=== PATIENT | female | born 1955 | race Caucasian/White ===

== ENCOUNTER 2022-12-05 12:52 | Outpatient (CLI) | payer MEDICARE | END 2022-12-05 12:53 | disposition critical access hospital (66) | LOC: EMS 12:52 | DX: R53.81 Other malaise (principal); R63.8 Other symptoms and signs concerning food and fluid intake; R11.0 Nausea; R68.83 Chills (without fever); R53.1 Weakness | CPT/HCPCS: A0425; A0427 ==

== ENCOUNTER 2022-12-05 13:14 | Emergency (ER) | payer MEDICARE ==
[2022-12-05] MEDS ORDERED: SODIUM CHLORIDE 0.9% 1,000 ML IV STA (13:29)
--- NOTE | 2022-12-05 13:32 | ED Physician Documentation ---
History of Present Illness - Stated complaint Stated Complaint: FLU LIKE SYMP - Additonal information Additional information: History provided by patient. Dg historian. 67-year-old female who has a history of coronary artery disease as well as type 1 diabetes presents to the emergency department for evaluation of 3 days flulike symptoms. She states she has had persistent diaphoresis, body shakes and chills though no recorded fevers. She has had no nausea or vomiting. Denies chest pain or shortness of air. No diarrhea. She states that she feels very poor. She incidentally reports asymptomatic COVID-19 infection 3 weeks ago. She is vaccinated for COVID 19. I am typically she was on an insulin pump for her diabetes receiving a basal rate of Humalog 26 units daily. However about 4 weeks ago because she ran out of supplies for the pump and could not get refills with her pcp, she had to transition to twice daily Lantus 15 units. On presentation the patient is alert to though appears as though she does not feel well. At baseline she has a an intention tremor of both her upper extremities. 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 No: Well developed/nourished - Cardiac Cardiac: Regular Rate, Radial strong equal, Pedal strong equal, Cap refill < 2 sec. No: Murmur Present - Respiratory Respiratory: Clear to ausultation mello. No: Distress, Labored - Abdomen Abdomen: Normal Bowel sounds. No: Tender to palpation - Extremities Extremities: Normal - Neuro Neuro: Alert and Oriented X 3, CNII-XII intact, Other (tremor BUE) - GCS Eye Opening: Spontaneous Motor: Obeys Commands Verbal: Oriented Total: 15 Results - Vitals Vitals: Vital Signs - 24 hr 12/05/22 12/05/22 13:20 13:37 Temperature 36.8 C Heart Rate 109 H 106 H Respiratory 20 14 Rate Blood Pressure 155/117 H 151/107 H O2 Saturation 100 100 Oxygen O2 Source Room air - Labs Labs: Laboratory Tests 12/05/22 12/05/22 12/05/22 13:27 13:37 13:37 WBC 7.1 RBC 5.26 Hgb 15.7 Hct 47.8 H MCV 90.9 MCH 29.8 MCHC 32.8 RDW 12.5 Plt Count 321 MPV 11.3 H Neut # (Auto) 4.5 Lymph # (Auto) 2.0 Casey # (Auto) 0.5 Eos # (Auto) 0.1 Baso # (Auto) 0.1 Absolute Nucleated RBC 0.00 Nucleated RBC % 0.0 VBG pH VBG pCO2 VBG pO2 VBG HCO3 VBG Total CO2 VBG O2 Saturation VBG Base Excess Sodium 139 Potassium 3.3 L Chloride 98 L Carbon Dioxide 23 Anion Gap 18.0 H BUN 13 Creatinine 1.3 H Estimated GFR (MDRD) 41 L Glucose 119 H Calcium 9.8 Total Bilirubin 1.1 H AST 28 ALT 24 Alkaline Phosphatase 89 Total Protein 8.0 Albumin 4.2 Globulin 3.8 Albumin/Globulin Ratio 1.1 Lipase 24 Urine Color Urine Clarity Urine pH Ur Specific [place] Urine Protein Urine Glucose (UA) Urine Ketones Urine Occult Blood Urine Nitrite Urine Bilirubin Urine Urobilinogen Ur Leukocyte Esterase Urine RBC Urine WBC Ur Squamous Epith Cells Urine Bacteria Ur Microscopic Review Urine Culture Comments Nasal Adenovirus (PCR) NOT DETECTED Nasal B. parapertussis DNA (PCR) NOT DETECTED Nasal Coronavir 229E PCR NOT DETECTED Nasal Coronavir HKU1 PCR NOT DETECTED Nasal Coronavir NL63 PCR NOT DETECTED Nasal Coronavir OC43 PCR NOT DETECTED Nasal Enterovir/Rhinovir PCR NOT DETECTED Nasal Influenza B PCR NOT DETECTED Nasal Influenza A PCR NOT DETECTED Nasal Parainfluen 1 PCR NOT DETECTED Nasal Parainfluen 2 PCR NOT DETECTED Nasal Parainfluen 3 PCR NOT DETECTED Nasal Parainfluen 4 PCR NOT DETECTED Nasal RSV (PCR) NOT DETECTED Nasal B.pertussis DNA PCR NOT DETECTED Nasal C.pneumoniae (PCR) NOT DETECTED Sarbjit Human Metapneumo PCR NOT DETECTED Nasal M.pneumoniae (PCR) NOT DETECTED Nasal SARS-CoV-2 (PCR) NOT DETECTED Serum Ketones SMALL H 12/05/22 12/05/22 13:37 14:09 WBC RBC Hgb Hct MCV MCH MCHC RDW Plt Count MPV Neut # (Auto) Lymph # (Auto) Casey # (Auto) Eos # (Auto) Baso # (Auto) Absolute Nucleated RBC Nucleated RBC % VBG pH 7.458 H VBG pCO2 40.9 L VBG pO2 < 19.0 L VBG HCO3 28.3 H VBG Total CO2 29.6 H VBG O2 Saturation 36.3 L VBG Base Excess 4.1 H Sodium Potassium Chloride Carbon Dioxide Anion Gap BUN Creatinine Estimated GFR (MDRD) Glucose Calcium Total Bilirubin AST ALT Alkaline Phosphatase Total Protein Albumin Globulin Albumin/Globulin Ratio Lipase Urine Color DARK YELLOW Urine Clarity SL. CLOUDY Urine pH 6.0 Ur Specific [place] >=1.030 H Urine Protein 30 H Urine Glucose (UA) NEGATIVE Urine Ketones 15 H Urine Occult Blood TRACE-INTA Urine Nitrite NEGATIVE Urine Bilirubin NEGATIVE Urine Urobilinogen 0.2 (NORMAL) Ur Leukocyte Esterase MODERATE H Urine RBC 6-10 H Urine WBC >25 H Ur Squamous Epith Cells MANY Squamous H Urine Bacteria Moderate H Ur Microscopic Review INDICATED Urine Culture Comments NOT INDICATED Nasal Adenovirus (PCR) Nasal B. parapertussis DNA (PCR) Nasal Coronavir 229E PCR Nasal Coronavir HKU1 PCR Nasal Coronavir NL63 PCR Nasal Coronavir OC43 PCR Nasal Enterovir/Rhinovir PCR Nasal Influenza B PCR Nasal Influenza A PCR Nasal Parainfluen 1 PCR Nasal Parainfluen 2 PCR Nasal Parainfluen 3 PCR Nasal Parainfluen 4 PCR Nasal RSV (PCR) Nasal B.pertussis DNA PCR Nasal C.pneumoniae (PCR) Sarbjit Human Metapneumo PCR Nasal M.pneumoniae (PCR) Nasal SARS-CoV-2 (PCR) Serum Ketones - Rads (name of study) cxr Radiology: Final report received (No acute cardiopulmonary process) PD Medical Decision Making - ED course Complexity details: reviewed results, re-evaluated patient, considered differential, d/w patient ED course: 67-year-old female presents to the emergency department for evaluation of flulike symptoms. Symptoms began 3 days ago. She has not had fevers but at home she is having rigors, chills and sweats. No measured fever at home or here. She denies chest pain or shortness of air. She is denying any abdominal pain nausea or vomiting. She just feels generally" unwell". Here in the emergency department she is alert though appears as though she does not feel good. Her cardiopulmonary auscultation was unremarkable. I elicited no abdominal tenderness. As she does have a history of diabetes I did obtain a CBC, electrolytes as well as ketones. Small amount of ketones in the blood but no acidosis. Her VBG was normal. She has no leukocytosis on CBC. Her electrolytes show a blood glucose of 119. Her potassium is mildly low. I suspect this is due to decreased p.o. intake. She did have a mildly elevated anion gap of 18, but normal Co2. her cr was 1.3. She was given a liter of IV fluids here in the emergency department. Her urinalysis is contaminated and she has no urinary symptoms. Here in the emergency department we did obtain a respiratory PCR panel that was also negative. Blood cultures x2 are pending. Here in the emergency department as she has had no hypotension. She does have mild tachycardia with a resting heart rate in the high 90s and low 100s. She appears well perfused however. At this time the cause of her flulike symptoms is not clear though I do suspect a viral illness despite the lack of findings on the PCR exam. Patient was administered a liter of IV fluid on presentation and she is reporting feeling better. At this time she will be discharged home. We discussed the usual emergent return precautions for uncontrolled abdominal pain, nausea, vomiting or failure of symptoms to resolve. Departure - Departure Disposition: 01 Home, Self Care Clinical Impression: Flu-like symptoms, History of type 1 diabetes mellitus, Hypokalemia Condition: Stable Record reviewed to determine appropriate education?: Yes Comments: Laverne fernandez came to the emergency department today because for the last few days she has been having generalized body aches, rigors and chills at home. You reported that you had COVID about 3 weeks ago. Here in the emergency department we did do a viral respiratory panel that was negative for all the viruses including influenza and COVID. Your chest x-ray was normal for age and did not show findings of pneumonia. Your urinalysis was contaminated and not consistent with infection. In addition to this you have had no urinary symptoms. We did obtain a CBC in the emergency department. You do not have any worrisome anemia or an elevated white blood cell count. Your electrolytes showed a blood glucose of 119. Your potassium was a little bit low but this is most likely due to decreased oral intake over the last few days. You are not in DKA. At this time the cause of your symptoms is not clear though I still suspect it is a virus. I would like you to stay well-hydrated at home by drinking lots of fluid or taking Pedialyte or juices. It is important you continue to check your blood sugars. If they are higher than 450 please return immediately to the ER. If you find that your symptoms are worsening over the next few days, you have uncontrolled vomiting, develop any belly pain, chest pain or shortness of air you should return immediately to the ER for a second evaluation
[2022-12-05 13:45] LABS: BASOPHILS # (AUTO) 0.1 10^3/uL (0.0-0.1); BASOPHILS % (AUTO) 0.8 %; EOSINOPHILS # (AUTO) 0.1 10^3/uL (0.0-0.7); EOSINOPHILS % (AUTO) 0.8 %; HCT - HEMATOCRIT 47.8 % (37.0-47.0); HGB - HEMOGLOBIN 15.7 g/dL (12.0-16.0); LYMPHOCYTES % (AUTO) 27.7 %; MEAN CORPUSCULAR HEMOGLOBIN 29.8 pg (27.0-31.0); MEAN CORPUSCULAR HGB CONC 32.8 g/dL (32.0-36.0); MEAN CORPUSCULAR VOLUME 90.9 fL (81.0-99.0); MEAN PLATELET VOLUME 11.3 fL (7.9-10.8); MONOCYTES # (AUTO) 0.5 10^3/uL (0.0-1.0); MONOCYTES % (AUTO) 6.5 %; NEUTROPHILS # (AUTO) 4.5 10^3/uL (1.5-6.6); NEUTROPHILS % (AUTO) 63.8 %; PLT - PLATELET COUNT 321 10^3/uL (130-450); RED BLOOD COUNT 5.26 10^6/uL (4.20-5.40); RED CELL DISTRIBUTION WIDTH 12.5 % (12.0-15.0); WHITE BLOOD COUNT 7.1 x10^3/uL (4.8-10.8)
[2022-12-05] MEDS ORDERED: ONDANSETRON 4 MG/2 ML VIAL IVP STA (13:45)
[2022-12-05 13:52] LABS: KETONES, SERUM (ACETEST) SMALL (NEGATIVE)
[2022-12-05 14:01] LABS: ALBUMIN 4.2 g/dL (3.2-5.5); ALBUMIN/GLOBULIN RATIO 1.1 (1.0-2.2); ALKALINE PHOSPHATASE 89 IU/L (42-121); ALT ALANINE AMINOTRANSFERASE 24 IU/L (10-60); AST ASPARTATE AMINOTRANSFERASE 28 IU/L (10-42); BILIRUBIN,TOTAL 1.1 mg/dL (0.2-1.0); BUN - BLOOD UREA NITROGEN 13 mg/dL (6-20); CALCIUM 9.8 mg/dL (8.5-10.3); CARBON DIOXIDE - CO2 23 mmol/L (21-32); CHLORIDE 98 mmol/L (101-111); CREATININE 1.3 mg/dL (0.4-1.0); GFR - MDRD 41 (>89); GLUCOSE 119 mg/dL (70-100); LIPASE 24 U/L (22-51); POTASSIUM 3.3 mmol/L (3.5-5.0); SODIUM 139 mmol/L (135-145)
[2022-12-05 14:06] LABS: VBG PCO2 40.9 mmHg (41-51); VBG PH 7.458 (7.31-7.41)
[2022-12-05 14:07] LABS: VBG BASE EXCESS 4.1 mmol/L (-2 - +2); VBG HCO3 28.3 mmol/L (23-28); VBG OXYGEN SATURATION 36.3 % (60-80); VBG PO2 < 19.0 mmHg (25-47); VBG TOTAL CO2 29.6 mmol/L (24-29)
[2022-12-05] MEDS ORDERED: KETOROLAC 30 MG/ML VIAL IVP STA (14:08)
[2022-12-05 14:22] LABS: GLUCOSE, URINE (UA) NEGATIVE (NEGATIVE); KETONES,URINE (UA) 15 mg/dL (NEGATIVE); LEUKOCYTE ESTERASE, URINE MODERATE (NEGATIVE); NITRITE,URINE NEGATIVE (NEGATIVE); OCCULT BLOOD,URINE TRACE-INTA (NEGATIVE); PROTEIN,URINE 30 mg/dL (NEGATIVE); UROBILINOGEN,URINE 0.2 (NORMAL) E.U./dL (NORMAL)
[2022-12-05 14:24] LABS: CLARITY,URINE SL. CLOUDY (CLEAR)
[2022-12-05 14:26] LABS: BILIRUBIN,URINE NEGATIVE (NEGATIVE); ICTOTEST,URINE NEGATIVE
[2022-12-05 14:35] LABS: BACTERIA,URINE Moderate /HPF (None Seen); SQUAMOUS EPITHELIAL CELL,UR MANY Squamous (<= Few); WBC,URINE >25 /HPF (0-5)
[2022-12-05 14:37] LABS: B. PARAPERTUSSIS- RESP PCR PAN NOT DETECTED; B. PERTUSSIS- RESP PCR PANEL NOT DETECTED; C. PNEUMONIAE- RESP PCR PANEL NOT DETECTED; CORONAVIRUS 229E-RESP PCR NOT DETECTED; CORONAVIRUS HKU1-RESP PCR NOT DETECTED; CORONAVIRUS NL63-RESP PCR NOT DETECTED; CORONAVIRUS OC43-RESP PCR NOT DETECTED; HUMAN METAPNEUMOVIRUS NOT DETECTED; INFLUENZA A- RESP PCR PANEL NOT DETECTED; INFLUENZA B - RESP PCR PANEL NOT DETECTED; M. PNEUMONIAE- RESP PCR PANEL NOT DETECTED; PARAINFLUENZA VIRUS 1 NOT DETECTED; PARAINFLUENZA VIRUS 2 NOT DETECTED; PARAINFLUENZA VIRUS 3 NOT DETECTED; PARAINFLUENZA VIRUS 4 NOT DETECTED; RHINOVIRUS/ENTEROVIRUS NOT DETECTED; RSV- RESP PCR PANEL NOT DETECTED; SARS-CoV-2 -RESP PCR PANEL NOT DETECTED
--- NOTE | 2022-12-05 15:02 | XRAY Report ---
PROCEDURE: Chest 1 View X-Ray INDICATIONS: chest pain TECHNIQUE: One view of the chest was acquired. COMPARISON: None. FINDINGS: Surgical changes and devices: None. Lungs and pleura: No pleural effusions or pneumothorax. Lungs are clear. Mediastinum: Mediastinal contours appear normal. Heart size is normal. Bones and chest wall: No suspicious bony lesions. Overlying soft tissues appear unremarkable. IMPRESSION: No acute cardiopulmonary process demonstrated radiographically. Reviewed by: Chad Tatum MD on 12/05/2022 3:01 PM [facility] Approved by: Chad Tatum MD on 12/05/2022 3:01 PM [facility] Station ID: [id number]
[2022-12-05 15:51] VITALS: BP 161/92
== END 2022-12-05 16:08 | disposition home or self-care (01) ==
LOC: EDUNIT# → ED 13:14
DX: E10.9 Type 1 diabetes mellitus without complications (principal); Z79.4 Long term (current) use of insulin; E87.6 Hypokalemia
CPT/HCPCS: 36415; 80053; 81001; 81003; 82009; 82803; 83690; 85025; 87040; 87086; 87633; 96360; 99284

== ENCOUNTER 2022-12-10 09:54 | Outpatient (CLI) | payer MEDICARE ==
[2022-12-10 12:21] LABS: BASOPHILS % (AUTO) 0.6 %; EOSINOPHILS # (AUTO) 0.1 10^3/uL (0.0-0.7); EOSINOPHILS % (AUTO) 1.4 %; HCT - HEMATOCRIT 47.3 % (37.0-47.0); HGB - HEMOGLOBIN 15.5 g/dL (12.0-16.0); LYMPHOCYTES # (AUTO) 1.7 10^3/uL (1.5-3.5); LYMPHOCYTES % (AUTO) 24.1 %; MEAN CORPUSCULAR HEMOGLOBIN 29.9 pg (27.0-31.0); MEAN CORPUSCULAR HGB CONC 32.8 g/dL (32.0-36.0); MEAN CORPUSCULAR VOLUME 91.3 fL (81.0-99.0); MEAN PLATELET VOLUME 11.7 fL (7.9-10.8); MONOCYTES # (AUTO) 0.4 10^3/uL (0.0-1.0); MONOCYTES % (AUTO) 5.8 %; NEUTROPHILS # (AUTO) 4.8 10^3/uL (1.5-6.6); NEUTROPHILS % (AUTO) 67.8 %; PLT - PLATELET COUNT 344 10^3/uL (130-450); RED BLOOD COUNT 5.18 10^6/uL (4.20-5.40); RED CELL DISTRIBUTION WIDTH 12.8 % (12.0-15.0); WHITE BLOOD COUNT 7.1 x10^3/uL (4.8-10.8)
[2022-12-10 12:50] LABS: GLUCOSE, URINE (UA) NEGATIVE (NEGATIVE); KETONES,URINE (UA) TRACE mg/dL (NEGATIVE); LEUKOCYTE ESTERASE, URINE SMALL (NEGATIVE); NITRITE,URINE NEGATIVE (NEGATIVE); OCCULT BLOOD,URINE NEGATIVE (NEGATIVE); PH,URINE 5.5 PH (5.0-7.5); PROTEIN,URINE 30 mg/dL (NEGATIVE); UROBILINOGEN,URINE 0.2 (NORMAL) E.U./dL (NORMAL)
[2022-12-10 12:58] LABS: CLARITY,URINE CLEAR (CLEAR)
[2022-12-10 13:02] LABS: BACTERIA,URINE Few /HPF (None Seen); BILIRUBIN,URINE NEGATIVE (NEGATIVE); ICTOTEST,URINE NEGATIVE; RBC,URINE 0-5 /HPF (0-5); SQUAMOUS EPITHELIAL CELL,UR FEW Squamous (<= Few)
[2022-12-10 13:03] LABS: CRYSTALS,URINE 0-2 Calcium Oxalate /LPF
[2022-12-10 13:24] LABS: THYROID STIMULATING HORMONE 1.35 uIU/mL (0.34-5.60)
[2022-12-10 13:26] LABS: FREE T4 (FREE THYROXINE) 0.76 ng/dL (0.58-1.64)
[2022-12-10 13:54] LABS: ALBUMIN 4.1 g/dL (3.2-5.5); ALKALINE PHOSPHATASE 94 IU/L (42-121); ALT ALANINE AMINOTRANSFERASE 17 IU/L (10-60); AST ASPARTATE AMINOTRANSFERASE 24 IU/L (10-42); BILIRUBIN,TOTAL 0.6 mg/dL (0.2-1.0); BUN - BLOOD UREA NITROGEN 17 mg/dL (6-20); CALCIUM 9.7 mg/dL (8.5-10.3); CARBON DIOXIDE - CO2 30 mmol/L (21-32); CHLORIDE 102 mmol/L (101-111); CREATININE 1.3 mg/dL (0.4-1.0); GFR - MDRD 41 (>89); GLUCOSE 75 mg/dL (70-100); POTASSIUM 3.6 mmol/L (3.5-5.0); SODIUM 140 mmol/L (135-145); TOTAL PROTEIN 8.2 g/dL (6.7-8.2)
[2022-12-10 14:11] LABS: CRP - C-REACTIVE PROTEIN < 1.0 mg/dL (0-1.0)
[2022-12-12 02:07] LABS: HIV SCREEN 4TH GENERATION Non Reactive (Non Reactive)
== END 2022-12-10 09:55 | disposition home or self-care (01) ==
LOC: LAB.N 09:54
PROVIDERS: ATTEND Physician Assistant
DX: R61 Generalized hyperhidrosis (principal)
CPT/HCPCS: 36415; 80053; 81001; 84439; 84443; 85025; 85651; 86140; 87086; G0475; 87389

== ENCOUNTER 2023-01-18 09:52 | Outpatient (CLI) | payer MEDICARE ==
[2023-01-18] MEDS ORDERED: iohexoL-300 100 ML VIAL ONE (09:58)
[2023-01-18] MEDS ORDERED: DIATR MEGLU/DIATRIZOATE SODIUM 120 ML BOTTLE ONE (09:58)
[2023-01-18 10:15] LABS: CREATININE 1.4 mg/dL (0.4-1.0)
[2023-01-18] MEDS ORDERED: iohexoL-300 100 ML VIAL IVP ONE (11:15)
[2023-01-18] MEDS ORDERED: DIATRIZOATE MEGLU/DIATRIZO SOD 30 ML BOTTLE PO ONE (11:15)
--- NOTE | 2023-01-18 11:28 | CT Report ---
PROCEDURE: CHEST W INDICATIONS: HYPERHIDROSIS, UNINTENTIONAL WEIGHT LOSS CONTRAST:100ml omni 300 TECHNIQUE: After the administration of intravenous contrast, 1 mm axial images were acquired from the pulmonary apices through the posterior costophrenic angles. Axial 5 mm soft tissue kernel reconstructions were performed as well as 8 mm axial MIP and coronal and sagittal 5 mm reformations. For radiation dose reduction, the following was used: automated exposure control, adjustment of mA and/or kV according to patient size. COMPARISON: None FINDINGS: Image quality: Excellent. Lungs and pleura: 4 mm nodule within the lingula (3/155). Mediastinum: Heart size is normal. No pericardial effusions. No mediastinal adenopathy by size criter ia. No large vessel abnormality. Marked coronary artery calcification for age. Chest wall and lower neck: No thyroid nodule which requires sonographic follow up. No axillary or sup raclavicular adenopathy by size. Bones: No aggressive osseous abnormality. Upper Abdomen: Please see dedicated CT abdomen and pelvis. IMPRESSION: A 4 mm solid nodule within the lingula. Consider 12 month follow-up if this patient is at high risk f or developing lung cancer, per Fleischner Society guidelines.5 Reviewed by: rKaig Hernandez on 01/18/2023 11:27 AM PDT Approved by: Kraig Hernandez on 01/18/2023 11:27 AM PDT Station ID: [id number]
--- NOTE | 2023-01-18 11:58 | CT Report ---
PROCEDURE: ABDOMEN/PELVIS W INDICATIONS: HYPERHIDROSIS, UNINTENTIONAL WEIGHT LOSS CONTRAST: : 100ml omni 300 TECHNIQUE: After the administration of oral and intravenous contrast, 5 mm thick sections acquired from the diap hragms to the symphysis. 5 mm thick coronal and sagittal reformats were acquired. For radiation dos e reduction, the following was used: automated exposure control, adjustment of mA and/or kV accordin g to patient size. COMPARISON: None FINDINGS: Lung bases and heart: Please see dedicated chest CT for further discussion.. Liver: Unremarkable. Gallbladder and biliary tree: Unremarkable. Bile ducts measure within normal limits. Spleen: Unremarkable. Pancreas: Unremarkable. Adrenals: No nodules. Kidneys: Unremarkable. Bowel and peritoneum: There is significant distention of the stomach and proximal duodenum. There is a transition point in the third segment of the duodenum. Lymph nodes: No central or retroperitoneal adenopathy. Vessels: Narrowing of the aortomesenteric distance and borderline decreased aortomesenteric angle. PELVIS Reproductive organs: Unremarkable. Bladder and ureters: Unremarkable. Lymph nodes: No pelvic adenopathy. Bones: No aggressive osseous abnormality. 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 There is narrowing of the aortomesenteric distance a nd angle. Findings could explain the patient's nausea and weight loss. Reviewed by: Kraig Hernandez on 01/18/2023 11:56 AM PDT Approved by: Kraig Hernandez on 01/18/2023 11:56 AM PDT Station ID: [id number]
== END 2023-01-18 09:53 | disposition home or self-care (01) ==
LOC: LAB 09:52
PROVIDERS: ATTEND Physician Assistant
DX: R61 Generalized hyperhidrosis (principal); R63.4 Abnormal weight loss; R91.1 Solitary pulmonary nodule; K31.89 Other diseases of stomach and duodenum; R93.5 Abnormal findings on diagnostic imaging of other abdominal regions, including retroperitoneum
CPT/HCPCS: 36415; 71260; 74177; 82565; Q9963; Q9967

== ENCOUNTER 2023-01-29 18:16 | Emergency (ER) | payer MEDICARE ==
[2023-01-29 18:58] LABS: BASOPHILS # (AUTO) 0.1 10^3/uL (0.0-0.1); BASOPHILS % (AUTO) 0.8 %; EOSINOPHILS # (AUTO) 0.1 10^3/uL (0.0-0.7); EOSINOPHILS % (AUTO) 1.1 %; HCT - HEMATOCRIT 49.1 % (37.0-47.0); HGB - HEMOGLOBIN 16.2 g/dL (12.0-16.0); LYMPHOCYTES # (AUTO) 2.6 10^3/uL (1.5-3.5); LYMPHOCYTES % (AUTO) 36.5 %; MEAN CORPUSCULAR HEMOGLOBIN 30.4 pg (27.0-31.0); MEAN CORPUSCULAR VOLUME 92.1 fL (81.0-99.0); MEAN PLATELET VOLUME 11.2 fL (7.9-10.8); MONOCYTES # (AUTO) 0.4 10^3/uL (0.0-1.0); MONOCYTES % (AUTO) 5.8 %; NEUTROPHILS % (AUTO) 55.7 %; PLT - PLATELET COUNT 326 10^3/uL (130-450); RED BLOOD COUNT 5.33 10^6/uL (4.20-5.40); RED CELL DISTRIBUTION WIDTH 13.2 % (12.0-15.0); WHITE BLOOD COUNT 7.2 x10^3/uL (4.8-10.8)
[2023-01-29 19:12] LABS: ALBUMIN 4.3 g/dL (3.2-5.5); ALBUMIN/GLOBULIN RATIO 1.2 (1.0-2.2); BILIRUBIN,TOTAL 0.7 mg/dL (0.2-1.0); CALCIUM 9.7 mg/dL (8.5-10.3); CREATININE 1.4 mg/dL (0.4-1.0); POTASSIUM 4.3 mmol/L (3.5-5.0); TOTAL PROTEIN 7.9 g/dL (6.7-8.2)
[2023-01-29 21:14] LABS: BILIRUBIN,URINE NEGATIVE (NEGATIVE); GLUCOSE, URINE (UA) NEGATIVE (NEGATIVE); KETONES,URINE (UA) TRACE mg/dL (NEGATIVE); LEUKOCYTE ESTERASE, URINE SMALL (NEGATIVE); NITRITE,URINE NEGATIVE (NEGATIVE); OCCULT BLOOD,URINE NEGATIVE (NEGATIVE); PH,URINE 5.5 PH (5.0-7.5); PROTEIN,URINE NEGATIVE (NEGATIVE); UROBILINOGEN,URINE 0.2 (NORMAL) E.U./dL (NORMAL)
[2023-01-29 21:16] LABS: CLARITY,URINE CLEAR (CLEAR)
[2023-01-29] MEDS ORDERED: SODIUM CHLORIDE 0.9% 1,000 ML IV STA ×2 (21:23→23:16)
[2023-01-29 21:24] LABS: BACTERIA,URINE Few /HPF (None Seen); RBC,URINE 0-5 /HPF (0-5); SQUAMOUS EPITHELIAL CELL,UR FEW Squamous (<= Few); WBC CLUMPS,URINE PRESENT
[2023-01-29 21:25] LABS: CASTS, URINE 3-5 Hyaline Casts /LPF
[2023-01-29] MEDS ORDERED: cefTRIAXone 1 GM VIAL IVP STA (21:25)
--- OUTSIDE RECORDS SUMMARY | 2023-01-29 21:32 | EXTERNAL MEDICAL SUMMARY RPT | Continuity of Care Document ---
:1955 Author Organization [facility] Address [address] [place] [address] Phone Care Team Providers Name Role Phone Unavailable Unavailable Unavailable Rich Olsen Unavailable Unavailable Allergies and Intolerances date description facility type (no date) codeine [facility] (unknown) (no date) hydrocodone [facility] (unknown) (no date) meperidine [facility] (unknown) (no date) morphine [facility] (unknown) Encounters No information. Functional Status No information. Immunizations No information. Medications No information. Problems date description facility 2022-11-23 00:00 Change in vision [facility] 2022-11-23 00:00 Syncope [facility] 2022-11-23 00:00 COVID-19 virus infection [facility] Procedures date description facility 2022-11-23 00:00 Computed tomography of head or brain wi [facility] contrast 2022-11-23 00:00 X-ray of chest, single view [facility] 2022-11-23 00:00 Computed tomography angiography of head and [facility] neck vessels with contrast Results/Labs test date author facility value unit interpret ation Result panel 1 (unknown) (no date[facility]) Result panel 2 (unknown) (no date) (unknown[facility] Result panel 3 (unknown) (no date) (unknown[facility]) Result panel 4 (unknown) (no date) (unknown[facility]) Result panel 5 (unknown) (no date) (unknown[facility]) Result panel 6 (unknown) (no date) (unknown[facility]) Result panel 7 (unknown) (no date) (unknown[facility]) Result panel 8 (unknown) (no date) (unknown[facility]) Result panel 9 (unknown) (no date) (unknown[facility]) Result panel 10 (unknown) (no date) (unknown[facility]) Result panel 11 (unknown) (no date) (unknown[facility]) Result panel 12 (unknown) (no date) (unknown[facility]) Result panel 13 (unknown) (no date) (unknown[facility]) Result panel 14 (unknown) (no date) (unknown[facility]) Result panel 15 (unknown) (no date) (unknown[facility]) Result panel 16 (unknown) (no date) (unknown[facility]) Result panel 17 (unknown) (no date) (unknown[facility]) Result panel 18 (unknown) (no date) (unknown[facility]) Result panel 19 (unknown) (no date) (unknown[facility]) Result panel 20 (unknown) (no date) (unknown[facility]) Result panel 21 (unknown) (no date) (unknown[facility]) Result panel 22 (unknown) (no date) (unknown[facility]) Result panel 23 (unknown) (no date) (unknown[facility]) Result panel 24 (unknown) (no date) (unknown[facility]) Result panel 25 (unknown) (no date) (unknown[facility]) Result panel 26 (unknown) (no date) (unknown[facility]) Result panel 27 (unknown) (no date) (unknown[facility]) Result panel 28 (unknown) (no date) (unknown[facility]) Result panel 29 (unknown) (no date) (unknown[facility]) Result panel 30 (unknown) (no date) (unknown[facility]) Result panel 31 (unknown) (no date) (unknown[facility]) Result panel 32 (unknown) (no date) (unknown[facility]) Result panel 33 (unknown) (no date) (unknown[facility]) Result panel 34 (unknown) (no date) (unknown[facility]) Result panel 35 (unknown) (no date) (unknown[facility]) Result panel 36 (unknown) (no date) (unknown[facility]) Result panel 37 (unknown) (no date) (unknown[facility]) Result panel 38 (unknown) (no date) (unknown[facility]) Result panel 39 (unknown) (no date) (unknown[facility]) Result panel 40 (unknown) (no date) (unknown[facility]) Result panel 41 (unknown) (no date) (unknown[facility]) Result panel 42 (unknown) (no date) (unknown[facility]) Result panel 43 (unknown) (no date) (unknown[facility]) Result panel 44 (unknown) (no date) (unknown[facility]) Result panel 45 (unknown) (no date) (unknown[facility]) Result panel 46 (unknown) (no date) (unknown[facility]) Result panel 47 (unknown) (no date) (unknown[facility]) Result panel 48 (unknown) (no date) (unknown[facility]) Result panel 49 (unknown) (no date) (unknown[facility]) Result panel 50 (unknown) (no date) (unknown[facility]) Result panel 51 (unknown) (no date) (unknown[facility]) Result panel 52 (unknown) (no date) (unknown[facility]) Result panel 53 (unknown) (no date) (unknown[facility]) Result panel 54 (unknown) (no date) (unknown[facility]) Result panel 55 (unknown) (no date) (unknown[facility]) Result panel 56 (unknown) (no date) (unknown[facility]) Result panel 57 (unknown) (no date) (unknown[facility]) Result panel 58 (unknown) (no date) (unknown[facility]) Result panel 59 (unknown) (no date) (unknown[facility]) Result panel 60 (unknown) (no date) (unknown[facility]) Result panel 61 (unknown) (no date) (unknown[facility]) Result panel 62 (unknown) (no date) (unknown[facility]) Result panel 63 (unknown) (no date) (unknown[facility]) Result panel 64 (unknown) (no date) (unknown[facility]) Result panel 65 (unknown) (no date) (unknown[facility]) Result panel 66 (unknown) (no date) (unknown[facility]) Result panel 67 (unknown) (no date) (unknown[facility]) Result panel 68 (unknown) (no date) (unknown[facility]) Result panel 69 (unknown) (no date) (unknown[facility]) Result panel 70 (unknown) (no date) (unknown[facility]) Result panel 71 (unknown) (no date) (unknown[facility]) Result panel 72 (unknown) (no date) (unknown[facility]) Result panel 73 (unknown) (no date) (unknown[facility]) Result panel 74 (unknown) (no date) (unknown[facility]) Result panel 75 (unknown) (no date) (unknown[facility]) Result panel 76 (unknown) (no date) (unknown[facility]) Result panel 77 (unknown) (no date) (unknown[facility]) Result panel 78 (unknown) (no date) (unknown[facility]) Result panel 79 (unknown) (no date) (unknown[facility]) Result panel 80 (unknown) (no date) (unknown[facility]) Result panel 81 (unknown) (no date) (unknown[facility]) Result panel 82 (unknown) (no date) (unknown[facility]) Result panel 83 (unknown) (no date) (unknown[facility]) Result panel 84 (unknown) (no date) (unknown[facility]) Result panel 85 (unknown) (no date) (unknown[facility]) Result panel 86 (unknown) (no date) (unknown[facility]) Result panel 87 (unknown) (no date) (unknown[facility]) Result panel 88 (unknown) (no date) (unknown[facility]) Result panel 89 (unknown) (no date) (unknown[facility]) Result panel 90 (unknown) (no date) (unknown[facility]) Result panel 91 (unknown) (no date) (unknown[facility]) Result panel 92 (unknown) (no date) (unknown[facility]) Result panel 93 (unknown) (no date) (unknown[facility]) Result panel 94 (unknown) (no date) (unknown[facility]) Result panel 95 (unknown) (no date) (unknown[facility]) Result panel 96 (unknown) (no date) (unknown[facility]) Result panel 97 (unknown) (no date) (unknown[facility]) Result panel 98 (unknown) (no date) (unknown[facility]) Result panel 99 (unknown) (no date) (unknown[facility]) Result panel 100 (unknown) (no date) (unknown[facility]) Result panel 101 (unknown) (no date) (unknown[facility]) Result panel 102 (unknown) (no date) (unknown[facility]) Result panel 103 (unknown) (no date) (unknown[facility]) Result panel 104 (unknown) (no date) (unknown[facility]) Result panel 105 (unknown) (no date) (unknown[facility]) Result panel 106 (unknown) (no date) (unknown[facility]) Result panel 107 (unknown) (no date) (unknown[facility]) Result panel 108 (unknown) (no date) (unknown[facility]) Result panel 109 (unknown) (no date) (unknown[facility]) Result panel 110 (unknown) (no date) (unknown[facility]) Result panel 111 (unknown) (no date) (unknown[facility]) Result panel 112 (unknown) (no date) (unknown[facility]) Result panel 113 (unknown) (no date) (unknown[facility]) Result panel 114 (unknown) (no date) (unknown[facility]) Result panel 115 (unknown) (no date) (unknown[facility]) Result panel 116 (unknown) (no date) (unknown[facility]) Result panel 117 (unknown) (no date) (unknown[facility]) Result panel 118 (unknown) (no date) (unknown[facility]) Result panel 119 (unknown) (no date) (unknown[facility]) Result panel 120 (unknown) (no date) (unknown[facility]) Result panel 121 (unknown) (no date) (unknown[facility]) Result panel 122 (unknown) (no date) (unknown[facility]) Result panel 123 (unknown) (no date) (unknown[facility]) Result panel 124 (unknown) (no date) (unknown[facility]) Result panel 125 (unknown) (no date) (unknown[facility]) Result panel 126 (unknown) (no date) (unknown[facility]) Result panel 127 (unknown) (no date) (unknown[facility]) Result panel 128 (unknown) (no date) (unknown[facility]) Result panel 129 (unknown) (no date) (unknown[facility]) Result panel 130 (unknown) (no date) (unknown[facility]) Result panel 131 (unknown) (no date) (unknown[facility]) Result panel 132 (unknown) (no date) (unknown[facility]) Result panel 133 (unknown) (no date) (unknown[facility]) Result panel 134 (unknown) (no date) (unknown[facility]) Result panel 135 (unknown) (no date) (unknown[facility]) Result panel 136 (unknown) (no date) (unknown[facility]) Result panel 137 (unknown) (no date) (unknown[facility]) Result panel 138 (unknown) (no date) (unknown[facility]) Result panel 139 (unknown) (no date) (unknown[facility]) Result panel 140 (unknown) (no date) (unknown[facility]) Result panel 141 (unknown) (no (unknown) (unknown) (no value) (units (unk nown) date) unknown) (unknown) (no (unknown) (unknown) 11/23/22 (units (unkno wn) date) unknown) (unknown) (no (unknown) (unknown) [address] [place] [address] (units (unknown) date) unknown) (unknown) (no (unknown) (unknown) [id number] (units (unkno wn) date) unknown) (unknown) (no (unknown) (unknown) Accession Number: (units (unknown) date) [id number] unknown) (unknown) (no (unknown) (unknown) Age/Sex: 67 / F (units (unknown) date) Date of Service: unknown) (unknown) (no (unknown) (unknown) CEFER[facility] [place]fan (units ( unknown) date) [id number] unknown) (unknown) (no (unknown) (unknown) Approved by: Stefanie (units (unknown) date) Joann Bullard on unknown) 11/23/2022 at 11:58 (unknown) (no (unknown) (unknown) Bones and chest (units (unknown) date) wall: No unknown) suspicious bony lesions. Overlying soft tissues (unknown) (no (unknown) (unknown) COMPARISON: (units (un known) date) [facility], unknown) CR, XR CHEST 1V, 07/27/2022, 12:32. (unknown) (no (unknown) (unknown) : 1955 (units (unknown) date) Acct:[id number] unknown) (unknown) (no (unknown) (unknown) Dictated by: Stefanie (units (unknown) date) Joann Bullard on unknown) 11/23/2022 at 11:58 (unknown) (no (unknown) (unknown) FINDINGS: (units (unkn own) date) unknown) (unknown) (no (unknown) (unknown) IMPRESSION: No (units (unknown) date) acute unknown) cardiopulmonary findings. (unknown) (no (unknown) (unknown) INDICATIONS: (units (u nknown) date) chest pain unknown) (unknown) (no (unknown) (unknown) [facility] (units (unknown) date) unknown) (unknown) (no (unknown) (unknown) Loc: ED (units (unkno wn) date) unknown) (unknown) (no (unknown) (unknown) Lungs and pleura: (units (unknown) date) Lungs are clear. unknown) No pleural effusions or pneumothorax. (unknown) (no (unknown) (unknown) Mediastinum: (units (u nknown) date) Mediastinal unknown) contours appear normal. Heart size is normal. (unknown) (no (unknown) (unknown) Ordering (units (unkno wn) date) Provider: unknown) Mank,Risa C D.O. (unknown) (no (unknown) (unknown) PROCEDURE: XR (units ( unknown) date) CHEST 1V unknown) (unknown) (no (unknown) (unknown) Patient: (units (unkno wn) date) Laverne Mendoza MR#: unknown) [id number] (unknown) (no (unknown) (unknown) Procedure: XR (units ( unknown) date) chest 1V unknown) (unknown) (no (unknown) (unknown) Signed (units (unkno wn) date) unknown) (unknown) (no (unknown) (unknown) Surgical changes (units (unknown) date) and devices: None. unknown) (unknown) (no (unknown) (unknown) TECHNIQUE: One (units (unknown) date) view of the chest unknown) was acquired. (unknown) (no (unknown) (unknown) XRay Report (units (un known) date) unknown) (unknown) (no (unknown) (unknown) appear (units (unkno wn) date) unknown) (unknown) (no (unknown) (unknown) unremarkable. (units ( unknown) date) unknown) Result panel 142 (unknown) (no (unknown) (unknown) (no value) (units (unk nown) date) unknown) (unknown) (no (unknown) (unknown) 11/23/22 (units (unkno wn) date) unknown) (unknown) (no (unknown) (unknown) [address] [place] [address] (units (unknown) date) unknown) (unknown) (no (unknown) (unknown) [id number] (units (unkno wn) date) unknown) (unknown) (no (unknown) (unknown) Accession Number: (units (unknown) date) [id number] unknown) (unknown) (no (unknown) (unknown) Accession Number: (units (unknown) date) [id number] unknown) (unknown) (no (unknown) (unknown) Age/Sex: 67 / F (units (unknown) date) Date of Service: unknown) (unknown) (no (unknown) (unknown) [place], [place] (units ( unknown) date) [id number] unknown) (unknown) (no (unknown) (unknown) Anterior (units (unkno wn) date) circulation: unknown) Intracranial internal carotid arteries are normal in (unknown) (no (unknown) (unknown) Any quantitative (units (unknown) date) measurements of unknown) stenosis were performed using NASCET criteria. (unknown) (no (unknown) (unknown) Approved by: (units (u nknown) date) Chad Tatum M.D. unknown) on 11/23/2022 at 12:34 (unknown) (no (unknown) (unknown) Approved by: (units (u nknown) date) Chad Tatum M.D. unknown) on 11/23/2022 at 12:39 (unknown) (no (unknown) (unknown) BRAIN: (units (unkno wn) date) unknown) (unknown) (no (unknown) (unknown) Bones: No (units (unkn own) date) suspicious bony unknown) lesions. Visualized cervical spine appears normally (unknown) (no (unknown) (unknown) Both carotid (units (u nknown) date) bifurcations are unknown) widely patent with only minimal atherosclerotic (unknown) (no (unknown) (unknown) Brain: No (units (unkn own) date) intracranial unknown) bleeds or masses. There is mild cerebral volume loss (unknown) (no (unknown) (unknown) Brain: No midline (units (unknown) date) shift. No unknown) intracranial bleeds or masses. Valles-white matter (unknown) (no (unknown) (unknown) COMPARISON: (units (un known) date) [facility], unknown) CT, CT HEAD/BRAIN WO CON, 07/27/2022, 12:56. (unknown) (no (unknown) (unknown) COMPARISON: None. (units (unknown) date) unknown) (unknown) (no (unknown) (unknown) CSF spaces: Basal (units (unknown) date) cisterns are unknown) patent. No extra-axial fluid collections. The (unknown) (no (unknown) (unknown) CSF spaces: (units (un known) date) Ventricles are unknown) normal in size and shape. Basal cisterns are (unknown) (no (unknown) (unknown) CT Scan Report (units (unknown) date) unknown) (unknown) (no (unknown) (unknown) Carotid system: (units (unknown) date) The aortic arch unknown) and bilateral common carotid arteries are (unknown) (no (unknown) (unknown) : 1955 (units (unknown) date) Acct:[id number] unknown) (unknown) (no (unknown) (unknown) Dictated by: (units (u nknown) date) Chad Tatum M.D. unknown) on 11/23/2022 at 12:34 (unknown) (no (unknown) (unknown) Dictated by: (units (u nknown) date) Chad Tatum M.D. unknown) on 11/23/2022 at 12:35 (unknown) (no (unknown) (unknown) FINDINGS: (units (unkn own) date) unknown) (unknown) (no (unknown) (unknown) HEAD CT (units (unkno wn) date) ANGIOGRAPHY: unknown) (unknown) (no (unknown) (unknown) IMPRESSION: No (units (unknown) date) acute intracranial unknown) finding. (unknown) (no (unknown) (unknown) IMPRESSION: No (units (unknown) date) hemodynamically unknown) significant stenosis or occlusion of the major (unknown) (no (unknown) (unknown) INDICATIONS: (units (u nknown) date) syncope, vision unknown) loss. (unknown) (no (unknown) (unknown) INDICATIONS: (units (u nknown) date) vision loss eye, unknown) intermittent syncope (unknown) (no (unknown) (unknown) Image quality: (units (unknown) date) Excellent. unknown) (unknown) (no (unknown) (unknown) [facility] (units (unknown) date) unknown) (unknown) (no (unknown) (unknown) Loc: ED (units (unkno wn) date) unknown) (unknown) (no (unknown) (unknown) NECK CT (units (unkno wn) date) ANGIOGRAPHY: unknown) (unknown) (no (unknown) (unknown) Noncontrast 4.5 (units (unknown) date) mm thick angled unknown) axial sections acquired from the foramen magnum (unknown) (no (unknown) (unknown) Orbits appear (units ( unknown) date) normal. unknown) (unknown) (no (unknown) (unknown) Ordering (units (unkno wn) date) Provider: unknown) Risa Aquino D.O. (unknown) (no (unknown) (unknown) PROCEDURE: CT (units ( unknown) date) ANGIO HEAD AND unknown) NECK (unknown) (no (unknown) (unknown) PROCEDURE: CT (units ( unknown) date) HEAD/BRAIN WO CON unknown) (unknown) (no (unknown) (unknown) Patient: (units (unkno wn) date) Laverne Mendoza MR#: unknown) [id number] (unknown) (no (unknown) (unknown) Posterior (units (unkn own) date) circulation: The unknown) origins of the vertebral arteries both appear (unknown) (no (unknown) (unknown) Posterior (units (unkn own) date) circulation: unknown) Visualized portions of the vertebral arteries (unknown) (no (unknown) (unknown) Pre-contrast 4.5 (units (unknown) date) mm thick sections unknown) acquired from the foramen magnum to the (unknown) (no (unknown) (unknown) Procedure: CT (units ( unknown) date) angio head and unknown) neck (unknown) (no (unknown) (unknown) Procedure: CT (units ( unknown) date) head/brain wo con unknown) (unknown) (no (unknown) (unknown) Signed (units (unkno wn) date) unknown) (unknown) (no (unknown) (unknown) Sinuses: Mild (units ( unknown) date) diffuse paranasal unknown) sinus mucosal thickening. (unknown) (no (unknown) (unknown) Sinuses: (units (unkno wn) date) Visualized sinuses unknown) and mastoids are clear. (unknown) (no (unknown) (unknown) Skull and face: (units (unknown) date) Calvarium and unknown) facial bones appear intact, without suspicious (unknown) (no (unknown) (unknown) Skull and face: (units (unknown) date) Calvarium and unknown) visualized facial bones appear intact, without (unknown) (no (unknown) (unknown) Soft tissues: (units ( unknown) date) Visualized neck unknown) soft tissues demonstrate no suspicious (unknown) (no (unknown) (unknown) TECHNIQUE: (units (unk nown) date) unknown) (unknown) (no (unknown) (unknown) The flow within (units (unknown) date) the middle unknown) cerebral arteries is normal and symmetric. The (unknown) (no (unknown) (unknown) The more superior (units (unknown) date) extracranial unknown) portions of both vertebral arteries also (unknown) (no (unknown) (unknown) abnormalities. (units (unknown) date) unknown) (unknown) (no (unknown) (unknown) aligned. (units (unkno wn) date) unknown) (unknown) (no (unknown) (unknown) and neck (units (unkno wn) date) separately. For unknown) radiation dose reduction, the following was used: (unknown) (no (unknown) (unknown) and/or volume (units ( unknown) date) rendering unknown) reformats were acquired of the central intracranial (unknown) (no (unknown) (unknown) anterior (units (unkno wn) date) unknown) (unknown) (no (unknown) (unknown) appears intact. (units (unknown) date) unknown) (unknown) (no (unknown) (unknown) arch through the (units (unknown) date) [place]. unknown) Post-contrast 4.5 mm thick sections then (unknown) (no (unknown) (unknown) arteries and (units (u nknown) date) unknown) (unknown) (no (unknown) (unknown) artery. (units (unkno wn) date) unknown) (unknown) (no (unknown) (unknown) automated (units (unkn own) date) unknown) (unknown) (no (unknown) (unknown) calcifications (units (unknown) date) unknown) (unknown) (no (unknown) (unknown) caliber, and join (units (unknown) date) to form a normal unknown) appearing basilar artery. Flow within the (unknown) (no (unknown) (unknown) carotid artery (units (unknown) date) atherosclerosis. unknown) (unknown) (no (unknown) (unknown) carotid termini (units (unknown) date) are widely patent. unknown) (unknown) (no (unknown) (unknown) cerebral arteries (units (unknown) date) is normal and unknown) symmetric. No aneurysms are seen. (unknown) (no (unknown) (unknown) communicating (units ( unknown) date) artery is seen. No unknown) aneurysms are seen. Atherosclerotic (unknown) (no (unknown) (unknown) deep white matter (units (unknown) date) chronic small unknown) vessel ischemic changes. There is intracranial (unknown) (no (unknown) (unknown) demonstrate (units (un known) date) normal unknown) (unknown) (no (unknown) (unknown) demonstrate (units (un known) date) unknown) (unknown) (no (unknown) (unknown) exposure control, (units (unknown) date) adjustment of mA unknown) and/or kV according to patient size. (unknown) (no (unknown) (unknown) extra-axial fluid (units (unknown) date) collections. unknown) (unknown) (no (unknown) (unknown) flow. The flow (units (unknown) date) within the paired unknown) anterior cerebral arteries is normal and (unknown) (no (unknown) (unknown) following (units (unkn own) date) unknown) (unknown) (no (unknown) (unknown) for age, (units (unkno wn) date) unknown) (unknown) (no (unknown) (unknown) from the foramen (units (unknown) date) magnum to the unknown) vertex. 3-dimensional (unknown) (no (unknown) (unknown) interface (units (unkn own) date) unknown) (unknown) (no (unknown) (unknown) internal (units (unkno wn) date) unknown) (unknown) (no (unknown) (unknown) intracranial or (units (unknown) date) cervical arterial unknown) vasculature. Bilateral of the [place] neck (unknown) (no (unknown) (unknown) lesions. (units (unkno wn) date) unknown) (unknown) (no (unknown) (unknown) maximum-intensity (units (unknown) date) -projection (MIP) unknown) (unknown) (no (unknown) (unknown) normal courses (units (unknown) date) and calibers. They unknown) join to form a normal appearing basilar (unknown) (no (unknown) (unknown) noted at the (units (u nknown) date) carotid siphons. unknown) (unknown) (no (unknown) (unknown) patent. No (units (unk nown) date) unknown) (unknown) (no (unknown) (unknown) patient (units (unkno wn) date) unknown) (unknown) (no (unknown) (unknown) periventricular (units (unknown) date) and unknown) (unknown) (no (unknown) (unknown) plaque (units (unkno wn) date) unknown) (unknown) (no (unknown) (unknown) posterior (units (unkn own) date) unknown) (unknown) (no (unknown) (unknown) present. (units (unkno wn) date) Extracranial unknown) internal carotid arteries appear widely patent. (unknown) (no (unknown) (unknown) re-acquired (units (un known) date) unknown) (unknown) (no (unknown) (unknown) size and (units (unkno wn) date) unknown) (unknown) (no (unknown) (unknown) size. (units (unkno wn) date) unknown) (unknown) (no (unknown) (unknown) suspicious (units (unk nown) date) unknown) (unknown) (no (unknown) (unknown) symmetric. (units (unk nown) date) unknown) (unknown) (no (unknown) (unknown) the (units (unkno wn) date) administration of unknown) intravenous contrast, 1 mm thick sections acquired from (unknown) (no (unknown) (unknown) the aortic (units (unk nown) date) unknown) (unknown) (no (unknown) (unknown) to the (units (unkno wn) date) unknown) (unknown) (no (unknown) (unknown) vasculature (units (un known) date) unknown) (unknown) (no (unknown) (unknown) ventricles are (units (unknown) date) symmetric in size unknown) and shape. (unknown) (no (unknown) (unknown) vertex, with (units (u nknown) date) coronal and unknown) sagittal reformats. For radiation dose reduction, the (unknown) (no (unknown) (unknown) vertex. After (units ( unknown) date) unknown) (unknown) (no (unknown) (unknown) was used: (units (unkn own) date) automated exposure unknown) control, adjustment of mA and/or kV according to (unknown) (no (unknown) (unknown) widely patent. (units (unknown) date) unknown) (unknown) (no (unknown) (unknown) with resultant (units (unknown) date) ventricular and unknown) sulcal prominence. There are moderate Result panel 143 (unknown) (no date) (unknown) (unknown) 0.8 % (unkn own) (unknown) (no date) (unknown) (unknown) 100 /ul (unkn own) (unknown) (no date) (unknown) (unknown) 13.1 % (unkn own) (unknown) (no date) (unknown) (unknown) 15.0 g/dl (unkn own) (unknown) (no date) (unknown) (unknown) 1500 /ul (unkn own) (unknown) (no date) (unknown) (unknown) 20.9 % (unkn own) (unknown) (no date) (unknown) (unknown) 200 /ul (unkn own) (unknown) (no date) (unknown) (unknown) 3.4 % (unkn own) (unknown) (no date) (unknown) (unknown) 30.6 pg (unkn own) (unknown) (no date) (unknown) (unknown) 317 x10 3/ul (unkn own) (unknown) (no date) (unknown) (unknown) 33.8 % (unkn own) (unknown) (no date) (unknown) (unknown) 4.90 x10 6/ul (unkn own) (unknown) (no date) (unknown) (unknown) 44.4 % (unkn own) (unknown) (no date) (unknown) (unknown) 500 /ul (unkn own) (unknown) (no date) (unknown) (unknown) 5000 /ul (unkn own) (unknown) (no date) (unknown) (unknown) 6.4 % (unkn own) (unknown) (no date) (unknown) (unknown) 68.5 % (unkn own) (unknown) (no date) (unknown) (unknown) 7.3 x10 3/ul (unkn own) (unknown) (no date) (unknown) (unknown) 90.6 fl (unkn own) Result panel 144 (unknown) (no date) (unknown) (unknown) 0.5 mg/dl (unkn own) (unknown) (no date) (unknown) (unknown) 1.1 (units (unkn own) unknown) (unknown) (no date) (unknown) (unknown) 1.27 mg/dl (unkn own) (unknown) (no date) (unknown) (unknown) 101 u/l (unkn own) (unknown) (no date) (unknown) (unknown) 110 mg/dl (unkn own) (unknown) (no date) (unknown) (unknown) 110 mg/dl (unkn own) (unknown) (no date) (unknown) (unknown) 12 mg/dl (unkn own) (unknown) (no date) (unknown) (unknown) 140 mmol/l (unkn own) (unknown) (no date) (unknown) (unknown) 2.0 mg/dl (unkn own) (unknown) (no date) (unknown) (unknown) 22 u/l (unkn own) (unknown) (no date) (unknown) (unknown) 28 iu/l (unkn own) (unknown) (no date) (unknown) (unknown) 3.8 mmol/l (unkn own) (unknown) (no date) (unknown) (unknown) 3.9 g/dl (unkn own) (unknown) (no date) (unknown) (unknown) 31 mmol/l (unkn own) (unknown) (no date) (unknown) (unknown) 4.1 g/dl (unkn own) (unknown) (no date) (unknown) (unknown) 44 iu/l (unkn own) (unknown) (no date) (unknown) (unknown) 47 ml/min (unkn own) (unknown) (no date) (unknown) (unknown) 47 ml/min (unkn own) (unknown) (no date) (unknown) (unknown) 8.0 g/dl (unkn own) (unknown) (no date) (unknown) (unknown) 8.8 mg/dl (unkn own) (unknown) (no date) (unknown) (unknown) 81 u/l (unkn own) (unknown) (no date) (unknown) (unknown) 9.4 (units (unkn own) unknown) (unknown) (no date) (unknown) (unknown) 99 mmol/l (unkn own) (unknown) (no date) (unknown) (unknown) Test not % (unkn own) performed (unknown) (no date) (unknown) (unknown) Test not % (unkn own) performed (unknown) (no date) (unknown) (unknown) Test not ng/ml (unkn own) performed (unknown) (no date) (unknown) (unknown) Test not ng/ml (unkn own) performed Result panel 145 (unknown) (no date) (unknown) (unknown) 1.0 (units unknown) (unknown) (unknown) (no date) (unknown) (unknown) 12.0 seconds (unkn own) (unknown) (no date) (unknown) (unknown) 31 seconds (unkn own) (unknown) (no date) (unknown) (unknown) 31 seconds (unkn own) Result panel 146 (unknown) (no date) (unknown) (unknown) < 0.012 ng/ml (unkn own) (unknown) (no date) (unknown) (unknown) < 0.012 ng/ml (unkn own) (unknown) (no date) (unknown) (unknown) 0.5 mg/dl (unkn own) (unknown) (no date) (unknown) (unknown) 1.1 (units (unkn own) unknown) (unknown) (no date) (unknown) (unknown) 1.27 mg/dl (unkn own) (unknown) (no date) (unknown) (unknown) 101 u/l (unkn own) (unknown) (no date) (unknown) (unknown) 110 mg/dl (unkn own) (unknown) (no date) (unknown) (unknown) 110 mg/dl (unkn own) (unknown) (no date) (unknown) (unknown) 12 mg/dl (unkn own) (unknown) (no date) (unknown) (unknown) 140 mmol/l (unkn own) (unknown) (no date) (unknown) (unknown) 2.0 mg/dl (unkn own) (unknown) (no date) (unknown) (unknown) 22 u/l (unkn own) (unknown) (no date) (unknown) (unknown) 28 iu/l (unkn own) (unknown) (no date) (unknown) (unknown) 3.8 mmol/l (unkn own) (unknown) (no date) (unknown) (unknown) 3.9 g/dl (unkn own) (unknown) (no date) (unknown) (unknown) 31 mmol/l (unkn own) (unknown) (no date) (unknown) (unknown) 4.1 g/dl (unkn own) (unknown) (no date) (unknown) (unknown) 44 iu/l (unkn own) (unknown) (no date) (unknown) (unknown) 47 ml/min (unkn own) (unknown) (no date) (unknown) (unknown) 47 ml/min (unkn own) (unknown) (no date) (unknown) (unknown) 8.0 g/dl (unkn own) (unknown) (no date) (unknown) (unknown) 8.8 mg/dl (unkn own) (unknown) (no date) (unknown) (unknown) 81 u/l (unkn own) (unknown) (no date) (unknown) (unknown) 9.4 (units (unkn own) unknown) (unknown) (no date) (unknown) (unknown) 99 mmol/l (unkn own) (unknown) (no date) (unknown) (unknown) Test not % (unkn own) performed (unknown) (no date) (unknown) (unknown) Test not % (unkn own) performed (unknown) (no date) (unknown) (unknown) Test not ng/ml (unkn own) performed (unknown) (no date) (unknown) (unknown) Test not ng/ml (unkn own) performed Result panel 147 (unknown) (no (unknown) (unknown) (no value) (units (unk nown) date) unknown) (unknown) (no (unknown) (unknown) #30 caps (units (unkno wn) date) unknown) (unknown) (no (unknown) (unknown) #30 tabs (units (unkno wn) date) unknown) (unknown) (no (unknown) (unknown) (More??) (units (unkno wn) date) unknown) (unknown) (no (unknown) (unknown) 11/23/22 11/23/22 (units (unknown) date) 11/23/22 unknown) Range/Units (unknown) (no (unknown) (unknown) 11/23/22 11:23 (units (unknown) date) unknown) (unknown) (no (unknown) (unknown) 11/23/22 11:24 (units (unknown) date) unknown) (unknown) (no (unknown) (unknown) 11/23/22 11:27 (units (unknown) date) unknown) (unknown) (no (unknown) (unknown) 11/23/22 11:31 (units (unknown) date) unknown) (unknown) (no (unknown) (unknown) 11/23/22 (units (unkno wn) date) unknown) (unknown) (no (unknown) (unknown) 12/11/20 (units (unkno wn) date) unknown) (unknown) (no (unknown) (unknown) 03/04/21 (units (unkno wn) date) unknown) (unknown) (no (unknown) (unknown) 03/06/20 (units (unkno wn) date) unknown) (unknown) (no (unknown) (unknown) 05/26/20 (units (unkno wn) date) unknown) (unknown) (no (unknown) (unknown) 07/27/22 (units (unkno wn) date) unknown) (unknown) (no (unknown) (unknown) 10 mg PO DAILY (units (unknown) date) unknown) (unknown) (no (unknown) (unknown) 07/28/22 (units (unkno wn) date) unknown) (unknown) (no (unknown) (unknown) 07/30/22 (units (unkno wn) date) unknown) (unknown) (no (unknown) (unknown) 100 mg PO DAILY (units (unknown) date) unknown) (unknown) (no (unknown) (unknown) 11:23 11:23 11:23 (units (unknown) date) unknown) (unknown) (no (unknown) (unknown) 11:25 (units (unkno wn) date) unknown) (unknown) (no (unknown) (unknown) 10/02/21 (units (unkno wn) date) unknown) (unknown) (no (unknown) (unknown) [address] [place] [address] (units (unknown) date) unknown) (unknown) (no (unknown) (unknown) 150 mg PO DAILY (units (unknown) date) unknown) (unknown) (no (unknown) (unknown) 17 g PO DAILY PRN (units (unknown) date) (Reason: unknown) constipation) Qty: 14 0RF (unknown) (no (unknown) (unknown) 20 mg PO DAILY (units (unknown) date) unknown) (unknown) (no (unknown) (unknown) 237 (units (unkno wn) date) unknown) (unknown) (no (unknown) (unknown) 55 unit SUBCUT (units (unknown) date) DAILY MDD 55 PRN unknown) (Reason: Hyperglycemia) (unknown) (no (unknown) (unknown) 60 mg PO DAILY (units (unknown) date) unknown) (unknown) (no (unknown) (unknown) 600 mg PO DAILY (units (unknown) date) unknown) (unknown) (no (unknown) (unknown) 75 mg PO DAILY (units (unknown) date) unknown) (unknown) (no (unknown) (unknown) 8.6 mg PO DAILY (units (unknown) date) PRN (Reason: unknown) constipation) Qty: 30 0RF (unknown) (no (unknown) (unknown) 975 mg PO Q8H PRN (units (unknown) date) (Reason: Pain, unknown) Mild (1-3)) Qty: 30 0RF (unknown) (no (unknown) (unknown) ? (units (unkno wn) date) unknown) (unknown) (no (unknown) (unknown) ? (units (unkno wn) date) unknown) (unknown) (no (unknown) (unknown) ALT 28 (<35) IU/L (units (unknown) date) unknown) (unknown) (no (unknown) (unknown) APTT 31 (26-36) (units (unknown) date) SECONDS unknown) (unknown) (no (unknown) (unknown) AST 44 H (14-36) (units (unknown) date) IU/L unknown) (unknown) (no (unknown) (unknown) Abdomen/Pelvis CT (units (unknown) date) (Signed) unknown) (unknown) (no (unknown) (unknown) Accession Number: (units (unknown) date) [id number] ?? unknown) (unknown) (no (unknown) (unknown) Acct:[id number] (units (unknown) date) unknown) (unknown) (no (unknown) (unknown) Age/Sex: 67 / F (units (unknown) date) unknown) (unknown) (no (unknown) (unknown) Albumin 4.1 (units (un known) date) (3.5-5.0) g/dL unknown) (unknown) (no (unknown) (unknown) Albumin/Globulin (units (unknown) date) Ratio 1.1 unknown) (1.0-2.8) (unknown) (no (unknown) (unknown) Alkaline (units (unkno wn) date) Phosphatase 101 unknown) (38-126) U/L (unknown) (no (unknown) (unknown) Allergies (units (unkn own) date) unknown) (unknown) (no (unknown) (unknown) Allergy/Adv: (units (u nknown) date) hydrocodone, unknown) morphine, codeine, meperidine, [oxycodone] (unknown) (no (unknown) (unknown) Allergy/AdvReac (units (unknown) date) Type Severity unknown) Reaction Status Date / Time (unknown) (no (unknown) (unknown) [place], [place] (units ( unknown) date) [address] unknown) (unknown) (no (unknown) (unknown) Ankle X-Ray (units (un known) date) (Signed) unknown) (unknown) (no (unknown) (unknown) Approved by: Stefanie (units (unknown) date) Joann Bullard on unknown) 11/23/2022 at 11:58 (unknown) (no (unknown) (unknown) Attestation: I (units (unknown) date) personally unknown) reviewed and interpreted this ECG as follows: (unknown) (no (unknown) (unknown) BUN 12 (7-17) (units ( unknown) date) mg/dL unknown) (unknown) (no (unknown) (unknown) BUN/Creatinine (units (unknown) date) Ratio 9.4 (6-22) unknown) (unknown) (no (unknown) (unknown) Baso # (Auto) 100 (units (unknown) date) (0-100) /uL unknown) (unknown) (no (unknown) (unknown) Baso % (Auto) 0.8 (units (unknown) date) (0-2) % unknown) (unknown) (no (unknown) (unknown) Blood Pressure (units (unknown) date) 148/68 H 11/23/22 unknown) 11:25 (unknown) (no (unknown) (unknown) Blood Pressure (units (unknown) date) 148/68 H unknown) (unknown) (no (unknown) (unknown) Bones and chest (units (unknown) date) wall:? No unknown) suspicious bony lesions.? Overlying soft tissues (unknown) (no (unknown) (unknown) Cora Rogers, (units (unknown) date) PA-C [Primary Care unknown) Provider] (unknown) (no (unknown) (unknown) CK-MB (CK-2) Rel (units (unknown) date) Index TNP unknown) (unknown) (no (unknown) (unknown) CK-MB (CK-2) TNP (units (unknown) date) unknown) (unknown) (no (unknown) (unknown) COMPARISON:? (units (u nknown) date) [facility], unknown) CR, XR CHEST 1V, 07/27/2022, 12:32. (unknown) (no (unknown) (unknown) COVID19 -Nasal (units (unknown) date) RAPID/Pre-Proc unknown) Stat (unknown) (no (unknown) (unknown) CT angio head and (units (unknown) date) neck Stat unknown) (unknown) (no (unknown) (unknown) CT head/brain wo (units (unknown) date) con Stat unknown) (unknown) (no (unknown) (unknown) Calcium 8.8 (units (un known) date) (8.4-10.2) mg/dL unknown) (unknown) (no (unknown) (unknown) Carbon Dioxide 31 (units (unknown) date) (22-32) mmol/L unknown) (unknown) (no (unknown) (unknown) Carotid Doppler (units (unknown) date) Study (Signed) unknown) (unknown) (no (unknown) (unknown) Cervical Spine CT (units (unknown) date) (Signed) unknown) (unknown) (no (unknown) (unknown) Chest X-Ray (units (un known) date) (Signed) unknown) (unknown) (no (unknown) (unknown) Chest x-ray: (units (u nknown) date) unknown) (unknown) (no (unknown) (unknown) Chief Complaint: (units (unknown) date) Syncope unknown) (unknown) (no (unknown) (unknown) Chloride 99 (units (un known) date) (98-107) mmol/L unknown) (unknown) (no (unknown) (unknown) Close (units (unkno wn) date) unknown) (unknown) (no (unknown) (unknown) Complete Blood (units (unknown) date) Count AUTO DIFF unknown) Stat (unknown) (no (unknown) (unknown) Comprehensive (units ( unknown) date) Metabolic Panel unknown) Stat (unknown) (no (unknown) (unknown) Coronary artery (units (unknown) date) disease unknown) (unknown) (no (unknown) (unknown) Course (units (unkno wn) date) unknown) (unknown) (no (unknown) (unknown) Creatinine 1.27 H (units (unknown) date) (0.52-1.04) mg/dL unknown) (unknown) (no (unknown) (unknown) : 1955 (units (unknown) date) Acct:[id number] unknown) (unknown) (no (unknown) (unknown) : 1955 (units (unknown) date) unknown) (unknown) (no (unknown) (unknown) Date of Service: (units (unknown) date) 11/23/22 unknown) (unknown) (no (unknown) (unknown) Departure (units (unkn own) date) unknown) (unknown) (no (unknown) (unknown) Dictated by: Stefanie (units (unknown) date) Joann Bullard on unknown) 11/23/2022 at 11:58 ? ? (unknown) (no (unknown) (unknown) Discharge Plan (units (unknown) date) unknown) (unknown) (no (unknown) (unknown) ECG Data (units (unkno wn) date) unknown) (unknown) (no (unknown) (unknown) ED Orders (units (unkn own) date) unknown) (unknown) (no (unknown) (unknown) EKG-12 Lead Stat (units (unknown) date) unknown) (unknown) (no (unknown) (unknown) ER Physician: (units ( unknown) date) Risa Aquino D.O. unknown) (unknown) (no (unknown) (unknown) Emergency Report (units (unknown) date) unknown) (unknown) (no (unknown) (unknown) Eos # (Auto) 200 (units (unknown) date) (0-450) /uL unknown) (unknown) (no (unknown) (unknown) Eos % (Auto) 3.4 (units (unknown) date) (2-4) % unknown) (unknown) (no (unknown) (unknown) Estimated GFR 47 (units (unknown) date) L (>60) mL/min unknown) (unknown) (no (unknown) (unknown) Exam (units (unkno wn) date) unknown) (unknown) (no (unknown) (unknown) FINDINGS:? (units (unk nown) date) unknown) (unknown) (no (unknown) (unknown) General (units (unkno wn) date) unknown) (unknown) (no (unknown) (unknown) Globulin 3.9 (units (u nknown) date) (1.7-4.1) g/dL unknown) (unknown) (no (unknown) (unknown) Glucose 110 (units (un known) date) (80-110) mg/dL unknown) (unknown) (no (unknown) (unknown) HPI - Syncope (units ( unknown) date) unknown) (unknown) (no (unknown) (unknown) Hand X-Ray (units (unk nown) date) (Signed) unknown) (unknown) (no (unknown) (unknown) Hct 44.4 (36-46) (units (unknown) date) % unknown) (unknown) (no (unknown) (unknown) Head CT (Signed) (units (unknown) date) unknown) (unknown) (no (unknown) (unknown) Head CT (units (unkno wn) date) unknown) (unknown) (no (unknown) (unknown) Head/Neck CTA (units ( unknown) date) unknown) (unknown) (no (unknown) (unknown) Hgb 15.0 (units (unkno wn) date) (12.0-16.0) g/dL unknown) (unknown) (no (unknown) (unknown) Home Medications (units (unknown) date) unknown) (unknown) (no (unknown) (unknown) IMPRESSION:? No (units (unknown) date) acute unknown) cardiopulmonary findings. (unknown) (no (unknown) (unknown) INDICATIONS:? (units ( unknown) date) chest pain unknown) (unknown) (no (unknown) (unknown) INJECT UP TO 55 (units (unknown) date) UNITS PER DAY VIA unknown) INSULIN PUMP (unknown) (no (unknown) (unknown) INR 1.0 (0.9-1.3) (units (unknown) date) unknown) (unknown) (no (unknown) (unknown) Imaging Data (units (u nknown) date) unknown) (unknown) (no (unknown) (unknown) Initial Vital (units ( unknown) date) Signs unknown) (unknown) (no (unknown) (unknown) Initial Vital (units ( unknown) date) Signs: unknown) (unknown) (no (unknown) (unknown) Interpretation: (units (unknown) date) unknown) (unknown) (no (unknown) (unknown) [facility] (units (unknown) date) [address] unknown) [place] [address] (unknown) (no (unknown) (unknown) [facility] (units (unknown) date) unknown) (unknown) (no (unknown) (unknown) Omari Mason (units ( unknown) date) unknown) (unknown) (no (unknown) (unknown) AleahStefanie (units (un known) date) unknown) (unknown) (no (unknown) (unknown) Lab Data (units (unkno wn) date) unknown) (unknown) (no (unknown) (unknown) Lab Results (units (un known) date) unknown) (unknown) (no (unknown) (unknown) Label Comments: (units (unknown) date) unknown) (unknown) (no (unknown) (unknown) Labs: (units (unkno wn) date) unknown) (unknown) (no (unknown) (unknown) Launch?Image (units (u nknown) date) unknown) (unknown) (no (unknown) (unknown) Limitations: no (units (unknown) date) limitations unknown) (unknown) (no (unknown) (unknown) Lipase 22 L (units (un known) date) (23-300) U/L unknown) (unknown) (no (unknown) (unknown) Lipase Stat (units (un known) date) unknown) (unknown) (no (unknown) (unknown) Loc: ED (units (unkno wn) date) unknown) (unknown) (no (unknown) (unknown) Lungs and (units (unkn own) date) pleura:? Lungs are unknown) clear.? No pleural effusions or pneumothorax.? (unknown) (no (unknown) (unknown) Lymph # (Auto) (units (unknown) date) 1500 ([id number]) unknown) /uL (unknown) (no (unknown) (unknown) Lymph % (Auto) (units (unknown) date) 20.9 L (25-40) % unknown) (unknown) (no (unknown) (unknown) MCH 30.6 (26-34) (units (unknown) date) PG unknown) (unknown) (no (unknown) (unknown) MCHC 33.8 (30-36) (units (unknown) date) % unknown) (unknown) (no (unknown) (unknown) MCV 90.6 (80-100) (units (unknown) date) fL unknown) (unknown) (no (unknown) (unknown) MDM - Syncope (units ( unknown) date) unknown) (unknown) (no (unknown) (unknown) MR#: [id number] (units (unknown) date) unknown) (unknown) (no (unknown) (unknown) Magnesium 2.0 (units ( unknown) date) (1.6-2.3) mg/dL unknown) (unknown) (no (unknown) (unknown) Magnesium Stat (units (unknown) date) unknown) (unknown) (no (unknown) (unknown) [employer] [place] (units (unknown) date) unknown) (unknown) (no (unknown) (unknown) Mammogram (units (unkn own) date) Screening (Signed) unknown) (unknown) (no (unknown) (unknown) Mediastinum:? (units ( unknown) date) Mediastinal unknown) contours appear normal.? Heart size is normal.? (unknown) (no (unknown) (unknown) Medical History (units (unknown) date) (Reviewed 11/23/22 unknown) @ 12:18 by Risa Aquino DO) (unknown) (no (unknown) (unknown) Medication (units (unk nown) date) Instructions unknown) Recorded Confirmed (unknown) (no (unknown) (unknown) Medication (units (unk nown) date) Instructions unknown) Recorded (unknown) (no (unknown) (unknown) Mode of arrival: (units (unknown) date) Family Vehicle unknown) (unknown) (no (unknown) (unknown) [place] # (Auto) 500 (units (unknown) date) (0-900) /uL unknown) (unknown) (no (unknown) (unknown) [place] % (Auto) 6.4 (units (unknown) date) (3-14) % unknown) (unknown) (no (unknown) (unknown) Neut # (Auto) (units ( unknown) date) 5000 ([id number]) unknown) /uL (unknown) (no (unknown) (unknown) Neut % (Auto) (units ( unknown) date) 68.5 (50-75) % unknown) (unknown) (no (unknown) (unknown) [place] (units ( unknown) date) unknown) (unknown) (no (unknown) (unknown) No Action (units (unkn own) date) unknown) (unknown) (no (unknown) (unknown) No significant (units (unknown) date) medical problems unknown) (unknown) (no (unknown) (unknown) Ordered: (units (unkno wn) date) unknown) (unknown) (no (unknown) (unknown) Ordering (units (unkno wn) date) Provider: unknown) Risa Aquino D.O. (unknown) (no (unknown) (unknown) Orders (units (unkno wn) date) unknown) (unknown) (no (unknown) (unknown) Oxygen Delivery (units (unknown) date) Method 11/23/22 unknown) 11:25 (unknown) (no (unknown) (unknown) Oxygen Delivery (units (unknown) date) Method Room Air unknown) (unknown) (no (unknown) (unknown) PROCEDURE:? XR (units (unknown) date) CHEST 1V unknown) (unknown) (no (unknown) (unknown) PT 12.0 (units (unkno wn) date) (10.1-12.7) unknown) SECONDS (unknown) (no (unknown) (unknown) Partial (units (unkno wn) date) Thromboplastin unknown) Time Stat (unknown) (no (unknown) (unknown) Patient History (units (unknown) date) unknown) (unknown) (no (unknown) (unknown) Patient has prior (units (unknown) date) from 07/27/2022 it unknown) appears similar. (unknown) (no (unknown) (unknown) Patient: (units (unkno wn) date) Laverne Mendoza MR#: unknown) [id number] (unknown) (no (unknown) (unknown) Patient: (units (unkno wn) date) Laverne Mendoza unknown) (unknown) (no (unknown) (unknown) Plt Count 317 (units ( unknown) date) (150-400) X103/uL unknown) (unknown) (no (unknown) (unknown) Potassium 3.8 (units ( unknown) date) (3.4-5.1) mmol/L unknown) (unknown) (no (unknown) (unknown) Prescriptions: (units (unknown) date) unknown) (unknown) (no (unknown) (unknown) Previous Rx's (units ( unknown) date) unknown) (unknown) (no (unknown) (unknown) Prior ECG (units (unkn own) date) tracings: unknown) available for review (unknown) (no (unknown) (unknown) Procedure: XR (units ( unknown) date) chest 1V unknown) (unknown) (no (unknown) (unknown) Prothrombin Time (units (unknown) date) INR Stat unknown) (unknown) (no (unknown) (unknown) Pulse Oximetry 99 (units (unknown) date) 11/23/22 11:25 unknown) (unknown) (no (unknown) (unknown) Pulse Oximetry 99 (units (unknown) date) unknown) (unknown) (no (unknown) (unknown) Pulse Rate 71 (units ( unknown) date) 11/23/22 11:25 unknown) (unknown) (no (unknown) (unknown) Pulse Rate 71 (units ( unknown) date) unknown) (unknown) (no (unknown) (unknown) RBC 4.90 (units (unkno wn) date) (4.0-5.2) X106/uL unknown) (unknown) (no (unknown) (unknown) RDW 13.1 (units (unkno wn) date) (11.6-14.8) % unknown) (unknown) (no (unknown) (unknown) ROS Unobtainable: (units (unknown) date) All systems unknown) reviewed + are unremarkable except as noted in HPI (unknown) (no (unknown) (unknown) Radiologist's (units ( unknown) date) Impression: unknown) (unknown) (no (unknown) (unknown) Referrals: (units (unk nown) date) unknown) (unknown) (no (unknown) (unknown) Related Data (units (u nknown) date) unknown) (unknown) (no (unknown) (unknown) Respiratory Rate (units (unknown) date) 19 11/23/22 11:25 unknown) (unknown) (no (unknown) (unknown) Respiratory Rate (units (unknown) date) 19 unknown) (unknown) (no (unknown) (unknown) Review of Systems (units (unknown) date) unknown) (unknown) (no (unknown) (unknown) Laverne Mendoza??67?? (units (unknown) date) F??1955 unknown) (unknown) (no (unknown) (unknown) Ribs X-Ray (units (unk nown) date) (Signed) unknown) (unknown) (no (unknown) (unknown) Chad Tatum (units (u nknown) date) unknown) (unknown) (no (unknown) (unknown) Signed By: (units (unk nown) date) unknown) (unknown) (no (unknown) (unknown) Signed (units (unkno wn) date) unknown) (unknown) (no (unknown) (unknown) Sinus rhythm rate (units (unknown) date) of 60 6p are 142 unknown) QRS is 70 QTC [address]. No acute ST changes (unknown) (no (unknown) (unknown) Smoking Status: (units (unknown) date) Never smoker unknown) (unknown) (no (unknown) (unknown) Social History (units (unknown) date) (Reviewed 11/23/22 unknown) @ 12:18 by Risa Aquino DO) (unknown) (no (unknown) (unknown) Sodium 140 (units (unk nown) date) (137-145) mmol/L unknown) (unknown) (no (unknown) (unknown) Source: patient (units (unknown) date) unknown) (unknown) (no (unknown) (unknown) Stated Complaint: (units (unknown) date) Sent by DR giron unknown) passing out losing vision T-5 (unknown) (no (unknown) (unknown) Substance Use (units ( unknown) date) Type: does not use unknown) (unknown) (no (unknown) (unknown) Surgical changes (units (unknown) date) and devices:? unknown) None.? (unknown) (no (unknown) (unknown) TECHNIQUE:? One (units (unknown) date) view of the chest unknown) was acquired.? (unknown) (no (unknown) (unknown) Telemetry Strips (units (unknown) date) unknown) (unknown) (no (unknown) (unknown) Temperature 97.2 (units (unknown) date) F L 11/23/22 11:25 unknown) (unknown) (no (unknown) (unknown) Temperature 97.2 (units (unknown) date) F L unknown) (unknown) (no (unknown) (unknown) Time Seen by (units (u nknown) date) Provider: 11/23/22 unknown) 11:27 (unknown) (no (unknown) (unknown) Total Bilirubin (units (unknown) date) 0.5 (0.2-1.3) unknown) mg/dL (unknown) (no (unknown) (unknown) Total Creatine (units (unknown) date) Kinase 81 (30-135) unknown) U/L (unknown) (no (unknown) (unknown) Total Protein 8.0 (units (unknown) date) (6.3-8.2) g/dL unknown) (unknown) (no (unknown) (unknown) Troponin + CK (units ( unknown) date) Cardiac Panel Stat unknown) (unknown) (no (unknown) (unknown) Troponin I < (units (u nknown) date) 0.012 (0.01-0.034) unknown) ng/mL (unknown) (no (unknown) (unknown) Type 1 diabetes (units (unknown) date) unknown) (unknown) (no (unknown) (unknown) U-100 Insulin) (units (unknown) date) unknown) (unknown) (no (unknown) (unknown) Vascular (units (unkno wn) date) Ultrasound unknown) (Signed) (unknown) (no (unknown) (unknown) Vital Signs - 8 (units (unknown) date) hr unknown) (unknown) (no (unknown) (unknown) Vital Signs (units (un known) date) unknown) (unknown) (no (unknown) (unknown) Vital signs: (units (u nknown) date) unknown) (unknown) (no (unknown) (unknown) WBC 7.3 (units (unkno wn) date) (4.5-11.0) X103/uL unknown) (unknown) (no (unknown) (unknown) CurtisMarty downey (units (u nknown) date) unknown) (unknown) (no (unknown) (unknown) XR chest 1V Stat (units (unknown) date) unknown) (unknown) (no (unknown) (unknown) XRay Report (units (un known) date) unknown) (unknown) (no (unknown) (unknown) [place]rish [place]ños (units (unkno wn) date) unknown) (unknown) (no (unknown) (unknown) [Embedded Image (units (unknown) date) Not Available] unknown) (unknown) (no (unknown) (unknown) acetaminophen 325 (units (unknown) date) mg Tablet unknown) (unknown) (no (unknown) (unknown) acetaminophen 325 (units (unknown) date) mg tablet 975 mg unknown) PO Q8H PRN Pain, Mild (1-3) 07/31/22 (unknown) (no (unknown) (unknown) alcohol intake (units (unknown) date) frequency: unknown) holidays/special occasions only (unknown) (no (unknown) (unknown) alcohol intake: (units (unknown) date) current unknown) (unknown) (no (unknown) (unknown) and below (units (unkn own) date) unknown) (unknown) (no (unknown) (unknown) appear (units (unkno wn) date) unknown) (unknown) (no (unknown) (unknown) appreciated. (units (u nknown) date) unknown) (unknown) (no (unknown) (unknown) bupropion HCl 150 (units (unknown) date) mg tablet unknown) sustained-release 12 hr (unknown) (no (unknown) (unknown) bupropion HCl 150 (units (unknown) date) mg tablet,12 hr unknown) 150 mg PO DAILY 07/27/22 07/27/22 (unknown) (no (unknown) (unknown) clopidogrel 75 mg (units (unknown) date) tablet 75 mg PO unknown) DAILY 07/27/22 07/27/22 (unknown) (no (unknown) (unknown) clopidogrel 75 mg (units (unknown) date) tablet unknown) (unknown) (no (unknown) (unknown) codeine AdvReac (units (unknown) date) Verified 07/28/22 unknown) 08:51 (unknown) (no (unknown) (unknown) details: (units (unknown) date) 7 years ago unknown) yesterday (unknown) (no (unknown) (unknown) duloxetine 60 mg (units (unknown) date) capsule,delayed 60 unknown) mg PO DAILY 07/27/22 07/27/22 (unknown) (no (unknown) (unknown) duloxetine 60 mg (units (unknown) date) capsule,delayed unknown) release(DR/EC) (unknown) (no (unknown) (unknown) gabapentin 600 mg (units (unknown) date) tablet 600 mg PO unknown) DAILY 07/27/22 07/27/22 (unknown) (no (unknown) (unknown) gabapentin 600 mg (units (unknown) date) tablet unknown) (unknown) (no (unknown) (unknown) household (units (unkn own) date) members: family unknown) and children (unknown) (no (unknown) (unknown) hydrocodone (units (un known) date) Allergy unknown) Intermediate Verified 07/30/22 12:12 (unknown) (no (unknown) (unknown) insulin lispro (units (unknown) date) 100 unit/mL 55 unknown) unit SUBCUT DAILY PRN 07/27/22 07/27/22 (unknown) (no (unknown) (unknown) insulin lispro (units (unknown) date) [Humalog U-100 unknown) Insulin] 100 unit/mL solution (unknown) (no (unknown) (unknown) lisinopril 10 mg (units (unknown) date) tablet 10 mg PO unknown) DAILY 07/27/22 07/27/22 (unknown) (no (unknown) (unknown) lisinopril 10 mg (units (unknown) date) tablet unknown) (unknown) (no (unknown) (unknown) lives (units (unkno wn) date) independently: No unknown) (Lives with her daughter) (unknown) (no (unknown) (unknown) marital status: (units (unknown) date) unknown) (unknown) (no (unknown) (unknown) meperidine [From (units (unknown) date) Demerol] AdvReac unknown) Verified 07/28/22 08:51 (unknown) (no (unknown) (unknown) metoprolol (units (unk nown) date) succinate 100 mg unknown) 100 mg PO DAILY 07/27/22 07/27/22 (unknown) (no (unknown) (unknown) metoprolol (units (unk nown) date) succinate 100 mg unknown) tablet extended release 24 hr (unknown) (no (unknown) (unknown) morphine AdvReac (units (unknown) date) Mild Hallucinati unknown) Verified 07/27/22 18:54 (unknown) (no (unknown) (unknown) ng (units (unkno wn) date) unknown) (unknown) (no (unknown) (unknown) oral powder (units (un known) date) packet (Miralax) unknown) ea (unknown) (no (unknown) (unknown) oxycodone Allergy (units (unknown) date) Intermediate unknown) Uncoded 07/30/22 12:12 (unknown) (no (unknown) (unknown) polyethylene (units (u nknown) date) glycol 3350 17 unknown) gram 17 g PO DAILY PRN constipation #14 07/31/22 (unknown) (no (unknown) (unknown) polyethylene (units (u nknown) date) glycol 3350 unknown) [Miralax] 17 gram powder in packet (unknown) (no (unknown) (unknown) release (units (unkno wn) date) unknown) (unknown) (no (unknown) (unknown) rosuvastatin 20 (units (unknown) date) mg tablet 20 mg PO unknown) DAILY 07/27/22 07/27/22 (unknown) (no (unknown) (unknown) rosuvastatin 20 (units (unknown) date) mg tablet unknown) (unknown) (no (unknown) (unknown) senna 8.6 mg (units (u nknown) date) capsule unknown) (unknown) (no (unknown) (unknown) sennosides 8.6 mg (units (unknown) date) capsule (senna) unknown) 8.6 mg PO DAILY PRN constipation 07/31/22 (unknown) (no (unknown) (unknown) subcutaneous (units (u nknown) date) solution (Humalog unknown) Hyperglycemia (unknown) (no (unknown) (unknown) sustained-release (units (unknown) date) unknown) (unknown) (no (unknown) (unknown) tablet,extended (units (unknown) date) release 24 hr unknown) (unknown) (no (unknown) (unknown) unremarkable.? (units (unknown) date) unknown) Result panel 148 (unknown) (no (unknown) (unknown) (no value) (units (unk nown) date) unknown) (unknown) (no (unknown) (unknown) #30 caps (units (unkno wn) date) unknown) (unknown) (no (unknown) (unknown) #30 tabs (units (unkno wn) date) unknown) (unknown) (no (unknown) (unknown) (More??) (units (unkno wn) date) unknown) (unknown) (no (unknown) (unknown) 11/23/22 11/23/22 (units (unknown) date) 11/23/22 unknown) Range/Units (unknown) (no (unknown) (unknown) 11/23/22 11:23 (units (unknown) date) unknown) (unknown) (no (unknown) (unknown) 11/23/22 11:24 (units (unknown) date) unknown) (unknown) (no (unknown) (unknown) 11/23/22 11:27 (units (unknown) date) unknown) (unknown) (no (unknown) (unknown) 11/23/22 11:31 (units (unknown) date) unknown) (unknown) (no (unknown) (unknown) 11/23/22 (units (unkno wn) date) unknown) (unknown) (no (unknown) (unknown) 12/11/20 (units (unkno wn) date) unknown) (unknown) (no (unknown) (unknown) 03/04/21 (units (unkno wn) date) unknown) (unknown) (no (unknown) (unknown) 03/06/20 (units (unkno wn) date) unknown) (unknown) (no (unknown) (unknown) 05/26/20 (units (unkno wn) date) unknown) (unknown) (no (unknown) (unknown) 07/27/22 (units (unkno wn) date) unknown) (unknown) (no (unknown) (unknown) 10 mg PO DAILY (units (unknown) date) unknown) (unknown) (no (unknown) (unknown) 07/28/22 (units (unkno wn) date) unknown) (unknown) (no (unknown) (unknown) 07/30/22 (units (unkno wn) date) unknown) (unknown) (no (unknown) (unknown) 100 mg PO DAILY (units (unknown) date) unknown) (unknown) (no (unknown) (unknown) 11:23 11:23 11:23 (units (unknown) date) unknown) (unknown) (no (unknown) (unknown) 11:25 (units (unkno wn) date) unknown) (unknown) (no (unknown) (unknown) 10/02/21 (units (unkno wn) date) unknown) (unknown) (no (unknown) (unknown) [address] [place] [address] (units (unknown) date) unknown) (unknown) (no (unknown) (unknown) 150 mg PO DAILY (units (unknown) date) unknown) (unknown) (no (unknown) (unknown) 17 g PO DAILY PRN (units (unknown) date) (Reason: unknown) constipation) Qty: 14 0RF (unknown) (no (unknown) (unknown) 20 mg PO DAILY (units (unknown) date) unknown) (unknown) (no (unknown) (unknown) 237 (units (unkno wn) date) unknown) (unknown) (no (unknown) (unknown) 55 unit SUBCUT (units (unknown) date) DAILY MDD 55 PRN unknown) (Reason: Hyperglycemia) (unknown) (no (unknown) (unknown) 60 mg PO DAILY (units (unknown) date) unknown) (unknown) (no (unknown) (unknown) 600 mg PO DAILY (units (unknown) date) unknown) (unknown) (no (unknown) (unknown) 75 mg PO DAILY (units (unknown) date) unknown) (unknown) (no (unknown) (unknown) 8.6 mg PO DAILY (units (unknown) date) PRN (Reason: unknown) constipation) Qty: 30 0RF (unknown) (no (unknown) (unknown) 975 mg PO Q8H PRN (units (unknown) date) (Reason: Pain, unknown) Mild (1-3)) Qty: 30 0RF (unknown) (no (unknown) (unknown) ? (units (unkno wn) date) unknown) (unknown) (no (unknown) (unknown) ? (units (unkno wn) date) unknown) (unknown) (no (unknown) (unknown) ALT 28 (<35) IU/L (units (unknown) date) unknown) (unknown) (no (unknown) (unknown) APTT 31 (26-36) (units (unknown) date) SECONDS unknown) (unknown) (no (unknown) (unknown) AST 44 H (14-36) (units (unknown) date) IU/L unknown) (unknown) (no (unknown) (unknown) Abdomen/Pelvis CT (units (unknown) date) (Signed) unknown) (unknown) (no (unknown) (unknown) Accession Number: (units (unknown) date) [id number] ?? unknown) (unknown) (no (unknown) (unknown) Acct:[id number] (units (unknown) date) unknown) (unknown) (no (unknown) (unknown) Age/Sex: 67 / F (units (unknown) date) unknown) (unknown) (no (unknown) (unknown) Albumin 4.1 (units (un known) date) (3.5-5.0) g/dL unknown) (unknown) (no (unknown) (unknown) Albumin/Globulin (units (unknown) date) Ratio 1.1 unknown) (1.0-2.8) (unknown) (no (unknown) (unknown) Alkaline (units (unkno wn) date) Phosphatase 101 unknown) (38-126) U/L (unknown) (no (unknown) (unknown) Allergies (units (unkn own) date) unknown) (unknown) (no (unknown) (unknown) Allergy/Adv: (units (u nknown) date) hydrocodone, unknown) morphine, codeine, meperidine, [oxycodone] (unknown) (no (unknown) (unknown) Allergy/AdvReac (units (unknown) date) Type Severity unknown) Reaction Status Date / Time (unknown) (no (unknown) (unknown) [place], [place] (units ( unknown) date) [id number] unknown) (unknown) (no (unknown) (unknown) Ankle X-Ray (units (un known) date) (Signed) unknown) (unknown) (no (unknown) (unknown) Approved by: Stefanie (units (unknown) date) Joann Bullard on unknown) 11/23/2022 at 11:58 (unknown) (no (unknown) (unknown) Attestation: I (units (unknown) date) personally unknown) reviewed and interpreted this ECG as follows: (unknown) (no (unknown) (unknown) BUN 12 (7-17) (units ( unknown) date) mg/dL unknown) (unknown) (no (unknown) (unknown) BUN/Creatinine (units (unknown) date) Ratio 9.4 (6-22) unknown) (unknown) (no (unknown) (unknown) Baso # (Auto) 100 (units (unknown) date) (0-100) /uL unknown) (unknown) (no (unknown) (unknown) Baso % (Auto) 0.8 (units (unknown) date) (0-2) % unknown) (unknown) (no (unknown) (unknown) Blood Pressure (units (unknown) date) 148/68 H 11/23/22 unknown) 11:25 (unknown) (no (unknown) (unknown) Blood Pressure (units (unknown) date) 148/68 H unknown) (unknown) (no (unknown) (unknown) Bones and chest (units (unknown) date) wall:? No unknown) suspicious bony lesions.? Overlying soft tissues (unknown) (no (unknown) (unknown) Cora Rogers, (units (unknown) date) PA-C [Primary Care unknown) Provider] (unknown) (no (unknown) (unknown) CK-MB (CK-2) Rel (units (unknown) date) Index TNP unknown) (unknown) (no (unknown) (unknown) CK-MB (CK-2) TNP (units (unknown) date) unknown) (unknown) (no (unknown) (unknown) COMPARISON:? (units (u nknown) date) [facility], unknown) CR, XR CHEST 1V, 07/27/2022, 12:32. (unknown) (no (unknown) (unknown) COVID19 -Nasal (units (unknown) date) RAPID/Pre-Proc unknown) Stat (unknown) (no (unknown) (unknown) CT angio head and (units (unknown) date) neck Stat unknown) (unknown) (no (unknown) (unknown) CT head/brain wo (units (unknown) date) con Stat unknown) (unknown) (no (unknown) (unknown) Calcium 8.8 (units (un known) date) (8.4-10.2) mg/dL unknown) (unknown) (no (unknown) (unknown) Carbon Dioxide 31 (units (unknown) date) (22-32) mmol/L unknown) (unknown) (no (unknown) (unknown) Carotid Doppler (units (unknown) date) Study (Signed) unknown) (unknown) (no (unknown) (unknown) Cervical Spine CT (units (unknown) date) (Signed) unknown) (unknown) (no (unknown) (unknown) Chest X-Ray (units (un known) date) (Signed) unknown) (unknown) (no (unknown) (unknown) Chest x-ray: (units (u nknown) date) unknown) (unknown) (no (unknown) (unknown) Chief Complaint: (units (unknown) date) Syncope unknown) (unknown) (no (unknown) (unknown) Chloride 99 (units (un known) date) (98-107) mmol/L unknown) (unknown) (no (unknown) (unknown) Close (units (unkno wn) date) unknown) (unknown) (no (unknown) (unknown) Complete Blood (units (unknown) date) Count AUTO DIFF unknown) Stat (unknown) (no (unknown) (unknown) Comprehensive (units ( unknown) date) Metabolic Panel unknown) Stat (unknown) (no (unknown) (unknown) Coronary artery (units (unknown) date) disease unknown) (unknown) (no (unknown) (unknown) Course (units (unkno wn) date) unknown) (unknown) (no (unknown) (unknown) Creatinine 1.27 H (units (unknown) date) (0.52-1.04) mg/dL unknown) (unknown) (no (unknown) (unknown) : 1955 (units (unknown) date) Acct:[id number] unknown) (unknown) (no (unknown) (unknown) : 1955 (units (unknown) date) unknown) (unknown) (no (unknown) (unknown) Date of Service: (units (unknown) date) 11/23/22 unknown) (unknown) (no (unknown) (unknown) Departure (units (unkn own) date) unknown) (unknown) (no (unknown) (unknown) Dictated by: Stefanie (units (unknown) date) Joann Bullard on unknown) 11/23/2022 at 11:58 ? ? (unknown) (no (unknown) (unknown) Discharge Plan (units (unknown) date) unknown) (unknown) (no (unknown) (unknown) ECG Data (units (unkno wn) date) unknown) (unknown) (no (unknown) (unknown) ED Orders (units (unkn own) date) unknown) (unknown) (no (unknown) (unknown) EKG-12 Lead Stat (units (unknown) date) unknown) (unknown) (no (unknown) (unknown) ER Physician: (units ( unknown) date) Risa Aquino D.O. unknown) (unknown) (no (unknown) (unknown) Emergency Report (units (unknown) date) unknown) (unknown) (no (unknown) (unknown) Eos # (Auto) 200 (units (unknown) date) (0-450) /uL unknown) (unknown) (no (unknown) (unknown) Eos % (Auto) 3.4 (units (unknown) date) (2-4) % unknown) (unknown) (no (unknown) (unknown) Estimated GFR 47 (units (unknown) date) L (>60) mL/min unknown) (unknown) (no (unknown) (unknown) Exam (units (unkno wn) date) unknown) (unknown) (no (unknown) (unknown) FINDINGS:? (units (unk nown) date) unknown) (unknown) (no (unknown) (unknown) General (units (unkno wn) date) unknown) (unknown) (no (unknown) (unknown) Globulin 3.9 (units (u nknown) date) (1.7-4.1) g/dL unknown) (unknown) (no (unknown) (unknown) Glucose 110 (units (un known) date) (80-110) mg/dL unknown) (unknown) (no (unknown) (unknown) HPI - Syncope (units ( unknown) date) unknown) (unknown) (no (unknown) (unknown) Hand X-Ray (units (unk nown) date) (Signed) unknown) (unknown) (no (unknown) (unknown) Hct 44.4 (36-46) (units (unknown) date) % unknown) (unknown) (no (unknown) (unknown) Head CT (Signed) (units (unknown) date) unknown) (unknown) (no (unknown) (unknown) Head CT (units (unkno wn) date) unknown) (unknown) (no (unknown) (unknown) Head/Neck CTA (units ( unknown) date) unknown) (unknown) (no (unknown) (unknown) Hgb 15.0 (units (unkno wn) date) (12.0-16.0) g/dL unknown) (unknown) (no (unknown) (unknown) Home Medications (units (unknown) date) unknown) (unknown) (no (unknown) (unknown) IMPRESSION:? No (units (unknown) date) acute unknown) cardiopulmonary findings. (unknown) (no (unknown) (unknown) INDICATIONS:? (units ( unknown) date) chest pain unknown) (unknown) (no (unknown) (unknown) INJECT UP TO 55 (units (unknown) date) UNITS PER DAY VIA unknown) INSULIN PUMP (unknown) (no (unknown) (unknown) INR 1.0 (0.9-1.3) (units (unknown) date) unknown) (unknown) (no (unknown) (unknown) Imaging Data (units (u nknown) date) unknown) (unknown) (no (unknown) (unknown) Initial Vital (units ( unknown) date) Signs unknown) (unknown) (no (unknown) (unknown) Initial Vital (units ( unknown) date) Signs: unknown) (unknown) (no (unknown) (unknown) Interpretation: (units (unknown) date) unknown) (unknown) (no (unknown) (unknown) [facility] (units (unknown) date) [address] unknown) [place] [address] (unknown) (no (unknown) (unknown) [facility] (units (unknown) date) unknown) (unknown) (no (unknown) (unknown) Omari Mason (units ( unknown) date) unknown) (unknown) (no (unknown) (unknown) Stefanie Bullard (units (un known) date) unknown) (unknown) (no (unknown) (unknown) Lab Data (units (unkno wn) date) unknown) (unknown) (no (unknown) (unknown) Lab Results (units (un known) date) unknown) (unknown) (no (unknown) (unknown) Label Comments: (units (unknown) date) unknown) (unknown) (no (unknown) (unknown) Labs: (units (unkno wn) date) unknown) (unknown) (no (unknown) (unknown) Launch?Image (units (u nknown) date) unknown) (unknown) (no (unknown) (unknown) Limitations: no (units (unknown) date) limitations unknown) (unknown) (no (unknown) (unknown) Lipase 22 L (units (un known) date) (23-300) U/L unknown) (unknown) (no (unknown) (unknown) Lipase Stat (units (un known) date) unknown) (unknown) (no (unknown) (unknown) Loc: ED (units (unkno wn) date) unknown) (unknown) (no (unknown) (unknown) Lungs and (units (unkn own) date) pleura:? Lungs are unknown) clear.? No pleural effusions or pneumothorax.? (unknown) (no (unknown) (unknown) Lymph # (Auto) (units (unknown) date) 1500 (6452-9992) unknown) /uL (unknown) (no (unknown) (unknown) Lymph % (Auto) (units (unknown) date) 20.9 L (25-40) % unknown) (unknown) (no (unknown) (unknown) MCH 30.6 (26-34) (units (unknown) date) PG unknown) (unknown) (no (unknown) (unknown) MCHC 33.8 (30-36) (units (unknown) date) % unknown) (unknown) (no (unknown) (unknown) MCV 90.6 (80-100) (units (unknown) date) fL unknown) (unknown) (no (unknown) (unknown) MDM - Syncope (units ( unknown) date) unknown) (unknown) (no (unknown) (unknown) MR#: [id number] (units (unknown) date) unknown) (unknown) (no (unknown) (unknown) Magnesium 2.0 (units ( unknown) date) (1.6-2.3) mg/dL unknown) (unknown) (no (unknown) (unknown) Magnesium Stat (units (unknown) date) unknown) (unknown) (no (unknown) (unknown) [place] (units (unknown) date) unknown) (unknown) (no (unknown) (unknown) Mammogram (units (unkn own) date) Screening (Signed) unknown) (unknown) (no (unknown) (unknown) Mediastinum:? (units ( unknown) date) Mediastinal unknown) contours appear normal.? Heart size is normal.? (unknown) (no (unknown) (unknown) Medical History (units (unknown) date) (Reviewed 11/23/22 unknown) @ 12:18 by Risa Aquino DO) (unknown) (no (unknown) (unknown) Medication (units (unk nown) date) Instructions unknown) Recorded Confirmed (unknown) (no (unknown) (unknown) Medication (units (unk nown) date) Instructions unknown) Recorded (unknown) (no (unknown) (unknown) Mode of arrival: (units (unknown) date) Family Vehicle unknown) (unknown) (no (unknown) (unknown) [place] # (Auto) 500 (units (unknown) date) (0-900) /uL unknown) (unknown) (no (unknown) (unknown) [place] % (Auto) 6.4 (units (unknown) date) (3-14) % unknown) (unknown) (no (unknown) (unknown) Neut # (Auto) (units ( unknown) date) 5000 (1752-5614) unknown) /uL (unknown) (no (unknown) (unknown) Neut % (Auto) (units ( unknown) date) 68.5 (50-75) % unknown) (unknown) (no (unknown) (unknown) [place] (units ( unknown) date) unknown) (unknown) (no (unknown) (unknown) No Action (units (unkn own) date) unknown) (unknown) (no (unknown) (unknown) No significant (units (unknown) date) medical problems unknown) (unknown) (no (unknown) (unknown) Ordered: (units (unkno wn) date) unknown) (unknown) (no (unknown) (unknown) Ordering (units (unkno wn) date) Provider: unknown) Risa Aquino D.O. (unknown) (no (unknown) (unknown) Orders (units (unkno wn) date) unknown) (unknown) (no (unknown) (unknown) Oxygen Delivery (units (unknown) date) Method 11/23/22 unknown) 11:25 (unknown) (no (unknown) (unknown) Oxygen Delivery (units (unknown) date) Method Room Air unknown) (unknown) (no (unknown) (unknown) PROCEDURE:? XR (units (unknown) date) CHEST 1V unknown) (unknown) (no (unknown) (unknown) PT 12.0 (units (unkno wn) date) (10.1-12.7) unknown) SECONDS (unknown) (no (unknown) (unknown) Partial (units (unkno wn) date) Thromboplastin unknown) Time Stat (unknown) (no (unknown) (unknown) Patient History (units (unknown) date) unknown) (unknown) (no (unknown) (unknown) Patient has prior (units (unknown) date) from 07/27/2022 it unknown) appears similar. (unknown) (no (unknown) (unknown) Patient: (units (unkno wn) date) Laverne Mendoza MR#: unknown) [id number] (unknown) (no (unknown) (unknown) Patient: (units (unkno wn) date) Laverne Mendoza unknown) (unknown) (no (unknown) (unknown) Plt Count 317 (units ( unknown) date) (150-400) X103/uL unknown) (unknown) (no (unknown) (unknown) Potassium 3.8 (units ( unknown) date) (3.4-5.1) mmol/L unknown) (unknown) (no (unknown) (unknown) Prescriptions: (units (unknown) date) unknown) (unknown) (no (unknown) (unknown) Previous Rx's (units ( unknown) date) unknown) (unknown) (no (unknown) (unknown) Prior ECG (units (unkn own) date) tracings: unknown) available for review (unknown) (no (unknown) (unknown) Procedure: XR (units ( unknown) date) chest 1V unknown) (unknown) (no (unknown) (unknown) Prothrombin Time (units (unknown) date) INR Stat unknown) (unknown) (no (unknown) (unknown) Pulse Oximetry 99 (units (unknown) date) 11/23/22 11:25 unknown) (unknown) (no (unknown) (unknown) Pulse Oximetry 99 (units (unknown) date) unknown) (unknown) (no (unknown) (unknown) Pulse Rate 71 (units ( unknown) date) 11/23/22 11:25 unknown) (unknown) (no (unknown) (unknown) Pulse Rate 71 (units ( unknown) date) unknown) (unknown) (no (unknown) (unknown) RBC 4.90 (units (unkno wn) date) (4.0-5.2) X106/uL unknown) (unknown) (no (unknown) (unknown) RDW 13.1 (units (unkno wn) date) (11.6-14.8) % unknown) (unknown) (no (unknown) (unknown) ROS Unobtainable: (units (unknown) date) All systems unknown) reviewed + are unremarkable except as noted in HPI (unknown) (no (unknown) (unknown) Radiologist's (units ( unknown) date) Impression: unknown) (unknown) (no (unknown) (unknown) Referrals: (units (unk nown) date) unknown) (unknown) (no (unknown) (unknown) Related Data (units (u nknown) date) unknown) (unknown) (no (unknown) (unknown) Respiratory Rate (units (unknown) date) 19 11/23/22 11:25 unknown) (unknown) (no (unknown) (unknown) Respiratory Rate (units (unknown) date) 19 unknown) (unknown) (no (unknown) (unknown) Review of Systems (units (unknown) date) unknown) (unknown) (no (unknown) (unknown) Laverne Mendoza??67?? (units (unknown) date) F??1955 unknown) (unknown) (no (unknown) (unknown) Ribs X-Ray (units (unk nown) date) (Signed) unknown) (unknown) (no (unknown) (unknown) Chad Tatum (units (u nknown) date) unknown) (unknown) (no (unknown) (unknown) Signed By: (units (unk nown) date) unknown) (unknown) (no (unknown) (unknown) Signed (units (unkno wn) date) unknown) (unknown) (no (unknown) (unknown) Sinus rhythm rate (units (unknown) date) of 60 6p are 142 unknown) QRS is 70 QTC [address]. No acute ST changes (unknown) (no (unknown) (unknown) Smoking Status: (units (unknown) date) Never smoker unknown) (unknown) (no (unknown) (unknown) Social History (units (unknown) date) (Reviewed 11/23/22 unknown) @ 12:18 by Risa Aquino DO) (unknown) (no (unknown) (unknown) Sodium 140 (units (unk nown) date) (137-145) mmol/L unknown) (unknown) (no (unknown) (unknown) Source: patient (units (unknown) date) unknown) (unknown) (no (unknown) (unknown) Stated Complaint: (units (unknown) date) Sent by DR giron unknown) passing out losing vision T-5 (unknown) (no (unknown) (unknown) Substance Use (units ( unknown) date) Type: does not use unknown) (unknown) (no (unknown) (unknown) Surgical changes (units (unknown) date) and devices:? unknown) None.? (unknown) (no (unknown) (unknown) TECHNIQUE:? One (units (unknown) date) view of the chest unknown) was acquired.? (unknown) (no (unknown) (unknown) Telemetry Strips (units (unknown) date) unknown) (unknown) (no (unknown) (unknown) Temperature 97.2 (units (unknown) date) F L 11/23/22 11:25 unknown) (unknown) (no (unknown) (unknown) Temperature 97.2 (units (unknown) date) F L unknown) (unknown) (no (unknown) (unknown) Time Seen by (units (u nknown) date) Provider: 11/23/22 unknown) 11:27 (unknown) (no (unknown) (unknown) Total Bilirubin (units (unknown) date) 0.5 (0.2-1.3) unknown) mg/dL (unknown) (no (unknown) (unknown) Total Creatine (units (unknown) date) Kinase 81 (30-135) unknown) U/L (unknown) (no (unknown) (unknown) Total Protein 8.0 (units (unknown) date) (6.3-8.2) g/dL unknown) (unknown) (no (unknown) (unknown) Troponin + CK (units ( unknown) date) Cardiac Panel Stat unknown) (unknown) (no (unknown) (unknown) Troponin I < (units (u nknown) date) 0.012 (0.01-0.034) unknown) ng/mL (unknown) (no (unknown) (unknown) Type 1 diabetes (units (unknown) date) unknown) (unknown) (no (unknown) (unknown) U-100 Insulin) (units (unknown) date) unknown) (unknown) (no (unknown) (unknown) Vascular (units (unkno wn) date) Ultrasound unknown) (Signed) (unknown) (no (unknown) (unknown) Vital Signs - 8 (units (unknown) date) hr unknown) (unknown) (no (unknown) (unknown) Vital Signs (units (un known) date) unknown) (unknown) (no (unknown) (unknown) Vital signs: (units (u nknown) date) unknown) (unknown) (no (unknown) (unknown) WBC 7.3 (units (unkno wn) date) (4.5-11.0) X103/uL unknown) (unknown) (no (unknown) (unknown) Curtis,Marty (units (u nknown) date) unknown) (unknown) (no (unknown) (unknown) XR chest 1V Stat (units (unknown) date) unknown) (unknown) (no (unknown) (unknown) XRay Report (units (un known) date) unknown) (unknown) (no (unknown) (unknown) [place] (units (unkno wn) date) unknown) (unknown) (no (unknown) (unknown) [Embedded Image (units (unknown) date) Not Available] unknown) (unknown) (no (unknown) (unknown) acetaminophen 325 (units (unknown) date) mg Tablet unknown) (unknown) (no (unknown) (unknown) acetaminophen 325 (units (unknown) date) mg tablet 975 mg unknown) PO Q8H PRN Pain, Mild (1-3) 07/31/22 (unknown) (no (unknown) (unknown) alcohol intake (units (unknown) date) frequency: unknown) holidays/special occasions only (unknown) (no (unknown) (unknown) alcohol intake: (units (unknown) date) current unknown) (unknown) (no (unknown) (unknown) and below (units (unkn own) date) unknown) (unknown) (no (unknown) (unknown) appear (units (unkno wn) date) unknown) (unknown) (no (unknown) (unknown) appreciated. (units (u nknown) date) unknown) (unknown) (no (unknown) (unknown) bupropion HCl 150 (units (unknown) date) mg tablet unknown) sustained-release 12 hr (unknown) (no (unknown) (unknown) bupropion HCl 150 (units (unknown) date) mg tablet,12 hr unknown) 150 mg PO DAILY 07/27/22 07/27/22 (unknown) (no (unknown) (unknown) clopidogrel 75 mg (units (unknown) date) tablet 75 mg PO unknown) DAILY 07/27/22 07/27/22 (unknown) (no (unknown) (unknown) clopidogrel 75 mg (units (unknown) date) tablet unknown) (unknown) (no (unknown) (unknown) codeine AdvReac (units (unknown) date) Verified 07/28/22 unknown) 08:51 (unknown) (no (unknown) (unknown) details: (units (unknown) date) 7 years ago unknown) yesterday (unknown) (no (unknown) (unknown) duloxetine 60 mg (units (unknown) date) capsule,delayed 60 unknown) mg PO DAILY 07/27/22 07/27/22 (unknown) (no (unknown) (unknown) duloxetine 60 mg (units (unknown) date) capsule,delayed unknown) release(DR/EC) (unknown) (no (unknown) (unknown) gabapentin 600 mg (units (unknown) date) tablet 600 mg PO unknown) DAILY 07/27/22 07/27/22 (unknown) (no (unknown) (unknown) gabapentin 600 mg (units (unknown) date) tablet unknown) (unknown) (no (unknown) (unknown) household (units (unkn own) date) members: family unknown) and children (unknown) (no (unknown) (unknown) hydrocodone (units (un known) date) Allergy unknown) Intermediate Verified 07/30/22 12:12 (unknown) (no (unknown) (unknown) insulin lispro (units (unknown) date) 100 unit/mL 55 unknown) unit SUBCUT DAILY PRN 07/27/22 07/27/22 (unknown) (no (unknown) (unknown) insulin lispro (units (unknown) date) [Humalog U-100 unknown) Insulin] 100 unit/mL solution (unknown) (no (unknown) (unknown) lisinopril 10 mg (units (unknown) date) tablet 10 mg PO unknown) DAILY 07/27/22 07/27/22 (unknown) (no (unknown) (unknown) lisinopril 10 mg (units (unknown) date) tablet unknown) (unknown) (no (unknown) (unknown) lives (units (unkno wn) date) independently: No unknown) (Lives with her daughter) (unknown) (no (unknown) (unknown) marital status: (units (unknown) date) unknown) (unknown) (no (unknown) (unknown) meperidine [From (units (unknown) date) Demerol] AdvReac unknown) Verified 07/28/22 08:51 (unknown) (no (unknown) (unknown) metoprolol (units (unk nown) date) succinate 100 mg unknown) 100 mg PO DAILY 07/27/22 07/27/22 (unknown) (no (unknown) (unknown) metoprolol (units (unk nown) date) succinate 100 mg unknown) tablet extended release 24 hr (unknown) (no (unknown) (unknown) morphine AdvReac (units (unknown) date) Mild Hallucinati unknown) Verified 07/27/22 18:54 (unknown) (no (unknown) (unknown) ng (units (unkno wn) date) unknown) (unknown) (no (unknown) (unknown) oral powder (units (un known) date) packet (Miralax) unknown) ea (unknown) (no (unknown) (unknown) oxycodone Allergy (units (unknown) date) Intermediate unknown) Uncoded 07/30/22 12:12 (unknown) (no (unknown) (unknown) polyethylene (units (u nknown) date) glycol 3350 17 unknown) gram 17 g PO DAILY PRN constipation #14 07/31/22 (unknown) (no (unknown) (unknown) polyethylene (units (u nknown) date) glycol 3350 unknown) [Miralax] 17 gram powder in packet (unknown) (no (unknown) (unknown) release (units (unkno wn) date) unknown) (unknown) (no (unknown) (unknown) rosuvastatin 20 (units (unknown) date) mg tablet 20 mg PO unknown) DAILY 07/27/22 07/27/22 (unknown) (no (unknown) (unknown) rosuvastatin 20 (units (unknown) date) mg tablet unknown) (unknown) (no (unknown) (unknown) senna 8.6 mg (units (u nknown) date) capsule unknown) (unknown) (no (unknown) (unknown) sennosides 8.6 mg (units (unknown) date) capsule (senna) unknown) 8.6 mg PO DAILY PRN constipation 07/31/22 (unknown) (no (unknown) (unknown) subcutaneous (units (u nknown) date) solution (Humalog unknown) Hyperglycemia (unknown) (no (unknown) (unknown) sustained-release (units (unknown) date) unknown) (unknown) (no (unknown) (unknown) tablet,extended (units (unknown) date) release 24 hr unknown) (unknown) (no (unknown) (unknown) unremarkable.? (units (unknown) date) unknown) Result panel 149 (unknown) (no (unknown) (unknown) (no value) (units (unk nown) date) unknown) (unknown) (no (unknown) (unknown) #30 caps (units (unkno wn) date) unknown) (unknown) (no (unknown) (unknown) #30 tabs (units (unkno wn) date) unknown) (unknown) (no (unknown) (unknown) (More??) (units (unkno wn) date) unknown) (unknown) (no (unknown) (unknown) 11/23/22 11/23/22 (units (unknown) date) 11/23/22 unknown) Range/Units (unknown) (no (unknown) (unknown) 11/23/22 11:23 (units (unknown) date) unknown) (unknown) (no (unknown) (unknown) 11/23/22 11:24 (units (unknown) date) unknown) (unknown) (no (unknown) (unknown) 11/23/22 11:27 (units (unknown) date) unknown) (unknown) (no (unknown) (unknown) 11/23/22 11:31 (units (unknown) date) unknown) (unknown) (no (unknown) (unknown) 11/23/22 12:33 (units (unknown) date) unknown) (unknown) (no (unknown) (unknown) 11/23/22 13:30 (units (unknown) date) unknown) (unknown) (no (unknown) (unknown) 11/23/22 (units (unkno wn) date) unknown) (unknown) (no (unknown) (unknown) 12/11/20 (units (unkno wn) date) unknown) (unknown) (no (unknown) (unknown) 03/04/21 (units (unkno wn) date) unknown) (unknown) (no (unknown) (unknown) 03/06/20 (units (unkno wn) date) unknown) (unknown) (no (unknown) (unknown) 05/26/20 (units (unkno wn) date) unknown) (unknown) (no (unknown) (unknown) 07/27/22 (units (unkno wn) date) unknown) (unknown) (no (unknown) (unknown) 10 mg PO DAILY (units (unknown) date) unknown) (unknown) (no (unknown) (unknown) 07/28/22 (units (unkno wn) date) unknown) (unknown) (no (unknown) (unknown) 07/30/22 (units (unkno wn) date) unknown) (unknown) (no (unknown) (unknown) 100 mg PO DAILY (units (unknown) date) unknown) (unknown) (no (unknown) (unknown) 11:23 11:23 11:23 (units (unknown) date) unknown) (unknown) (no (unknown) (unknown) 11:25 (units (unkno wn) date) unknown) (unknown) (no (unknown) (unknown) 10/02/21 (units (unkno wn) date) unknown) (unknown) (no (unknown) (unknown) [address] [place] [address] (units (unknown) date) unknown) (unknown) (no (unknown) (unknown) 150 mg PO DAILY (units (unknown) date) unknown) (unknown) (no (unknown) (unknown) 17 g PO DAILY PRN (units (unknown) date) (Reason: unknown) constipation) Qty: 14 0RF (unknown) (no (unknown) (unknown) 20 mg PO DAILY (units (unknown) date) unknown) (unknown) (no (unknown) (unknown) 237 (units (unkno wn) date) unknown) (unknown) (no (unknown) (unknown) 55 unit SUBCUT (units (unknown) date) DAILY MDD 55 PRN unknown) (Reason: Hyperglycemia) (unknown) (no (unknown) (unknown) 60 mg PO DAILY (units (unknown) date) unknown) (unknown) (no (unknown) (unknown) 600 mg PO DAILY (units (unknown) date) unknown) (unknown) (no (unknown) (unknown) 75 mg PO DAILY (units (unknown) date) unknown) (unknown) (no (unknown) (unknown) 8.6 mg PO DAILY (units (unknown) date) PRN (Reason: unknown) constipation) Qty: 30 0RF (unknown) (no (unknown) (unknown) 975 mg PO Q8H PRN (units (unknown) date) (Reason: Pain, unknown) Mild (1-3)) Qty: 30 0RF (unknown) (no (unknown) (unknown) ? (units (unkno wn) date) unknown) (unknown) (no (unknown) (unknown) ? (units (unkno wn) date) unknown) (unknown) (no (unknown) (unknown) ALT 28 (<35) IU/L (units (unknown) date) unknown) (unknown) (no (unknown) (unknown) APTT 31 (26-36) (units (unknown) date) SECONDS unknown) (unknown) (no (unknown) (unknown) AST 44 H (14-36) (units (unknown) date) IU/L unknown) (unknown) (no (unknown) (unknown) Abdomen/Pelvis CT (units (unknown) date) (Signed) unknown) (unknown) (no (unknown) (unknown) Accession Number: (units (unknown) date) [id number] ?? unknown) (unknown) (no (unknown) (unknown) Acct:[id number] (units (unknown) date) unknown) (unknown) (no (unknown) (unknown) Age/Sex: 67 / F (units (unknown) date) unknown) (unknown) (no (unknown) (unknown) Albumin 4.1 (units (un known) date) (3.5-5.0) g/dL unknown) (unknown) (no (unknown) (unknown) Albumin/Globulin (units (unknown) date) Ratio 1.1 unknown) (1.0-2.8) (unknown) (no (unknown) (unknown) Alkaline (units (unkno wn) date) Phosphatase 101 unknown) (38-126) U/L (unknown) (no (unknown) (unknown) Allergies (units (unkn own) date) unknown) (unknown) (no (unknown) (unknown) Allergy/Adv: (units (u nknown) date) hydrocodone, unknown) morphine, codeine, meperidine, [oxycodone] (unknown) (no (unknown) (unknown) Allergy/AdvReac (units (unknown) date) Type Severity unknown) Reaction Status Date / Time (unknown) (no (unknown) (unknown) [place], [place] (units ( unknown) date) [id number] unknown) (unknown) (no (unknown) (unknown) Ankle X-Ray (units (un known) date) (Signed) unknown) (unknown) (no (unknown) (unknown) Approved by: Stefanie (units (unknown) date) Joann Bullard on unknown) 11/23/2022 at 11:58 (unknown) (no (unknown) (unknown) Attestation: I (units (unknown) date) personally unknown) reviewed and interpreted this ECG as follows: (unknown) (no (unknown) (unknown) BNP [NT-proBNP (units (unknown) date) (BNP-Adult 18+)] unknown) Stat (unknown) (no (unknown) (unknown) BUN 12 (7-17) (units ( unknown) date) mg/dL unknown) (unknown) (no (unknown) (unknown) BUN/Creatinine (units (unknown) date) Ratio 9.4 (6-22) unknown) (unknown) (no (unknown) (unknown) Baso # (Auto) 100 (units (unknown) date) (0-100) /uL unknown) (unknown) (no (unknown) (unknown) Baso % (Auto) 0.8 (units (unknown) date) (0-2) % unknown) (unknown) (no (unknown) (unknown) Blood Pressure (units (unknown) date) 148/68 H 11/23/22 unknown) 11:25 (unknown) (no (unknown) (unknown) Blood Pressure (units (unknown) date) 148/68 H unknown) (unknown) (no (unknown) (unknown) Bones and chest (units (unknown) date) wall:? No unknown) suspicious bony lesions.? Overlying soft tissues (unknown) (no (unknown) (unknown) Cora Rogers, (units (unknown) date) PA-C [Primary Care unknown) Provider] (unknown) (no (unknown) (unknown) CK-MB (CK-2) Rel (units (unknown) date) Index TNP unknown) (unknown) (no (unknown) (unknown) CK-MB (CK-2) TNP (units (unknown) date) unknown) (unknown) (no (unknown) (unknown) COMPARISON:? (units (u nknown) date) [facility], unknown) CR, XR CHEST 1V, 07/27/2022, 12:32. (unknown) (no (unknown) (unknown) COVID19 -Nasal (units (unknown) date) RAPID/Pre-Proc unknown) Stat (unknown) (no (unknown) (unknown) CT angio head and (units (unknown) date) neck Stat unknown) (unknown) (no (unknown) (unknown) CT head/brain wo (units (unknown) date) con Stat unknown) (unknown) (no (unknown) (unknown) Calcium 8.8 (units (un known) date) (8.4-10.2) mg/dL unknown) (unknown) (no (unknown) (unknown) Carbon Dioxide 31 (units (unknown) date) (22-32) mmol/L unknown) (unknown) (no (unknown) (unknown) Carotid Doppler (units (unknown) date) Study (Signed) unknown) (unknown) (no (unknown) (unknown) Cervical Spine CT (units (unknown) date) (Signed) unknown) (unknown) (no (unknown) (unknown) Chest X-Ray (units (un known) date) (Signed) unknown) (unknown) (no (unknown) (unknown) Chest x-ray: (units (u nknown) date) unknown) (unknown) (no (unknown) (unknown) Chief Complaint: (units (unknown) date) Syncope unknown) (unknown) (no (unknown) (unknown) Chloride 99 (units (un known) date) (98-107) mmol/L unknown) (unknown) (no (unknown) (unknown) Close (units (unkno wn) date) unknown) (unknown) (no (unknown) (unknown) Complete Blood (units (unknown) date) Count AUTO DIFF unknown) Stat (unknown) (no (unknown) (unknown) Comprehensive (units ( unknown) date) Metabolic Panel unknown) Stat (unknown) (no (unknown) (unknown) Coronary artery (units (unknown) date) disease unknown) (unknown) (no (unknown) (unknown) Course (units (unkno wn) date) unknown) (unknown) (no (unknown) (unknown) Creatinine 1.27 H (units (unknown) date) (0.52-1.04) mg/dL unknown) (unknown) (no (unknown) (unknown) : 1955 (units (unknown) date) Acct:[id number] unknown) (unknown) (no (unknown) (unknown) : 1955 (units (unknown) date) unknown) (unknown) (no (unknown) (unknown) Date of Service: (units (unknown) date) 11/23/22 unknown) (unknown) (no (unknown) (unknown) Departure (units (unkn own) date) unknown) (unknown) (no (unknown) (unknown) Dictated by: Stefanie (units (unknown) date) Joann Bullard on unknown) 11/23/2022 at 11:58 ? ? (unknown) (no (unknown) (unknown) Discharge Plan (units (unknown) date) unknown) (unknown) (no (unknown) (unknown) ECG Data (units (unkno wn) date) unknown) (unknown) (no (unknown) (unknown) ED Orders (units (unkn own) date) unknown) (unknown) (no (unknown) (unknown) EKG-12 Lead Stat (units (unknown) date) unknown) (unknown) (no (unknown) (unknown) ER Physician: (units ( unknown) date) Risa Aquino D.O. unknown) (unknown) (no (unknown) (unknown) Emergency Report (units (unknown) date) unknown) (unknown) (no (unknown) (unknown) Eos # (Auto) 200 (units (unknown) date) (0-450) /uL unknown) (unknown) (no (unknown) (unknown) Eos % (Auto) 3.4 (units (unknown) date) (2-4) % unknown) (unknown) (no (unknown) (unknown) Estimated GFR 47 (units (unknown) date) L (>60) mL/min unknown) (unknown) (no (unknown) (unknown) Exam (units (unkno wn) date) unknown) (unknown) (no (unknown) (unknown) FINDINGS:? (units (unk nown) date) unknown) (unknown) (no (unknown) (unknown) General (units (unkno wn) date) unknown) (unknown) (no (unknown) (unknown) Globulin 3.9 (units (u nknown) date) (1.7-4.1) g/dL unknown) (unknown) (no (unknown) (unknown) Glucose 110 (units (un known) date) (80-110) mg/dL unknown) (unknown) (no (unknown) (unknown) HPI - Syncope (units ( unknown) date) unknown) (unknown) (no (unknown) (unknown) Hand X-Ray (units (unk nown) date) (Signed) unknown) (unknown) (no (unknown) (unknown) Hct 44.4 (36-46) (units (unknown) date) % unknown) (unknown) (no (unknown) (unknown) Head CT (Signed) (units (unknown) date) unknown) (unknown) (no (unknown) (unknown) Head CT (units (unkno wn) date) unknown) (unknown) (no (unknown) (unknown) Head/Neck CTA (units ( unknown) date) unknown) (unknown) (no (unknown) (unknown) Hgb 15.0 (units (unkno wn) date) (12.0-16.0) g/dL unknown) (unknown) (no (unknown) (unknown) Home Medications (units (unknown) date) unknown) (unknown) (no (unknown) (unknown) IMPRESSION:? No (units (unknown) date) acute unknown) cardiopulmonary findings. (unknown) (no (unknown) (unknown) INDICATIONS:? (units ( unknown) date) chest pain unknown) (unknown) (no (unknown) (unknown) INJECT UP TO 55 (units (unknown) date) UNITS PER DAY VIA unknown) INSULIN PUMP (unknown) (no (unknown) (unknown) INR 1.0 (0.9-1.3) (units (unknown) date) unknown) (unknown) (no (unknown) (unknown) Imaging Data (units (u nknown) date) unknown) (unknown) (no (unknown) (unknown) Initial Vital (units ( unknown) date) Signs unknown) (unknown) (no (unknown) (unknown) Initial Vital (units ( unknown) date) Signs: unknown) (unknown) (no (unknown) (unknown) Interpretation: (units (unknown) date) unknown) (unknown) (no (unknown) (unknown) [facility] (units (unknown) date) [address] unknown) [place] [address] (unknown) (no (unknown) (unknown) [facility] (units (unknown) date) unknown) (unknown) (no (unknown) (unknown) Omari Mason (units ( unknown) date) unknown) (unknown) (no (unknown) (unknown) Stefanie Bullard (units (un known) date) unknown) (unknown) (no (unknown) (unknown) Lab Data (units (unkno wn) date) unknown) (unknown) (no (unknown) (unknown) Lab Results (units (un known) date) unknown) (unknown) (no (unknown) (unknown) Label Comments: (units (unknown) date) unknown) (unknown) (no (unknown) (unknown) Labs: (units (unkno wn) date) unknown) (unknown) (no (unknown) (unknown) Launch?Image (units (u nknown) date) unknown) (unknown) (no (unknown) (unknown) Limitations: no (units (unknown) date) limitations unknown) (unknown) (no (unknown) (unknown) Lipase 22 L (units (un known) date) (23-300) U/L unknown) (unknown) (no (unknown) (unknown) Lipase Stat (units (un known) date) unknown) (unknown) (no (unknown) (unknown) Loc: ED (units (unkno wn) date) unknown) (unknown) (no (unknown) (unknown) Lungs and (units (unkn own) date) pleura:? Lungs are unknown) clear.? No pleural effusions or pneumothorax.? (unknown) (no (unknown) (unknown) Lymph # (Auto) (units (unknown) date) 1500 (0260-9236) unknown) /uL (unknown) (no (unknown) (unknown) Lymph % (Auto) (units (unknown) date) 20.9 L (25-40) % unknown) (unknown) (no (unknown) (unknown) MCH 30.6 (26-34) (units (unknown) date) PG unknown) (unknown) (no (unknown) (unknown) MCHC 33.8 (30-36) (units (unknown) date) % unknown) (unknown) (no (unknown) (unknown) MCV 90.6 (80-100) (units (unknown) date) fL unknown) (unknown) (no (unknown) (unknown) MDM - Syncope (units ( unknown) date) unknown) (unknown) (no (unknown) (unknown) MR#: [id number] (units (unknown) date) unknown) (unknown) (no (unknown) (unknown) Magnesium 2.0 (units ( unknown) date) (1.6-2.3) mg/dL unknown) (unknown) (no (unknown) (unknown) Magnesium Stat (units (unknown) date) unknown) (unknown) (no (unknown) (unknown) [place] (units (unknown) date) unknown) (unknown) (no (unknown) (unknown) Mammogram (units (unkn own) date) Screening (Signed) unknown) (unknown) (no (unknown) (unknown) Mediastinum:? (units ( unknown) date) Mediastinal unknown) contours appear normal.? Heart size is normal.? (unknown) (no (unknown) (unknown) Medical History (units (unknown) date) (Reviewed 11/23/22 unknown) @ 12:18 by Risa Aquino DO) (unknown) (no (unknown) (unknown) Medication (units (unk nown) date) Instructions unknown) Recorded Confirmed (unknown) (no (unknown) (unknown) Medication (units (unk nown) date) Instructions unknown) Recorded (unknown) (no (unknown) (unknown) Mode of arrival: (units (unknown) date) Family Vehicle unknown) (unknown) (no (unknown) (unknown) [place] # (Auto) 500 (units (unknown) date) (0-900) /uL unknown) (unknown) (no (unknown) (unknown) [place] % (Auto) 6.4 (units (unknown) date) (3-14) % unknown) (unknown) (no (unknown) (unknown) Neut # (Auto) (units ( unknown) date) 5000 (5742-3030) unknown) /uL (unknown) (no (unknown) (unknown) Neut % (Auto) (units ( unknown) date) 68.5 (50-75) % unknown) (unknown) (no (unknown) (unknown) [place] (units ( unknown) date) unknown) (unknown) (no (unknown) (unknown) No Action (units (unkn own) date) unknown) (unknown) (no (unknown) (unknown) No significant (units (unknown) date) medical problems unknown) (unknown) (no (unknown) (unknown) Ordered: (units (unkno wn) date) unknown) (unknown) (no (unknown) (unknown) Ordering (units (unkno wn) date) Provider: unknown) Risa Aquino D.O. (unknown) (no (unknown) (unknown) Orders (units (unkno wn) date) unknown) (unknown) (no (unknown) (unknown) Oxygen Delivery (units (unknown) date) Method 11/23/22 unknown) 11:25 (unknown) (no (unknown) (unknown) Oxygen Delivery (units (unknown) date) Method Room Air unknown) (unknown) (no (unknown) (unknown) PROCEDURE:? XR (units (unknown) date) CHEST 1V unknown) (unknown) (no (unknown) (unknown) PT 12.0 (units (unkno wn) date) (10.1-12.7) unknown) SECONDS (unknown) (no (unknown) (unknown) Partial (units (unkno wn) date) Thromboplastin unknown) Time Stat (unknown) (no (unknown) (unknown) Patient History (units (unknown) date) unknown) (unknown) (no (unknown) (unknown) Patient has prior (units (unknown) date) from 07/27/2022 it unknown) appears similar. (unknown) (no (unknown) (unknown) Patient: (units (unkno wn) date) Laverne Mendoza MR#: unknown) [id number] (unknown) (no (unknown) (unknown) Patient: (units (unkno wn) date) Laverne Mendoza unknown) (unknown) (no (unknown) (unknown) Plt Count 317 (units ( unknown) date) (150-400) X103/uL unknown) (unknown) (no (unknown) (unknown) Potassium 3.8 (units ( unknown) date) (3.4-5.1) mmol/L unknown) (unknown) (no (unknown) (unknown) Prescriptions: (units (unknown) date) unknown) (unknown) (no (unknown) (unknown) Previous Rx's (units ( unknown) date) unknown) (unknown) (no (unknown) (unknown) Prior ECG (units (unkn own) date) tracings: unknown) available for review (unknown) (no (unknown) (unknown) Procedure: XR (units ( unknown) date) chest 1V unknown) (unknown) (no (unknown) (unknown) Prothrombin Time (units (unknown) date) INR Stat unknown) (unknown) (no (unknown) (unknown) Pulse Oximetry 99 (units (unknown) date) 11/23/22 11:25 unknown) (unknown) (no (unknown) (unknown) Pulse Oximetry 99 (units (unknown) date) unknown) (unknown) (no (unknown) (unknown) Pulse Rate 71 (units ( unknown) date) 11/23/22 11:25 unknown) (unknown) (no (unknown) (unknown) Pulse Rate 71 (units ( unknown) date) unknown) (unknown) (no (unknown) (unknown) RBC 4.90 (units (unkno wn) date) (4.0-5.2) X106/uL unknown) (unknown) (no (unknown) (unknown) RDW 13.1 (units (unkno wn) date) (11.6-14.8) % unknown) (unknown) (no (unknown) (unknown) ROS Unobtainable: (units (unknown) date) All systems unknown) reviewed + are unremarkable except as noted in HPI (unknown) (no (unknown) (unknown) Radiologist's (units ( unknown) date) Impression: unknown) (unknown) (no (unknown) (unknown) Referrals: (units (unk nown) date) unknown) (unknown) (no (unknown) (unknown) Related Data (units (u nknown) date) unknown) (unknown) (no (unknown) (unknown) Respiratory Rate (units (unknown) date) 19 11/23/22 11:25 unknown) (unknown) (no (unknown) (unknown) Respiratory Rate (units (unknown) date) 19 unknown) (unknown) (no (unknown) (unknown) Review of Systems (units (unknown) date) unknown) (unknown) (no (unknown) (unknown) Reji,Laverne??67?? (units (unknown) date) F??1955 unknown) (unknown) (no (unknown) (unknown) Ribs X-Ray (units (unk nown) date) (Signed) unknown) (unknown) (no (unknown) (unknown) Chad Tatum (units (u nknown) date) unknown) (unknown) (no (unknown) (unknown) Signed By: (units (unk nown) date) unknown) (unknown) (no (unknown) (unknown) Signed (units (unkno wn) date) unknown) (unknown) (no (unknown) (unknown) Sinus rhythm rate (units (unknown) date) of 60 6p are 142 unknown) QRS is 70 QTC [address]. No acute ST changes (unknown) (no (unknown) (unknown) Smoking Status: (units (unknown) date) Never smoker unknown) (unknown) (no (unknown) (unknown) Social History (units (unknown) date) (Reviewed 11/23/22 unknown) @ 12:18 by Risa Aquino DO) (unknown) (no (unknown) (unknown) Sodium 140 (units (unk nown) date) (137-145) mmol/L unknown) (unknown) (no (unknown) (unknown) Source: patient (units (unknown) date) unknown) (unknown) (no (unknown) (unknown) Stated Complaint: (units (unknown) date) Sent by DR giron unknown) passing out losing vision T-5 (unknown) (no (unknown) (unknown) Substance Use (units ( unknown) date) Type: does not use unknown) (unknown) (no (unknown) (unknown) Surgical changes (units (unknown) date) and devices:? unknown) None.? (unknown) (no (unknown) (unknown) TECHNIQUE:? One (units (unknown) date) view of the chest unknown) was acquired.? (unknown) (no (unknown) (unknown) Telemetry Strips (units (unknown) date) unknown) (unknown) (no (unknown) (unknown) Temperature 97.2 (units (unknown) date) F L 11/23/22 11:25 unknown) (unknown) (no (unknown) (unknown) Temperature 97.2 (units (unknown) date) F L unknown) (unknown) (no (unknown) (unknown) Time Seen by (units (u nknown) date) Provider: 11/23/22 unknown) 11:27 (unknown) (no (unknown) (unknown) Total Bilirubin (units (unknown) date) 0.5 (0.2-1.3) unknown) mg/dL (unknown) (no (unknown) (unknown) Total Creatine (units (unknown) date) Kinase 81 (30-135) unknown) U/L (unknown) (no (unknown) (unknown) Total Protein 8.0 (units (unknown) date) (6.3-8.2) g/dL unknown) (unknown) (no (unknown) (unknown) Trop I [Troponin (units (unknown) date) I] Stat unknown) (unknown) (no (unknown) (unknown) Troponin + CK (units ( unknown) date) Cardiac Panel Stat unknown) (unknown) (no (unknown) (unknown) Troponin I < (units (u nknown) date) 0.012 (0.01-0.034) unknown) ng/mL (unknown) (no (unknown) (unknown) Type 1 diabetes (units (unknown) date) unknown) (unknown) (no (unknown) (unknown) U-100 Insulin) (units (unknown) date) unknown) (unknown) (no (unknown) (unknown) Vascular (units (unkno wn) date) Ultrasound unknown) (Signed) (unknown) (no (unknown) (unknown) Vital Signs - 8 (units (unknown) date) hr unknown) (unknown) (no (unknown) (unknown) Vital Signs (units (un known) date) unknown) (unknown) (no (unknown) (unknown) Vital signs: (units (u nknown) date) unknown) (unknown) (no (unknown) (unknown) WBC 7.3 (units (unkno wn) date) (4.5-11.0) X103/uL unknown) (unknown) (no (unknown) (unknown) Curtis,Marty (units (u nknown) date) unknown) (unknown) (no (unknown) (unknown) XR chest 1V Stat (units (unknown) date) unknown) (unknown) (no (unknown) (unknown) XRay Report (units (un known) date) unknown) (unknown) (no (unknown) (unknown) [place] (units (unkno wn) date) unknown) (unknown) (no (unknown) (unknown) [Embedded Image (units (unknown) date) Not Available] unknown) (unknown) (no (unknown) (unknown) acetaminophen 325 (units (unknown) date) mg Tablet unknown) (unknown) (no (unknown) (unknown) acetaminophen 325 (units (unknown) date) mg tablet 975 mg unknown) PO Q8H PRN Pain, Mild (1-3) 07/31/22 (unknown) (no (unknown) (unknown) alcohol intake (units (unknown) date) frequency: unknown) holidays/special occasions only (unknown) (no (unknown) (unknown) alcohol intake: (units (unknown) date) current unknown) (unknown) (no (unknown) (unknown) and below (units (unkn own) date) unknown) (unknown) (no (unknown) (unknown) appear (units (unkno wn) date) unknown) (unknown) (no (unknown) (unknown) appreciated. (units (u nknown) date) unknown) (unknown) (no (unknown) (unknown) bupropion HCl 150 (units (unknown) date) mg tablet unknown) sustained-release 12 hr (unknown) (no (unknown) (unknown) bupropion HCl 150 (units (unknown) date) mg tablet,12 hr unknown) 150 mg PO DAILY 07/27/22 07/27/22 (unknown) (no (unknown) (unknown) clopidogrel 75 mg (units (unknown) date) tablet 75 mg PO unknown) DAILY 07/27/22 07/27/22 (unknown) (no (unknown) (unknown) clopidogrel 75 mg (units (unknown) date) tablet unknown) (unknown) (no (unknown) (unknown) codeine AdvReac (units (unknown) date) Verified 07/28/22 unknown) 08:51 (unknown) (no (unknown) (unknown) details: (units (unknown) date) 7 years ago unknown) yesterday (unknown) (no (unknown) (unknown) duloxetine 60 mg (units (unknown) date) capsule,delayed 60 unknown) mg PO DAILY 07/27/22 07/27/22 (unknown) (no (unknown) (unknown) duloxetine 60 mg (units (unknown) date) capsule,delayed unknown) release(DR/EC) (unknown) (no (unknown) (unknown) gabapentin 600 mg (units (unknown) date) tablet 600 mg PO unknown) DAILY 07/27/22 07/27/22 (unknown) (no (unknown) (unknown) gabapentin 600 mg (units (unknown) date) tablet unknown) (unknown) (no (unknown) (unknown) household (units (unkn own) date) members: family unknown) and children (unknown) (no (unknown) (unknown) hydrocodone (units (un known) date) Allergy unknown) Intermediate Verified 07/30/22 12:12 (unknown) (no (unknown) (unknown) insulin lispro (units (unknown) date) 100 unit/mL 55 unknown) unit SUBCUT DAILY PRN 07/27/22 07/27/22 (unknown) (no (unknown) (unknown) insulin lispro (units (unknown) date) [Humalog U-100 unknown) Insulin] 100 unit/mL solution (unknown) (no (unknown) (unknown) lisinopril 10 mg (units (unknown) date) tablet 10 mg PO unknown) DAILY 07/27/22 07/27/22 (unknown) (no (unknown) (unknown) lisinopril 10 mg (units (unknown) date) tablet unknown) (unknown) (no (unknown) (unknown) lives (units (unkno wn) date) independently: No unknown) (Lives with her daughter) (unknown) (no (unknown) (unknown) marital status: (units (unknown) date) unknown) (unknown) (no (unknown) (unknown) meperidine [From (units (unknown) date) Demerol] AdvReac unknown) Verified 07/28/22 08:51 (unknown) (no (unknown) (unknown) metoprolol (units (unk nown) date) succinate 100 mg unknown) 100 mg PO DAILY 07/27/22 07/27/22 (unknown) (no (unknown) (unknown) metoprolol (units (unk nown) date) succinate 100 mg unknown) tablet extended release 24 hr (unknown) (no (unknown) (unknown) morphine AdvReac (units (unknown) date) Mild Hallucinati unknown) Verified 07/27/22 18:54 (unknown) (no (unknown) (unknown) ng (units (unkno wn) date) unknown) (unknown) (no (unknown) (unknown) oral powder (units (un known) date) packet (Miralax) unknown) ea (unknown) (no (unknown) (unknown) oxycodone Allergy (units (unknown) date) Intermediate unknown) Uncoded 07/30/22 12:12 (unknown) (no (unknown) (unknown) polyethylene (units (u nknown) date) glycol 3350 17 unknown) gram 17 g PO DAILY PRN constipation #14 07/31/22 (unknown) (no (unknown) (unknown) polyethylene (units (u nknown) date) glycol 3350 unknown) [Miralax] 17 gram powder in packet (unknown) (no (unknown) (unknown) release (units (unkno wn) date) unknown) (unknown) (no (unknown) (unknown) rosuvastatin 20 (units (unknown) date) mg tablet 20 mg PO unknown) DAILY 07/27/22 07/27/22 (unknown) (no (unknown) (unknown) rosuvastatin 20 (units (unknown) date) mg tablet unknown) (unknown) (no (unknown) (unknown) senna 8.6 mg (units (u nknown) date) capsule unknown) (unknown) (no (unknown) (unknown) sennosides 8.6 mg (units (unknown) date) capsule (senna) unknown) 8.6 mg PO DAILY PRN constipation 07/31/22 (unknown) (no (unknown) (unknown) subcutaneous (units (u nknown) date) solution (Humalog unknown) Hyperglycemia (unknown) (no (unknown) (unknown) sustained-release (units (unknown) date) unknown) (unknown) (no (unknown) (unknown) tablet,extended (units (unknown) date) release 24 hr unknown) (unknown) (no (unknown) (unknown) unremarkable.? (units (unknown) date) unknown) Result panel 150 (unknown) (no date) (unknown) (unknown) 104 pg/ml (unkn own) (unknown) (no date) (unknown) (unknown) 104 pg/ml (unkn own) Result panel 151 (unknown) (no (unknown) (unknown) (no value) (units (unk nown) date) unknown) (unknown) (no (unknown) (unknown) #30 caps (units (unkno wn) date) unknown) (unknown) (no (unknown) (unknown) #30 tabs (units (unkno wn) date) unknown) (unknown) (no (unknown) (unknown) (More??) (units (unkno wn) date) unknown) (unknown) (no (unknown) (unknown) 11/23/22 11/23/22 (units (unknown) date) 11/23/22 Range/Units unknown) (unknown) (no (unknown) (unknown) 11/23/22 11:23 (units (unknown) date) unknown) (unknown) (no (unknown) (unknown) 11/23/22 11:24 (units (unknown) date) unknown) (unknown) (no (unknown) (unknown) 11/23/22 11:27 (units (unknown) date) unknown) (unknown) (no (unknown) (unknown) 11/23/22 11:31 (units (unknown) date) unknown) (unknown) (no (unknown) (unknown) 11/23/22 13:28 (units (unknown) date) unknown) (unknown) (no (unknown) (unknown) 11/23/22 (units (unkno wn) date) Range/Units unknown) (unknown) (no (unknown) (unknown) 11/23/22 (units (unkno wn) date) unknown) (unknown) (no (unknown) (unknown) 12/11/20 (units (unkno wn) date) unknown) (unknown) (no (unknown) (unknown) 03/04/21 (units (unkno wn) date) unknown) (unknown) (no (unknown) (unknown) 03/06/20 (units (unkno wn) date) unknown) (unknown) (no (unknown) (unknown) 05/26/20 (units (unkno wn) date) unknown) (unknown) (no (unknown) (unknown) 07/27/22 (units (unkno wn) date) unknown) (unknown) (no (unknown) (unknown) 10 mg PO DAILY (units (unknown) date) unknown) (unknown) (no (unknown) (unknown) 07/28/22 (units (unkno wn) date) unknown) (unknown) (no (unknown) (unknown) 07/30/22 (units (unkno wn) date) unknown) (unknown) (no (unknown) (unknown) 100 mg PO DAILY (units (unknown) date) unknown) (unknown) (no (unknown) (unknown) 11:23 11:23 11:23 (units (unknown) date) unknown) (unknown) (no (unknown) (unknown) 11:23 (units (unkno wn) date) unknown) (unknown) (no (unknown) (unknown) 11:25 (units (unkno wn) date) unknown) (unknown) (no (unknown) (unknown) 10/02/21 (units (unkno wn) date) unknown) (unknown) (no (unknown) (unknown) [address] [place] (units (unknown) date) unknown) (unknown) (no (unknown) (unknown) 150 mg PO DAILY (units (unknown) date) unknown) (unknown) (no (unknown) (unknown) 17 g PO DAILY PRN (units (unknown) date) (Reason: unknown) constipation) Qty: 14 0RF (unknown) (no (unknown) (unknown) 20 mg PO DAILY (units (unknown) date) unknown) (unknown) (no (unknown) (unknown) 237 (units (unkno wn) date) unknown) (unknown) (no (unknown) (unknown) or (units (unknown) date) 2021. She states she unknown) has not had any other incontinence issues (unknown) (no (unknown) (unknown) 55 unit SUBCUT (units (unknown) date) DAILY MDD 55 PRN unknown) (Reason: Hyperglycemia) (unknown) (no (unknown) (unknown) 60 mg PO DAILY (units (unknown) date) unknown) (unknown) (no (unknown) (unknown) 600 mg PO DAILY (units (unknown) date) unknown) (unknown) (no (unknown) (unknown) 75 mg PO DAILY (units (unknown) date) unknown) (unknown) (no (unknown) (unknown) 8.6 mg PO DAILY PRN (unit s (unknown) date) (Reason: unknown) constipation) Qty: 30 0RF (unknown) (no (unknown) (unknown) 975 mg PO Q8H PRN (units (unknown) date) (Reason: Pain, Mild unknown) (1-3)) Qty: 30 0RF (unknown) (no (unknown) (unknown) ? (units (unkno wn) date) unknown) (unknown) (no (unknown) (unknown) ? (units (unkno wn) date) unknown) (unknown) (no (unknown) (unknown) ?Both carotid (units ( unknown) date) bifurcations are unknown) widely patent with only minimal atherosclerotic (unknown) (no (unknown) (unknown) ABD:bowel sounds (units (unknown) date) normal, soft, unknown) non-tender, no guarding, rebound, rigidity, no (unknown) (no (unknown) (unknown) ALT (<35) IU/L (units (unknown) date) unknown) (unknown) (no (unknown) (unknown) ALT 28 (<35) IU/L (units (unknown) date) unknown) (unknown) (no (unknown) (unknown) APTT (26-36) (units (u nknown) date) SECONDS unknown) (unknown) (no (unknown) (unknown) APTT 31 (26-36) (units (unknown) date) SECONDS unknown) (unknown) (no (unknown) (unknown) AST (14-36) IU/L (units (unknown) date) unknown) (unknown) (no (unknown) (unknown) AST 44 H (14-36) (units (unknown) date) IU/L unknown) (unknown) (no (unknown) (unknown) Abdomen/Pelvis CT (units (unknown) date) (Signed) unknown) (unknown) (no (unknown) (unknown) Accession Number: (units (unknown) date) [id number] ?? unknown) (unknown) (no (unknown) (unknown) Accession Number: (units (unknown) date) [id number] ?? unknown) (unknown) (no (unknown) (unknown) Accession Number: (units (unknown) date) [id number] ?? unknown) (unknown) (no (unknown) (unknown) Acct:[id number] (units (unknown) date) unknown) (unknown) (no (unknown) (unknown) Age/Sex: 67 / F (units (unknown) date) unknown) (unknown) (no (unknown) (unknown) Albumin (3.5-5.0) (units (unknown) date) g/dL unknown) (unknown) (no (unknown) (unknown) Albumin 4.1 (units (un known) date) (3.5-5.0) g/dL unknown) (unknown) (no (unknown) (unknown) Albumin/Globulin (units (unknown) date) Ratio (1.0-2.8) unknown) (unknown) (no (unknown) (unknown) Albumin/Globulin (units (unknown) date) Ratio 1.1 (1.0-2.8) unknown) (unknown) (no (unknown) (unknown) Alkaline (units (unkno wn) date) Phosphatase (38-126) unknown) U/L (unknown) (no (unknown) (unknown) Alkaline (units (unkno wn) date) Phosphatase 101 unknown) (38-126) U/L (unknown) (no (unknown) (unknown) Allergies (units (unkn own) date) unknown) (unknown) (no (unknown) (unknown) Allergy/Adv: (units (u nknown) date) hydrocodone, unknown) morphine, codeine, meperidine, [oxycodone] (unknown) (no (unknown) (unknown) Allergy/AdvReac (units (unknown) date) Type Severity unknown) Reaction Status Date / Time (unknown) (no (unknown) (unknown) [place], [place] [address] (unit s (unknown) date) unknown) (unknown) (no (unknown) (unknown) Ankle X-Ray (units (un known) date) (Signed) unknown) (unknown) (no (unknown) (unknown) Anterior (units (unkno wn) date) circulation:? unknown) Intracranial internal carotid arteries are normal in size (unknown) (no (unknown) (unknown) Any quantitative (units (unknown) date) measurements of unknown) stenosis were performed using NASCET criteria.? (unknown) (no (unknown) (unknown) Approved by: Chad (units (unknown) date) Joann Tatum on unknown) 11/23/2022 at 12:34?? (unknown) (no (unknown) (unknown) Approved by: Chad (units (unknown) date) Joann Tatum on unknown) 11/23/2022 at 12:39?? (unknown) (no (unknown) (unknown) Approved by: Stefanie (units (unknown) date) Joann Bullard on unknown) 11/23/2022 at 11:58 (unknown) (no (unknown) (unknown) Ask month/age: (units (unknown) date) Answers both unknown) questions correctly. (unknown) (no (unknown) (unknown) Attestation: I (units (unknown) date) personally reviewed unknown) and interpreted this ECG as follows: (unknown) (no (unknown) (unknown) BNP [NT-proBNP (units (unknown) date) (BNP-Adult 18+)] unknown) Stat (unknown) (no (unknown) (unknown) BRAIN:? (units (unkno wn) date) unknown) (unknown) (no (unknown) (unknown) BUN (7-17) mg/dL (units (unknown) date) unknown) (unknown) (no (unknown) (unknown) BUN 12 (7-17) mg/dL (unit s (unknown) date) unknown) (unknown) (no (unknown) (unknown) BUN/Creatinine (units (unknown) date) Ratio (6-22) unknown) (unknown) (no (unknown) (unknown) BUN/Creatinine (units (unknown) date) Ratio 9.4 (6-22) unknown) (unknown) (no (unknown) (unknown) Baso # (Auto) (units ( unknown) date) (0-100) /uL unknown) (unknown) (no (unknown) (unknown) Baso # (Auto) 100 (units (unknown) date) (0-100) /uL unknown) (unknown) (no (unknown) (unknown) Baso % (Auto) (0-2) (unit s (unknown) date) % unknown) (unknown) (no (unknown) (unknown) Baso % (Auto) 0.8 (units (unknown) date) (0-2) % unknown) (unknown) (no (unknown) (unknown) Best gaze (units (unkn own) date) horizontal: Normal unknown) (unknown) (no (unknown) (unknown) Best language: No (units (unknown) date) aphasia, normal unknown) (unknown) (no (unknown) (unknown) Blood Pressure (units (unknown) date) 148/68 H 11/23/22 unknown) 11:25 (unknown) (no (unknown) (unknown) Blood Pressure (units (unknown) date) 148/68 H unknown) (unknown) (no (unknown) (unknown) Bones and chest (units (unknown) date) wall:? No suspicious unknown) bony lesions.? Overlying soft tissues (unknown) (no (unknown) (unknown) Bones:? No (units (unk nown) date) suspicious bony unknown) lesions.? Visualized cervical spine appears normally (unknown) (no (unknown) (unknown) Brain:? No (units (unk nown) date) intracranial bleeds unknown) or masses.? There is mild cerebral volume loss (unknown) (no (unknown) (unknown) Brain:? No midline (units (unknown) date) shift.? No unknown) intracranial bleeds or masses.? Valles-white matter (unknown) (no (unknown) (unknown) Cora Rogers, (units (unknown) date) PA-C [Primary Care unknown) Provider] (unknown) (no (unknown) (unknown) CK-MB (CK-2) Rel (units (unknown) date) Index TNP unknown) (unknown) (no (unknown) (unknown) CK-MB (CK-2) Rel (units (unknown) date) Index unknown) (unknown) (no (unknown) (unknown) CK-MB (CK-2) TNP (units (unknown) date) unknown) (unknown) (no (unknown) (unknown) CK-MB (CK-2) (units (u nknown) date) unknown) (unknown) (no (unknown) (unknown) [facility], CR, XR unknown) CHEST 1V, 07/27/2022, 12:32. (unknown) (no (unknown) (unknown) [facility]:? [facility], CT, CT unknown) HEAD/BRAIN WO CON, 07/27/2022, 12:56. (unknown) (no (unknown) (unknown) COMPARISON:? None. (units (unknown) date) unknown) (unknown) (no (unknown) (unknown) COVID19 -Nasal (units (unknown) date) RAPID/Pre-Proc Stat unknown) (unknown) (no (unknown) (unknown) CSF spaces:? Basal (units (unknown) date) cisterns are unknown) patent.? No extra-axial fluid collections.? The (unknown) (no (unknown) (unknown) CSF spaces:? (units (u nknown) date) Ventricles are unknown) normal in size and shape.? Basal cisterns are (unknown) (no (unknown) (unknown) CT Scan Report (units (unknown) date) unknown) (unknown) (no (unknown) (unknown) CT angio head and (units (unknown) date) neck Stat unknown) (unknown) (no (unknown) (unknown) CT head/brain wo (units (unknown) date) con Stat unknown) (unknown) (no (unknown) (unknown) CT scan - head: (units (unknown) date) unknown) (unknown) (no (unknown) (unknown) CTA - brain/neck: (units (unknown) date) unknown) (unknown) (no (unknown) (unknown) Calcium (8.4-10.2) (units (unknown) date) mg/dL unknown) (unknown) (no (unknown) (unknown) Calcium 8.8 (units (un known) date) (8.4-10.2) mg/dL unknown) (unknown) (no (unknown) (unknown) Carbon Dioxide (units (unknown) date) (22-32) mmol/L unknown) (unknown) (no (unknown) (unknown) Carbon Dioxide 31 (units (unknown) date) (22-32) mmol/L unknown) (unknown) (no (unknown) (unknown) Carotid Doppler (units (unknown) date) Study (Signed) unknown) (unknown) (no (unknown) (unknown) Carotid system:? (units (unknown) date) The aortic arch and unknown) bilateral common carotid arteries are (unknown) (no (unknown) (unknown) Cervical Spine CT (units (unknown) date) (Signed) unknown) (unknown) (no (unknown) (unknown) Chest X-Ray (units (un known) date) (Signed) unknown) (unknown) (no (unknown) (unknown) Chest x-ray: (units (u nknown) date) unknown) (unknown) (no (unknown) (unknown) Chief Complaint: (units (unknown) date) Syncope unknown) (unknown) (no (unknown) (unknown) Chloride (98-107) (units (unknown) date) mmol/L unknown) (unknown) (no (unknown) (unknown) Chloride 99 (units (un known) date) (98-107) mmol/L unknown) (unknown) (no (unknown) (unknown) Clinical (units (unkno wn) date) Impression: unknown) (unknown) (no (unknown) (unknown) Close (units (unkno wn) date) unknown) (unknown) (no (unknown) (unknown) Complete Blood (units (unknown) date) Count AUTO DIFF Stat unknown) (unknown) (no (unknown) (unknown) Comprehensive (units ( unknown) date) Metabolic Panel Stat unknown) (unknown) (no (unknown) (unknown) Coronary artery (units (unknown) date) disease unknown) (unknown) (no (unknown) (unknown) Course (units (unkno wn) date) unknown) (unknown) (no (unknown) (unknown) Creatinine (units (unk nown) date) (0.52-1.04) mg/dL unknown) (unknown) (no (unknown) (unknown) Creatinine 1.27 H (units (unknown) date) (0.52-1.04) mg/dL unknown) (unknown) (no (unknown) (unknown) : 1955 (units (unknown) date) Acct:[id number] unknown) (unknown) (no (unknown) (unknown) : 1955 (units (unknown) date) unknown) (unknown) (no (unknown) (unknown) Date of Service: (units (unknown) date) 11/23/22 unknown) (unknown) (no (unknown) (unknown) Departure (units (unkn own) date) unknown) (unknown) (no (unknown) (unknown) Dictated by: Chad (units (unknown) date) Joann Tatum on unknown) 11/23/2022 at 12:34 ? ? (unknown) (no (unknown) (unknown) Dictated by: Chad (units (unknown) date) Joann Tatum on unknown) 11/23/2022 at 12:35 ? ? (unknown) (no (unknown) (unknown) Dictated by: Stefanie (units (unknown) date) Joann Bullard on unknown) 11/23/2022 at 11:58 ? ? (unknown) (no (unknown) (unknown) Discharge Plan (units (unknown) date) unknown) (unknown) (no (unknown) (unknown) Discussed with (units (unknown) date) patient would like unknown) to keep for stroke workup and syncope. (unknown) (no (unknown) (unknown) Dysarthria: Normal (units (unknown) date) unknown) (unknown) (no (unknown) (unknown) ECG Data (units (unkno wn) date) unknown) (unknown) (no (unknown) (unknown) ED Orders (units (unkn own) date) unknown) (unknown) (no (unknown) (unknown) EKG 2. (units (unkno wn) date) unknown) (unknown) (no (unknown) (unknown) EKG-12 Lead Stat (units (unknown) date) unknown) (unknown) (no (unknown) (unknown) ER Physician: (units ( unknown) date) Risa Aquino D.O. unknown) (unknown) (no (unknown) (unknown) Emergency Report (units (unknown) date) unknown) (unknown) (no (unknown) (unknown) Eos # (Auto) (units (u nknown) date) (0-450) /uL unknown) (unknown) (no (unknown) (unknown) Eos # (Auto) 200 (units (unknown) date) (0-450) /uL unknown) (unknown) (no (unknown) (unknown) Eos % (Auto) (2-4) (units (unknown) date) % unknown) (unknown) (no (unknown) (unknown) Eos % (Auto) 3.4 (units (unknown) date) (2-4) % unknown) (unknown) (no (unknown) (unknown) Estimated GFR (>60) (unit s (unknown) date) mL/min unknown) (unknown) (no (unknown) (unknown) Estimated GFR 47 L (units (unknown) date) (>60) mL/min unknown) (unknown) (no (unknown) (unknown) Exam Narrative: (units (unknown) date) unknown) (unknown) (no (unknown) (unknown) Exam (units (unkno wn) date) unknown) (unknown) (no (unknown) (unknown) Extinction or (units ( unknown) date) inattention: No unknown) abnormality (unknown) (no (unknown) (unknown) FINDINGS:? (units (unk nown) date) unknown) (unknown) (no (unknown) (unknown) Facial palsy: (units ( unknown) date) Normal symetrical unknown) movement (unknown) (no (unknown) (unknown) GEN: well (units (unkn own) date) nourished, well unknown) appearing female, alert and oriented x 3, patient (unknown) (no (unknown) (unknown) :No CVA (units (unkn own) date) tenderness unknown) (unknown) (no (unknown) (unknown) General (units (unkno wn) date) unknown) (unknown) (no (unknown) (unknown) Globulin (1.7-4.1) (units (unknown) date) g/dL unknown) (unknown) (no (unknown) (unknown) Globulin 3.9 (units (u nknown) date) (1.7-4.1) g/dL unknown) (unknown) (no (unknown) (unknown) Glucose (80-110) (units (unknown) date) mg/dL unknown) (unknown) (no (unknown) (unknown) Glucose 110 (units (un known) date) (80-110) mg/dL unknown) (unknown) (no (unknown) (unknown) HEAD CT (units (unkno wn) date) ANGIOGRAPHY:? unknown) (unknown) (no (unknown) (unknown) HEART: Regular rate (unit s (unknown) date) and rhythm without unknown) murmur, clicks, rubs. No carotid bruits, (unknown) (no (unknown) (unknown) HEENT: Atraumatic, (units (unknown) date) pupils are equal unknown) round reactive to light, extraocular (unknown) (no (unknown) (unknown) HPI - Syncope (units ( unknown) date) unknown) (unknown) (no (unknown) (unknown) HPI narrative: (units (unknown) date) unknown) (unknown) (no (unknown) (unknown) Hand X-Ray (Signed) (unit s (unknown) date) unknown) (unknown) (no (unknown) (unknown) Hct (36-46) % (units ( unknown) date) unknown) (unknown) (no (unknown) (unknown) Hct 44.4 (36-46) % (units (unknown) date) unknown) (unknown) (no (unknown) (unknown) Head CT (Signed) (units (unknown) date) unknown) (unknown) (no (unknown) (unknown) Head CT (units (unkno wn) date) unknown) (unknown) (no (unknown) (unknown) Head/Neck CTA (units ( unknown) date) (Signed) unknown) (unknown) (no (unknown) (unknown) Head/Neck CTA (units ( unknown) date) unknown) (unknown) (no (unknown) (unknown) Hgb (12.0-16.0) (units (unknown) date) g/dL unknown) (unknown) (no (unknown) (unknown) Hgb 15.0 (units (unkno wn) date) (12.0-16.0) g/dL unknown) (unknown) (no (unknown) (unknown) History of Present (units (unknown) date) Illness unknown) (unknown) (no (unknown) (unknown) Home Medications (units (unknown) date) unknown) (unknown) (no (unknown) (unknown) IMPRESSION:? No (units (unknown) date) acute unknown) cardiopulmonary findings. (unknown) (no (unknown) (unknown) IMPRESSION:? No (units (unknown) date) acute intracranial unknown) finding. (unknown) (no (unknown) (unknown) IMPRESSION:? No (units (unknown) date) hemodynamically unknown) significant stenosis or occlusion of the major (unknown) (no (unknown) (unknown) INDICATIONS:? chest (unit s (unknown) date) pain unknown) (unknown) (no (unknown) (unknown) INDICATIONS:? (units ( unknown) date) syncope, vision unknown) loss. (unknown) (no (unknown) (unknown) INDICATIONS:? (units ( unknown) date) vision loss eye, unknown) intermittent syncope (unknown) (no (unknown) (unknown) INJECT UP TO 55 (units (unknown) date) UNITS PER DAY VIA unknown) INSULIN PUMP (unknown) (no (unknown) (unknown) INR (0.9-1.3) (units ( unknown) date) unknown) (unknown) (no (unknown) (unknown) INR 1.0 (0.9-1.3) (units (unknown) date) unknown) (unknown) (no (unknown) (unknown) Image quality:? (units (unknown) date) Excellent.? unknown) (unknown) (no (unknown) (unknown) Imaging Data (units (u nknown) date) unknown) (unknown) (no (unknown) (unknown) Initial Vital Signs (unit s (unknown) date) unknown) (unknown) (no (unknown) (unknown) Initial Vital (units ( unknown) date) Signs: unknown) (unknown) (no (unknown) (unknown) Interpretation: (units (unknown) date) unknown) (unknown) (no (unknown) (unknown) [facility] (units (unknown) date) [address] [place] [address] unknown) [place] [address] (unknown) (no (unknown) (unknown) [facility] (units (unknown) date) unknown) (unknown) (no (unknown) (unknown) Omari Mason (units ( unknown) date) unknown) (unknown) (no (unknown) (unknown) Stefanie Bullard (units (un known) date) unknown) (unknown) (no (unknown) (unknown) LUNGS:Lungs clear (units (unknown) date) to auscultation, no unknown) wheezes, rales, crackles, chest moves (unknown) (no (unknown) (unknown) Lab Data (units (unkno wn) date) unknown) (unknown) (no (unknown) (unknown) Lab Results (units (un known) date) unknown) (unknown) (no (unknown) (unknown) Label Comments: (units (unknown) date) unknown) (unknown) (no (unknown) (unknown) Labs: (units (unkno wn) date) unknown) (unknown) (no (unknown) (unknown) Launch?Image (units (u nknown) date) unknown) (unknown) (no (unknown) (unknown) Left arm drift: No (units (unknown) date) drift for full 10 unknown) sec (unknown) (no (unknown) (unknown) Left leg drift: No (units (unknown) date) drift for full 5 sec unknown) (unknown) (no (unknown) (unknown) Level of (units (unkno wn) date) Conciousness: Alert, unknown) keenly responsive (unknown) (no (unknown) (unknown) Limb ataxia: Absent (unit s (unknown) date) unknown) (unknown) (no (unknown) (unknown) Limitations: no (units (unknown) date) limitations unknown) (unknown) (no (unknown) (unknown) Lipase (23-300) U/L (unit s (unknown) date) unknown) (unknown) (no (unknown) (unknown) Lipase 22 L (units (un known) date) (23-300) U/L unknown) (unknown) (no (unknown) (unknown) Lipase Stat (units (un known) date) unknown) (unknown) (no (unknown) (unknown) Loc: ED (units (unkno wn) date) unknown) (unknown) (no (unknown) (unknown) Lungs and pleura:? (units (unknown) date) Lungs are clear.? No unknown) pleural effusions or pneumothorax.? (unknown) (no (unknown) (unknown) Lymph # (Auto) (units (unknown) date) (7614-7035) /uL unknown) (unknown) (no (unknown) (unknown) Lymph # (Auto) 1500 (unit s (unknown) date) (2568-9459) /uL unknown) (unknown) (no (unknown) (unknown) Lymph % (Auto) (units (unknown) date) (25-40) % unknown) (unknown) (no (unknown) (unknown) Lymph % (Auto) 20.9 (unit s (unknown) date) L (25-40) % unknown) (unknown) (no (unknown) (unknown) MCH (26-34) PG (units (unknown) date) unknown) (unknown) (no (unknown) (unknown) MCH 30.6 (26-34) PG (unit s (unknown) date) unknown) (unknown) (no (unknown) (unknown) MCHC (30-36) % (units (unknown) date) unknown) (unknown) (no (unknown) (unknown) MCHC 33.8 (30-36) % (unit s (unknown) date) unknown) (unknown) (no (unknown) (unknown) MCV (80-100) fL (units (unknown) date) unknown) (unknown) (no (unknown) (unknown) MCV 90.6 (80-100) (units (unknown) date) fL unknown) (unknown) (no (unknown) (unknown) MDM - Syncope (units ( unknown) date) unknown) (unknown) (no (unknown) (unknown) MDM Narrative (units ( unknown) date) unknown) (unknown) (no (unknown) (unknown) MR#: [id number] (units (unknown) date) unknown) (unknown) (no (unknown) (unknown) MSCL: Non-tender, (units (unknown) date) no muscle atrophy, unknown) muscles strength 5/5 upper and lower (unknown) (no (unknown) (unknown) Magnesium (1.6-2.3) (unit s (unknown) date) mg/dL unknown) (unknown) (no (unknown) (unknown) Magnesium 2.0 (units ( unknown) date) (1.6-2.3) mg/dL unknown) (unknown) (no (unknown) (unknown) Magnesium Stat (units (unknown) date) unknown) (unknown) (no (unknown) (unknown) [place] (units (unknown) date) unknown) (unknown) (no (unknown) (unknown) Mammogram Screening (unit s (unknown) date) (Signed) unknown) (unknown) (no (unknown) (unknown) Mediastinum:? (units ( unknown) date) Mediastinal contours unknown) appear normal.? Heart size is normal.? (unknown) (no (unknown) (unknown) Medical History (units (unknown) date) (Reviewed 11/23/22 @ unknown) 13:52 by Risa Aquino DO) (unknown) (no (unknown) (unknown) Medical decision (units (unknown) date) making narrative: unknown) (unknown) (no (unknown) (unknown) Medication (units (unk nown) date) Instructions unknown) Recorded Confirmed (unknown) (no (unknown) (unknown) Medication (units (unk nown) date) Instructions unknown) Recorded (unknown) (no (unknown) (unknown) Mode of arrival: (units (unknown) date) Family Vehicle unknown) (unknown) (no (unknown) (unknown) [place] # (Auto) (units ( unknown) date) (0-900) /uL unknown) (unknown) (no (unknown) (unknown) [place] # (Auto) 500 (units (unknown) date) (0-900) /uL unknown) (unknown) (no (unknown) (unknown) [place] % (Auto) (units ( unknown) date) (3-14) % unknown) (unknown) (no (unknown) (unknown) [place] % (Auto) 6.4 (units (unknown) date) (3-14) % unknown) (unknown) (no (unknown) (unknown) NECK CT (units (unkno wn) date) ANGIOGRAPHY:? unknown) (unknown) (no (unknown) (unknown) NEURO:CN 2-12 (units ( unknown) date) intact, sensation unknown) normal, finger nose finger test normal, heel (unknown) (no (unknown) (unknown) NIH Stroke Scale (units (unknown) date) unknown) (unknown) (no (unknown) (unknown) NT-Pro-B Natriuret (units (unknown) date) Pep (<125) pg/mL unknown) (unknown) (no (unknown) (unknown) NT-Pro-B Natriuret (units (unknown) date) Pep 104 (<125) pg/mL unknown) (unknown) (no (unknown) (unknown) Narrative (units (unkn own) date) unknown) (unknown) (no (unknown) (unknown) Neut # (Auto) (units ( unknown) date) (0034-3071) /uL unknown) (unknown) (no (unknown) (unknown) Neut # (Auto) 5000 (units (unknown) date) (3991-5043) /uL unknown) (unknown) (no (unknown) (unknown) Neut % (Auto) (units ( unknown) date) (50-75) % unknown) (unknown) (no (unknown) (unknown) Neut % (Auto) 68.5 (units (unknown) date) (50-75) % unknown) (unknown) (no (unknown) (unknown) [place] (units ( unknown) date) unknown) (unknown) (no (unknown) (unknown) No Action (units (unkn own) date) unknown) (unknown) (no (unknown) (unknown) No significant (units (unknown) date) medical problems unknown) (unknown) (no (unknown) (unknown) Noncontrast 4.5 mm (units (unknown) date) thick angled axial unknown) sections acquired from the foramen magnum (unknown) (no (unknown) (unknown) Open/close eyes, (units (unknown) date) close hand: Performs unknown) both tasks correctly (unknown) (no (unknown) (unknown) Orbits appear (units ( unknown) date) normal.? unknown) (unknown) (no (unknown) (unknown) Ordered: (units (unkno wn) date) unknown) (unknown) (no (unknown) (unknown) Ordering Provider: (units (unknown) date) Risa Aquino D.O. unknown) (unknown) (no (unknown) (unknown) Orders (units (unkno wn) date) unknown) (unknown) (no (unknown) (unknown) Orthostatics were (units (unknown) date) obtained unknown) (unknown) (no (unknown) (unknown) Oxygen Delivery (units (unknown) date) Method 11/23/22 unknown) 11:25 (unknown) (no (unknown) (unknown) Oxygen Delivery (units (unknown) date) Method Room Air unknown) (unknown) (no (unknown) (unknown) PROCEDURE:? CT (units (unknown) date) ANGIO HEAD AND NECK unknown) (unknown) (no (unknown) (unknown) PROCEDURE:? CT (units (unknown) date) HEAD/BRAIN WO CON unknown) (unknown) (no (unknown) (unknown) PROCEDURE:? XR (units (unknown) date) CHEST 1V unknown) (unknown) (no (unknown) (unknown) PT (10.1-12.7) (units (unknown) date) SECONDS unknown) (unknown) (no (unknown) (unknown) PT 12.0 (10.1-12.7) (unit s (unknown) date) SECONDS unknown) (unknown) (no (unknown) (unknown) Partial (units (unkno wn) date) Thromboplastin Time unknown) Stat (unknown) (no (unknown) (unknown) Patient History (units (unknown) date) unknown) (unknown) (no (unknown) (unknown) Patient has prior (units (unknown) date) from 07/27/2022 it unknown) appears similar. (unknown) (no (unknown) (unknown) Patient has repeat (units (unknown) date) troponin and EKG unknown) (unknown) (no (unknown) (unknown) Patient: (units (unkno wn) date) Laverne Mendoza MR#: unknown) [id number] (unknown) (no (unknown) (unknown) Patient: (units (unkno wn) date) Laverne Mendoza unknown) (unknown) (no (unknown) (unknown) Plt Count (150-400) (unit s (unknown) date) X103/uL unknown) (unknown) (no (unknown) (unknown) Plt Count 317 (units ( unknown) date) (150-400) X103/uL unknown) (unknown) (no (unknown) (unknown) Posterior (units (unkno wn) date) circulation:? The unknown) origins of the vertebral arteries both appear widely (unknown) (no (unknown) (unknown) Posterior (units (unkn own) date) circulation:? unknown) Visualized portions of the vertebral arteries (unknown) (no (unknown) (unknown) Potassium (3.4-5.1) (unit s (unknown) date) mmol/L unknown) (unknown) (no (unknown) (unknown) Potassium 3.8 (units ( unknown) date) (3.4-5.1) mmol/L unknown) (unknown) (no (unknown) (unknown) Pre-contrast 4.5 mm (unit s (unknown) date) thick sections unknown) acquired from the foramen magnum to the (unknown) (no (unknown) (unknown) Prescriptions: (units (unknown) date) unknown) (unknown) (no (unknown) (unknown) Previous Rx's (units ( unknown) date) unknown) (unknown) (no (unknown) (unknown) Prior ECG tracings: (unit s (unknown) date) available for review unknown) (unknown) (no (unknown) (unknown) Procedure: CT angio (unit s (unknown) date) head and neck unknown) (unknown) (no (unknown) (unknown) Procedure: CT (units ( unknown) date) head/brain wo con unknown) (unknown) (no (unknown) (unknown) Procedure: XR chest (unit s (unknown) date) 1V unknown) (unknown) (no (unknown) (unknown) Prothrombin Time (units (unknown) date) INR Stat unknown) (unknown) (no (unknown) (unknown) Pulse Oximetry 99 (units (unknown) date) 11/23/22 11:25 unknown) (unknown) (no (unknown) (unknown) Pulse Oximetry 99 (units (unknown) date) unknown) (unknown) (no (unknown) (unknown) Pulse Rate 71 (units ( unknown) date) 11/23/22 11:25 unknown) (unknown) (no (unknown) (unknown) Pulse Rate 71 (units ( unknown) date) unknown) (unknown) (no (unknown) (unknown) RBC (4.0-5.2) (units ( unknown) date) X106/uL unknown) (unknown) (no (unknown) (unknown) RBC 4.90 (4.0-5.2) (units (unknown) date) X106/uL unknown) (unknown) (no (unknown) (unknown) RDW (11.6-14.8) % (units (unknown) date) unknown) (unknown) (no (unknown) (unknown) RDW 13.1 (units (unkno wn) date) (11.6-14.8) % unknown) (unknown) (no (unknown) (unknown) ROS Unobtainable: (units (unknown) date) All systems reviewed unknown) + are unremarkable except as noted in HPI (unknown) (no (unknown) (unknown) Radiologist's (units ( unknown) date) Impression: unknown) (unknown) (no (unknown) (unknown) Referrals: (units (unk nown) date) unknown) (unknown) (no (unknown) (unknown) Related Data (units (u nknown) date) unknown) (unknown) (no (unknown) (unknown) Respiratory Rate 19 (unit s (unknown) date) 11/23/22 11:25 unknown) (unknown) (no (unknown) (unknown) Respiratory Rate 19 (unit s (unknown) date) unknown) (unknown) (no (unknown) (unknown) Review of Systems (units (unknown) date) unknown) (unknown) (no (unknown) (unknown) Laverne Mendoza??67??F? (unit s (unknown) date) ?1955 unknown) (unknown) (no (unknown) (unknown) Ribs X-Ray (Signed) (unit s (unknown) date) unknown) (unknown) (no (unknown) (unknown) Right arm drift: No (unit s (unknown) date) drift for full 10 unknown) sec (unknown) (no (unknown) (unknown) Right leg drift: No (unit s (unknown) date) drift for full 5 sec unknown) (unknown) (no (unknown) (unknown) Chad Tatum (units (u nknown) date) unknown) (unknown) (no (unknown) (unknown) Scores (units (unkno wn) date) unknown) (unknown) (no (unknown) (unknown) Sensory on (units (unk nown) date) face/arms/legs: unknown) Normal, no sensory loss (unknown) (no (unknown) (unknown) She does have some (units (unknown) date) occasional neck pain unknown) on the left states her both her arms (unknown) (no (unknown) (unknown) Signed By: (units (unk nown) date) unknown) (unknown) (no (unknown) (unknown) Signed (units (unkno wn) date) unknown) (unknown) (no (unknown) (unknown) Sinus rhythm rate (units (unknown) date) of 66 RI 142 QRS is unknown) [address]TC [address] No acute ST changes (unknown) (no (unknown) (unknown) Sinuses:? Mild (units (unknown) date) diffuse paranasal unknown) sinus mucosal thickening. (unknown) (no (unknown) (unknown) Sinuses:? (units (unkn own) date) Visualized sinuses unknown) and mastoids are clear.? (unknown) (no (unknown) (unknown) Skull and face:? (units (unknown) date) Calvarium and facial unknown) bones appear intact, without suspicious (unknown) (no (unknown) (unknown) Skull and face:? (units (unknown) date) Calvarium and unknown) visualized facial bones appear intact, without (unknown) (no (unknown) (unknown) Smoking Status: (units (unknown) date) Never smoker unknown) (unknown) (no (unknown) (unknown) Social History (units (unknown) date) (Reviewed 11/23/22 @ unknown) 13:52 by Risa Aquino DO) (unknown) (no (unknown) (unknown) Sodium (137-145) (units (unknown) date) mmol/L unknown) (unknown) (no (unknown) (unknown) Sodium 140 (units (unk nown) date) (137-145) mmol/L unknown) (unknown) (no (unknown) (unknown) Soft tissues:? (units (unknown) date) Visualized neck soft unknown) tissues demonstrate no suspicious (unknown) (no (unknown) (unknown) Source: patient (units (unknown) date) unknown) (unknown) (no (unknown) (unknown) Stated Complaint: (units (unknown) date) Sent by DR giron unknown) passing out losing vision T-5 (unknown) (no (unknown) (unknown) Substance Use Type: (unit s (unknown) date) does not use unknown) (unknown) (no (unknown) (unknown) Surgical changes (units (unknown) date) and devices:? None.? unknown) (unknown) (no (unknown) (unknown) Syncope, Changes in (unit s (unknown) date) vision unknown) (unknown) (no (unknown) (unknown) TECHNIQUE:? One (units (unknown) date) view of the chest unknown) was acquired.? (unknown) (no (unknown) (unknown) TECHNIQUE:? (units (un known) date) unknown) (unknown) (no (unknown) (unknown) Telemetry Strips (units (unknown) date) unknown) (unknown) (no (unknown) (unknown) Temperature 97.2 F (units (unknown) date) L 11/23/22 11:25 unknown) (unknown) (no (unknown) (unknown) Temperature 97.2 F (units (unknown) date) L unknown) (unknown) (no (unknown) (unknown) The flow within the (unit s (unknown) date) middle cerebral unknown) arteries is normal and symmetric.? The (unknown) (no (unknown) (unknown) The more superior (units (unknown) date) extracranial unknown) portions of both vertebral arteries also (unknown) (no (unknown) (unknown) This is a (units (unkn own) date) 67-year-old female unknown) who has sounds like recurrent syncopal episodes (unknown) (no (unknown) (unknown) This is a (units (unkno wn) date) 67-year-old with unknown) complaint of intermittent episodes of syncope as well (unknown) (no (unknown) (unknown) Time Seen by (units (u nknown) date) Provider: 11/23/22 unknown) 11:27 (unknown) (no (unknown) (unknown) Total Bilirubin (units (unknown) date) (0.2-1.3) mg/dL unknown) (unknown) (no (unknown) (unknown) Total Bilirubin 0.5 (unit s (unknown) date) (0.2-1.3) mg/dL unknown) (unknown) (no (unknown) (unknown) Total Creatine (units (unknown) date) Kinase (30-135) U/L unknown) (unknown) (no (unknown) (unknown) Total Creatine (units (unknown) date) Kinase 81 (30-135) unknown) U/L (unknown) (no (unknown) (unknown) Total NIH Stroke (units (unknown) date) scale score: 0 unknown) (unknown) (no (unknown) (unknown) Total Protein (units ( unknown) date) (6.3-8.2) g/dL unknown) (unknown) (no (unknown) (unknown) Total Protein 8.0 (units (unknown) date) (6.3-8.2) g/dL unknown) (unknown) (no (unknown) (unknown) Trop I [Troponin I] (unit s (unknown) date) Stat unknown) (unknown) (no (unknown) (unknown) Troponin + CK (units ( unknown) date) Cardiac Panel Stat unknown) (unknown) (no (unknown) (unknown) Troponin I < 0.012 (units (unknown) date) (0.01-0.034) ng/mL unknown) (unknown) (no (unknown) (unknown) Troponin I (units (unk nown) date) (0.01-0.034) ng/mL unknown) (unknown) (no (unknown) (unknown) Type 1 diabetes (units (unknown) date) unknown) (unknown) (no (unknown) (unknown) U-100 Insulin) (units (unknown) date) unknown) (unknown) (no (unknown) (unknown) Vascular Ultrasound (unit s (unknown) date) (Signed) unknown) (unknown) (no (unknown) (unknown) Visual worthy: No (units (unknown) date) visual loss unknown) (unknown) (no (unknown) (unknown) Vital Signs - 8 hr (units (unknown) date) unknown) (unknown) (no (unknown) (unknown) Vital Signs (units (un known) date) unknown) (unknown) (no (unknown) (unknown) Vital signs: (units (u nknown) date) unknown) (unknown) (no (unknown) (unknown) WBC (4.5-11.0) (units (unknown) date) X103/uL unknown) (unknown) (no (unknown) (unknown) WBC 7.3 (4.5-11.0) (units (unknown) date) X103/uL unknown) (unknown) (no (unknown) (unknown) Curtis,Marty (units (u nknown) date) unknown) (unknown) (no (unknown) (unknown) XR chest 1V Stat (units (unknown) date) unknown) (unknown) (no (unknown) (unknown) XRay Report (units (un known) date) unknown) (unknown) (no (unknown) (unknown) [place] (units (unkno wn) date) unknown) (unknown) (no (unknown) (unknown) [Embedded Image Not (unit s (unknown) date) Available] unknown) (unknown) (no (unknown) (unknown) a few minutes and (units (unknown) date) will get better. It unknown) is not clearly associated with her loss (unknown) (no (unknown) (unknown) abnormalities.? (units (unknown) date) unknown) (unknown) (no (unknown) (unknown) acetaminophen 325 (units (unknown) date) mg Tablet unknown) (unknown) (no (unknown) (unknown) acetaminophen 325 (units (unknown) date) mg tablet 975 mg PO unknown) Q8H PRN Pain, Mild (1-3) 07/31/22 (unknown) (no (unknown) (unknown) acquired (units (unkno wn) date) unknown) (unknown) (no (unknown) (unknown) alcohol intake (units (unknown) date) frequency: unknown) holidays/special occasions only (unknown) (no (unknown) (unknown) alcohol intake: (units (unknown) date) current unknown) (unknown) (no (unknown) (unknown) aligned.? 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 For unknown) radiation dose reduction, the following was used:? (unknown) (no (unknown) (unknown) and (units (unkno wn) date) unknown) (unknown) (no (unknown) (unknown) and/or volume (units ( unknown) date) rendering reformats unknown) were acquired of the central intracranial (unknown) (no (unknown) (unknown) ankle. No tobacco, (units (unknown) date) no alcohol, no unknown) illicit. Her primary is in [place]. (unknown) (no (unknown) (unknown) anterior (units (unkno wn) date) unknown) (unknown) (no (unknown) (unknown) appear (units (unkno wn) date) unknown) (unknown) (no (unknown) (unknown) appears intact.? (units (unknown) date) unknown) (unknown) (no (unknown) (unknown) appears to be in (units (unknown) date) mild distress. unknown) (unknown) (no (unknown) (unknown) appreciated. (units (u nknown) date) unknown) (unknown) (no (unknown) (unknown) arch through the (units (unknown) date) [place].? unknown) Post-contrast 4.5 mm thick sections then re (unknown) (no (unknown) (unknown) arteries and (units (u nknown) date) unknown) (unknown) (no (unknown) (unknown) artery.? (units (unkno wn) date) unknown) (unknown) (no (unknown) (unknown) as vision change. (units (unknown) date) Patient states unknown) typically episodes will happen she will wake (unknown) (no (unknown) (unknown) as well head CT and (unit s (unknown) date) CT angio were unknown) negative, CBC is negative, coags are negative (unknown) (no (unknown) (unknown) automated (units (unkn own) date) unknown) (unknown) (no (unknown) (unknown) bupropion HCl 150 (units (unknown) date) mg tablet unknown) sustained-release 12 hr (unknown) (no (unknown) (unknown) bupropion HCl 150 (units (unknown) date) mg tablet,12 hr 150 unknown) mg PO DAILY 07/27/22 07/27/22 (unknown) (no (unknown) (unknown) but she states in (units (unknown) date) the right she will unknown) note that everything started goes black for (unknown) (no (unknown) (unknown) calcifications (units (unknown) date) unknown) (unknown) (no (unknown) (unknown) caliber, and join (units (unknown) date) to form a normal unknown) appearing basilar artery.? Flow within the (unknown) (no (unknown) (unknown) carotid artery (units (unknown) date) atherosclerosis.? unknown) (unknown) (no (unknown) (unknown) carotid termini are (unit s (unknown) date) widely patent. unknown) (unknown) (no (unknown) (unknown) cerebral arteries (units (unknown) date) is normal and unknown) symmetric.? No aneurysms are seen.? (unknown) (no (unknown) (unknown) clopidogrel 75 mg (units (unknown) date) tablet 75 mg PO unknown) DAILY 07/27/22 07/27/22 (unknown) (no (unknown) (unknown) clopidogrel 75 mg (units (unknown) date) tablet unknown) (unknown) (no (unknown) (unknown) codeine AdvReac (units (unknown) date) Verified 07/28/22 unknown) 08:51 (unknown) (no (unknown) (unknown) communicating (units ( unknown) date) artery is seen.? No unknown) aneurysms are seen.? Atherosclerotic (unknown) (no (unknown) (unknown) conjunctival (units (u nknown) date) pallor. Throat is unknown) clear without any exudates, erythema, tonsillar (unknown) (no (unknown) (unknown) deep white matter (units (unknown) date) chronic small vessel unknown) ischemic changes.? There is intracranial (unknown) (no (unknown) (unknown) demonstrate normal (units (unknown) date) unknown) (unknown) (no (unknown) (unknown) demonstrate (units (un known) date) unknown) (unknown) (no (unknown) (unknown) details: (units (unknown) date) 7 years ago unknown) yesterday (unknown) (no (unknown) (unknown) duloxetine 60 mg (units (unknown) date) capsule,delayed 60 unknown) mg PO DAILY 07/27/22 07/27/22 (unknown) (no (unknown) (unknown) duloxetine 60 mg (units (unknown) date) capsule,delayed unknown) release(DR/EC) (unknown) (no (unknown) (unknown) enlargement or (units (unknown) date) uvular deviation, unknown) mild facial droop on the right (unknown) (no (unknown) (unknown) exposure control, (units (unknown) date) adjustment of mA unknown) and/or kV according to patient size.? (unknown) (no (unknown) (unknown) extra-axial fluid (units (unknown) date) collections.? unknown) (unknown) (no (unknown) (unknown) extremities, full (units (unknown) date) range of motion, unknown) normal gait (unknown) (no (unknown) (unknown) feels sort of hard (units (unknown) date) to lift. She states unknown) that has been going on for 2 or 3 (unknown) (no (unknown) (unknown) flow.? The flow (units (unknown) date) within the paired unknown) anterior cerebral arteries is normal and (unknown) (no (unknown) (unknown) following (units (unkn own) date) unknown) (unknown) (no (unknown) (unknown) for age, (units (unkno wn) date) unknown) (unknown) (no (unknown) (unknown) from the foramen (units (unknown) date) magnum to the unknown) vertex.? 3-dimensional (unknown) (no (unknown) (unknown) gabapentin 600 mg (units (unknown) date) tablet 600 mg PO unknown) DAILY 07/27/22 07/27/22 (unknown) (no (unknown) (unknown) gabapentin 600 mg (units (unknown) date) tablet unknown) (unknown) (no (unknown) (unknown) get up and wakes up (unit s (unknown) date) on the floor. She unknown) states it has been happening with (unknown) (no (unknown) (unknown) happened a few (units (unknown) date) times during the unknown) daytime but is more consistent at night. She is (unknown) (no (unknown) (unknown) household members: (units (unknown) date) family and children unknown) (unknown) (no (unknown) (unknown) hydrocodone Allergy (unit s (unknown) date) Intermediate unknown) Verified 07/30/22 12:12 (unknown) (no (unknown) (unknown) increasing (units (unk nown) date) frequency in his unknown) happen 10 times in the last week. She states it is (unknown) (no (unknown) (unknown) insulin lispro 100 (units (unknown) date) unit/mL 55 unit unknown) SUBCUT DAILY PRN 07/27/22 07/27/22 (unknown) (no (unknown) (unknown) insulin lispro (units (unknown) date) [Humalog U-100 unknown) Insulin] 100 unit/mL solution (unknown) (no (unknown) (unknown) interface (units (unkn own) date) unknown) (unknown) (no (unknown) (unknown) internal (units (unkno wn) date) unknown) (unknown) (no (unknown) (unknown) intracranial or (units (unknown) date) cervical arterial unknown) vasculature.? Bilateral of the [place] neck (unknown) (no (unknown) (unknown) left upper (units (unk nown) date) extremity unknown) (unknown) (no (unknown) (unknown) lesions.? (units (unkn own) date) unknown) (unknown) (no (unknown) (unknown) likely related (units (unknown) date) orthostatics she is unknown) on a beta-yan daily but has also had (unknown) (no (unknown) (unknown) lisinopril 10 mg (units (unknown) date) tablet 10 mg PO unknown) DAILY 07/27/22 07/27/22 (unknown) (no (unknown) (unknown) lisinopril 10 mg (units (unknown) date) tablet unknown) (unknown) (no (unknown) (unknown) lives (units (unkno wn) date) independently: No unknown) (Lives with her daughter) (unknown) (no (unknown) (unknown) loss of bowel and (units (unknown) date) bladder control the unknown) 1st time this happened which was June (unknown) (no (unknown) (unknown) marital status: (units (unknown) date) unknown) (unknown) (no (unknown) (unknown) masses noted, no (units (unknown) date) hepatosplenomegaly unknown) (unknown) (no (unknown) (unknown) [id number] (unit s (unknown) date) rojection (MIP) unknown) (unknown) (no (unknown) (unknown) meperidine [From (units (unknown) date) Demerol] AdvReac unknown) Verified 07/28/22 08:51 (unknown) (no (unknown) (unknown) metoprolol (units (unk nown) date) succinate 100 mg 100 unknown) mg PO DAILY 07/27/22 07/27/22 (unknown) (no (unknown) (unknown) metoprolol (units (unk nown) date) succinate 100 mg unknown) tablet extended release 24 hr (unknown) (no (unknown) (unknown) months. She states (units (unknown) date) no issues with bowel unknown) movements or urination. She did have (unknown) (no (unknown) (unknown) morphine AdvReac (units (unknown) date) Mild Hallucinati unknown) Verified 07/27/22 18:54 (unknown) (no (unknown) (unknown) movements are (units ( unknown) date) intact, nares are unknown) clear, TMs are clear with no fluid, there is no (unknown) (no (unknown) (unknown) ng (units (unkno wn) date) unknown) (unknown) (no (unknown) (unknown) normal courses and (units (unknown) date) calibers.? They join unknown) to form a normal appearing basilar (unknown) (no (unknown) (unknown) noted at the (units (u nknown) date) carotid siphons. unknown) (unknown) (no (unknown) (unknown) of consciousness (units (unknown) date) episodes. She denies unknown) headaches. She denies chest pain, no (unknown) (no (unknown) (unknown) off aspirin, she (units (unknown) date) takes lisinopril and unknown) metoprolol, rosuvastatin. Patient states (unknown) (no (unknown) (unknown) oral powder packet (units (unknown) date) (Miralax) ea unknown) (unknown) (no (unknown) (unknown) oxycodone Allergy (units (unknown) date) Intermediate Uncoded unknown) 07/30/22 12:12 (unknown) (no (unknown) (unknown) patent.? No (units (un known) date) unknown) (unknown) (no (unknown) (unknown) patent.? (units (unkno wn) date) unknown) (unknown) (no (unknown) (unknown) patient (units (unkno wn) date) unknown) (unknown) (no (unknown) (unknown) periventricular and (unit s (unknown) date) unknown) (unknown) (no (unknown) (unknown) plaque (units (unkno wn) date) unknown) (unknown) (no (unknown) (unknown) polyethylene glycol (unit s (unknown) date) 3350 17 gram 17 g PO unknown) DAILY PRN constipation #14 07/31/22 (unknown) (no (unknown) (unknown) polyethylene glycol (unit s (unknown) date) 3350 [Miralax] 17 unknown) gram powder in packet (unknown) (no (unknown) (unknown) posterior (units (unkn own) date) unknown) (unknown) (no (unknown) (unknown) present.? (units (unkn own) date) Extracranial unknown) internal carotid arteries appear widely patent. (unknown) (no (unknown) (unknown) pulses are equal in (unit s (unknown) date) upper and lower unknown) extremities (unknown) (no (unknown) (unknown) release (units (unkno wn) date) unknown) (unknown) (no (unknown) (unknown) repair several (units (unknown) date) months ago when she unknown) had episode where she passed out broke her (unknown) (no (unknown) (unknown) right groin. (units (u nknown) date) Patient states prior unknown) hysterectomy and had an ankle fracture with (unknown) (no (unknown) (unknown) rosuvastatin 20 mg (units (unknown) date) tablet 20 mg PO unknown) DAILY 07/27/22 07/27/22 (unknown) (no (unknown) (unknown) rosuvastatin 20 mg (units (unknown) date) tablet unknown) (unknown) (no (unknown) (unknown) senna 8.6 mg (units (u nknown) date) capsule unknown) (unknown) (no (unknown) (unknown) sennosides 8.6 mg (units (unknown) date) capsule (senna) 8.6 unknown) mg PO DAILY PRN constipation 07/31/22 (unknown) (no (unknown) (unknown) she is had 2 heart (units (unknown) date) attacks, she is had unknown) cardiac stents and has a stent in her (unknown) (no (unknown) (unknown) wyman test normal, (units (unknown) date) romberg normal, unknown) patient has mild intention tremor particularly (unknown) (no (unknown) (unknown) shortness of (units (u nknown) date) breath, no nausea or unknown) vomiting no numbness, tingling or weakness. (unknown) (no (unknown) (unknown) since then. Patient (unit s (unknown) date) takes medication for unknown) anxiety, depression, Plavix she is now (unknown) (no (unknown) (unknown) size.? (units (unkno wn) date) unknown) (unknown) (no (unknown) (unknown) subcutaneous (units (u nknown) date) solution (Humalog unknown) Hyperglycemia (unknown) (no (unknown) (unknown) suspicious (units (unk nown) date) unknown) (unknown) (no (unknown) (unknown) sustained-release (units (unknown) date) unknown) (unknown) (no (unknown) (unknown) symmetric.? (units (un known) date) unknown) (unknown) (no (unknown) (unknown) symmetrically (units ( unknown) date) unknown) (unknown) (no (unknown) (unknown) tablet,extended (units (unknown) date) release 24 hr unknown) (unknown) (no (unknown) (unknown) the administration (units (unknown) date) of intravenous unknown) contrast, 1 mm thick sections acquired from (unknown) (no (unknown) (unknown) the aortic (units (unk nown) date) unknown) (unknown) (no (unknown) (unknown) to the (units (unkno wn) date) unknown) (unknown) (no (unknown) (unknown) unremarkable.? (units (unknown) date) unknown) (unknown) (no (unknown) (unknown) up in the middle (units (unknown) date) the night be sitting unknown) on the edge of her bed getting ready to (unknown) (no (unknown) (unknown) vasculature (units (un known) date) unknown) (unknown) (no (unknown) (unknown) ventricles are (units (unknown) date) symmetric in size unknown) and shape.? (unknown) (no (unknown) (unknown) vertex, with (units (u nknown) date) coronal and sagittal unknown) reformats.? For radiation dose reduction, the (unknown) (no (unknown) (unknown) vertex.? After (units (unknown) date) unknown) (unknown) (no (unknown) (unknown) vision changes that (unit s (unknown) date) is not always unknown) consistently associated so had stroke workup (unknown) (no (unknown) (unknown) was used:? (units (unk nown) date) automated exposure unknown) control, adjustment of mA and/or kV according to (unknown) (no (unknown) (unknown) widely patent. (units (unknown) date) unknown) (unknown) (no (unknown) (unknown) with a creatinine (units (unknown) date) 1.27 which is close unknown) to patient's baseline., AST is 44. (unknown) (no (unknown) (unknown) with resultant (units (unknown) date) ventricular and unknown) sulcal prominence.? There are moderate Result panel 152 (unknown) (no date) (unknown) (unknown) < 0.012 ng/ml (unkn own) (unknown) (no date) (unknown) (unknown) < 0.012 ng/ml (unkn own) Result panel 153 (unknown) (no date) (unknown) (unknown) POSITIVE (units (unkn own) unknown) (unknown) (no date) (unknown) (unknown) POSITIVE (units (unkn own) unknown) Result panel 154 (unknown) (no (unknown) (unknown) (no value) (units (unk nown) date) unknown) (unknown) (no (unknown) (unknown) #30 caps (units (unkno wn) date) unknown) (unknown) (no (unknown) (unknown) #30 tabs (units (unkno wn) date) unknown) (unknown) (no (unknown) (unknown) (More??) (units (unkno wn) date) unknown) (unknown) (no (unknown) (unknown) 11/23/22 11/23/22 (units (unknown) date) 11/23/22 Range/Units unknown) (unknown) (no (unknown) (unknown) 11/23/22 11:23 (units (unknown) date) unknown) (unknown) (no (unknown) (unknown) 11/23/22 11:24 (units (unknown) date) unknown) (unknown) (no (unknown) (unknown) 11/23/22 11:27 (units (unknown) date) unknown) (unknown) (no (unknown) (unknown) 11/23/22 11:31 (units (unknown) date) unknown) (unknown) (no (unknown) (unknown) 11/23/22 13:28 (units (unknown) date) unknown) (unknown) (no (unknown) (unknown) 11/23/22 13:47 (units (unknown) date) unknown) (unknown) (no (unknown) (unknown) 11/23/22 (units (unkno wn) date) unknown) (unknown) (no (unknown) (unknown) 12/11/20 (units (unkno wn) date) unknown) (unknown) (no (unknown) (unknown) 03/04/21 (units (unkno wn) date) unknown) (unknown) (no (unknown) (unknown) 03/06/20 (units (unkno wn) date) unknown) (unknown) (no (unknown) (unknown) 05/26/20 (units (unkno wn) date) unknown) (unknown) (no (unknown) (unknown) 07/27/22 (units (unkno wn) date) unknown) (unknown) (no (unknown) (unknown) 10 mg PO DAILY (units (unknown) date) unknown) (unknown) (no (unknown) (unknown) 07/28/22 (units (unkno wn) date) unknown) (unknown) (no (unknown) (unknown) 07/30/22 (units (unkno wn) date) unknown) (unknown) (no (unknown) (unknown) 100 mg PO DAILY (units (unknown) date) unknown) (unknown) (no (unknown) (unknown) 11:23 11:23 11:23 (units (unknown) date) unknown) (unknown) (no (unknown) (unknown) 11:23 13:28 13:47 (units (unknown) date) unknown) (unknown) (no (unknown) (unknown) 11:25 (units (unkno wn) date) unknown) (unknown) (no (unknown) (unknown) 10/02/21 (units (unkno wn) date) unknown) (unknown) (no (unknown) (unknown) [address] (units (unknown) date) unknown) (unknown) (no (unknown) (unknown) 150 mg PO DAILY (units (unknown) date) unknown) (unknown) (no (unknown) (unknown) 17 g PO DAILY PRN (units (unknown) date) (Reason: unknown) constipation) Qty: 14 0RF (unknown) (no (unknown) (unknown) 20 mg PO DAILY (units (unknown) date) unknown) (unknown) (no (unknown) (unknown) 237 (units (unkno wn) date) unknown) (unknown) (no (unknown) (unknown) or (units (unknown) date) 2021. She states she unknown) has not had any other incontinence issues (unknown) (no (unknown) (unknown) 55 unit SUBCUT (units (unknown) date) DAILY MDD 55 PRN unknown) (Reason: Hyperglycemia) (unknown) (no (unknown) (unknown) 60 mg PO DAILY (units (unknown) date) unknown) (unknown) (no (unknown) (unknown) 600 mg PO DAILY (units (unknown) date) unknown) (unknown) (no (unknown) (unknown) 75 mg PO DAILY (units (unknown) date) unknown) (unknown) (no (unknown) (unknown) 8.6 mg PO DAILY PRN (unit s (unknown) date) (Reason: unknown) constipation) Qty: 30 0RF (unknown) (no (unknown) (unknown) 975 mg PO Q8H PRN (units (unknown) date) (Reason: Pain, Mild unknown) (1-3)) Qty: 30 0RF (unknown) (no (unknown) (unknown) ? (units (unkno wn) date) unknown) (unknown) (no (unknown) (unknown) ? (units (unkno wn) date) unknown) (unknown) (no (unknown) (unknown) ?Both carotid (units ( unknown) date) bifurcations are unknown) widely patent with only minimal atherosclerotic (unknown) (no (unknown) (unknown) ABD:bowel sounds (units (unknown) date) normal, soft, unknown) non-tender, no guarding, rebound, rigidity, no (unknown) (no (unknown) (unknown) ALT (<35) IU/L (units (unknown) date) unknown) (unknown) (no (unknown) (unknown) ALT 28 (<35) IU/L (units (unknown) date) unknown) (unknown) (no (unknown) (unknown) APTT (26-36) (units (u nknown) date) SECONDS unknown) (unknown) (no (unknown) (unknown) APTT 31 (26-36) (units (unknown) date) SECONDS unknown) (unknown) (no (unknown) (unknown) AST (14-36) IU/L (units (unknown) date) unknown) (unknown) (no (unknown) (unknown) AST 44 H (14-36) (units (unknown) date) IU/L unknown) (unknown) (no (unknown) (unknown) Abdomen/Pelvis CT (units (unknown) date) (Signed) unknown) (unknown) (no (unknown) (unknown) Accession Number: (units (unknown) date) [id number] ?? unknown) (unknown) (no (unknown) (unknown) Accession Number: (units (unknown) date) [id number] ?? unknown) (unknown) (no (unknown) (unknown) Accession Number: (units (unknown) date) [id number] ?? unknown) (unknown) (no (unknown) (unknown) Acct:[id number] (units (unknown) date) unknown) (unknown) (no (unknown) (unknown) Age/Sex: 67 / F (units (unknown) date) unknown) (unknown) (no (unknown) (unknown) Albumin (3.5-5.0) (units (unknown) date) g/dL unknown) (unknown) (no (unknown) (unknown) Albumin 4.1 (units (un known) date) (3.5-5.0) g/dL unknown) (unknown) (no (unknown) (unknown) Albumin/Globulin (units (unknown) date) Ratio (1.0-2.8) unknown) (unknown) (no (unknown) (unknown) Albumin/Globulin (units (unknown) date) Ratio 1.1 (1.0-2.8) unknown) (unknown) (no (unknown) (unknown) Alkaline (units (unkno wn) date) Phosphatase (38-126) unknown) U/L (unknown) (no (unknown) (unknown) Alkaline (units (unkno wn) date) Phosphatase 101 unknown) (38-126) U/L (unknown) (no (unknown) (unknown) Allergies (units (unkn own) date) unknown) (unknown) (no (unknown) (unknown) Allergy/Adv: (units (u nknown) date) hydrocodone, unknown) morphine, codeine, meperidine, [oxycodone] (unknown) (no (unknown) (unknown) Allergy/AdvReac (units (unknown) date) Type Severity unknown) Reaction Status Date / Time (unknown) (no (unknown) (unknown) [place] [address] (unit s (unknown) date) unknown) (unknown) (no (unknown) (unknown) Ankle X-Ray (units (un known) date) (Signed) unknown) (unknown) (no (unknown) (unknown) Anterior (units (unkno wn) date) circulation:? unknown) Intracranial internal carotid arteries are normal in size (unknown) (no (unknown) (unknown) Any quantitative (units (unknown) date) measurements of unknown) stenosis were performed using NASCET criteria.? (unknown) (no (unknown) (unknown) Approved by: Chad (units (unknown) date) Joann Tatum on unknown) 11/23/2022 at 12:34?? (unknown) (no (unknown) (unknown) Approved by: Chad (units (unknown) date) Joann Tatum on unknown) 11/23/2022 at 12:39?? (unknown) (no (unknown) (unknown) Approved by: Stefanie (units (unknown) date) Joann Bullard on unknown) 11/23/2022 at 11:58 (unknown) (no (unknown) (unknown) Ask month/age: (units (unknown) date) Answers both unknown) questions correctly. (unknown) (no (unknown) (unknown) Attestation: I (units (unknown) date) personally reviewed unknown) and interpreted this ECG as follows: (unknown) (no (unknown) (unknown) BNP [NT-proBNP (units (unknown) date) (BNP-Adult 18+)] unknown) Stat (unknown) (no (unknown) (unknown) BRAIN:? (units (unkno wn) date) unknown) (unknown) (no (unknown) (unknown) BUN (7-17) mg/dL (units (unknown) date) unknown) (unknown) (no (unknown) (unknown) BUN 12 (7-17) mg/dL (unit s (unknown) date) unknown) (unknown) (no (unknown) (unknown) BUN/Creatinine (units (unknown) date) Ratio (6-22) unknown) (unknown) (no (unknown) (unknown) BUN/Creatinine (units (unknown) date) Ratio 9.4 (6-22) unknown) (unknown) (no (unknown) (unknown) Baso # (Auto) (units ( unknown) date) (0-100) /uL unknown) (unknown) (no (unknown) (unknown) Baso # (Auto) 100 (units (unknown) date) (0-100) /uL unknown) (unknown) (no (unknown) (unknown) Baso % (Auto) (0-2) (unit s (unknown) date) % unknown) (unknown) (no (unknown) (unknown) Baso % (Auto) 0.8 (units (unknown) date) (0-2) % unknown) (unknown) (no (unknown) (unknown) Best gaze (units (unkn own) date) horizontal: Normal unknown) (unknown) (no (unknown) (unknown) Best language: No (units (unknown) date) aphasia, normal unknown) (unknown) (no (unknown) (unknown) Blood Pressure (units (unknown) date) 148/68 H 11/23/22 unknown) 11:25 (unknown) (no (unknown) (unknown) Blood Pressure (units (unknown) date) 148/68 H unknown) (unknown) (no (unknown) (unknown) Bones and chest (units (unknown) date) wall:? No suspicious unknown) bony lesions.? Overlying soft tissues (unknown) (no (unknown) (unknown) Bones:? No (units (unk nown) date) suspicious bony unknown) lesions.? Visualized cervical spine appears normally (unknown) (no (unknown) (unknown) Brain:? No (units (unk nown) date) intracranial bleeds unknown) or masses.? There is mild cerebral volume loss (unknown) (no (unknown) (unknown) Brain:? No midline (units (unknown) date) shift.? No unknown) intracranial bleeds or masses.? Valles-white matter (unknown) (no (unknown) (unknown) Cora Rogers, (units (unknown) date) PA-C [Primary Care unknown) Provider] (unknown) (no (unknown) (unknown) CK-MB (CK-2) Rel (units (unknown) date) Index TNP unknown) (unknown) (no (unknown) (unknown) CK-MB (CK-2) Rel (units (unknown) date) Index unknown) (unknown) (no (unknown) (unknown) CK-MB (CK-2) TNP (units (unknown) date) unknown) (unknown) (no (unknown) (unknown) CK-MB (CK-2) (units (u nknown) date) unknown) (unknown) (no (unknown) (unknown) [facility], [facility], XR unknown) CHEST 1V, 07/27/2022, 12:32. (unknown) (no (unknown) (unknown) COMPARISON:? [facility] ([facility] date[facility], CT, CT unknown) HEAD/BRAIN WO CON, 07/27/2022, 12:56. (unknown) (no (unknown) (unknown) COMPARISON:? None. (units (unknown) date) unknown) (unknown) (no (unknown) (unknown) COVID19 -Nasal (units (unknown) date) RAPID/Pre-Proc Stat unknown) (unknown) (no (unknown) (unknown) CSF spaces:? Basal (units (unknown) date) cisterns are unknown) patent.? No extra-axial fluid collections.? The (unknown) (no (unknown) (unknown) CSF spaces:? (units (u nknown) date) Ventricles are unknown) normal in size and shape.? Basal cisterns are (unknown) (no (unknown) (unknown) CT Scan Report (units (unknown) date) unknown) (unknown) (no (unknown) (unknown) CT angio head and (units (unknown) date) neck Stat unknown) (unknown) (no (unknown) (unknown) CT head/brain wo (units (unknown) date) con Stat unknown) (unknown) (no (unknown) (unknown) CT scan - head: (units (unknown) date) unknown) (unknown) (no (unknown) (unknown) CTA - brain/neck: (units (unknown) date) unknown) (unknown) (no (unknown) (unknown) Calcium (8.4-10.2) (units (unknown) date) mg/dL unknown) (unknown) (no (unknown) (unknown) Calcium 8.8 (units (un known) date) (8.4-10.2) mg/dL unknown) (unknown) (no (unknown) (unknown) Carbon Dioxide (units (unknown) date) (22-32) mmol/L unknown) (unknown) (no (unknown) (unknown) Carbon Dioxide 31 (units (unknown) date) (22-32) mmol/L unknown) (unknown) (no (unknown) (unknown) Carotid Doppler (units (unknown) date) Study (Signed) unknown) (unknown) (no (unknown) (unknown) Carotid system:? (units (unknown) date) The aortic arch and unknown) bilateral common carotid arteries are (unknown) (no (unknown) (unknown) Cervical Spine CT (units (unknown) date) (Signed) unknown) (unknown) (no (unknown) (unknown) Chest X-Ray (units (un known) date) (Signed) unknown) (unknown) (no (unknown) (unknown) Chest x-ray: (units (u nknown) date) unknown) (unknown) (no (unknown) (unknown) Chief Complaint: (units (unknown) date) Syncope unknown) (unknown) (no (unknown) (unknown) Chloride (98-107) (units (unknown) date) mmol/L unknown) (unknown) (no (unknown) (unknown) Chloride 99 (units (un known) date) (98-107) mmol/L unknown) (unknown) (no (unknown) (unknown) Clinical (units (unkno wn) date) Impression: unknown) (unknown) (no (unknown) (unknown) Close (units (unkno wn) date) unknown) (unknown) (no (unknown) (unknown) Complete Blood (units (unknown) date) Count AUTO DIFF Stat unknown) (unknown) (no (unknown) (unknown) Comprehensive (units ( unknown) date) Metabolic Panel Stat unknown) (unknown) (no (unknown) (unknown) Coronary artery (units (unknown) date) disease unknown) (unknown) (no (unknown) (unknown) Course (units (unkno wn) date) unknown) (unknown) (no (unknown) (unknown) Creatinine (units (unk nown) date) (0.52-1.04) mg/dL unknown) (unknown) (no (unknown) (unknown) Creatinine 1.27 H (units (unknown) date) (0.52-1.04) mg/dL unknown) (unknown) (no (unknown) (unknown) : 1955 (units (unknown) date) Acct:[id number] unknown) (unknown) (no (unknown) (unknown) : 1955 (units (unknown) date) unknown) (unknown) (no (unknown) (unknown) Date of Service: (units (unknown) date) 11/23/22 unknown) (unknown) (no (unknown) (unknown) Departure (units (unkn own) date) unknown) (unknown) (no (unknown) (unknown) Dictated by: Chad (units (unknown) date) Joann Tatum on unknown) 11/23/2022 at 12:34 ? ? (unknown) (no (unknown) (unknown) Dictated by: Chad (units (unknown) date) Joann Tatum on unknown) 11/23/2022 at 12:35 ? ? (unknown) (no (unknown) (unknown) Dictated by: Stefanie (units (unknown) date) Joann Bullard on unknown) 11/23/2022 at 11:58 ? ? (unknown) (no (unknown) (unknown) Discharge Plan (units (unknown) date) unknown) (unknown) (no (unknown) (unknown) Discussed with (units (unknown) date) patient would like unknown) to keep for stroke workup and syncope. (unknown) (no (unknown) (unknown) Dysarthria: Normal (units (unknown) date) unknown) (unknown) (no (unknown) (unknown) ECG Data (units (unkno wn) date) unknown) (unknown) (no (unknown) (unknown) ED Orders (units (unkn own) date) unknown) (unknown) (no (unknown) (unknown) EKG 2. Sinus (units (u nknown) date) rhythm, rate of 64, unknown) RI 156 QRS is 76 QTC [address]. No acute ST (unknown) (no (unknown) (unknown) EKG-12 Lead Stat (units (unknown) date) unknown) (unknown) (no (unknown) (unknown) ER Physician: (units ( unknown) date) Risa Aquino D.O. unknown) (unknown) (no (unknown) (unknown) Emergency Report (units (unknown) date) unknown) (unknown) (no (unknown) (unknown) Eos # (Auto) (units (u nknown) date) (0-450) /uL unknown) (unknown) (no (unknown) (unknown) Eos # (Auto) 200 (units (unknown) date) (0-450) /uL unknown) (unknown) (no (unknown) (unknown) Eos % (Auto) (2-4) (units (unknown) date) % unknown) (unknown) (no (unknown) (unknown) Eos % (Auto) 3.4 (units (unknown) date) (2-4) % unknown) (unknown) (no (unknown) (unknown) Estimated GFR (>60) (unit s (unknown) date) mL/min unknown) (unknown) (no (unknown) (unknown) Estimated GFR 47 L (units (unknown) date) (>60) mL/min unknown) (unknown) (no (unknown) (unknown) Exam Narrative: (units (unknown) date) unknown) (unknown) (no (unknown) (unknown) Exam (units (unkno wn) date) unknown) (unknown) (no (unknown) (unknown) Extinction or (units ( unknown) date) inattention: No unknown) abnormality (unknown) (no (unknown) (unknown) FINDINGS:? (units (unk nown) date) unknown) (unknown) (no (unknown) (unknown) Facial palsy: (units ( unknown) date) Normal symetrical unknown) movement (unknown) (no (unknown) (unknown) GEN: well (units (unkn own) date) nourished, well unknown) appearing female, alert and oriented x 3, patient (unknown) (no (unknown) (unknown) :No CVA (units (unkn own) date) tenderness unknown) (unknown) (no (unknown) (unknown) General (units (unkno wn) date) unknown) (unknown) (no (unknown) (unknown) Globulin (1.7-4.1) (units (unknown) date) g/dL unknown) (unknown) (no (unknown) (unknown) Globulin 3.9 (units (u nknown) date) (1.7-4.1) g/dL unknown) (unknown) (no (unknown) (unknown) Glucose (80-110) (units (unknown) date) mg/dL unknown) (unknown) (no (unknown) (unknown) Glucose 110 (units (un known) date) (80-110) mg/dL unknown) (unknown) (no (unknown) (unknown) HEAD CT (units (unkno wn) date) ANGIOGRAPHY:? unknown) (unknown) (no (unknown) (unknown) HEART: Regular rate (unit s (unknown) date) and rhythm without unknown) murmur, clicks, rubs. No carotid bruits, (unknown) (no (unknown) (unknown) HEENT: Atraumatic, (units (unknown) date) pupils are equal unknown) round reactive to light, extraocular (unknown) (no (unknown) (unknown) HPI - Syncope (units ( unknown) date) unknown) (unknown) (no (unknown) (unknown) HPI narrative: (units (unknown) date) unknown) (unknown) (no (unknown) (unknown) Hand X-Ray (Signed) (unit s (unknown) date) unknown) (unknown) (no (unknown) (unknown) Hct (36-46) % (units ( unknown) date) unknown) (unknown) (no (unknown) (unknown) Hct 44.4 (36-46) % (units (unknown) date) unknown) (unknown) (no (unknown) (unknown) Head CT (Signed) (units (unknown) date) unknown) (unknown) (no (unknown) (unknown) Head CT (units (unkno wn) date) unknown) (unknown) (no (unknown) (unknown) Head/Neck CTA (units ( unknown) date) (Signed) unknown) (unknown) (no (unknown) (unknown) Head/Neck CTA (units ( unknown) date) unknown) (unknown) (no (unknown) (unknown) Hgb (12.0-16.0) (units (unknown) date) g/dL unknown) (unknown) (no (unknown) (unknown) Hgb 15.0 (units (unkno wn) date) (12.0-16.0) g/dL unknown) (unknown) (no (unknown) (unknown) History of Present (units (unknown) date) Illness unknown) (unknown) (no (unknown) (unknown) Home Medications (units (unknown) date) unknown) (unknown) (no (unknown) (unknown) IMPRESSION:? No (units (unknown) date) acute unknown) cardiopulmonary findings. (unknown) (no (unknown) (unknown) IMPRESSION:? No (units (unknown) date) acute intracranial unknown) finding. (unknown) (no (unknown) (unknown) IMPRESSION:? No (units (unknown) date) hemodynamically unknown) significant stenosis or occlusion of the major (unknown) (no (unknown) (unknown) INDICATIONS:? chest (unit s (unknown) date) pain unknown) (unknown) (no (unknown) (unknown) INDICATIONS:? (units ( unknown) date) syncope, vision unknown) loss. (unknown) (no (unknown) (unknown) INDICATIONS:? (units ( unknown) date) vision loss eye, unknown) intermittent syncope (unknown) (no (unknown) (unknown) INJECT UP TO 55 (units (unknown) date) UNITS PER DAY VIA unknown) INSULIN PUMP (unknown) (no (unknown) (unknown) INR (0.9-1.3) (units ( unknown) date) unknown) (unknown) (no (unknown) (unknown) INR 1.0 (0.9-1.3) (units (unknown) date) unknown) (unknown) (no (unknown) (unknown) Image quality:? (units (unknown) date) Excellent.? unknown) (unknown) (no (unknown) (unknown) Imaging Data (units (u nknown) date) unknown) (unknown) (no (unknown) (unknown) Initial Vital Signs (unit s (unknown) date) unknown) (unknown) (no (unknown) (unknown) Initial Vital (units ( unknown) date) Signs: unknown) (unknown) (no (unknown) (unknown) Interpretation: (units (unknown) date) unknown) (unknown) (no (unknown) (unknown) [facility] (units (unknown) date) [address] unknown) [place] [address] (unknown) (no (unknown) (unknown) [facility] (units (unknown) date) unknown) (unknown) (no (unknown) (unknown) Omari Mason (units ( unknown) date) unknown) (unknown) (no (unknown) (unknown) Stefanie Bullard (units (un known) date) unknown) (unknown) (no (unknown) (unknown) LUNGS:Lungs clear (units (unknown) date) to auscultation, no unknown) wheezes, rales, crackles, chest moves (unknown) (no (unknown) (unknown) Lab Data (units (unkno wn) date) unknown) (unknown) (no (unknown) (unknown) Lab Results (units (un known) date) unknown) (unknown) (no (unknown) (unknown) Label Comments: (units (unknown) date) unknown) (unknown) (no (unknown) (unknown) Labs: (units (unkno wn) date) unknown) (unknown) (no (unknown) (unknown) Launch?Image (units (u nknown) date) unknown) (unknown) (no (unknown) (unknown) Left arm drift: No (units (unknown) date) drift for full 10 unknown) sec (unknown) (no (unknown) (unknown) Left leg drift: No (units (unknown) date) drift for full 5 sec unknown) (unknown) (no (unknown) (unknown) Level of (units (unkno wn) date) Conciousness: Alert, unknown) keenly responsive (unknown) (no (unknown) (unknown) Limb ataxia: Absent (unit s (unknown) date) unknown) (unknown) (no (unknown) (unknown) Limitations: no (units (unknown) date) limitations unknown) (unknown) (no (unknown) (unknown) Lipase (23-300) U/L (unit s (unknown) date) unknown) (unknown) (no (unknown) (unknown) Lipase 22 L (units (un known) date) (23-300) U/L unknown) (unknown) (no (unknown) (unknown) Lipase Stat (units (un known) date) unknown) (unknown) (no (unknown) (unknown) Loc: ED (units (unkno wn) date) unknown) (unknown) (no (unknown) (unknown) Lungs and pleura:? (units (unknown) date) Lungs are clear.? No unknown) pleural effusions or pneumothorax.? (unknown) (no (unknown) (unknown) Lymph # (Auto) (units (unknown) date) (9231-0782) /uL unknown) (unknown) (no (unknown) (unknown) Lymph # (Auto) 1500 (unit s (unknown) date) (2478-7269) /uL unknown) (unknown) (no (unknown) (unknown) Lymph % (Auto) (units (unknown) date) (25-40) % unknown) (unknown) (no (unknown) (unknown) Lymph % (Auto) 20.9 (unit s (unknown) date) L (25-40) % unknown) (unknown) (no (unknown) (unknown) MCH (26-34) PG (units (unknown) date) unknown) (unknown) (no (unknown) (unknown) MCH 30.6 (26-34) PG (unit s (unknown) date) unknown) (unknown) (no (unknown) (unknown) MCHC (30-36) % (units (unknown) date) unknown) (unknown) (no (unknown) (unknown) MCHC 33.8 (30-36) % (unit s (unknown) date) unknown) (unknown) (no (unknown) (unknown) MCV (80-100) fL (units (unknown) date) unknown) (unknown) (no (unknown) (unknown) MCV 90.6 (80-100) (units (unknown) date) fL unknown) (unknown) (no (unknown) (unknown) MDM - Syncope (units ( unknown) date) unknown) (unknown) (no (unknown) (unknown) MDM Narrative (units ( unknown) date) unknown) (unknown) (no (unknown) (unknown) MR#: [id number] (units (unknown) date) unknown) (unknown) (no (unknown) (unknown) MSCL: Non-tender, (units (unknown) date) no muscle atrophy, unknown) muscles strength 5/5 upper and lower (unknown) (no (unknown) (unknown) Magnesium (1.6-2.3) (unit s (unknown) date) mg/dL unknown) (unknown) (no (unknown) (unknown) Magnesium 2.0 (units ( unknown) date) (1.6-2.3) mg/dL unknown) (unknown) (no (unknown) (unknown) Magnesium Stat (units (unknown) date) unknown) (unknown) (no (unknown) (unknown) [place] (units (unknown) date) unknown) (unknown) (no (unknown) (unknown) Mammogram Screening (unit s (unknown) date) (Signed) unknown) (unknown) (no (unknown) (unknown) Mediastinum:? (units ( unknown) date) Mediastinal contours unknown) appear normal.? Heart size is normal.? (unknown) (no (unknown) (unknown) Medical History (units (unknown) date) (Reviewed 11/23/22 @ unknown) 13:52 by Risa Aquino DO) (unknown) (no (unknown) (unknown) Medical decision (units (unknown) date) making narrative: unknown) (unknown) (no (unknown) (unknown) Medication (units (unk nown) date) Instructions unknown) Recorded Confirmed (unknown) (no (unknown) (unknown) Medication (units (unk nown) date) Instructions unknown) Recorded (unknown) (no (unknown) (unknown) Mode of arrival: (units (unknown) date) Family Vehicle unknown) (unknown) (no (unknown) (unknown) [place] # (Auto) (units ( unknown) date) (0-900) /uL unknown) (unknown) (no (unknown) (unknown) [place] # (Auto) 500 (units (unknown) date) (0-900) /uL unknown) (unknown) (no (unknown) (unknown) [place] % (Auto) (units ( unknown) date) (3-14) % unknown) (unknown) (no (unknown) (unknown) [place] % (Auto) 6.4 (units (unknown) date) (3-14) % unknown) (unknown) (no (unknown) (unknown) NECK CT (units (unkno wn) date) ANGIOGRAPHY:? unknown) (unknown) (no (unknown) (unknown) NEURO:CN 2-12 (units ( unknown) date) intact, sensation unknown) normal, finger nose finger test normal, heel (unknown) (no (unknown) (unknown) NIH Stroke Scale (units (unknown) date) unknown) (unknown) (no (unknown) (unknown) NT-Pro-B Natriuret (units (unknown) date) Pep (<125) pg/mL unknown) (unknown) (no (unknown) (unknown) NT-Pro-B Natriuret (units (unknown) date) Pep 104 (<125) pg/mL unknown) (unknown) (no (unknown) (unknown) Narrative (units (unkn own) date) unknown) (unknown) (no (unknown) (unknown) Neut # (Auto) (units ( unknown) date) (9853-9605) /uL unknown) (unknown) (no (unknown) (unknown) Neut # (Auto) 5000 (units (unknown) date) (7423-3947) /uL unknown) (unknown) (no (unknown) (unknown) Neut % (Auto) (units ( unknown) date) (50-75) % unknown) (unknown) (no (unknown) (unknown) Neut % (Auto) 68.5 (units (unknown) date) (50-75) % unknown) (unknown) (no (unknown) (unknown) [place] (units ( unknown) date) unknown) (unknown) (no (unknown) (unknown) No Action (units (unkn own) date) unknown) (unknown) (no (unknown) (unknown) No significant (units (unknown) date) medical problems unknown) (unknown) (no (unknown) (unknown) Noncontrast 4.5 mm (units (unknown) date) thick angled axial unknown) sections acquired from the foramen magnum (unknown) (no (unknown) (unknown) Open/close eyes, (units (unknown) date) close hand: Performs unknown) both tasks correctly (unknown) (no (unknown) (unknown) Orbits appear (units ( unknown) date) normal.? unknown) (unknown) (no (unknown) (unknown) Ordered: (units (unkno wn) date) unknown) (unknown) (no (unknown) (unknown) Ordering Provider: (units (unknown) date) Risa Aquino D.O. unknown) (unknown) (no (unknown) (unknown) Orders (units (unkno wn) date) unknown) (unknown) (no (unknown) (unknown) Orthostatics were (units (unknown) date) obtained unknown) (unknown) (no (unknown) (unknown) Oxygen Delivery (units (unknown) date) Method 11/23/22 unknown) 11:25 (unknown) (no (unknown) (unknown) Oxygen Delivery (units (unknown) date) Method Room Air unknown) (unknown) (no (unknown) (unknown) PROCEDURE:? CT (units (unknown) date) ANGIO HEAD AND NECK unknown) (unknown) (no (unknown) (unknown) PROCEDURE:? CT (units (unknown) date) HEAD/BRAIN WO CON unknown) (unknown) (no (unknown) (unknown) PROCEDURE:? XR (units (unknown) date) CHEST 1V unknown) (unknown) (no (unknown) (unknown) PT (10.1-12.7) (units (unknown) date) SECONDS unknown) (unknown) (no (unknown) (unknown) PT 12.0 (10.1-12.7) (unit s (unknown) date) SECONDS unknown) (unknown) (no (unknown) (unknown) Partial (units (unkno wn) date) Thromboplastin Time unknown) Stat (unknown) (no (unknown) (unknown) Patient History (units (unknown) date) unknown) (unknown) (no (unknown) (unknown) Patient has prior (units (unknown) date) from 07/27/2022 it unknown) appears similar. (unknown) (no (unknown) (unknown) Patient has repeat (units (unknown) date) troponin and EKG are unknown) negative with no acute changes. (unknown) (no (unknown) (unknown) Patient: (units (unkno wn) date) Laverne Mendoza MR#: unknown) [id number] (unknown) (no (unknown) (unknown) Patient: (units (unkno wn) date) Laverne Mendoza unknown) (unknown) (no (unknown) (unknown) Plt Count (150-400) (unit s (unknown) date) X103/uL unknown) (unknown) (no (unknown) (unknown) Plt Count 317 (units ( unknown) date) (150-400) X103/uL unknown) (unknown) (no (unknown) (unknown) Posterior (units (unkno wn) date) circulation:? The unknown) origins of the vertebral arteries both appear widely (unknown) (no (unknown) (unknown) Posterior (units (unkn own) date) circulation:? unknown) Visualized portions of the vertebral arteries (unknown) (no (unknown) (unknown) Potassium (3.4-5.1) (unit s (unknown) date) mmol/L unknown) (unknown) (no (unknown) (unknown) Potassium 3.8 (units ( unknown) date) (3.4-5.1) mmol/L unknown) (unknown) (no (unknown) (unknown) Pre-contrast 4.5 mm (unit s (unknown) date) thick sections unknown) acquired from the foramen magnum to the (unknown) (no (unknown) (unknown) Prescriptions: (units (unknown) date) unknown) (unknown) (no (unknown) (unknown) Previous Rx's (units ( unknown) date) unknown) (unknown) (no (unknown) (unknown) Prior ECG tracings: (unit s (unknown) date) available for review unknown) (unknown) (no (unknown) (unknown) Procedure: CT angio (unit s (unknown) date) head and neck unknown) (unknown) (no (unknown) (unknown) Procedure: CT (units ( unknown) date) head/brain wo con unknown) (unknown) (no (unknown) (unknown) Procedure: XR chest (unit s (unknown) date) 1V unknown) (unknown) (no (unknown) (unknown) Prothrombin Time (units (unknown) date) INR Stat unknown) (unknown) (no (unknown) (unknown) Pulse Oximetry 99 (units (unknown) date) 11/23/22 11:25 unknown) (unknown) (no (unknown) (unknown) Pulse Oximetry 99 (units (unknown) date) unknown) (unknown) (no (unknown) (unknown) Pulse Rate 71 (units ( unknown) date) 11/23/22 11:25 unknown) (unknown) (no (unknown) (unknown) Pulse Rate 71 (units ( unknown) date) unknown) (unknown) (no (unknown) (unknown) RBC (4.0-5.2) (units ( unknown) date) X106/uL unknown) (unknown) (no (unknown) (unknown) RBC 4.90 (4.0-5.2) (units (unknown) date) X106/uL unknown) (unknown) (no (unknown) (unknown) RDW (11.6-14.8) % (units (unknown) date) unknown) (unknown) (no (unknown) (unknown) RDW 13.1 (units (unkno wn) date) (11.6-14.8) % unknown) (unknown) (no (unknown) (unknown) ROS Unobtainable: (units (unknown) date) All systems reviewed unknown) + are unremarkable except as noted in HPI (unknown) (no (unknown) (unknown) Radiologist's (units ( unknown) date) Impression: unknown) (unknown) (no (unknown) (unknown) Referrals: (units (unk nown) date) unknown) (unknown) (no (unknown) (unknown) Related Data (units (u nknown) date) unknown) (unknown) (no (unknown) (unknown) Respiratory Rate 19 (unit s (unknown) date) 11/23/22 11:25 unknown) (unknown) (no (unknown) (unknown) Respiratory Rate 19 (unit s (unknown) date) unknown) (unknown) (no (unknown) (unknown) Review of Systems (units (unknown) date) unknown) (unknown) (no (unknown) (unknown) Laverne Mendoza??67??F? (unit s (unknown) date) ?1955 unknown) (unknown) (no (unknown) (unknown) Ribs X-Ray (Signed) (unit s (unknown) date) unknown) (unknown) (no (unknown) (unknown) Right arm drift: No (unit s (unknown) date) drift for full 10 unknown) sec (unknown) (no (unknown) (unknown) Right leg drift: No (unit s (unknown) date) drift for full 5 sec unknown) (unknown) (no (unknown) (unknown) Chad Tatum (units (u nknown) date) unknown) (unknown) (no (unknown) (unknown) SARS-CoV-2 (PCR) (units (unknown) date) (Negative) unknown) (unknown) (no (unknown) (unknown) SARS-CoV-2 (PCR) (units (unknown) date) Positive H unknown) (Negative) (unknown) (no (unknown) (unknown) Scores (units (unkno wn) date) unknown) (unknown) (no (unknown) (unknown) Sensory on (units (unk nown) date) face/arms/legs: unknown) Normal, no sensory loss (unknown) (no (unknown) (unknown) She does have some (units (unknown) date) occasional neck pain unknown) on the left states her both her arms (unknown) (no (unknown) (unknown) Signed By: (units (unk nown) date) unknown) (unknown) (no (unknown) (unknown) Signed (units (unkno wn) date) unknown) (unknown) (no (unknown) (unknown) Sinus rhythm rate (units (unknown) date) of 66 RI 142 QRS is unknown) [address] QTC [address]. No acute ST changes (unknown) (no (unknown) (unknown) Sinuses:? Mild (units (unknown) date) diffuse paranasal unknown) sinus mucosal thickening. (unknown) (no (unknown) (unknown) Sinuses:? (units (unkn own) date) Visualized sinuses unknown) and mastoids are clear.? (unknown) (no (unknown) (unknown) Skull and face:? (units (unknown) date) Calvarium and facial unknown) bones appear intact, without suspicious (unknown) (no (unknown) (unknown) Skull and face:? (units (unknown) date) Calvarium and unknown) visualized facial bones appear intact, without (unknown) (no (unknown) (unknown) Smoking Status: (units (unknown) date) Never smoker unknown) (unknown) (no (unknown) (unknown) Social History (units (unknown) date) (Reviewed 11/23/22 @ unknown) 13:52 by Risa Aquino DO) (unknown) (no (unknown) (unknown) Sodium (137-145) (units (unknown) date) mmol/L unknown) (unknown) (no (unknown) (unknown) Sodium 140 (units (unk nown) date) (137-145) mmol/L unknown) (unknown) (no (unknown) (unknown) Soft tissues:? (units (unknown) date) Visualized neck soft unknown) tissues demonstrate no suspicious (unknown) (no (unknown) (unknown) Source: patient (units (unknown) date) unknown) (unknown) (no (unknown) (unknown) Stated Complaint: (units (unknown) date) Sent by DR giron unknown) passing out losing vision T-5 (unknown) (no (unknown) (unknown) Substance Use Type: (unit s (unknown) date) does not use unknown) (unknown) (no (unknown) (unknown) Surgical changes (units (unknown) date) and devices:? None.? unknown) (unknown) (no (unknown) (unknown) Syncope, Changes in (unit s (unknown) date) vision unknown) (unknown) (no (unknown) (unknown) TECHNIQUE:? One (units (unknown) date) view of the chest unknown) was acquired.? (unknown) (no (unknown) (unknown) TECHNIQUE:? (units (un known) date) unknown) (unknown) (no (unknown) (unknown) Telemetry Strips (units (unknown) date) unknown) (unknown) (no (unknown) (unknown) Temperature 97.2 F (units (unknown) date) L 11/23/22 11:25 unknown) (unknown) (no (unknown) (unknown) Temperature 97.2 F (units (unknown) date) L unknown) (unknown) (no (unknown) (unknown) The flow within the (unit s (unknown) date) middle cerebral unknown) arteries is normal and symmetric.? The (unknown) (no (unknown) (unknown) The more superior (units (unknown) date) extracranial unknown) portions of both vertebral arteries also (unknown) (no (unknown) (unknown) This is a (units (unkn own) date) 67-year-old female unknown) who has sounds like recurrent syncopal episodes (unknown) (no (unknown) (unknown) This is a (units (unkno wn) date) 67-year-old with unknown) complaint of intermittent episodes of syncope as well (unknown) (no (unknown) (unknown) Time Seen by (units (u nknown) date) Provider: 11/23/22 unknown) 11:27 (unknown) (no (unknown) (unknown) Total Bilirubin (units (unknown) date) (0.2-1.3) mg/dL unknown) (unknown) (no (unknown) (unknown) Total Bilirubin 0.5 (unit s (unknown) date) (0.2-1.3) mg/dL unknown) (unknown) (no (unknown) (unknown) Total Creatine (units (unknown) date) Kinase (30-135) U/L unknown) (unknown) (no (unknown) (unknown) Total Creatine (units (unknown) date) Kinase 81 (30-135) unknown) U/L (unknown) (no (unknown) (unknown) Total NIH Stroke (units (unknown) date) scale score: 0 unknown) (unknown) (no (unknown) (unknown) Total Protein (units ( unknown) date) (6.3-8.2) g/dL unknown) (unknown) (no (unknown) (unknown) Total Protein 8.0 (units (unknown) date) (6.3-8.2) g/dL unknown) (unknown) (no (unknown) (unknown) Trop I [Troponin I] (unit s (unknown) date) Stat unknown) (unknown) (no (unknown) (unknown) Troponin + CK (units ( unknown) date) Cardiac Panel Stat unknown) (unknown) (no (unknown) (unknown) Troponin I < 0.012 (units (unknown) date) (0.01-0.034) ng/mL unknown) (unknown) (no (unknown) (unknown) Type 1 diabetes (units (unknown) date) unknown) (unknown) (no (unknown) (unknown) U-100 Insulin) (units (unknown) date) unknown) (unknown) (no (unknown) (unknown) Vascular Ultrasound (unit s (unknown) date) (Signed) unknown) (unknown) (no (unknown) (unknown) Visual worthy: No (units (unknown) date) visual loss unknown) (unknown) (no (unknown) (unknown) Vital Signs - 8 hr (units (unknown) date) unknown) (unknown) (no (unknown) (unknown) Vital Signs (units (un known) date) unknown) (unknown) (no (unknown) (unknown) Vital signs: (units (u nknown) date) unknown) (unknown) (no (unknown) (unknown) WBC (4.5-11.0) (units (unknown) date) X103/uL unknown) (unknown) (no (unknown) (unknown) WBC 7.3 (4.5-11.0) (units (unknown) date) X103/uL unknown) (unknown) (no (unknown) (unknown) [place] downey (units (u nknown) date) unknown) (unknown) (no (unknown) (unknown) XR chest 1V Stat (units (unknown) date) unknown) (unknown) (no (unknown) (unknown) XRay Report (units (un known) date) unknown) (unknown) (no (unknown) (unknown) [place] (units (unkno wn) date) unknown) (unknown) (no (unknown) (unknown) [Embedded Image Not (unit s (unknown) date) Available] unknown) (unknown) (no (unknown) (unknown) a few minutes and (units (unknown) date) will get better. It unknown) is not clearly associated with her loss (unknown) (no (unknown) (unknown) abnormalities.? (units (unknown) date) unknown) (unknown) (no (unknown) (unknown) acetaminophen 325 (units (unknown) date) mg Tablet unknown) (unknown) (no (unknown) (unknown) acetaminophen 325 (units (unknown) date) mg tablet 975 mg PO unknown) Q8H PRN Pain, Mild (1-3) 07/31/22 (unknown) (no (unknown) (unknown) acquired (units (unkno wn) date) unknown) (unknown) (no (unknown) (unknown) alcohol intake (units (unknown) date) frequency: unknown) holidays/special occasions only (unknown) (no (unknown) (unknown) alcohol intake: (units (unknown) date) current unknown) (unknown) (no (unknown) (unknown) aligned.? 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 For unknown) radiation dose reduction, the following was used:? (unknown) (no (unknown) (unknown) and (units (unkno wn) date) unknown) (unknown) (no (unknown) (unknown) and/or volume (units ( unknown) date) rendering reformats unknown) were acquired of the central intracranial (unknown) (no (unknown) (unknown) ankle. No tobacco, (units (unknown) date) no alcohol, no unknown) illicit. Her primary is in [place]. (unknown) (no (unknown) (unknown) anterior (units (unkno wn) date) unknown) (unknown) (no (unknown) (unknown) appear (units (unkno wn) date) unknown) (unknown) (no (unknown) (unknown) appears intact.? (units (unknown) date) unknown) (unknown) (no (unknown) (unknown) appears to be in (units (unknown) date) mild distress. unknown) (unknown) (no (unknown) (unknown) appreciated. (units (u nknown) date) unknown) (unknown) (no (unknown) (unknown) arch through the (units (unknown) date) [place].? unknown) Post-contrast 4.5 mm thick sections then re (unknown) (no (unknown) (unknown) arteries and (units (u nknown) date) unknown) (unknown) (no (unknown) (unknown) artery.? (units (unkno wn) date) unknown) (unknown) (no (unknown) (unknown) as vision change. (units (unknown) date) Patient states unknown) typically episodes will happen she will wake (unknown) (no (unknown) (unknown) as well head CT and (unit s (unknown) date) CT angio were unknown) negative, CBC is negative, coags are negative (unknown) (no (unknown) (unknown) automated (units (unkn own) date) unknown) (unknown) (no (unknown) (unknown) bupropion HCl 150 (units (unknown) date) mg tablet unknown) sustained-release 12 hr (unknown) (no (unknown) (unknown) bupropion HCl 150 (units (unknown) date) mg tablet,12 hr 150 unknown) mg PO DAILY 07/27/22 07/27/22 (unknown) (no (unknown) (unknown) but she states in (units (unknown) date) the right she will unknown) note that everything started goes black for (unknown) (no (unknown) (unknown) calcifications (units (unknown) date) unknown) (unknown) (no (unknown) (unknown) caliber, and join (units (unknown) date) to form a normal unknown) appearing basilar artery.? Flow within the (unknown) (no (unknown) (unknown) carotid artery (units (unknown) date) atherosclerosis.? unknown) (unknown) (no (unknown) (unknown) carotid termini are (unit s (unknown) date) widely patent. unknown) (unknown) (no (unknown) (unknown) cerebral arteries (units (unknown) date) is normal and unknown) symmetric.? No aneurysms are seen.? (unknown) (no (unknown) (unknown) clopidogrel 75 mg (units (unknown) date) tablet 75 mg PO unknown) DAILY 07/27/22 07/27/22 (unknown) (no (unknown) (unknown) clopidogrel 75 mg (units (unknown) date) tablet unknown) (unknown) (no (unknown) (unknown) codeine AdvReac (units (unknown) date) Verified 07/28/22 unknown) 08:51 (unknown) (no (unknown) (unknown) communicating (units ( unknown) date) artery is seen.? No unknown) aneurysms are seen.? Atherosclerotic (unknown) (no (unknown) (unknown) conjunctival (units (u nknown) date) pallor. Throat is unknown) clear without any exudates, erythema, tonsillar (unknown) (no (unknown) (unknown) deep white matter (units (unknown) date) chronic small vessel unknown) ischemic changes.? There is intracranial (unknown) (no (unknown) (unknown) demonstrate normal (units (unknown) date) unknown) (unknown) (no (unknown) (unknown) demonstrate (units (un known) date) unknown) (unknown) (no (unknown) (unknown) details: (units (unknown) date) 7 years ago unknown) yesterday (unknown) (no (unknown) (unknown) duloxetine 60 mg (units (unknown) date) capsule,delayed 60 unknown) mg PO DAILY 07/27/22 07/27/22 (unknown) (no (unknown) (unknown) duloxetine 60 mg (units (unknown) date) capsule,delayed unknown) release(DR/EC) (unknown) (no (unknown) (unknown) elevation or (units (u nknown) date) depression. unknown) (unknown) (no (unknown) (unknown) enlargement or (units (unknown) date) uvular deviation, unknown) mild facial droop on the right (unknown) (no (unknown) (unknown) exposure control, (units (unknown) date) adjustment of mA unknown) and/or kV according to patient size.? (unknown) (no (unknown) (unknown) extra-axial fluid (units (unknown) date) collections.? unknown) (unknown) (no (unknown) (unknown) extremities, full (units (unknown) date) range of motion, unknown) normal gait (unknown) (no (unknown) (unknown) feels sort of hard (units (unknown) date) to lift. She states unknown) that has been going on for 2 or 3 (unknown) (no (unknown) (unknown) flow.? The flow (units (unknown) date) within the paired unknown) anterior cerebral arteries is normal and (unknown) (no (unknown) (unknown) following (units (unkn own) date) unknown) (unknown) (no (unknown) (unknown) for age, (units (unkno wn) date) unknown) (unknown) (no (unknown) (unknown) from the foramen (units (unknown) date) magnum to the unknown) vertex.? 3-dimensional (unknown) (no (unknown) (unknown) gabapentin 600 mg (units (unknown) date) tablet 600 mg PO unknown) DAILY 07/27/22 07/27/22 (unknown) (no (unknown) (unknown) gabapentin 600 mg (units (unknown) date) tablet unknown) (unknown) (no (unknown) (unknown) get up and wakes up (unit s (unknown) date) on the floor. She unknown) states it has been happening with (unknown) (no (unknown) (unknown) happened a few (units (unknown) date) times during the unknown) daytime but is more consistent at night. She is (unknown) (no (unknown) (unknown) household members: (units (unknown) date) family and children unknown) (unknown) (no (unknown) (unknown) hydrocodone Allergy (unit s (unknown) date) Intermediate unknown) Verified 07/30/22 12:12 (unknown) (no (unknown) (unknown) increasing (units (unk nown) date) frequency in his unknown) happen 10 times in the last week. She states it is (unknown) (no (unknown) (unknown) insulin lispro 100 (units (unknown) date) unit/mL 55 unit unknown) SUBCUT DAILY PRN 07/27/22 07/27/22 (unknown) (no (unknown) (unknown) insulin lispro (units (unknown) date) [Humalog U-100 unknown) Insulin] 100 unit/mL solution (unknown) (no (unknown) (unknown) interface (units (unkn own) date) unknown) (unknown) (no (unknown) (unknown) internal (units (unkno wn) date) unknown) (unknown) (no (unknown) (unknown) intracranial or (units (unknown) date) cervical arterial unknown) vasculature.? Bilateral of the [place] neck (unknown) (no (unknown) (unknown) left upper (units (unk nown) date) extremity unknown) (unknown) (no (unknown) (unknown) lesions.? (units (unkn own) date) unknown) (unknown) (no (unknown) (unknown) likely related (units (unknown) date) orthostatics she is unknown) on a beta-yna daily but has also had (unknown) (no (unknown) (unknown) lisinopril 10 mg (units (unknown) date) tablet 10 mg PO unknown) DAILY 07/27/22 07/27/22 (unknown) (no (unknown) (unknown) lisinopril 10 mg (units (unknown) date) tablet unknown) (unknown) (no (unknown) (unknown) lives (units (unkno wn) date) independently: No unknown) (Lives with her daughter) (unknown) (no (unknown) (unknown) loss of bowel and (units (unknown) date) bladder control the unknown) 1st time this happened which was June (unknown) (no (unknown) (unknown) marital status: (units (unknown) date) unknown) (unknown) (no (unknown) (unknown) masses noted, no (units (unknown) date) hepatosplenomegaly unknown) (unknown) (no (unknown) (unknown) [id number] (unit s (unknown) date) rojection (MIP) unknown) (unknown) (no (unknown) (unknown) meperidine [From (units (unknown) date) Demerol] AdvReac unknown) Verified 07/28/22 08:51 (unknown) (no (unknown) (unknown) metoprolol (units (unk nown) date) succinate 100 mg 100 unknown) mg PO DAILY 07/27/22 07/27/22 (unknown) (no (unknown) (unknown) metoprolol (units (unk nown) date) succinate 100 mg unknown) tablet extended release 24 hr (unknown) (no (unknown) (unknown) months. She states (units (unknown) date) no issues with bowel unknown) movements or urination. She did have (unknown) (no (unknown) (unknown) morphine AdvReac (units (unknown) date) Mild Hallucinati unknown) Verified 07/27/22 18:54 (unknown) (no (unknown) (unknown) movements are (units ( unknown) date) intact, nares are unknown) clear, TMs are clear with no fluid, there is no (unknown) (no (unknown) (unknown) ng (units (unkno wn) date) unknown) (unknown) (no (unknown) (unknown) normal courses and (units (unknown) date) calibers.? They join unknown) to form a normal appearing basilar (unknown) (no (unknown) (unknown) noted at the (units (u nknown) date) carotid siphons. unknown) (unknown) (no (unknown) (unknown) of consciousness (units (unknown) date) episodes. She denies unknown) headaches. She denies chest pain, no (unknown) (no (unknown) (unknown) off aspirin, she (units (unknown) date) takes lisinopril and unknown) metoprolol, rosuvastatin. Patient states (unknown) (no (unknown) (unknown) oral powder packet (units (unknown) date) (Miralax) ea unknown) (unknown) (no (unknown) (unknown) oxycodone Allergy (units (unknown) date) Intermediate Uncoded unknown) 07/30/22 12:12 (unknown) (no (unknown) (unknown) patent.? No (units (un known) date) unknown) (unknown) (no (unknown) (unknown) patent.? (units (unkno wn) date) unknown) (unknown) (no (unknown) (unknown) patient (units (unkno wn) date) unknown) (unknown) (no (unknown) (unknown) periventricular and (unit s (unknown) date) unknown) (unknown) (no (unknown) (unknown) plaque (units (unkno wn) date) unknown) (unknown) (no (unknown) (unknown) polyethylene glycol (unit s (unknown) date) 3350 17 gram 17 g PO unknown) DAILY PRN constipation #14 07/31/22 (unknown) (no (unknown) (unknown) polyethylene glycol (unit s (unknown) date) 3350 [Miralax] 17 unknown) gram powder in packet (unknown) (no (unknown) (unknown) posterior (units (unkn own) date) unknown) (unknown) (no (unknown) (unknown) present.? (units (unkn own) date) Extracranial unknown) internal carotid arteries appear widely patent. (unknown) (no (unknown) (unknown) pulses are equal in (unit s (unknown) date) upper and lower unknown) extremities (unknown) (no (unknown) (unknown) release (units (unkno wn) date) unknown) (unknown) (no (unknown) (unknown) repair several (units (unknown) date) months ago when she unknown) had episode where she passed out broke her (unknown) (no (unknown) (unknown) right groin. (units (u nknown) date) Patient states prior unknown) hysterectomy and had an ankle fracture with (unknown) (no (unknown) (unknown) rosuvastatin 20 mg (units (unknown) date) tablet 20 mg PO unknown) DAILY 07/27/22 07/27/22 (unknown) (no (unknown) (unknown) rosuvastatin 20 mg (units (unknown) date) tablet unknown) (unknown) (no (unknown) (unknown) senna 8.6 mg (units (u nknown) date) capsule unknown) (unknown) (no (unknown) (unknown) sennosides 8.6 mg (units (unknown) date) capsule (senna) 8.6 unknown) mg PO DAILY PRN constipation 07/31/22 (unknown) (no (unknown) (unknown) she is had 2 heart (units (unknown) date) attacks, she is had unknown) cardiac stents and has a stent in her (unknown) (no (unknown) (unknown) wyman test normal, (units (unknown) date) romberg normal, unknown) patient has mild intention tremor particularly (unknown) (no (unknown) (unknown) shortness of (units (u nknown) date) breath, no nausea or unknown) vomiting no numbness, tingling or weakness. (unknown) (no (unknown) (unknown) since then. Patient (unit s (unknown) date) takes medication for unknown) anxiety, depression, Plavix she is now (unknown) (no (unknown) (unknown) size.? (units (unkno wn) date) unknown) (unknown) (no (unknown) (unknown) subcutaneous (units (u nknown) date) solution (Humalog unknown) Hyperglycemia (unknown) (no (unknown) (unknown) suspicious (units (unk nown) date) unknown) (unknown) (no (unknown) (unknown) sustained-release (units (unknown) date) unknown) (unknown) (no (unknown) (unknown) symmetric.? (units (un known) date) unknown) (unknown) (no (unknown) (unknown) symmetrically (units ( unknown) date) unknown) (unknown) (no (unknown) (unknown) tablet,extended (units (unknown) date) release 24 hr unknown) (unknown) (no (unknown) (unknown) the administration (units (unknown) date) of intravenous unknown) contrast, 1 mm thick sections acquired from (unknown) (no (unknown) (unknown) the aortic (units (unk nown) date) unknown) (unknown) (no (unknown) (unknown) to the (units (unkno wn) date) unknown) (unknown) (no (unknown) (unknown) unremarkable.? (units (unknown) date) unknown) (unknown) (no (unknown) (unknown) up in the middle (units (unknown) date) the night be sitting unknown) on the edge of her bed getting ready to (unknown) (no (unknown) (unknown) vasculature (units (un known) date) unknown) (unknown) (no (unknown) (unknown) ventricles are (units (unknown) date) symmetric in size unknown) and shape.? (unknown) (no (unknown) (unknown) vertex, with (units (u nknown) date) coronal and sagittal unknown) reformats.? For radiation dose reduction, the (unknown) (no (unknown) (unknown) vertex.? After (units (unknown) date) unknown) (unknown) (no (unknown) (unknown) vision changes that (unit s (unknown) date) is not always unknown) consistently associated so had stroke workup (unknown) (no (unknown) (unknown) was used:? (units (unk nown) date) automated exposure unknown) control, adjustment of mA and/or kV according to (unknown) (no (unknown) (unknown) widely patent. (units (unknown) date) unknown) (unknown) (no (unknown) (unknown) with a creatinine (units (unknown) date) 1.27 which is close unknown) to patient's baseline., AST is 44. (unknown) (no (unknown) (unknown) with resultant (units (unknown) date) ventricular and unknown) sulcal prominence.? There are moderate Result panel 155 (unknown) (no (unknown) (unknown) (no value) (units (unk nown) date) unknown) (unknown) (no (unknown) (unknown) #30 caps (units (unkno wn) date) unknown) (unknown) (no (unknown) (unknown) #30 tabs (units (unkno wn) date) unknown) (unknown) (no (unknown) (unknown) (More??) (units (unkno wn) date) unknown) (unknown) (no (unknown) (unknown) 11/23/22 11/23/22 (units (unknown) date) 11/23/22 Range/Units unknown) (unknown) (no (unknown) (unknown) 11/23/22 11:23 (units (unknown) date) unknown) (unknown) (no (unknown) (unknown) 11/23/22 11:24 (units (unknown) date) unknown) (unknown) (no (unknown) (unknown) 11/23/22 11:27 (units (unknown) date) unknown) (unknown) (no (unknown) (unknown) 11/23/22 11:31 (units (unknown) date) unknown) (unknown) (no (unknown) (unknown) 11/23/22 13:28 (units (unknown) date) unknown) (unknown) (no (unknown) (unknown) 11/23/22 13:47 (units (unknown) date) unknown) (unknown) (no (unknown) (unknown) 11/23/22 (units (unkno wn) date) unknown) (unknown) (no (unknown) (unknown) 12/11/20 (units (unkno wn) date) unknown) (unknown) (no (unknown) (unknown) 03/04/21 (units (unkno wn) date) unknown) (unknown) (no (unknown) (unknown) 03/06/20 (units (unkno wn) date) unknown) (unknown) (no (unknown) (unknown) 05/26/20 (units (unkno wn) date) unknown) (unknown) (no (unknown) (unknown) 07/27/22 (units (unkno wn) date) unknown) (unknown) (no (unknown) (unknown) 10 mg PO DAILY (units (unknown) date) unknown) (unknown) (no (unknown) (unknown) 07/28/22 (units (unkno wn) date) unknown) (unknown) (no (unknown) (unknown) 07/30/22 (units (unkno wn) date) unknown) (unknown) (no (unknown) (unknown) 100 mg PO DAILY (units (unknown) date) unknown) (unknown) (no (unknown) (unknown) 11:23 11:23 11:23 (units (unknown) date) unknown) (unknown) (no (unknown) (unknown) 11:23 13:28 13:47 (units (unknown) date) unknown) (unknown) (no (unknown) (unknown) 11:25 (units (unkno wn) date) unknown) (unknown) (no (unknown) (unknown) 10/02/21 (units (unkno wn) date) unknown) (unknown) (no (unknown) (unknown) [address] [place] (units (unknown) date) unknown) (unknown) (no (unknown) (unknown) 150 mg PO DAILY (units (unknown) date) unknown) (unknown) (no (unknown) (unknown) 17 g PO DAILY PRN (units (unknown) date) (Reason: unknown) constipation) Qty: 14 0RF (unknown) (no (unknown) (unknown) 20 mg PO DAILY (units (unknown) date) unknown) (unknown) (no (unknown) (unknown) 237 (units (unkno wn) date) unknown) (unknown) (no (unknown) (unknown) or of (units (unknown) date) 2021. She states she unknown) has not had any other incontinence issues (unknown) (no (unknown) (unknown) 55 unit SUBCUT (units (unknown) date) DAILY MDD 55 PRN unknown) (Reason: Hyperglycemia) (unknown) (no (unknown) (unknown) 60 mg PO DAILY (units (unknown) date) unknown) (unknown) (no (unknown) (unknown) 600 mg PO DAILY (units (unknown) date) unknown) (unknown) (no (unknown) (unknown) 75 mg PO DAILY (units (unknown) date) unknown) (unknown) (no (unknown) (unknown) 8.6 mg PO DAILY PRN (unit s (unknown) date) (Reason: unknown) constipation) Qty: 30 0RF (unknown) (no (unknown) (unknown) 975 mg PO Q8H PRN (units (unknown) date) (Reason: Pain, Mild unknown) (1-3)) Qty: 30 0RF (unknown) (no (unknown) (unknown) ? (units (unkno wn) date) unknown) (unknown) (no (unknown) (unknown) ? (units (unkno wn) date) unknown) (unknown) (no (unknown) (unknown) ?Both carotid (units ( unknown) date) bifurcations are unknown) widely patent with only minimal atherosclerotic (unknown) (no (unknown) (unknown) ABD:bowel sounds (units (unknown) date) normal, soft, unknown) non-tender, no guarding, rebound, rigidity, no (unknown) (no (unknown) (unknown) ALT (<35) IU/L (units (unknown) date) unknown) (unknown) (no (unknown) (unknown) ALT 28 (<35) IU/L (units (unknown) date) unknown) (unknown) (no (unknown) (unknown) APTT (26-36) (units (u nknown) date) SECONDS unknown) (unknown) (no (unknown) (unknown) APTT 31 (26-36) (units (unknown) date) SECONDS unknown) (unknown) (no (unknown) (unknown) AST (14-36) IU/L (units (unknown) date) unknown) (unknown) (no (unknown) (unknown) AST 44 H (14-36) (units (unknown) date) IU/L unknown) (unknown) (no (unknown) (unknown) Abdomen/Pelvis CT (units (unknown) date) (Signed) unknown) (unknown) (no (unknown) (unknown) Accession Number: (units (unknown) date) [id number] ?? unknown) (unknown) (no (unknown) (unknown) Accession Number: (units (unknown) date) [id number] ?? unknown) (unknown) (no (unknown) (unknown) Accession Number: (units (unknown) date) [id number] ?? unknown) (unknown) (no (unknown) (unknown) Acct:[id number] (units (unknown) date) unknown) (unknown) (no (unknown) (unknown) Activity (units (unkno wn) date) Restrictions/Additio unknown) nal Instructions: (unknown) (no (unknown) (unknown) Age/Sex: 67 / F (units (unknown) date) unknown) (unknown) (no (unknown) (unknown) Albumin (3.5-5.0) (units (unknown) date) g/dL unknown) (unknown) (no (unknown) (unknown) Albumin 4.1 (units (un known) date) (3.5-5.0) g/dL unknown) (unknown) (no (unknown) (unknown) Albumin/Globulin (units (unknown) date) Ratio (1.0-2.8) unknown) (unknown) (no (unknown) (unknown) Albumin/Globulin (units (unknown) date) Ratio 1.1 (1.0-2.8) unknown) (unknown) (no (unknown) (unknown) Alkaline (units (unkno wn) date) Phosphatase (38-126) unknown) U/L (unknown) (no (unknown) (unknown) Alkaline (units (unkno wn) date) Phosphatase 101 unknown) (38-126) U/L (unknown) (no (unknown) (unknown) Allergies (units (unkn own) date) unknown) (unknown) (no (unknown) (unknown) Allergy/Adv: (units (u nknown) date) hydrocodone, unknown) morphine, codeine, meperidine, [oxycodone] (unknown) (no (unknown) (unknown) Allergy/AdvReac (units (unknown) date) Type Severity unknown) Reaction Status Date / Time (unknown) (no (unknown) (unknown) [place] [address] (unit s (unknown) date) unknown) (unknown) (no (unknown) (unknown) Ankle X-Ray (units (un known) date) (Signed) unknown) (unknown) (no (unknown) (unknown) Anterior (units (unkno wn) date) circulation:? unknown) Intracranial internal carotid arteries are normal in size (unknown) (no (unknown) (unknown) Any quantitative (units (unknown) date) measurements of unknown) stenosis were performed using NASCET criteria.? (unknown) (no (unknown) (unknown) Approved by: Chda (units (unknown) date) Joann Tatum on unknown) 11/23/2022 at 12:34?? (unknown) (no (unknown) (unknown) Approved by: Chad (units (unknown) date) Joann Tatum on unknown) 11/23/2022 at 12:39?? (unknown) (no (unknown) (unknown) Approved by: Stefanie (units (unknown) date) Joann Bullard on unknown) 11/23/2022 at 11:58 (unknown) (no (unknown) (unknown) Ask month/age: (units (unknown) date) Answers both unknown) questions correctly. (unknown) (no (unknown) (unknown) Attestation: I (units (unknown) date) personally reviewed unknown) and interpreted this ECG as follows: (unknown) (no (unknown) (unknown) BNP [NT-proBNP (units (unknown) date) (BNP-Adult 18+)] unknown) Stat (unknown) (no (unknown) (unknown) BRAIN:? (units (unkno wn) date) unknown) (unknown) (no (unknown) (unknown) BUN (7-17) mg/dL (units (unknown) date) unknown) (unknown) (no (unknown) (unknown) BUN 12 (7-17) mg/dL (unit s (unknown) date) unknown) (unknown) (no (unknown) (unknown) BUN/Creatinine (units (unknown) date) Ratio (6-22) unknown) (unknown) (no (unknown) (unknown) BUN/Creatinine (units (unknown) date) Ratio 9.4 (6-22) unknown) (unknown) (no (unknown) (unknown) Baso # (Auto) (units ( unknown) date) (0-100) /uL unknown) (unknown) (no (unknown) (unknown) Baso # (Auto) 100 (units (unknown) date) (0-100) /uL unknown) (unknown) (no (unknown) (unknown) Baso % (Auto) (0-2) (unit s (unknown) date) % unknown) (unknown) (no (unknown) (unknown) Baso % (Auto) 0.8 (units (unknown) date) (0-2) % unknown) (unknown) (no (unknown) (unknown) Best gaze (units (unkn own) date) horizontal: Normal unknown) (unknown) (no (unknown) (unknown) Best language: No (units (unknown) date) aphasia, normal unknown) (unknown) (no (unknown) (unknown) Blood Pressure (units (unknown) date) 148/68 H 11/23/22 unknown) 11:25 (unknown) (no (unknown) (unknown) Blood Pressure (units (unknown) date) 148/68 H unknown) (unknown) (no (unknown) (unknown) Bones and chest (units (unknown) date) wall:? No suspicious unknown) bony lesions.? Overlying soft tissues (unknown) (no (unknown) (unknown) Bones:? No (units (unk nown) date) suspicious bony unknown) lesions.? Visualized cervical spine appears normally (unknown) (no (unknown) (unknown) Brain:? No (units (unk nown) date) intracranial bleeds unknown) or masses.? There is mild cerebral volume loss (unknown) (no (unknown) (unknown) Brain:? No midline (units (unknown) date) shift.? No unknown) intracranial bleeds or masses.? Valles-white matter (unknown) (no (unknown) (unknown) Cora Rogers, (units (unknown) date) PA-C [Primary Care unknown) Provider] (unknown) (no (unknown) (unknown) CK-MB (CK-2) Rel (units (unknown) date) Index TNP unknown) (unknown) (no (unknown) (unknown) CK-MB (CK-2) Rel (units (unknown) date) Index unknown) (unknown) (no (unknown) (unknown) CK-MB (CK-2) TNP (units (unknown) date) unknown) (unknown) (no (unknown) (unknown) CK-MB (CK-2) (units (u nknown) date) unknown) (unknown) (no (unknown) (unknown) [facility], [facility], XR unknown) CHEST 1V, 07/27/2022, 12:32. (unknown) (no (unknown) (unknown) [facility]:? [facility], CT, CT unknown) HEAD/BRAIN WO CON, 07/27/2022, 12:56. (unknown) (no (unknown) (unknown) COMPARISON:? None. (units (unknown) date) unknown) (unknown) (no (unknown) (unknown) COVID19 -Nasal (units (unknown) date) RAPID/Pre-Proc Stat unknown) (unknown) (no (unknown) (unknown) CSF spaces:? Basal (units (unknown) date) cisterns are unknown) patent.? No extra-axial fluid collections.? The (unknown) (no (unknown) (unknown) CSF spaces:? (units (u nknown) date) Ventricles are unknown) normal in size and shape.? Basal cisterns are (unknown) (no (unknown) (unknown) CT Scan Report (units (unknown) date) unknown) (unknown) (no (unknown) (unknown) CT angio head and (units (unknown) date) neck Stat unknown) (unknown) (no (unknown) (unknown) CT head/brain wo (units (unknown) date) con Stat unknown) (unknown) (no (unknown) (unknown) CT scan - head: (units (unknown) date) unknown) (unknown) (no (unknown) (unknown) CTA - brain/neck: (units (unknown) date) unknown) (unknown) (no (unknown) (unknown) Calcium (8.4-10.2) (units (unknown) date) mg/dL unknown) (unknown) (no (unknown) (unknown) Calcium 8.8 (units (un known) date) (8.4-10.2) mg/dL unknown) (unknown) (no (unknown) (unknown) Carbon Dioxide (units (unknown) date) (22-32) mmol/L unknown) (unknown) (no (unknown) (unknown) Carbon Dioxide 31 (units (unknown) date) (22-32) mmol/L unknown) (unknown) (no (unknown) (unknown) Carotid Doppler (units (unknown) date) Study (Signed) unknown) (unknown) (no (unknown) (unknown) Carotid system:? (units (unknown) date) The aortic arch and unknown) bilateral common carotid arteries are (unknown) (no (unknown) (unknown) Cervical Spine CT (units (unknown) date) (Signed) unknown) (unknown) (no (unknown) (unknown) Chest X-Ray (units (un known) date) (Signed) unknown) (unknown) (no (unknown) (unknown) Chest x-ray: (units (u nknown) date) unknown) (unknown) (no (unknown) (unknown) Chief Complaint: (units (unknown) date) Syncope unknown) (unknown) (no (unknown) (unknown) Chloride (98-107) (units (unknown) date) mmol/L unknown) (unknown) (no (unknown) (unknown) Chloride 99 (units (un known) date) (98-107) mmol/L unknown) (unknown) (no (unknown) (unknown) Clinical (units (unkno wn) date) Impression: unknown) (unknown) (no (unknown) (unknown) Close (units (unkno wn) date) unknown) (unknown) (no (unknown) (unknown) Complete Blood (units (unknown) date) Count AUTO DIFF Stat unknown) (unknown) (no (unknown) (unknown) Comprehensive (units ( unknown) date) Metabolic Panel Stat unknown) (unknown) (no (unknown) (unknown) Coronary artery (units (unknown) date) disease unknown) (unknown) (no (unknown) (unknown) Course (units (unkno wn) date) unknown) (unknown) (no (unknown) (unknown) Creatinine (units (unk nown) date) (0.52-1.04) mg/dL unknown) (unknown) (no (unknown) (unknown) Creatinine 1.27 H (units (unknown) date) (0.52-1.04) mg/dL unknown) (unknown) (no (unknown) (unknown) : 1955 (units (unknown) date) Acct:[id number] unknown) (unknown) (no (unknown) (unknown) : 1955 (units (unknown) date) unknown) (unknown) (no (unknown) (unknown) Date of Service: (units (unknown) date) 11/23/22 unknown) (unknown) (no (unknown) (unknown) Departure (units (unkn own) date) unknown) (unknown) (no (unknown) (unknown) Dictated by: Chad (units (unknown) date) Joann Tatum on unknown) 11/23/2022 at 12:34 ? ? (unknown) (no (unknown) (unknown) Dictated by: Chad (units (unknown) date) Joann Tatum on unknown) 11/23/2022 at 12:35 ? ? (unknown) (no (unknown) (unknown) Dictated by: Stefanie (units (unknown) date) Joann Bullard on unknown) 11/23/2022 at 11:58 ? ? (unknown) (no (unknown) (unknown) Discharge Plan (units (unknown) date) unknown) (unknown) (no (unknown) (unknown) Discussed that she (units (unknown) date) needs some follow-up unknown) we discussed trying to decrease your (unknown) (no (unknown) (unknown) Discussed with (units ( unknown) date) patient would like unknown) to keep for stroke workup and syncope, for MR, (unknown) (no (unknown) (unknown) Dysarthria: Normal (units (unknown) date) unknown) (unknown) (no (unknown) (unknown) ECG Data (units (unkno wn) date) unknown) (unknown) (no (unknown) (unknown) ED Orders (units (unkn own) date) unknown) (unknown) (no (unknown) (unknown) EKG 2. Sinus (units (u nknown) date) rhythm, rate of 64, unknown) RI 156 QRS is 76 QTC [address]. No acute ST (unknown) (no (unknown) (unknown) EKG-12 Lead Stat (units (unknown) date) unknown) (unknown) (no (unknown) (unknown) ER Physician: (units ( unknown) date) Risa Aquino D.O. unknown) (unknown) (no (unknown) (unknown) Emergency Report (units (unknown) date) unknown) (unknown) (no (unknown) (unknown) Eos # (Auto) (units (u nknown) date) (0-450) /uL unknown) (unknown) (no (unknown) (unknown) Eos # (Auto) 200 (units (unknown) date) (0-450) /uL unknown) (unknown) (no (unknown) (unknown) Eos % (Auto) (2-4) (units (unknown) date) % unknown) (unknown) (no (unknown) (unknown) Eos % (Auto) 3.4 (units (unknown) date) (2-4) % unknown) (unknown) (no (unknown) (unknown) Estimated GFR (>60) (unit s (unknown) date) mL/min unknown) (unknown) (no (unknown) (unknown) Estimated GFR 47 L (units (unknown) date) (>60) mL/min unknown) (unknown) (no (unknown) (unknown) Exam Narrative: (units (unknown) date) unknown) (unknown) (no (unknown) (unknown) Exam (units (unkno wn) date) unknown) (unknown) (no (unknown) (unknown) Extinction or (units ( unknown) date) inattention: No unknown) abnormality (unknown) (no (unknown) (unknown) FINDINGS:? (units (unk nown) date) unknown) (unknown) (no (unknown) (unknown) Facial palsy: (units ( unknown) date) Normal symetrical unknown) movement (unknown) (no (unknown) (unknown) GEN: well (units (unkn own) date) nourished, well unknown) appearing female, alert and oriented x 3, patient (unknown) (no (unknown) (unknown) :No CVA (units (unkn own) date) tenderness unknown) (unknown) (no (unknown) (unknown) General (units (unkno wn) date) unknown) (unknown) (no (unknown) (unknown) Globulin (1.7-4.1) (units (unknown) date) g/dL unknown) (unknown) (no (unknown) (unknown) Globulin 3.9 (units (u nknown) date) (1.7-4.1) g/dL unknown) (unknown) (no (unknown) (unknown) Glucose (80-110) (units (unknown) date) mg/dL unknown) (unknown) (no (unknown) (unknown) Glucose 110 (units (un known) date) (80-110) mg/dL unknown) (unknown) (no (unknown) (unknown) HEAD CT (units (unkno wn) date) ANGIOGRAPHY:? unknown) (unknown) (no (unknown) (unknown) HEART: Regular rate (unit s (unknown) date) and rhythm without unknown) murmur, clicks, rubs. No carotid bruits, (unknown) (no (unknown) (unknown) HEENT: Atraumatic, (units (unknown) date) pupils are equal unknown) round reactive to light, extraocular (unknown) (no (unknown) (unknown) HPI - Syncope (units ( unknown) date) unknown) (unknown) (no (unknown) (unknown) HPI narrative: (units (unknown) date) unknown) (unknown) (no (unknown) (unknown) Hand X-Ray (Signed) (unit s (unknown) date) unknown) (unknown) (no (unknown) (unknown) Hct (36-46) % (units ( unknown) date) unknown) (unknown) (no (unknown) (unknown) Hct 44.4 (36-46) % (units (unknown) date) unknown) (unknown) (no (unknown) (unknown) Head CT (Signed) (units (unknown) date) unknown) (unknown) (no (unknown) (unknown) Head CT (units (unkno wn) date) unknown) (unknown) (no (unknown) (unknown) Head/Neck CTA (units ( unknown) date) (Signed) unknown) (unknown) (no (unknown) (unknown) Head/Neck CTA (units ( unknown) date) unknown) (unknown) (no (unknown) (unknown) Hgb (12.0-16.0) (units (unknown) date) g/dL unknown) (unknown) (no (unknown) (unknown) Hgb 15.0 (units (unkno wn) date) (12.0-16.0) g/dL unknown) (unknown) (no (unknown) (unknown) History of Present (units (unknown) date) Illness unknown) (unknown) (no (unknown) (unknown) Home Medications (units (unknown) date) unknown) (unknown) (no (unknown) (unknown) I suspect her (units ( unknown) date) recent COVID unknown) infection is exacerbating your current symptoms. (unknown) (no (unknown) (unknown) I would recommend (units (unknown) date) continuing to unknown) monitor your blood pressure as it may increase (unknown) (no (unknown) (unknown) I would recommend (units (unknown) date) decreasing your unknown) metoprolol from 100 mg daily(1 tablet) to 50 (unknown) (no (unknown) (unknown) IMPRESSION:? No (units (unknown) date) acute unknown) cardiopulmonary findings. (unknown) (no (unknown) (unknown) IMPRESSION:? No (units (unknown) date) acute intracranial unknown) finding. (unknown) (no (unknown) (unknown) IMPRESSION:? No (units (unknown) date) hemodynamically unknown) significant stenosis or occlusion of the major (unknown) (no (unknown) (unknown) INDICATIONS:? chest (unit s (unknown) date) pain unknown) (unknown) (no (unknown) (unknown) INDICATIONS:? (units ( unknown) date) syncope, vision unknown) loss. (unknown) (no (unknown) (unknown) INDICATIONS:? (units ( unknown) date) vision loss eye, unknown) intermittent syncope (unknown) (no (unknown) (unknown) INJECT UP TO 55 (units (unknown) date) UNITS PER DAY VIA unknown) INSULIN PUMP (unknown) (no (unknown) (unknown) INR (0.9-1.3) (units ( unknown) date) unknown) (unknown) (no (unknown) (unknown) INR 1.0 (0.9-1.3) (units (unknown) date) unknown) (unknown) (no (unknown) (unknown) Image quality:? (units (unknown) date) Excellent.? unknown) (unknown) (no (unknown) (unknown) Imaging Data (units (u nknown) date) unknown) (unknown) (no (unknown) (unknown) Initial Vital Signs (unit s (unknown) date) unknown) (unknown) (no (unknown) (unknown) Initial Vital (units ( unknown) date) Signs: unknown) (unknown) (no (unknown) (unknown) Interpretation: (units (unknown) date) unknown) (unknown) (no (unknown) (unknown) [facility] (units (unknown) date) [address] unknown) [place] [id number] (unknown) (no (unknown) (unknown) [facility] (units (unknown) date) unknown) (unknown) (no (unknown) (unknown) Marlon,Omari (units ( unknown) date) unknown) (unknown) (no (unknown) (unknown) Kiviat,Stefanie (units (un known) date) unknown) (unknown) (no (unknown) (unknown) LUNGS:Lungs clear (units (unknown) date) to auscultation, no unknown) wheezes, rales, crackles, chest moves (unknown) (no (unknown) (unknown) Lab Data (units (unkno wn) date) unknown) (unknown) (no (unknown) (unknown) Lab Results (units (un known) date) unknown) (unknown) (no (unknown) (unknown) Label Comments: (units (unknown) date) unknown) (unknown) (no (unknown) (unknown) Labs: (units (unkno wn) date) unknown) (unknown) (no (unknown) (unknown) Launch?Image (units (u nknown) date) unknown) (unknown) (no (unknown) (unknown) Left arm drift: No (units (unknown) date) drift for full 10 unknown) sec (unknown) (no (unknown) (unknown) Left leg drift: No (units (unknown) date) drift for full 5 sec unknown) (unknown) (no (unknown) (unknown) Level of (units (unkno wn) date) Conciousness: Alert, unknown) keenly responsive (unknown) (no (unknown) (unknown) Limb ataxia: Absent (unit s (unknown) date) unknown) (unknown) (no (unknown) (unknown) Limitations: no (units (unknown) date) limitations unknown) (unknown) (no (unknown) (unknown) Lipase (23-300) U/L (unit s (unknown) date) unknown) (unknown) (no (unknown) (unknown) Lipase 22 L (units (un known) date) (23-300) U/L unknown) (unknown) (no (unknown) (unknown) Lipase Stat (units (un known) date) unknown) (unknown) (no (unknown) (unknown) Loc: ED (units (unkno wn) date) unknown) (unknown) (no (unknown) (unknown) Lungs and pleura:? (units (unknown) date) Lungs are clear.? No unknown) pleural effusions or pneumothorax.? (unknown) (no (unknown) (unknown) Lymph # (Auto) (units (unknown) date) (4214-3496) /uL unknown) (unknown) (no (unknown) (unknown) Lymph # (Auto) 1500 (unit s (unknown) date) (9995-6558) /uL unknown) (unknown) (no (unknown) (unknown) Lymph % (Auto) (units (unknown) date) (25-40) % unknown) (unknown) (no (unknown) (unknown) Lymph % (Auto) 20.9 (unit s (unknown) date) L (25-40) % unknown) (unknown) (no (unknown) (unknown) MCH (26-34) PG (units (unknown) date) unknown) (unknown) (no (unknown) (unknown) MCH 30.6 (26-34) PG (unit s (unknown) date) unknown) (unknown) (no (unknown) (unknown) MCHC (30-36) % (units (unknown) date) unknown) (unknown) (no (unknown) (unknown) MCHC 33.8 (30-36) % (unit s (unknown) date) unknown) (unknown) (no (unknown) (unknown) MCV (80-100) fL (units (unknown) date) unknown) (unknown) (no (unknown) (unknown) MCV 90.6 (80-100) (units (unknown) date) fL unknown) (unknown) (no (unknown) (unknown) MDM - Syncope (units ( unknown) date) unknown) (unknown) (no (unknown) (unknown) MDM Narrative (units ( unknown) date) unknown) (unknown) (no (unknown) (unknown) MR#: [id number] (units (unknown) date) unknown) (unknown) (no (unknown) (unknown) MSCL: Non-tender, (units (unknown) date) no muscle atrophy, unknown) muscles strength 5/5 upper and lower (unknown) (no (unknown) (unknown) Magnesium (1.6-2.3) (unit s (unknown) date) mg/dL unknown) (unknown) (no (unknown) (unknown) Magnesium 2.0 (units ( unknown) date) (1.6-2.3) mg/dL unknown) (unknown) (no (unknown) (unknown) Magnesium Stat (units (unknown) date) unknown) (unknown) (no (unknown) (unknown) Max,[place] (units (unknown) date) unknown) (unknown) (no (unknown) (unknown) Mammogram Screening (unit s (unknown) date) (Signed) unknown) (unknown) (no (unknown) (unknown) Mediastinum:? (units ( unknown) date) Mediastinal contours unknown) appear normal.? Heart size is normal.? (unknown) (no (unknown) (unknown) Medical History (units (unknown) date) (Reviewed 11/23/22 @ unknown) 13:52 by Risa Aquino DO) (unknown) (no (unknown) (unknown) Medical decision (units (unknown) date) making narrative: unknown) (unknown) (no (unknown) (unknown) Medication (units (unk nown) date) Instructions unknown) Recorded Confirmed (unknown) (no (unknown) (unknown) Medication (units (unk nown) date) Instructions unknown) Recorded (unknown) (no (unknown) (unknown) Mode of arrival: (units (unknown) date) Family Vehicle unknown) (unknown) (no (unknown) (unknown) [place] # (Auto) (units ( unknown) date) (0-900) /uL unknown) (unknown) (no (unknown) (unknown) [place] # (Auto) 500 (units (unknown) date) (0-900) /uL unknown) (unknown) (no (unknown) (unknown) [place] % (Auto) (units ( unknown) date) (3-14) % unknown) (unknown) (no (unknown) (unknown) [place] % (Auto) 6.4 (units (unknown) date) (3-14) % unknown) (unknown) (no (unknown) (unknown) NECK CT (units (unkno wn) date) ANGIOGRAPHY:? unknown) (unknown) (no (unknown) (unknown) NEURO:CN 2-12 (units ( unknown) date) intact, sensation unknown) normal, finger nose finger test normal, heel (unknown) (no (unknown) (unknown) NIH Stroke Scale (units (unknown) date) unknown) (unknown) (no (unknown) (unknown) NT-Pro-B Natriuret (units (unknown) date) Pep (<125) pg/mL unknown) (unknown) (no (unknown) (unknown) NT-Pro-B Natriuret (units (unknown) date) Pep 104 (<125) pg/mL unknown) (unknown) (no (unknown) (unknown) Narrative (units (unkn own) date) unknown) (unknown) (no (unknown) (unknown) Neut # (Auto) (units ( unknown) date) (8872-8204) /uL unknown) (unknown) (no (unknown) (unknown) Neut # (Auto) 5000 (units (unknown) date) (7811-8577) /uL unknown) (unknown) (no (unknown) (unknown) Neut % (Auto) (units ( unknown) date) (50-75) % unknown) (unknown) (no (unknown) (unknown) Neut % (Auto) 68.5 (units (unknown) date) (50-75) % unknown) (unknown) (no (unknown) (unknown) [place] (units ( unknown) date) unknown) (unknown) (no (unknown) (unknown) No Action (units (unkn own) date) unknown) (unknown) (no (unknown) (unknown) No significant (units (unknown) date) medical problems unknown) (unknown) (no (unknown) (unknown) Noncontrast 4.5 mm (units (unknown) date) thick angled axial unknown) sections acquired from the foramen magnum (unknown) (no (unknown) (unknown) Open/close eyes, (units (unknown) date) close hand: Performs unknown) both tasks correctly (unknown) (no (unknown) (unknown) Orbits appear (units ( unknown) date) normal.? unknown) (unknown) (no (unknown) (unknown) Ordered: (units (unkno wn) date) unknown) (unknown) (no (unknown) (unknown) Ordering Provider: (units (unknown) date) Risa Aquino D.O. unknown) (unknown) (no (unknown) (unknown) Orders (units (unkno wn) date) unknown) (unknown) (no (unknown) (unknown) Orthostatics were (units (unknown) date) obtained unknown) (unknown) (no (unknown) (unknown) Oxygen Delivery (units (unknown) date) Method 11/23/22 unknown) 11:25 (unknown) (no (unknown) (unknown) Oxygen Delivery (units (unknown) date) Method Room Air unknown) (unknown) (no (unknown) (unknown) PROCEDURE:? CT (units (unknown) date) ANGIO HEAD AND NECK unknown) (unknown) (no (unknown) (unknown) PROCEDURE:? CT (units (unknown) date) HEAD/BRAIN WO CON unknown) (unknown) (no (unknown) (unknown) PROCEDURE:? XR (units (unknown) date) CHEST 1V unknown) (unknown) (no (unknown) (unknown) PT (10.1-12.7) (units (unknown) date) SECONDS unknown) (unknown) (no (unknown) (unknown) PT 12.0 (10.1-12.7) (unit s (unknown) date) SECONDS unknown) (unknown) (no (unknown) (unknown) Partial (units (unkno wn) date) Thromboplastin Time unknown) Stat (unknown) (no (unknown) (unknown) Patient History (units (unknown) date) unknown) (unknown) (no (unknown) (unknown) Patient has prior (units (unknown) date) from 07/27/2022 it unknown) appears similar. (unknown) (no (unknown) (unknown) Patient has repeat (units (unknown) date) troponin and EKG are unknown) negative with no acute changes. NIH is (unknown) (no (unknown) (unknown) Patient: (units (unkno wn) date) Laverne Mendoza MR#: unknown) [id number] (unknown) (no (unknown) (unknown) Patient: (units (unkno wn) date) Laverne Mendoza unknown) (unknown) (no (unknown) (unknown) Please follow-up (units (unknown) date) with your physician unknown) as you have elected not to stay for (unknown) (no (unknown) (unknown) Please return for (units (unknown) date) worsening symptoms, unknown) new headaches, vision changes, recurrent (unknown) (no (unknown) (unknown) Plt Count (150-400) (unit s (unknown) date) X103/uL unknown) (unknown) (no (unknown) (unknown) Plt Count 317 (units ( unknown) date) (150-400) X103/uL unknown) (unknown) (no (unknown) (unknown) Posterior (units (unkno wn) date) circulation:? The unknown) origins of the vertebral arteries both appear widely (unknown) (no (unknown) (unknown) Posterior (units (unkn own) date) circulation:? unknown) Visualized portions of the vertebral arteries (unknown) (no (unknown) (unknown) Potassium (3.4-5.1) (unit s (unknown) date) mmol/L unknown) (unknown) (no (unknown) (unknown) Potassium 3.8 (units ( unknown) date) (3.4-5.1) mmol/L unknown) (unknown) (no (unknown) (unknown) Pre-contrast 4.5 mm (unit s (unknown) date) thick sections unknown) acquired from the foramen magnum to the (unknown) (no (unknown) (unknown) Prescriptions: (units (unknown) date) unknown) (unknown) (no (unknown) (unknown) Previous Rx's (units ( unknown) date) unknown) (unknown) (no (unknown) (unknown) Prior ECG tracings: (unit s (unknown) date) available for review unknown) (unknown) (no (unknown) (unknown) Procedure: CT angio (unit s (unknown) date) head and neck unknown) (unknown) (no (unknown) (unknown) Procedure: CT (units ( unknown) date) head/brain wo con unknown) (unknown) (no (unknown) (unknown) Procedure: XR chest (unit s (unknown) date) 1V unknown) (unknown) (no (unknown) (unknown) Prothrombin Time (units (unknown) date) INR Stat unknown) (unknown) (no (unknown) (unknown) Pulse Oximetry 99 (units (unknown) date) 11/23/22 11:25 unknown) (unknown) (no (unknown) (unknown) Pulse Oximetry 99 (units (unknown) date) unknown) (unknown) (no (unknown) (unknown) Pulse Rate 71 (units ( unknown) date) 11/23/22 11:25 unknown) (unknown) (no (unknown) (unknown) Pulse Rate 71 (units ( unknown) date) unknown) (unknown) (no (unknown) (unknown) RBC (4.0-5.2) (units ( unknown) date) X106/uL unknown) (unknown) (no (unknown) (unknown) RBC 4.90 (4.0-5.2) (units (unknown) date) X106/uL unknown) (unknown) (no (unknown) (unknown) RDW (11.6-14.8) % (units (unknown) date) unknown) (unknown) (no (unknown) (unknown) RDW 13.1 (units (unkno wn) date) (11.6-14.8) % unknown) (unknown) (no (unknown) (unknown) ROS Unobtainable: (units (unknown) date) All systems reviewed unknown) + are unremarkable except as noted in HPI (unknown) (no (unknown) (unknown) Radiologist's (units ( unknown) date) Impression: unknown) (unknown) (no (unknown) (unknown) Referrals: (units (unk nown) date) unknown) (unknown) (no (unknown) (unknown) Related Data (units (u nknown) date) unknown) (unknown) (no (unknown) (unknown) Respiratory Rate 19 (unit s (unknown) date) 11/23/22 11:25 unknown) (unknown) (no (unknown) (unknown) Respiratory Rate 19 (unit s (unknown) date) unknown) (unknown) (no (unknown) (unknown) Review of Systems (units (unknown) date) unknown) (unknown) (no (unknown) (unknown) Laverne Mendoza??[id number]??F? (unit s (unknown) date) ?1955 unknown) (unknown) (no (unknown) (unknown) Ribs X-Ray (Signed) (unit s (unknown) date) unknown) (unknown) (no (unknown) (unknown) Right arm drift: No (unit s (unknown) date) drift for full 10 unknown) sec (unknown) (no (unknown) (unknown) Right leg drift: No (unit s (unknown) date) drift for full 5 sec unknown) (unknown) (no (unknown) (unknown) Chad Tatum (units (u nknown) date) unknown) (unknown) (no (unknown) (unknown) SARS-CoV-2 (PCR) (units (unknown) date) (Negative) unknown) (unknown) (no (unknown) (unknown) SARS-CoV-2 (PCR) (units (unknown) date) Positive H unknown) (Negative) (unknown) (no (unknown) (unknown) Scores (units (unkno wn) date) unknown) (unknown) (no (unknown) (unknown) Sensory on (units (unk nown) date) face/arms/legs: unknown) Normal, no sensory loss (unknown) (no (unknown) (unknown) She does have some (units (unknown) date) occasional neck pain unknown) on the left states her both her arms (unknown) (no (unknown) (unknown) Signed By: (units (unk nown) date) unknown) (unknown) (no (unknown) (unknown) Signed (units (unkno wn) date) unknown) (unknown) (no (unknown) (unknown) Sinus rhythm rate (units (unknown) date) of 66 RI 142 QRS is unknown) 70 QTC [address]. No acute ST changes (unknown) (no (unknown) (unknown) Sinuses:? Mild (units (unknown) date) diffuse paranasal unknown) sinus mucosal thickening. (unknown) (no (unknown) (unknown) Sinuses:? (units (unkn own) date) Visualized sinuses unknown) and mastoids are clear.? (unknown) (no (unknown) (unknown) Skull and face:? (units (unknown) date) Calvarium and facial unknown) bones appear intact, without suspicious (unknown) (no (unknown) (unknown) Skull and face:? (units (unknown) date) Calvarium and unknown) visualized facial bones appear intact, without (unknown) (no (unknown) (unknown) Smoking Status: (units (unknown) date) Never smoker unknown) (unknown) (no (unknown) (unknown) Social History (units (unknown) date) (Reviewed 11/23/22 @ unknown) 13:52 by Risa Aquino DO) (unknown) (no (unknown) (unknown) Sodium (137-145) (units (unknown) date) mmol/L unknown) (unknown) (no (unknown) (unknown) Sodium 140 (units (unk nown) date) (137-145) mmol/L unknown) (unknown) (no (unknown) (unknown) Soft tissues:? (units (unknown) date) Visualized neck soft unknown) tissues demonstrate no suspicious (unknown) (no (unknown) (unknown) Source: patient (units (unknown) date) unknown) (unknown) (no (unknown) (unknown) Stated Complaint: (units (unknown) date) Sent by DR giron unknown) passing out losing vision T-5 (unknown) (no (unknown) (unknown) Substance Use Type: (unit s (unknown) date) does not use unknown) (unknown) (no (unknown) (unknown) Surgical changes (units (unknown) date) and devices:? None.? unknown) (unknown) (no (unknown) (unknown) Syncope, Changes in (unit s (unknown) date) vision, COVID-19 unknown) virus infection (unknown) (no (unknown) (unknown) TECHNIQUE:? One (units (unknown) date) view of the chest unknown) was acquired.? (unknown) (no (unknown) (unknown) TECHNIQUE:? (units (un known) date) unknown) (unknown) (no (unknown) (unknown) Talk with your (units (unknown) date) physician about unknown) getting an echo, Holter monitor and MRI to more (unknown) (no (unknown) (unknown) Telemetry Strips (units (unknown) date) unknown) (unknown) (no (unknown) (unknown) Temperature 97.2 F (units (unknown) date) L 11/23/22 11:25 unknown) (unknown) (no (unknown) (unknown) Temperature 97.2 F (units (unknown) date) L unknown) (unknown) (no (unknown) (unknown) The flow within the (unit s (unknown) date) middle cerebral unknown) arteries is normal and symmetric.? The (unknown) (no (unknown) (unknown) The more superior (units (unknown) date) extracranial unknown) portions of both vertebral arteries also (unknown) (no (unknown) (unknown) This is a (units (unkn own) date) 67-year-old female unknown) who has sounds like recurrent syncopal episodes (unknown) (no (unknown) (unknown) This is a (units (unkno wn) date) 67-year-old with unknown) complaint of intermittent episodes of syncope as well (unknown) (no (unknown) (unknown) Time Seen by (units (u nknown) date) Provider: 11/23/22 unknown) 11:27 (unknown) (no (unknown) (unknown) Total Bilirubin (units (unknown) date) (0.2-1.3) mg/dL unknown) (unknown) (no (unknown) (unknown) Total Bilirubin 0.5 (unit s (unknown) date) (0.2-1.3) mg/dL unknown) (unknown) (no (unknown) (unknown) Total Creatine (units (unknown) date) Kinase (30-135) U/L unknown) (unknown) (no (unknown) (unknown) Total Creatine (units (unknown) date) Kinase 81 (30-135) unknown) U/L (unknown) (no (unknown) (unknown) Total NIH Stroke (units (unknown) date) scale score: 0 unknown) (unknown) (no (unknown) (unknown) Total Protein (units ( unknown) date) (6.3-8.2) g/dL unknown) (unknown) (no (unknown) (unknown) Total Protein 8.0 (units (unknown) date) (6.3-8.2) g/dL unknown) (unknown) (no (unknown) (unknown) Trop I [Troponin I] (unit s (unknown) date) Stat unknown) (unknown) (no (unknown) (unknown) Troponin + CK (units ( unknown) date) Cardiac Panel Stat unknown) (unknown) (no (unknown) (unknown) Troponin I < 0.012 (units (unknown) date) (0.01-0.034) ng/mL unknown) (unknown) (no (unknown) (unknown) Type 1 diabetes (units (unknown) date) unknown) (unknown) (no (unknown) (unknown) U-100 Insulin) (units (unknown) date) unknown) (unknown) (no (unknown) (unknown) Vascular Ultrasound (unit s (unknown) date) (Signed) unknown) (unknown) (no (unknown) (unknown) Visual worthy: No (units (unknown) date) visual loss unknown) (unknown) (no (unknown) (unknown) Vital Signs - 8 hr (units (unknown) date) unknown) (unknown) (no (unknown) (unknown) Vital Signs (units (un known) date) unknown) (unknown) (no (unknown) (unknown) Vital signs: (units (u nknown) date) unknown) (unknown) (no (unknown) (unknown) WBC (4.5-11.0) (units (unknown) date) X103/uL unknown) (unknown) (no (unknown) (unknown) WBC 7.3 (4.5-11.0) (units (unknown) date) X103/uL unknown) (unknown) (no (unknown) (unknown) CurtisMarty downey (units (u nknown) date) unknown) (unknown) (no (unknown) (unknown) XR chest 1V Stat (units (unknown) date) unknown) (unknown) (no (unknown) (unknown) XRay Report (units (un known) date) unknown) (unknown) (no (unknown) (unknown) MamiParrish (units (unkno wn) date) unknown) (unknown) (no (unknown) (unknown) [Embedded Image Not (unit s (unknown) date) Available] unknown) (unknown) (no (unknown) (unknown) a few minutes and (units (unknown) date) will get better. It unknown) is not clearly associated with her loss (unknown) (no (unknown) (unknown) abnormalities.? (units (unknown) date) unknown) (unknown) (no (unknown) (unknown) acetaminophen 325 (units (unknown) date) mg Tablet unknown) (unknown) (no (unknown) (unknown) acetaminophen 325 (units (unknown) date) mg tablet 975 mg PO unknown) Q8H PRN Pain, Mild (1-3) 07/31/22 (unknown) (no (unknown) (unknown) acquired (units (unkno wn) date) unknown) (unknown) (no (unknown) (unknown) alcohol intake (units (unknown) date) frequency: unknown) holidays/special occasions only (unknown) (no (unknown) (unknown) alcohol intake: (units (unknown) date) current unknown) (unknown) (no (unknown) (unknown) aligned.? 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 For unknown) radiation dose reduction, the following was used:? (unknown) (no (unknown) (unknown) and (units (unkno wn) date) unknown) (unknown) (no (unknown) (unknown) and/or volume (units ( unknown) date) rendering reformats unknown) were acquired of the central intracranial (unknown) (no (unknown) (unknown) ankle. No tobacco, (units (unknown) date) no alcohol, no unknown) illicit. Her primary is in [place]. (unknown) (no (unknown) (unknown) anterior (units (unkno wn) date) unknown) (unknown) (no (unknown) (unknown) appear (units (unkno wn) date) unknown) (unknown) (no (unknown) (unknown) appears intact.? (units (unknown) date) unknown) (unknown) (no (unknown) (unknown) appears to be in (units (unknown) date) mild distress. unknown) (unknown) (no (unknown) (unknown) appreciated. (units (u nknown) date) unknown) (unknown) (no (unknown) (unknown) arch through the (units (unknown) date) [place].? unknown) Post-contrast 4.5 mm thick sections then re (unknown) (no (unknown) (unknown) arteries and (units (u nknown) date) unknown) (unknown) (no (unknown) (unknown) artery.? (units (unkno wn) date) unknown) (unknown) (no (unknown) (unknown) as vision change. (units (unknown) date) Patient states unknown) typically episodes will happen she will wake (unknown) (no (unknown) (unknown) as well head CT and (unit s (unknown) date) CT angio were unknown) negative, CBC is negative, coags are negative (unknown) (no (unknown) (unknown) automated (units (unkn own) date) unknown) (unknown) (no (unknown) (unknown) bupropion HCl 150 (units (unknown) date) mg tablet unknown) sustained-release 12 hr (unknown) (no (unknown) (unknown) bupropion HCl 150 (units (unknown) date) mg tablet,12 hr 150 unknown) mg PO DAILY 07/27/22 07/27/22 (unknown) (no (unknown) (unknown) but she states in (units (unknown) date) the right she will unknown) note that everything started goes black for (unknown) (no (unknown) (unknown) calcifications (units (unknown) date) unknown) (unknown) (no (unknown) (unknown) caliber, and join (units (unknown) date) to form a normal unknown) appearing basilar artery.? Flow within the (unknown) (no (unknown) (unknown) carotid artery (units (unknown) date) atherosclerosis.? unknown) (unknown) (no (unknown) (unknown) carotid termini are (unit s (unknown) date) widely patent. unknown) (unknown) (no (unknown) (unknown) cerebral arteries (units (unknown) date) is normal and unknown) symmetric.? No aneurysms are seen.? (unknown) (no (unknown) (unknown) changes do not seem (unit s (unknown) date) to be associated unknown) with that and I would like to keep her for (unknown) (no (unknown) (unknown) clopidogrel 75 mg (units (unknown) date) tablet 75 mg PO unknown) DAILY 07/27/22 07/27/22 (unknown) (no (unknown) (unknown) clopidogrel 75 mg (units (unknown) date) tablet unknown) (unknown) (no (unknown) (unknown) codeine AdvReac (units (unknown) date) Verified 07/28/22 unknown) 08:51 (unknown) (no (unknown) (unknown) communicating (units ( unknown) date) artery is seen.? No unknown) aneurysms are seen.? Atherosclerotic (unknown) (no (unknown) (unknown) conjunctival (units (u nknown) date) pallor. Throat is unknown) clear without any exudates, erythema, tonsillar (unknown) (no (unknown) (unknown) deep white matter (units (unknown) date) chronic small vessel unknown) ischemic changes.? There is intracranial (unknown) (no (unknown) (unknown) demonstrate normal (units (unknown) date) unknown) (unknown) (no (unknown) (unknown) demonstrate (units (un known) date) unknown) (unknown) (no (unknown) (unknown) details: (units (unknown) date) 7 years ago unknown) yesterday (unknown) (no (unknown) (unknown) duloxetine 60 mg (units (unknown) date) capsule,delayed 60 unknown) mg PO DAILY 07/27/22 07/27/22 (unknown) (no (unknown) (unknown) duloxetine 60 mg (units (unknown) date) capsule,delayed unknown) release(DR/EC) (unknown) (no (unknown) (unknown) echo, monitoring (units (unknown) date) with telemetry. I unknown) suspect patient is having some orthostatic (unknown) (no (unknown) (unknown) elevation or (units (u nknown) date) depression. unknown) (unknown) (no (unknown) (unknown) enlargement or (units (unknown) date) uvular deviation, unknown) mild facial droop on the right (unknown) (no (unknown) (unknown) exposure control, (units (unknown) date) adjustment of mA unknown) and/or kV according to patient size.? (unknown) (no (unknown) (unknown) extra-axial fluid (units (unknown) date) collections.? unknown) (unknown) (no (unknown) (unknown) extremities, full (units (unknown) date) range of motion, unknown) normal gait (unknown) (no (unknown) (unknown) extremities, loss (units (unknown) date) of bowel or bladder unknown) control, new numbness tingling or (unknown) (no (unknown) (unknown) feels sort of hard (units (unknown) date) to lift. She states unknown) that has been going on for 2 or 3 (unknown) (no (unknown) (unknown) flow.? The flow (units (unknown) date) within the paired unknown) anterior cerebral arteries is normal and (unknown) (no (unknown) (unknown) following (units (unkn own) date) unknown) (unknown) (no (unknown) (unknown) for age, (units (unkno wn) date) unknown) (unknown) (no (unknown) (unknown) from the foramen (units (unknown) date) magnum to the unknown) vertex.? 3-dimensional (unknown) (no (unknown) (unknown) fully evaluate your (unit s (unknown) date) symptoms. unknown) (unknown) (no (unknown) (unknown) further evaluation. (unit s (unknown) date) Patient discussed unknown) she is COVID positive today. This is (unknown) (no (unknown) (unknown) gabapentin 600 mg (units (unknown) date) tablet 600 mg PO unknown) DAILY 07/27/22 07/27/22 (unknown) (no (unknown) (unknown) gabapentin 600 mg (units (unknown) date) tablet unknown) (unknown) (no (unknown) (unknown) get up and wakes up (unit s (unknown) date) on the floor. She unknown) states it has been happening with (unknown) (no (unknown) (unknown) happened a few (units (unknown) date) times during the unknown) daytime but is more consistent at night. She is (unknown) (no (unknown) (unknown) household members: (units (unknown) date) family and children unknown) (unknown) (no (unknown) (unknown) hydrocodone Allergy (unit s (unknown) date) Intermediate unknown) Verified 07/30/22 12:12 (unknown) (no (unknown) (unknown) hypotension causing (unit s (unknown) date) her syncopal unknown) episodes but we discussed that her vision (unknown) (no (unknown) (unknown) if this improves (units (unknown) date) your symptoms. unknown) (unknown) (no (unknown) (unknown) increasing (units (unk nown) date) frequency in his unknown) happen 10 times in the last week. She states it is (unknown) (no (unknown) (unknown) insulin lispro 100 (units (unknown) date) unit/mL 55 unit unknown) SUBCUT DAILY PRN 07/27/22 07/27/22 (unknown) (no (unknown) (unknown) insulin lispro (units (unknown) date) [Humalog U-100 unknown) Insulin] 100 unit/mL solution (unknown) (no (unknown) (unknown) interface (units (unkn own) date) unknown) (unknown) (no (unknown) (unknown) internal (units (unkno wn) date) unknown) (unknown) (no (unknown) (unknown) intracranial or (units (unknown) date) cervical arterial unknown) vasculature.? Bilateral of the [place] neck (unknown) (no (unknown) (unknown) left upper (units (unk nown) date) extremity unknown) (unknown) (no (unknown) (unknown) lesions.? (units (unkn own) date) unknown) (unknown) (no (unknown) (unknown) likely exacerbating (unit s (unknown) date) her symptoms but not unknown) the cause of her problem. Patient (unknown) (no (unknown) (unknown) likely related (units (unknown) date) orthostatics she is unknown) on a beta-yan daily but has also had (unknown) (no (unknown) (unknown) lisinopril 10 mg (units (unknown) date) tablet 10 mg PO unknown) DAILY 07/27/22 07/27/22 (unknown) (no (unknown) (unknown) lisinopril 10 mg (units (unknown) date) tablet unknown) (unknown) (no (unknown) (unknown) lives (units (unkno wn) date) independently: No unknown) (Lives with her daughter) (unknown) (no (unknown) (unknown) loss of bowel and (units (unknown) date) bladder control the unknown) 1st time this happened which was June (unknown) (no (unknown) (unknown) marital status: (units (unknown) date) unknown) (unknown) (no (unknown) (unknown) masses noted, no (units (unknown) date) hepatosplenomegaly unknown) (unknown) (no (unknown) (unknown) [id number] (unit s (unknown) date) rojection (MIP) unknown) (unknown) (no (unknown) (unknown) meperidine [From (units (unknown) date) Demerol] AdvReac unknown) Verified 07/28/22 08:51 (unknown) (no (unknown) (unknown) metoprolol so she (units (unknown) date) still has coverage unknown) in terms of your heart arrhythmia but see (unknown) (no (unknown) (unknown) metoprolol (units (unk nown) date) succinate 100 mg 100 unknown) mg PO DAILY 07/27/22 07/27/22 (unknown) (no (unknown) (unknown) metoprolol (units (unk nown) date) succinate 100 mg unknown) tablet extended release 24 hr (unknown) (no (unknown) (unknown) mg daily (1/2 (units ( unknown) date) tablet) to see if unknown) this improves your symptoms. (unknown) (no (unknown) (unknown) months. She states (units (unknown) date) no issues with bowel unknown) movements or urination. She did have (unknown) (no (unknown) (unknown) morphine AdvReac (units (unknown) date) Mild Hallucinati unknown) Verified 07/27/22 18:54 (unknown) (no (unknown) (unknown) movements are (units ( unknown) date) intact, nares are unknown) clear, TMs are clear with no fluid, there is no (unknown) (no (unknown) (unknown) negative. (units (unkn own) date) unknown) (unknown) (no (unknown) (unknown) ng (units (unkno wn) date) unknown) (unknown) (no (unknown) (unknown) normal courses and (units (unknown) date) calibers.? They join unknown) to form a normal appearing basilar (unknown) (no (unknown) (unknown) noted at the (units (u nknown) date) carotid siphons. unknown) (unknown) (no (unknown) (unknown) observation. (units (u nknown) date) unknown) (unknown) (no (unknown) (unknown) of consciousness (units (unknown) date) episodes. She denies unknown) headaches. She denies chest pain, no (unknown) (no (unknown) (unknown) off aspirin, she (units (unknown) date) takes lisinopril and unknown) metoprolol, rosuvastatin. Patient states (unknown) (no (unknown) (unknown) oral powder packet (units (unknown) date) (Miralax) ea unknown) (unknown) (no (unknown) (unknown) over time. (units (unk nown) date) unknown) (unknown) (no (unknown) (unknown) oxycodone Allergy (units (unknown) date) Intermediate Uncoded unknown) 07/30/22 12:12 (unknown) (no (unknown) (unknown) passing out, (units (u nknown) date) dizziness, chest unknown) pain, shortness of breath, new swelling in her (unknown) (no (unknown) (unknown) patent.? No (units (un known) date) unknown) (unknown) (no (unknown) (unknown) patent.? (units (unkno wn) date) unknown) (unknown) (no (unknown) (unknown) patient (units (unkno wn) date) unknown) (unknown) (no (unknown) (unknown) periventricular and (unit s (unknown) date) unknown) (unknown) (no (unknown) (unknown) plaque (units (unkno wn) date) unknown) (unknown) (no (unknown) (unknown) polyethylene glycol (unit s (unknown) date) 3350 17 gram 17 g PO unknown) DAILY PRN constipation #14 07/31/22 (unknown) (no (unknown) (unknown) polyethylene glycol (unit s (unknown) date) 3350 [Miralax] 17 unknown) gram powder in packet (unknown) (no (unknown) (unknown) posterior (units (unkn own) date) unknown) (unknown) (no (unknown) (unknown) present.? (units (unkn own) date) Extracranial unknown) internal carotid arteries appear widely patent. (unknown) (no (unknown) (unknown) pulses are equal in (unit s (unknown) date) upper and lower unknown) extremities (unknown) (no (unknown) (unknown) release (units (unkno wn) date) unknown) (unknown) (no (unknown) (unknown) repair several (units (unknown) date) months ago when she unknown) had episode where she passed out broke her (unknown) (no (unknown) (unknown) right groin. (units (u nknown) date) Patient states prior unknown) hysterectomy and had an ankle fracture with (unknown) (no (unknown) (unknown) rosuvastatin 20 mg (units (unknown) date) tablet 20 mg PO unknown) DAILY 07/27/22 07/27/22 (unknown) (no (unknown) (unknown) rosuvastatin 20 mg (units (unknown) date) tablet unknown) (unknown) (no (unknown) (unknown) senna 8.6 mg (units (u nknown) date) capsule unknown) (unknown) (no (unknown) (unknown) sennosides 8.6 mg (units (unknown) date) capsule (senna) 8.6 unknown) mg PO DAILY PRN constipation 07/31/22 (unknown) (no (unknown) (unknown) she is had 2 heart (units (unknown) date) attacks, she is had unknown) cardiac stents and has a stent in her (unknown) (no (unknown) (unknown) wyman test normal, (units (unknown) date) romberg normal, unknown) patient has mild intention tremor particularly (unknown) (no (unknown) (unknown) shortness of (units (u nknown) date) breath, no nausea or unknown) vomiting no numbness, tingling or weakness. (unknown) (no (unknown) (unknown) since then. Patient (unit s (unknown) date) takes medication for unknown) anxiety, depression, Plavix she is now (unknown) (no (unknown) (unknown) size.? (units (unkno wn) date) unknown) (unknown) (no (unknown) (unknown) states she does not (unit s (unknown) date) wish to stay she unknown) understands risks versus benefits. (unknown) (no (unknown) (unknown) subcutaneous (units (u nknown) date) solution (Humalog unknown) Hyperglycemia (unknown) (no (unknown) (unknown) suspicious (units (unk nown) date) unknown) (unknown) (no (unknown) (unknown) sustained-release (units (unknown) date) unknown) (unknown) (no (unknown) (unknown) symmetric.? (units (un known) date) unknown) (unknown) (no (unknown) (unknown) symmetrically (units ( unknown) date) unknown) (unknown) (no (unknown) (unknown) tablet,extended (units (unknown) date) release 24 hr unknown) (unknown) (no (unknown) (unknown) the administration (units (unknown) date) of intravenous unknown) contrast, 1 mm thick sections acquired from (unknown) (no (unknown) (unknown) the aortic (units (unk nown) date) unknown) (unknown) (no (unknown) (unknown) to the (units (unkno wn) date) unknown) (unknown) (no (unknown) (unknown) unremarkable.? (units (unknown) date) unknown) (unknown) (no (unknown) (unknown) up in the middle (units (unknown) date) the night be sitting unknown) on the edge of her bed getting ready to (unknown) (no (unknown) (unknown) vasculature (units (un known) date) unknown) (unknown) (no (unknown) (unknown) ventricles are (units (unknown) date) symmetric in size unknown) and shape.? (unknown) (no (unknown) (unknown) vertex, with (units (u nknown) date) coronal and sagittal unknown) reformats.? For radiation dose reduction, the (unknown) (no (unknown) (unknown) vertex.? After (units (unknown) date) unknown) (unknown) (no (unknown) (unknown) vision changes that (unit s (unknown) date) is not always unknown) consistently associated so had stroke workup (unknown) (no (unknown) (unknown) was used:? (units (unk nown) date) automated exposure unknown) control, adjustment of mA and/or kV according to (unknown) (no (unknown) (unknown) weakness, (units (unkn own) date) difficulty with unknown) speech or droop or other new or concerning changes. (unknown) (no (unknown) (unknown) widely patent. (units (unknown) date) unknown) (unknown) (no (unknown) (unknown) with a creatinine (units (unknown) date) 1.27 which is close unknown) to patient's baseline., AST is 44. (unknown) (no (unknown) (unknown) with resultant (units (unknown) date) ventricular and unknown) sulcal prominence.? There are moderate Result panel 156 (unknown) (no (unknown) (unknown) (no value) (units (unk nown) date) unknown) (unknown) (no (unknown) (unknown) #30 caps (units (unkno wn) date) unknown) (unknown) (no (unknown) (unknown) #30 tabs (units (unkno wn) date) unknown) (unknown) (no (unknown) (unknown) (More??) (units (unkno wn) date) unknown) (unknown) (no (unknown) (unknown) 11/23/22 11/23/22 (units (unknown) date) 11/23/22 Range/Units unknown) (unknown) (no (unknown) (unknown) 11/23/22 11:23 (units (unknown) date) unknown) (unknown) (no (unknown) (unknown) 11/23/22 11:24 (units (unknown) date) unknown) (unknown) (no (unknown) (unknown) 11/23/22 11:27 (units (unknown) date) unknown) (unknown) (no (unknown) (unknown) 11/23/22 11:31 (units (unknown) date) unknown) (unknown) (no (unknown) (unknown) 11/23/22 13:28 (units (unknown) date) unknown) (unknown) (no (unknown) (unknown) 11/23/22 13:47 (units (unknown) date) unknown) (unknown) (no (unknown) (unknown) 11/23/22 (units (unkno wn) date) unknown) (unknown) (no (unknown) (unknown) 12/11/20 (units (unkno wn) date) unknown) (unknown) (no (unknown) (unknown) 03/04/21 (units (unkno wn) date) unknown) (unknown) (no (unknown) (unknown) 03/06/20 (units (unkno wn) date) unknown) (unknown) (no (unknown) (unknown) 05/26/20 (units (unkno wn) date) unknown) (unknown) (no (unknown) (unknown) 07/27/22 (units (unkno wn) date) unknown) (unknown) (no (unknown) (unknown) 10 mg PO DAILY (units (unknown) date) unknown) (unknown) (no (unknown) (unknown) 07/28/22 (units (unkno wn) date) unknown) (unknown) (no (unknown) (unknown) 07/30/22 (units (unkno wn) date) unknown) (unknown) (no (unknown) (unknown) 100 mg PO DAILY (units (unknown) date) unknown) (unknown) (no (unknown) (unknown) 11:23 11:23 11:23 (units (unknown) date) unknown) (unknown) (no (unknown) (unknown) 11:23 13:28 13:47 (units (unknown) date) unknown) (unknown) (no (unknown) (unknown) 11:25 11/23/22 (units (unknown) date) unknown) (unknown) (no (unknown) (unknown) 10/02/21 (units (unkno wn) date) unknown) (unknown) (no (unknown) (unknown) [address] [place] [address] (units (unknown) date) unknown) (unknown) (no (unknown) (unknown) 14:51 (units (unkno wn) date) unknown) (unknown) (no (unknown) (unknown) 150 mg PO DAILY (units (unknown) date) unknown) (unknown) (no (unknown) (unknown) 17 g PO DAILY PRN (units (unknown) date) (Reason: unknown) constipation) Qty: 14 0RF (unknown) (no (unknown) (unknown) 20 mg PO DAILY (units (unknown) date) unknown) (unknown) (no (unknown) (unknown) 237 (units (unkno wn) date) unknown) (unknown) (no (unknown) (unknown) or of (units (unknown) date) 2021. She states she unknown) has not had any other incontinence issues (unknown) (no (unknown) (unknown) 55 unit SUBCUT (units (unknown) date) DAILY MDD 55 PRN unknown) (Reason: Hyperglycemia) (unknown) (no (unknown) (unknown) 60 mg PO DAILY (units (unknown) date) unknown) (unknown) (no (unknown) (unknown) 600 mg PO DAILY (units (unknown) date) unknown) (unknown) (no (unknown) (unknown) 75 mg PO DAILY (units (unknown) date) unknown) (unknown) (no (unknown) (unknown) 8.6 mg PO DAILY PRN (unit s (unknown) date) (Reason: unknown) constipation) Qty: 30 0RF (unknown) (no (unknown) (unknown) 975 mg PO Q8H PRN (units (unknown) date) (Reason: Pain, Mild unknown) (1-3)) Qty: 30 0RF (unknown) (no (unknown) (unknown) ? (units (unkno wn) date) unknown) (unknown) (no (unknown) (unknown) ? (units (unkno wn) date) unknown) (unknown) (no (unknown) (unknown) ?Both carotid (units ( unknown) date) bifurcations are unknown) widely patent with only minimal atherosclerotic (unknown) (no (unknown) (unknown) ABD:bowel sounds (units (unknown) date) normal, soft, unknown) non-tender, no guarding, rebound, rigidity, no (unknown) (no (unknown) (unknown) ALT (<35) IU/L (units (unknown) date) unknown) (unknown) (no (unknown) (unknown) ALT 28 (<35) IU/L (units (unknown) date) unknown) (unknown) (no (unknown) (unknown) APTT (26-36) (units (u nknown) date) SECONDS unknown) (unknown) (no (unknown) (unknown) APTT 31 (26-36) (units (unknown) date) SECONDS unknown) (unknown) (no (unknown) (unknown) AST (14-36) IU/L (units (unknown) date) unknown) (unknown) (no (unknown) (unknown) AST 44 H (14-36) (units (unknown) date) IU/L unknown) (unknown) (no (unknown) (unknown) Abdomen/Pelvis CT (units (unknown) date) (Signed) unknown) (unknown) (no (unknown) (unknown) Accession Number: (units (unknown) date) [id number] ?? unknown) (unknown) (no (unknown) (unknown) Accession Number: (units (unknown) date) [id number] ?? unknown) (unknown) (no (unknown) (unknown) Accession Number: (units (unknown) date) [id number] ?? unknown) (unknown) (no (unknown) (unknown) Acct:[id number] (units (unknown) date) unknown) (unknown) (no (unknown) (unknown) Activity (units (unkno wn) date) Restrictions/Additio unknown) nal Instructions: (unknown) (no (unknown) (unknown) Age/Sex: 67 / F (units (unknown) date) unknown) (unknown) (no (unknown) (unknown) Albumin (3.5-5.0) (units (unknown) date) g/dL unknown) (unknown) (no (unknown) (unknown) Albumin 4.1 (units (un known) date) (3.5-5.0) g/dL unknown) (unknown) (no (unknown) (unknown) Albumin/Globulin (units (unknown) date) Ratio (1.0-2.8) unknown) (unknown) (no (unknown) (unknown) Albumin/Globulin (units (unknown) date) Ratio 1.1 (1.0-2.8) unknown) (unknown) (no (unknown) (unknown) Alkaline (units (unkno wn) date) Phosphatase (38-126) unknown) U/L (unknown) (no (unknown) (unknown) Alkaline (units (unkno wn) date) Phosphatase 101 unknown) (38-126) U/L (unknown) (no (unknown) (unknown) Allergies (units (unkn own) date) unknown) (unknown) (no (unknown) (unknown) Allergy/Adv: (units (u nknown) date) hydrocodone, unknown) morphine, codeine, meperidine, [oxycodone] (unknown) (no (unknown) (unknown) Allergy/AdvReac (units (unknown) date) Type Severity unknown) Reaction Status Date / Time (unknown) (no (unknown) (unknown) [place] [address] (unit s (unknown) date) unknown) (unknown) (no (unknown) (unknown) Ankle X-Ray (units (un known) date) (Signed) unknown) (unknown) (no (unknown) (unknown) Anterior (units (unkno wn) date) circulation:? unknown) Intracranial internal carotid arteries are normal in size (unknown) (no (unknown) (unknown) Any quantitative (units (unknown) date) measurements of unknown) stenosis were performed using NASCET criteria.? (unknown) (no (unknown) (unknown) Approved by: Chad (units (unknown) date) Joann Tatum on unknown) 11/23/2022 at 12:34?? (unknown) (no (unknown) (unknown) Approved by: Chad (units (unknown) date) Joann Tatum on unknown) 11/23/2022 at 12:39?? (unknown) (no (unknown) (unknown) Approved by: Stefanie (units (unknown) date) Joann Bullard on unknown) 11/23/2022 at 11:58 (unknown) (no (unknown) (unknown) Ask month/age: (units (unknown) date) Answers both unknown) questions correctly. (unknown) (no (unknown) (unknown) Attestation: I (units (unknown) date) personally reviewed unknown) and interpreted this ECG as follows: (unknown) (no (unknown) (unknown) BNP [NT-proBNP (units (unknown) date) (BNP-Adult 18+)] unknown) Stat (unknown) (no (unknown) (unknown) BRAIN:? (units (unkno wn) date) unknown) (unknown) (no (unknown) (unknown) BUN (7-17) mg/dL (units (unknown) date) unknown) (unknown) (no (unknown) (unknown) BUN 12 (7-17) mg/dL (unit s (unknown) date) unknown) (unknown) (no (unknown) (unknown) BUN/Creatinine (units (unknown) date) Ratio (6-22) unknown) (unknown) (no (unknown) (unknown) BUN/Creatinine (units (unknown) date) Ratio 9.4 (6-22) unknown) (unknown) (no (unknown) (unknown) Baso # (Auto) (units ( unknown) date) (0-100) /uL unknown) (unknown) (no (unknown) (unknown) Baso # (Auto) 100 (units (unknown) date) (0-100) /uL unknown) (unknown) (no (unknown) (unknown) Baso % (Auto) (0-2) (unit s (unknown) date) % unknown) (unknown) (no (unknown) (unknown) Baso % (Auto) 0.8 (units (unknown) date) (0-2) % unknown) (unknown) (no (unknown) (unknown) Best gaze (units (unkn own) date) horizontal: Normal unknown) (unknown) (no (unknown) (unknown) Best language: No (units (unknown) date) aphasia, normal unknown) (unknown) (no (unknown) (unknown) Blood Pressure (units (unknown) date) 148/68 H 11/23/22 unknown) 11:25 (unknown) (no (unknown) (unknown) Blood Pressure (units (unknown) date) 148/68 H unknown) (unknown) (no (unknown) (unknown) Blood Pressure (units (unknown) date) [Orthostatic Lying] unknown) 158/69 H (unknown) (no (unknown) (unknown) Blood Pressure (units (unknown) date) [Orthostatic unknown) Sitting] 136/63 (unknown) (no (unknown) (unknown) Blood Pressure (units (unknown) date) [Orthostatic unknown) Standing] 130/61 (unknown) (no (unknown) (unknown) Bones and chest (units (unknown) date) wall:? No suspicious unknown) bony lesions.? Overlying soft tissues (unknown) (no (unknown) (unknown) Bones:? No (units (unk nown) date) suspicious bony unknown) lesions.? Visualized cervical spine appears normally (unknown) (no (unknown) (unknown) Brain:? No (units (unk nown) date) intracranial bleeds unknown) or masses.? There is mild cerebral volume loss (unknown) (no (unknown) (unknown) Brain:? No midline (units (unknown) date) shift.? No unknown) intracranial bleeds or masses.? Valles-white matter (unknown) (no (unknown) (unknown) Cora Rogers, (units (unknown) date) PA-C [Primary Care unknown) Provider] (unknown) (no (unknown) (unknown) CK-MB (CK-2) Rel (units (unknown) date) Index TNP unknown) (unknown) (no (unknown) (unknown) CK-MB (CK-2) Rel (units (unknown) date) Index unknown) (unknown) (no (unknown) (unknown) CK-MB (CK-2) TNP (units (unknown) date) unknown) (unknown) (no (unknown) (unknown) CK-MB (CK-2) (units (u nknown) date) unknown) (unknown) (no (unknown) (unknown) [facility], CR, XR unknown) CHEST 1V, 07/27/2022, 12:32. (unknown) (no (unknown) (unknown) COMPARISON:? [facility] (unit s (unknown[facility] date) Hospital, CT, CT unknown) HEAD/BRAIN WO CON, 07/27/2022, 12:56. (unknown) (no (unknown) (unknown) COMPARISON:? None. (units (unknown) date) unknown) (unknown) (no (unknown) (unknown) COVID19 -Nasal (units (unknown) date) RAPID/Pre-Proc Stat unknown) (unknown) (no (unknown) (unknown) CSF spaces:? Basal (units (unknown) date) cisterns are unknown) patent.? No extra-axial fluid collections.? The (unknown) (no (unknown) (unknown) CSF spaces:? (units (u nknown) date) Ventricles are unknown) normal in size and shape.? Basal cisterns are (unknown) (no (unknown) (unknown) CT Scan Report (units (unknown) date) unknown) (unknown) (no (unknown) (unknown) CT angio head and (units (unknown) date) neck Stat unknown) (unknown) (no (unknown) (unknown) CT head/brain wo (units (unknown) date) con Stat unknown) (unknown) (no (unknown) (unknown) CT scan - head: (units (unknown) date) unknown) (unknown) (no (unknown) (unknown) CTA - brain/neck: (units (unknown) date) unknown) (unknown) (no (unknown) (unknown) Calcium (8.4-10.2) (units (unknown) date) mg/dL unknown) (unknown) (no (unknown) (unknown) Calcium 8.8 (units (un known) date) (8.4-10.2) mg/dL unknown) (unknown) (no (unknown) (unknown) Carbon Dioxide (units (unknown) date) (22-32) mmol/L unknown) (unknown) (no (unknown) (unknown) Carbon Dioxide 31 (units (unknown) date) (22-32) mmol/L unknown) (unknown) (no (unknown) (unknown) Carotid Doppler (units (unknown) date) Study (Signed) unknown) (unknown) (no (unknown) (unknown) Carotid system:? (units (unknown) date) The aortic arch and unknown) bilateral common carotid arteries are (unknown) (no (unknown) (unknown) Cervical Spine CT (units (unknown) date) (Signed) unknown) (unknown) (no (unknown) (unknown) Chest X-Ray (units (un known) date) (Signed) unknown) (unknown) (no (unknown) (unknown) Chest x-ray: (units (u nknown) date) unknown) (unknown) (no (unknown) (unknown) Chief Complaint: (units (unknown) date) Syncope unknown) (unknown) (no (unknown) (unknown) Chloride (98-107) (units (unknown) date) mmol/L unknown) (unknown) (no (unknown) (unknown) Chloride 99 (units (un known) date) (98-107) mmol/L unknown) (unknown) (no (unknown) (unknown) Clinical (units (unkno wn) date) Impression: unknown) (unknown) (no (unknown) (unknown) Close (units (unkno wn) date) unknown) (unknown) (no (unknown) (unknown) Complete Blood (units (unknown) date) Count AUTO DIFF Stat unknown) (unknown) (no (unknown) (unknown) Comprehensive (units ( unknown) date) Metabolic Panel Stat unknown) (unknown) (no (unknown) (unknown) Coronary artery (units (unknown) date) disease unknown) (unknown) (no (unknown) (unknown) Course (units (unkno wn) date) unknown) (unknown) (no (unknown) (unknown) Creatinine (units (unk nown) date) (0.52-1.04) mg/dL unknown) (unknown) (no (unknown) (unknown) Creatinine 1.27 H (units (unknown) date) (0.52-1.04) mg/dL unknown) (unknown) (no (unknown) (unknown) : 1955 (units (unknown) date) Acct:[id number] unknown) (unknown) (no (unknown) (unknown) : 1955 (units (unknown) date) unknown) (unknown) (no (unknown) (unknown) Date of Service: (units (unknown) date) 11/23/22 unknown) (unknown) (no (unknown) (unknown) Departure (units (unkn own) date) unknown) (unknown) (no (unknown) (unknown) Dictated by: Chad (units (unknown) date) Joann Tatum on unknown) 11/23/2022 at 12:34 ? ? (unknown) (no (unknown) (unknown) Dictated by: Chad (units (unknown) date) Joann Tatum on unknown) 11/23/2022 at 12:35 ? ? (unknown) (no (unknown) (unknown) Dictated by: Stefanie (units (unknown) date) Joann Bullard on unknown) 11/23/2022 at 11:58 ? ? (unknown) (no (unknown) (unknown) Discharge Plan (units (unknown) date) unknown) (unknown) (no (unknown) (unknown) Discussed that she (units (unknown) date) needs some follow-up unknown) we discussed trying to decrease your (unknown) (no (unknown) (unknown) Discussed with (units ( unknown) date) patient would like unknown) to keep for stroke workup and syncope, for MR, (unknown) (no (unknown) (unknown) Dysarthria: Normal (units (unknown) date) unknown) (unknown) (no (unknown) (unknown) ECG Data (units (unkno wn) date) unknown) (unknown) (no (unknown) (unknown) ED Orders (units (unkn own) date) unknown) (unknown) (no (unknown) (unknown) EKG 2. Sinus (units (u nknown) date) rhythm, rate of 64, unknown) RI 156 QRS is 76 QTC [address]. No acute ST (unknown) (no (unknown) (unknown) EKG-12 Lead Stat (units (unknown) date) unknown) (unknown) (no (unknown) (unknown) ER Physician: (units ( unknown) date) Risa Aquino D.O. unknown) (unknown) (no (unknown) (unknown) Emergency Report (units (unknown) date) unknown) (unknown) (no (unknown) (unknown) Eos # (Auto) (units (u nknown) date) (0-450) /uL unknown) (unknown) (no (unknown) (unknown) Eos # (Auto) 200 (units (unknown) date) (0-450) /uL unknown) (unknown) (no (unknown) (unknown) Eos % (Auto) (2-4) (units (unknown) date) % unknown) (unknown) (no (unknown) (unknown) Eos % (Auto) 3.4 (units (unknown) date) (2-4) % unknown) (unknown) (no (unknown) (unknown) Estimated GFR (>60) (unit s (unknown) date) mL/min unknown) (unknown) (no (unknown) (unknown) Estimated GFR 47 L (units (unknown) date) (>60) mL/min unknown) (unknown) (no (unknown) (unknown) Exam Narrative: (units (unknown) date) unknown) (unknown) (no (unknown) (unknown) Exam (units (unkno wn) date) unknown) (unknown) (no (unknown) (unknown) Extinction or (units ( unknown) date) inattention: No unknown) abnormality (unknown) (no (unknown) (unknown) FINDINGS:? (units (unk nown) date) unknown) (unknown) (no (unknown) (unknown) Facial palsy: (units ( unknown) date) Normal symetrical unknown) movement (unknown) (no (unknown) (unknown) GEN: well (units (unkn own) date) nourished, well unknown) appearing female, alert and oriented x 3, patient (unknown) (no (unknown) (unknown) :No CVA (units (unkn own) date) tenderness unknown) (unknown) (no (unknown) (unknown) General (units (unkno wn) date) unknown) (unknown) (no (unknown) (unknown) Globulin (1.7-4.1) (units (unknown) date) g/dL unknown) (unknown) (no (unknown) (unknown) Globulin 3.9 (units (u nknown) date) (1.7-4.1) g/dL unknown) (unknown) (no (unknown) (unknown) Glucose (80-110) (units (unknown) date) mg/dL unknown) (unknown) (no (unknown) (unknown) Glucose 110 (units (un known) date) (80-110) mg/dL unknown) (unknown) (no (unknown) (unknown) HEAD CT (units (unkno wn) date) ANGIOGRAPHY:? unknown) (unknown) (no (unknown) (unknown) HEART: Regular rate (unit s (unknown) date) and rhythm without unknown) murmur, clicks, rubs. No carotid bruits, (unknown) (no (unknown) (unknown) HEENT: Atraumatic, (units (unknown) date) pupils are equal unknown) round reactive to light, extraocular (unknown) (no (unknown) (unknown) HPI - Syncope (units ( unknown) date) unknown) (unknown) (no (unknown) (unknown) HPI narrative: (units (unknown) date) unknown) (unknown) (no (unknown) (unknown) Hand X-Ray (Signed) (unit s (unknown) date) unknown) (unknown) (no (unknown) (unknown) Hct (36-46) % (units ( unknown) date) unknown) (unknown) (no (unknown) (unknown) Hct 44.4 (36-46) % (units (unknown) date) unknown) (unknown) (no (unknown) (unknown) Head CT (Signed) (units (unknown) date) unknown) (unknown) (no (unknown) (unknown) Head CT (units (unkno wn) date) unknown) (unknown) (no (unknown) (unknown) Head/Neck CTA (units ( unknown) date) (Signed) unknown) (unknown) (no (unknown) (unknown) Head/Neck CTA (units ( unknown) date) unknown) (unknown) (no (unknown) (unknown) Hgb (12.0-16.0) (units (unknown) date) g/dL unknown) (unknown) (no (unknown) (unknown) Hgb 15.0 (units (unkno wn) date) (12.0-16.0) g/dL unknown) (unknown) (no (unknown) (unknown) History of Present (units (unknown) date) Illness unknown) (unknown) (no (unknown) (unknown) Home Medications (units (unknown) date) unknown) (unknown) (no (unknown) (unknown) I suspect your (units (unknown) date) recent COVID unknown) infection is exacerbating your current symptoms. (unknown) (no (unknown) (unknown) I would recommend (units (unknown) date) continuing to unknown) monitor your blood pressure as it may increase (unknown) (no (unknown) (unknown) I would recommend (units (unknown) date) decreasing your unknown) metoprolol from 100 mg daily(1 tablet) to 50 (unknown) (no (unknown) (unknown) IMPRESSION:? No (units (unknown) date) acute unknown) cardiopulmonary findings. (unknown) (no (unknown) (unknown) IMPRESSION:? No (units (unknown) date) acute intracranial unknown) finding. (unknown) (no (unknown) (unknown) IMPRESSION:? No (units (unknown) date) hemodynamically unknown) significant stenosis or occlusion of the major (unknown) (no (unknown) (unknown) INDICATIONS:? chest (unit s (unknown) date) pain unknown) (unknown) (no (unknown) (unknown) INDICATIONS:? (units ( unknown) date) syncope, vision unknown) loss. (unknown) (no (unknown) (unknown) INDICATIONS:? (units ( unknown) date) vision loss eye, unknown) intermittent syncope (unknown) (no (unknown) (unknown) INJECT UP TO 55 (units (unknown) date) UNITS PER DAY VIA unknown) INSULIN PUMP (unknown) (no (unknown) (unknown) INR (0.9-1.3) (units ( unknown) date) unknown) (unknown) (no (unknown) (unknown) INR 1.0 (0.9-1.3) (units (unknown) date) unknown) (unknown) (no (unknown) (unknown) Image quality:? (units (unknown) date) Excellent.? unknown) (unknown) (no (unknown) (unknown) Imaging Data (units (u nknown) date) unknown) (unknown) (no (unknown) (unknown) Initial Vital Signs (unit s (unknown) date) unknown) (unknown) (no (unknown) (unknown) Initial Vital (units ( unknown) date) Signs: unknown) (unknown) (no (unknown) (unknown) Instructions: DI (units (unknown) date) for Orthostatic unknown) Hypotension (unknown) (no (unknown) (unknown) Interpretation: (units (unknown) date) unknown) (unknown) (no (unknown) (unknown) [facility] (units (unknown) date) [address] unknown) [place] [address] (unknown) (no (unknown) (unknown) [facility] (units (unknown) date) unknown) (unknown) (no (unknown) (unknown) Omari Mason (units ( unknown) date) unknown) (unknown) (no (unknown) (unknown) Stefanie Bullard (units (un known) date) unknown) (unknown) (no (unknown) (unknown) LUNGS:Lungs clear (units (unknown) date) to auscultation, no unknown) wheezes, rales, crackles, chest moves (unknown) (no (unknown) (unknown) Lab Data (units (unkno wn) date) unknown) (unknown) (no (unknown) (unknown) Lab Results (units (un known) date) unknown) (unknown) (no (unknown) (unknown) Label Comments: (units (unknown) date) unknown) (unknown) (no (unknown) (unknown) Labs: (units (unkno wn) date) unknown) (unknown) (no (unknown) (unknown) Launch?Image (units (u nknown) date) unknown) (unknown) (no (unknown) (unknown) Left arm drift: No (units (unknown) date) drift for full 10 unknown) sec (unknown) (no (unknown) (unknown) Left leg drift: No (units (unknown) date) drift for full 5 sec unknown) (unknown) (no (unknown) (unknown) Level of (units (unkno wn) date) Conciousness: Alert, unknown) keenly responsive (unknown) (no (unknown) (unknown) Limb ataxia: Absent (unit s (unknown) date) unknown) (unknown) (no (unknown) (unknown) Limitations: no (units (unknown) date) limitations unknown) (unknown) (no (unknown) (unknown) Lipase (23-300) U/L (unit s (unknown) date) unknown) (unknown) (no (unknown) (unknown) Lipase 22 L (units (un known) date) (23-300) U/L unknown) (unknown) (no (unknown) (unknown) Lipase Stat (units (un known) date) unknown) (unknown) (no (unknown) (unknown) Loc: ED (units (unkno wn) date) unknown) (unknown) (no (unknown) (unknown) Lungs and pleura:? (units (unknown) date) Lungs are clear.? No unknown) pleural effusions or pneumothorax.? (unknown) (no (unknown) (unknown) Lymph # (Auto) (units (unknown) date) (1940-8546) /uL unknown) (unknown) (no (unknown) (unknown) Lymph # (Auto) 1500 (unit s (unknown) date) (2715-6634) /uL unknown) (unknown) (no (unknown) (unknown) Lymph % (Auto) (units (unknown) date) (25-40) % unknown) (unknown) (no (unknown) (unknown) Lymph % (Auto) 20.9 (unit s (unknown) date) L (25-40) % unknown) (unknown) (no (unknown) (unknown) MCH (26-34) PG (units (unknown) date) unknown) (unknown) (no (unknown) (unknown) MCH 30.6 (26-34) PG (unit s (unknown) date) unknown) (unknown) (no (unknown) (unknown) MCHC (30-36) % (units (unknown) date) unknown) (unknown) (no (unknown) (unknown) MCHC 33.8 (30-36) % (unit s (unknown) date) unknown) (unknown) (no (unknown) (unknown) MCV (80-100) fL (units (unknown) date) unknown) (unknown) (no (unknown) (unknown) MCV 90.6 (80-100) (units (unknown) date) fL unknown) (unknown) (no (unknown) (unknown) MDM - Syncope (units ( unknown) date) unknown) (unknown) (no (unknown) (unknown) MDM Narrative (units ( unknown) date) unknown) (unknown) (no (unknown) (unknown) MR#: [id number] (units (unknown) date) unknown) (unknown) (no (unknown) (unknown) MSCL: Non-tender, (units (unknown) date) no muscle atrophy, unknown) muscles strength 5/5 upper and lower (unknown) (no (unknown) (unknown) Magnesium (1.6-2.3) (unit s (unknown) date) mg/dL unknown) (unknown) (no (unknown) (unknown) Magnesium 2.0 (units ( unknown) date) (1.6-2.3) mg/dL unknown) (unknown) (no (unknown) (unknown) Magnesium Stat (units (unknown) date) unknown) (unknown) (no (unknown) (unknown) [place] (units (unknown) date) unknown) (unknown) (no (unknown) (unknown) Mammogram Screening (unit s (unknown) date) (Signed) unknown) (unknown) (no (unknown) (unknown) Mediastinum:? (units ( unknown) date) Mediastinal contours unknown) appear normal.? Heart size is normal.? (unknown) (no (unknown) (unknown) Medical History (units (unknown) date) (Reviewed 11/23/22 @ unknown) 13:52 by Risa Aquino DO) (unknown) (no (unknown) (unknown) Medical decision (units (unknown) date) making narrative: unknown) (unknown) (no (unknown) (unknown) Medication (units (unk nown) date) Instructions unknown) Recorded Confirmed (unknown) (no (unknown) (unknown) Medication (units (unk nown) date) Instructions unknown) Recorded (unknown) (no (unknown) (unknown) Mode of arrival: (units (unknown) date) Family Vehicle unknown) (unknown) (no (unknown) (unknown) [place] # (Auto) (units ( unknown) date) (0-900) /uL unknown) (unknown) (no (unknown) (unknown) [place] # (Auto) 500 (units (unknown) date) (0-900) /uL unknown) (unknown) (no (unknown) (unknown) [place] % (Auto) (units ( unknown) date) (3-14) % unknown) (unknown) (no (unknown) (unknown) [place] % (Auto) 6.4 (units (unknown) date) (3-14) % unknown) (unknown) (no (unknown) (unknown) NECK CT (units (unkno wn) date) ANGIOGRAPHY:? unknown) (unknown) (no (unknown) (unknown) NEURO:CN 2-12 (units ( unknown) date) intact, sensation unknown) normal, finger nose finger test normal, heel (unknown) (no (unknown) (unknown) NIH Stroke Scale (units (unknown) date) unknown) (unknown) (no (unknown) (unknown) NT-Pro-B Natriuret (units (unknown) date) Pep (<125) pg/mL unknown) (unknown) (no (unknown) (unknown) NT-Pro-B Natriuret (units (unknown) date) Pep 104 (<125) pg/mL unknown) (unknown) (no (unknown) (unknown) Narrative (units (unkn own) date) unknown) (unknown) (no (unknown) (unknown) Neut # (Auto) (units ( unknown) date) (5860-1590) /uL unknown) (unknown) (no (unknown) (unknown) Neut # (Auto) 5000 (units (unknown) date) (5731-4157) /uL unknown) (unknown) (no (unknown) (unknown) Neut % (Auto) (units ( unknown) date) (50-75) % unknown) (unknown) (no (unknown) (unknown) Neut % (Auto) 68.5 (units (unknown) date) (50-75) % unknown) (unknown) (no (unknown) (unknown) [place] (units ( unknown) date) unknown) (unknown) (no (unknown) (unknown) No Action (units (unkn own) date) unknown) (unknown) (no (unknown) (unknown) No significant (units (unknown) date) medical problems unknown) (unknown) (no (unknown) (unknown) Noncontrast 4.5 mm (units (unknown) date) thick angled axial unknown) sections acquired from the foramen magnum (unknown) (no (unknown) (unknown) Open/close eyes, (units (unknown) date) close hand: Performs unknown) both tasks correctly (unknown) (no (unknown) (unknown) Orbits appear (units ( unknown) date) normal.? unknown) (unknown) (no (unknown) (unknown) Ordered: (units (unkno wn) date) unknown) (unknown) (no (unknown) (unknown) Ordering Provider: (units (unknown) date) Risa Aquino D.O. unknown) (unknown) (no (unknown) (unknown) Orders (units (unkno wn) date) unknown) (unknown) (no (unknown) (unknown) Orthostatics were (units (unknown) date) obtained and are unknown) negative although patient felt dizzy, sitting (unknown) (no (unknown) (unknown) Oxygen Delivery (units (unknown) date) Method 11/23/22 unknown) 11:25 (unknown) (no (unknown) (unknown) Oxygen Delivery (units (unknown) date) Method Room Air unknown) (unknown) (no (unknown) (unknown) PROCEDURE:? CT (units (unknown) date) ANGIO HEAD AND NECK unknown) (unknown) (no (unknown) (unknown) PROCEDURE:? CT (units (unknown) date) HEAD/BRAIN WO CON unknown) (unknown) (no (unknown) (unknown) PROCEDURE:? XR (units (unknown) date) CHEST 1V unknown) (unknown) (no (unknown) (unknown) PT (10.1-12.7) (units (unknown) date) SECONDS unknown) (unknown) (no (unknown) (unknown) PT 12.0 (10.1-12.7) (unit s (unknown) date) SECONDS unknown) (unknown) (no (unknown) (unknown) Partial (units (unkno wn) date) Thromboplastin Time unknown) Stat (unknown) (no (unknown) (unknown) Patient (units (unkno wn) date) Disposition: Home unknown) (unknown) (no (unknown) (unknown) Patient History (units (unknown) date) unknown) (unknown) (no (unknown) (unknown) Patient has prior (units (unknown) date) from 07/27/2022 it unknown) appears similar. (unknown) (no (unknown) (unknown) Patient has repeat (units (unknown) date) troponin and EKG are unknown) negative with no acute changes. NIH is (unknown) (no (unknown) (unknown) Patient: (units (unkno wn) date) Laverne Mendoza MR#: unknown) [id number] (unknown) (no (unknown) (unknown) Patient: (units (unkno wn) date) Laverne Mendoza unknown) (unknown) (no (unknown) (unknown) Please follow-up (units (unknown) date) with your physician unknown) as you have elected not to stay for (unknown) (no (unknown) (unknown) Please return for (units (unknown) date) worsening symptoms, unknown) new headaches, vision changes, recurrent (unknown) (no (unknown) (unknown) Plt Count (150-400) (unit s (unknown) date) X103/uL unknown) (unknown) (no (unknown) (unknown) Plt Count 317 (units ( unknown) date) (150-400) X103/uL unknown) (unknown) (no (unknown) (unknown) Posterior (units (unkno wn) date) circulation:? The unknown) origins of the vertebral arteries both appear widely (unknown) (no (unknown) (unknown) Posterior (units (unkn own) date) circulation:? unknown) Visualized portions of the vertebral arteries (unknown) (no (unknown) (unknown) Potassium (3.4-5.1) (unit s (unknown) date) mmol/L unknown) (unknown) (no (unknown) (unknown) Potassium 3.8 (units ( unknown) date) (3.4-5.1) mmol/L unknown) (unknown) (no (unknown) (unknown) Pre-contrast 4.5 mm (unit s (unknown) date) thick sections unknown) acquired from the foramen magnum to the (unknown) (no (unknown) (unknown) Prescriptions: (units (unknown) date) unknown) (unknown) (no (unknown) (unknown) Previous Rx's (units ( unknown) date) unknown) (unknown) (no (unknown) (unknown) Prior ECG tracings: (unit s (unknown) date) available for review unknown) (unknown) (no (unknown) (unknown) Procedure: CT angio (unit s (unknown) date) head and neck unknown) (unknown) (no (unknown) (unknown) Procedure: CT (units ( unknown) date) head/brain wo con unknown) (unknown) (no (unknown) (unknown) Procedure: XR chest (unit s (unknown) date) 1V unknown) (unknown) (no (unknown) (unknown) Prothrombin Time (units (unknown) date) INR Stat unknown) (unknown) (no (unknown) (unknown) Pulse Oximetry 99 (units (unknown) date) 11/23/22 11:25 unknown) (unknown) (no (unknown) (unknown) Pulse Oximetry 99 (units (unknown) date) unknown) (unknown) (no (unknown) (unknown) Pulse Rate 71 (units ( unknown) date) 11/23/22 11:25 unknown) (unknown) (no (unknown) (unknown) Pulse Rate 71 (units ( unknown) date) unknown) (unknown) (no (unknown) (unknown) Pulse Rate (units (unk nown) date) [Orthostatic Lying] unknown) 70 (unknown) (no (unknown) (unknown) Pulse Rate (units (unk nown) date) [Orthostatic unknown) Sitting] 70 (unknown) (no (unknown) (unknown) Pulse Rate (units (unk nown) date) [Orthostatic unknown) Standing] 73 (unknown) (no (unknown) (unknown) RBC (4.0-5.2) (units ( unknown) date) X106/uL unknown) (unknown) (no (unknown) (unknown) RBC 4.90 (4.0-5.2) (units (unknown) date) X106/uL unknown) (unknown) (no (unknown) (unknown) RDW (11.6-14.8) % (units (unknown) date) unknown) (unknown) (no (unknown) (unknown) RDW 13.1 (units (unkno wn) date) (11.6-14.8) % unknown) (unknown) (no (unknown) (unknown) ROS Unobtainable: (units (unknown) date) All systems reviewed unknown) + are unremarkable except as noted in HPI (unknown) (no (unknown) (unknown) Radiologist's (units ( unknown) date) Impression: unknown) (unknown) (no (unknown) (unknown) Referrals: (units (unk nown) date) unknown) (unknown) (no (unknown) (unknown) Related Data (units (u nknown) date) unknown) (unknown) (no (unknown) (unknown) Respiratory Rate 19 (unit s (unknown) date) 11/23/22 11:25 unknown) (unknown) (no (unknown) (unknown) Respiratory Rate 19 (unit s (unknown) date) unknown) (unknown) (no (unknown) (unknown) Review of Systems (units (unknown) date) unknown) (unknown) (no (unknown) (unknown) Laverne Mendoza??67??F? (unit s (unknown) date) ?1955 unknown) (unknown) (no (unknown) (unknown) Ribs X-Ray (Signed) (unit s (unknown) date) unknown) (unknown) (no (unknown) (unknown) Right arm drift: No (unit s (unknown) date) drift for full 10 unknown) sec (unknown) (no (unknown) (unknown) Right leg drift: No (unit s (unknown) date) drift for full 5 sec unknown) (unknown) (no (unknown) (unknown) Chad Tatum (units (u nknown) date) unknown) (unknown) (no (unknown) (unknown) SARS-CoV-2 (PCR) (units (unknown) date) (Negative) unknown) (unknown) (no (unknown) (unknown) SARS-CoV-2 (PCR) (units (unknown) date) Positive H unknown) (Negative) (unknown) (no (unknown) (unknown) Scores (units (unkno wn) date) unknown) (unknown) (no (unknown) (unknown) Sensory on (units (unk nown) date) face/arms/legs: unknown) Normal, no sensory loss (unknown) (no (unknown) (unknown) She does have some (units (unknown) date) occasional neck pain unknown) on the left states her both her arms (unknown) (no (unknown) (unknown) Signed By: (units (unk nown) date) unknown) (unknown) (no (unknown) (unknown) Signed (units (unkno wn) date) unknown) (unknown) (no (unknown) (unknown) Sinus rhythm rate (units (unknown) date) of 66 RI 142 QRS is unknown) [address] No acute ST changes (unknown) (no (unknown) (unknown) Sinuses:? Mild (units (unknown) date) diffuse paranasal unknown) sinus mucosal thickening. (unknown) (no (unknown) (unknown) Sinuses:? (units (unkn own) date) Visualized sinuses unknown) and mastoids are clear.? (unknown) (no (unknown) (unknown) Skull and face:? (units (unknown) date) Calvarium and facial unknown) bones appear intact, without suspicious (unknown) (no (unknown) (unknown) Skull and face:? (units (unknown) date) Calvarium and unknown) visualized facial bones appear intact, without (unknown) (no (unknown) (unknown) Smoking Status: (units (unknown) date) Never smoker unknown) (unknown) (no (unknown) (unknown) Social History (units (unknown) date) (Reviewed 11/23/22 @ unknown) 13:52 by Risa Aquino DO) (unknown) (no (unknown) (unknown) Sodium (137-145) (units (unknown) date) mmol/L unknown) (unknown) (no (unknown) (unknown) Sodium 140 (units (unk nown) date) (137-145) mmol/L unknown) (unknown) (no (unknown) (unknown) Soft tissues:? (units (unknown) date) Visualized neck soft unknown) tissues demonstrate no suspicious (unknown) (no (unknown) (unknown) Source: patient (units (unknown) date) unknown) (unknown) (no (unknown) (unknown) Stand Alone Forms: (units (unknown) date) Patient Portal/API unknown) (unknown) (no (unknown) (unknown) Stated Complaint: (units (unknown) date) Sent by DR giron unknown) passing out losing vision T-5 (unknown) (no (unknown) (unknown) Substance Use Type: (unit s (unknown) date) does not use unknown) (unknown) (no (unknown) (unknown) Surgical changes (units (unknown) date) and devices:? None.? unknown) (unknown) (no (unknown) (unknown) Syncope, Changes in (unit s (unknown) date) vision, COVID-19 unknown) virus infection (unknown) (no (unknown) (unknown) TECHNIQUE:? One (units (unknown) date) view of the chest unknown) was acquired.? (unknown) (no (unknown) (unknown) TECHNIQUE:? (units (un known) date) unknown) (unknown) (no (unknown) (unknown) Talk with your (units (unknown) date) physician about unknown) getting an echo, Holter monitor and MRI to more (unknown) (no (unknown) (unknown) Telemetry Strips (units (unknown) date) unknown) (unknown) (no (unknown) (unknown) Temperature 97.2 F (units (unknown) date) L 11/23/22 11:25 unknown) (unknown) (no (unknown) (unknown) Temperature 97.2 F (units (unknown) date) L unknown) (unknown) (no (unknown) (unknown) The flow within the (unit s (unknown) date) middle cerebral unknown) arteries is normal and symmetric.? The (unknown) (no (unknown) (unknown) The more superior (units (unknown) date) extracranial unknown) portions of both vertebral arteries also (unknown) (no (unknown) (unknown) This is a (units (unkn own) date) 67-year-old female unknown) who has sounds like recurrent syncopal episodes (unknown) (no (unknown) (unknown) This is a (units (unkno wn) date) 67-year-old with unknown) complaint of intermittent episodes of syncope as well (unknown) (no (unknown) (unknown) Time Seen by (units (u nknown) date) Provider: 11/23/22 unknown) 11:27 (unknown) (no (unknown) (unknown) Total Bilirubin (units (unknown) date) (0.2-1.3) mg/dL unknown) (unknown) (no (unknown) (unknown) Total Bilirubin 0.5 (unit s (unknown) date) (0.2-1.3) mg/dL unknown) (unknown) (no (unknown) (unknown) Total Creatine (units (unknown) date) Kinase (30-135) U/L unknown) (unknown) (no (unknown) (unknown) Total Creatine (units (unknown) date) Kinase 81 (30-135) unknown) U/L (unknown) (no (unknown) (unknown) Total NIH Stroke (units (unknown) date) scale score: 0 unknown) (unknown) (no (unknown) (unknown) Total Protein (units ( unknown) date) (6.3-8.2) g/dL unknown) (unknown) (no (unknown) (unknown) Total Protein 8.0 (units (unknown) date) (6.3-8.2) g/dL unknown) (unknown) (no (unknown) (unknown) Trop I [Troponin I] (unit s (unknown) date) Stat unknown) (unknown) (no (unknown) (unknown) Troponin + CK (units ( unknown) date) Cardiac Panel Stat unknown) (unknown) (no (unknown) (unknown) Troponin I < 0.012 (units (unknown) date) (0.01-0.034) ng/mL unknown) (unknown) (no (unknown) (unknown) Type 1 diabetes (units (unknown) date) unknown) (unknown) (no (unknown) (unknown) U-100 Insulin) (units (unknown) date) unknown) (unknown) (no (unknown) (unknown) Vascular Ultrasound (unit s (unknown) date) (Signed) unknown) (unknown) (no (unknown) (unknown) Visual worthy: No (units (unknown) date) visual loss unknown) (unknown) (no (unknown) (unknown) Vital Signs - 8 hr (units (unknown) date) unknown) (unknown) (no (unknown) (unknown) Vital Signs (units (un known) date) unknown) (unknown) (no (unknown) (unknown) Vital signs: (units (u nknown) date) unknown) (unknown) (no (unknown) (unknown) WBC (4.5-11.0) (units (unknown) date) X103/uL unknown) (unknown) (no (unknown) (unknown) WBC 7.3 (4.5-11.0) (units (unknown) date) X103/uL unknown) (unknown) (no (unknown) (unknown) Curtis,Marty (units (u nknown) date) unknown) (unknown) (no (unknown) (unknown) XR chest 1V Stat (units (unknown) date) unknown) (unknown) (no (unknown) (unknown) XRay Report (units (un known) date) unknown) (unknown) (no (unknown) (unknown) [place] (units (unkno wn) date) unknown) (unknown) (no (unknown) (unknown) [Embedded Image Not (unit s (unknown) date) Available] unknown) (unknown) (no (unknown) (unknown) a few minutes and (units (unknown) date) will get better. It unknown) is not clearly associated with her loss (unknown) (no (unknown) (unknown) abnormalities.? (units (unknown) date) unknown) (unknown) (no (unknown) (unknown) acetaminophen 325 (units (unknown) date) mg Tablet unknown) (unknown) (no (unknown) (unknown) acetaminophen 325 (units (unknown) date) mg tablet 975 mg PO unknown) Q8H PRN Pain, Mild (1-3) 07/31/22 (unknown) (no (unknown) (unknown) acquired (units (unkno wn) date) unknown) (unknown) (no (unknown) (unknown) alcohol intake (units (unknown) date) frequency: unknown) holidays/special occasions only (unknown) (no (unknown) (unknown) alcohol intake: (units (unknown) date) current unknown) (unknown) (no (unknown) (unknown) aligned.? 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 For unknown) radiation dose reduction, the following was used:? (unknown) (no (unknown) (unknown) and (units (unkno wn) date) unknown) (unknown) (no (unknown) (unknown) and/or volume (units ( unknown) date) rendering reformats unknown) were acquired of the central intracranial (unknown) (no (unknown) (unknown) ankle. No tobacco, (units (unknown) date) no alcohol, no unknown) illicit. Her primary is in [place]. (unknown) (no (unknown) (unknown) anterior (units (unkno wn) date) unknown) (unknown) (no (unknown) (unknown) appear (units (unkno wn) date) unknown) (unknown) (no (unknown) (unknown) appears intact.? (units (unknown) date) unknown) (unknown) (no (unknown) (unknown) appears to be in (units (unknown) date) mild distress. unknown) (unknown) (no (unknown) (unknown) appreciated. (units (u nknown) date) unknown) (unknown) (no (unknown) (unknown) arch through the (units (unknown) date) [place].? unknown) Post-contrast 4.5 mm thick sections then re (unknown) (no (unknown) (unknown) arteries and (units (u nknown) date) unknown) (unknown) (no (unknown) (unknown) artery.? (units (unkno wn) date) unknown) (unknown) (no (unknown) (unknown) as vision change. (units (unknown) date) Patient states unknown) typically episodes will happen she will wake (unknown) (no (unknown) (unknown) as well head CT and (unit s (unknown) date) CT angio were unknown) negative, CBC is negative, coags are negative (unknown) (no (unknown) (unknown) automated (units (unkn own) date) unknown) (unknown) (no (unknown) (unknown) bupropion HCl 150 (units (unknown) date) mg tablet unknown) sustained-release 12 hr (unknown) (no (unknown) (unknown) bupropion HCl 150 (units (unknown) date) mg tablet,12 hr 150 unknown) mg PO DAILY 07/27/22 07/27/22 (unknown) (no (unknown) (unknown) but she states in (units (unknown) date) the right she will unknown) note that everything started goes black for (unknown) (no (unknown) (unknown) calcifications (units (unknown) date) unknown) (unknown) (no (unknown) (unknown) caliber, and join (units (unknown) date) to form a normal unknown) appearing basilar artery.? Flow within the (unknown) (no (unknown) (unknown) carotid artery (units (unknown) date) atherosclerosis.? unknown) (unknown) (no (unknown) (unknown) carotid termini are (unit s (unknown) date) widely patent. unknown) (unknown) (no (unknown) (unknown) cerebral arteries (units (unknown) date) is normal and unknown) symmetric.? No aneurysms are seen.? (unknown) (no (unknown) (unknown) changes do not seem (unit s (unknown) date) to be associated unknown) with that and I would like to keep her for (unknown) (no (unknown) (unknown) clopidogrel 75 mg (units (unknown) date) tablet 75 mg PO unknown) DAILY 07/27/22 07/27/22 (unknown) (no (unknown) (unknown) clopidogrel 75 mg (units (unknown) date) tablet unknown) (unknown) (no (unknown) (unknown) codeine AdvReac (units (unknown) date) Verified 07/28/22 unknown) 08:51 (unknown) (no (unknown) (unknown) communicating (units ( unknown) date) artery is seen.? No unknown) aneurysms are seen.? Atherosclerotic (unknown) (no (unknown) (unknown) conjunctival (units (u nknown) date) pallor. Throat is unknown) clear without any exudates, erythema, tonsillar (unknown) (no (unknown) (unknown) deep white matter (units (unknown) date) chronic small vessel unknown) ischemic changes.? There is intracranial (unknown) (no (unknown) (unknown) demonstrate normal (units (unknown) date) unknown) (unknown) (no (unknown) (unknown) demonstrate (units (un known) date) unknown) (unknown) (no (unknown) (unknown) details: (units (unknown) date) 7 years ago unknown) yesterday (unknown) (no (unknown) (unknown) duloxetine 60 mg (units (unknown) date) capsule,delayed 60 unknown) mg PO DAILY 07/27/22 07/27/22 (unknown) (no (unknown) (unknown) duloxetine 60 mg (units (unknown) date) capsule,delayed unknown) release(DR/EC) (unknown) (no (unknown) (unknown) echo, monitoring (units (unknown) date) with telemetry. I unknown) suspect patient is having some orthostatic (unknown) (no (unknown) (unknown) elevation or (units (u nknown) date) depression. unknown) (unknown) (no (unknown) (unknown) enlargement or (units (unknown) date) uvular deviation, unknown) mild facial droop on the right (unknown) (no (unknown) (unknown) exposure control, (units (unknown) date) adjustment of mA unknown) and/or kV according to patient size.? (unknown) (no (unknown) (unknown) extra-axial fluid (units (unknown) date) collections.? unknown) (unknown) (no (unknown) (unknown) extremities, full (units (unknown) date) range of motion, unknown) normal gait (unknown) (no (unknown) (unknown) extremities, loss (units (unknown) date) of bowel or bladder unknown) control, new numbness tingling or (unknown) (no (unknown) (unknown) feels sort of hard (units (unknown) date) to lift. She states unknown) that has been going on for 2 or 3 (unknown) (no (unknown) (unknown) flow.? The flow (units (unknown) date) within the paired unknown) anterior cerebral arteries is normal and (unknown) (no (unknown) (unknown) following (units (unkn own) date) unknown) (unknown) (no (unknown) (unknown) for age, (units (unkno wn) date) unknown) (unknown) (no (unknown) (unknown) from the foramen (units (unknown) date) magnum to the unknown) vertex.? 3-dimensional (unknown) (no (unknown) (unknown) fully evaluate your (unit s (unknown) date) symptoms. unknown) (unknown) (no (unknown) (unknown) further evaluation. (unit s (unknown) date) Patient discussed unknown) she is COVID positive today. This is (unknown) (no (unknown) (unknown) gabapentin 600 mg (units (unknown) date) tablet 600 mg PO unknown) DAILY 07/27/22 07/27/22 (unknown) (no (unknown) (unknown) gabapentin 600 mg (units (unknown) date) tablet unknown) (unknown) (no (unknown) (unknown) get up and wakes up (unit s (unknown) date) on the floor. She unknown) states it has been happening with (unknown) (no (unknown) (unknown) happened a few (units (unknown) date) times during the unknown) daytime but is more consistent at night. She is (unknown) (no (unknown) (unknown) household members: (units (unknown) date) family and children unknown) (unknown) (no (unknown) (unknown) hydrocodone Allergy (unit s (unknown) date) Intermediate unknown) Verified 07/30/22 12:12 (unknown) (no (unknown) (unknown) hypotension causing (unit s (unknown) date) her syncopal unknown) episodes but we discussed that her vision (unknown) (no (unknown) (unknown) if this improves (units (unknown) date) your symptoms. unknown) (unknown) (no (unknown) (unknown) increasing (units (unk nown) date) frequency in his unknown) happen 10 times in the last week. She states it is (unknown) (no (unknown) (unknown) insulin lispro 100 (units (unknown) date) unit/mL 55 unit unknown) SUBCUT DAILY PRN 07/27/22 07/27/22 (unknown) (no (unknown) (unknown) insulin lispro (units (unknown) date) [Humalog U-100 unknown) Insulin] 100 unit/mL solution (unknown) (no (unknown) (unknown) interface (units (unkn own) date) unknown) (unknown) (no (unknown) (unknown) internal (units (unkno wn) date) unknown) (unknown) (no (unknown) (unknown) intracranial or (units (unknown) date) cervical arterial unknown) vasculature.? Bilateral of the [place] neck (unknown) (no (unknown) (unknown) left upper (units (unk nown) date) extremity unknown) (unknown) (no (unknown) (unknown) lesions.? (units (unkn own) date) unknown) (unknown) (no (unknown) (unknown) likely exacerbating (unit s (unknown) date) her symptoms but not unknown) the cause of her problem. Patient (unknown) (no (unknown) (unknown) likely related (units (unknown) date) orthostatics she is unknown) on a beta-yan daily but has also had (unknown) (no (unknown) (unknown) lisinopril 10 mg (units (unknown) date) tablet 10 mg PO unknown) DAILY 07/27/22 07/27/22 (unknown) (no (unknown) (unknown) lisinopril 10 mg (units (unknown) date) tablet unknown) (unknown) (no (unknown) (unknown) lives (units (unkno wn) date) independently: No unknown) (Lives with her daughter) (unknown) (no (unknown) (unknown) loss of bowel and (units (unknown) date) bladder control the unknown) 1st time this happened which was June (unknown) (no (unknown) (unknown) marital status: (units (unknown) date) unknown) (unknown) (no (unknown) (unknown) masses noted, no (units (unknown) date) hepatosplenomegaly unknown) (unknown) (no (unknown) (unknown) [id number]-[id number] (unit s (unknown) date) rojection (MIP) unknown) (unknown) (no (unknown) (unknown) meperidine [From (units (unknown) date) Demerol] AdvReac unknown) Verified 07/28/22 08:51 (unknown) (no (unknown) (unknown) metoprolol so she (units (unknown) date) still has coverage unknown) in terms of your heart arrhythmia but see (unknown) (no (unknown) (unknown) metoprolol (units (unk nown) date) succinate 100 mg 100 unknown) mg PO DAILY 07/27/22 07/27/22 (unknown) (no (unknown) (unknown) metoprolol (units (unk nown) date) succinate 100 mg unknown) tablet extended release 24 hr (unknown) (no (unknown) (unknown) mg daily (1/2 (units ( unknown) date) tablet) to see if unknown) this improves your symptoms. (unknown) (no (unknown) (unknown) months. She states (units (unknown) date) no issues with bowel unknown) movements or urination. She did have (unknown) (no (unknown) (unknown) morphine AdvReac (units (unknown) date) Mild Hallucinati unknown) Verified 07/27/22 18:54 (unknown) (no (unknown) (unknown) movements are (units ( unknown) date) intact, nares are unknown) clear, TMs are clear with no fluid, there is no (unknown) (no (unknown) (unknown) negative. (units (unkn own) date) unknown) (unknown) (no (unknown) (unknown) ng (units (unkno wn) date) unknown) (unknown) (no (unknown) (unknown) normal courses and (units (unknown) date) calibers.? They join unknown) to form a normal appearing basilar (unknown) (no (unknown) (unknown) noted at the (units (u nknown) date) carotid siphons. unknown) (unknown) (no (unknown) (unknown) observation. (units (u nknown) date) unknown) (unknown) (no (unknown) (unknown) of consciousness (units (unknown) date) episodes. She denies unknown) headaches. She denies chest pain, no (unknown) (no (unknown) (unknown) off aspirin, she (units (unknown) date) takes lisinopril and unknown) metoprolol, rosuvastatin. Patient states (unknown) (no (unknown) (unknown) oral powder packet (units (unknown) date) (Miralax) ea unknown) (unknown) (no (unknown) (unknown) over time. (units (unk nown) date) unknown) (unknown) (no (unknown) (unknown) oxycodone Allergy (units (unknown) date) Intermediate Uncoded unknown) 07/30/22 12:12 (unknown) (no (unknown) (unknown) passing out, (units (u nknown) date) dizziness, chest unknown) pain, shortness of breath, new swelling in her (unknown) (no (unknown) (unknown) patent.? No (units (un known) date) unknown) (unknown) (no (unknown) (unknown) patent.? (units (unkno wn) date) unknown) (unknown) (no (unknown) (unknown) patient (units (unkno wn) date) unknown) (unknown) (no (unknown) (unknown) periventricular and (unit s (unknown) date) unknown) (unknown) (no (unknown) (unknown) plaque (units (unkno wn) date) unknown) (unknown) (no (unknown) (unknown) polyethylene glycol (unit s (unknown) date) 3350 17 gram 17 g PO unknown) DAILY PRN constipation #14 07/31/22 (unknown) (no (unknown) (unknown) polyethylene glycol (unit s (unknown) date) 3350 [Miralax] 17 unknown) gram powder in packet (unknown) (no (unknown) (unknown) posterior (units (unkn own) date) unknown) (unknown) (no (unknown) (unknown) present.? (units (unkn own) date) Extracranial unknown) internal carotid arteries appear widely patent. (unknown) (no (unknown) (unknown) pulses are equal in (unit s (unknown) date) upper and lower unknown) extremities (unknown) (no (unknown) (unknown) release (units (unkno wn) date) unknown) (unknown) (no (unknown) (unknown) repair several (units (unknown) date) months ago when she unknown) had episode where she passed out broke her (unknown) (no (unknown) (unknown) right groin. (units (u nknown) date) Patient states prior unknown) hysterectomy and had an ankle fracture with (unknown) (no (unknown) (unknown) rosuvastatin 20 mg (units (unknown) date) tablet 20 mg PO unknown) DAILY 07/27/22 07/27/22 (unknown) (no (unknown) (unknown) rosuvastatin 20 mg (units (unknown) date) tablet unknown) (unknown) (no (unknown) (unknown) senna 8.6 mg (units (u nknown) date) capsule unknown) (unknown) (no (unknown) (unknown) sennosides 8.6 mg (units (unknown) date) capsule (senna) 8.6 unknown) mg PO DAILY PRN constipation 07/31/22 (unknown) (no (unknown) (unknown) she is had 2 heart (units (unknown) date) attacks, she is had unknown) cardiac stents and has a stent in her (unknown) (no (unknown) (unknown) wyman test normal, (units (unknown) date) romberg normal, unknown) patient has mild intention tremor particularly (unknown) (no (unknown) (unknown) shortness of (units (u nknown) date) breath, no nausea or unknown) vomiting no numbness, tingling or weakness. (unknown) (no (unknown) (unknown) since then. Patient (unit s (unknown) date) takes medication for unknown) anxiety, depression, Plavix she is now (unknown) (no (unknown) (unknown) size.? (units (unkno wn) date) unknown) (unknown) (no (unknown) (unknown) states she does not (unit s (unknown) date) wish to stay she unknown) understands risks versus benefits. (unknown) (no (unknown) (unknown) subcutaneous (units (u nknown) date) solution (Humalog unknown) Hyperglycemia (unknown) (no (unknown) (unknown) suspicious (units (unk nown) date) unknown) (unknown) (no (unknown) (unknown) sustained-release (units (unknown) date) unknown) (unknown) (no (unknown) (unknown) symmetric.? (units (un known) date) unknown) (unknown) (no (unknown) (unknown) symmetrically (units ( unknown) date) unknown) (unknown) (no (unknown) (unknown) tablet,extended (units (unknown) date) release 24 hr unknown) (unknown) (no (unknown) (unknown) the administration (units (unknown) date) of intravenous unknown) contrast, 1 mm thick sections acquired from (unknown) (no (unknown) (unknown) the aortic (units (unk nown) date) unknown) (unknown) (no (unknown) (unknown) to standing. (units (u nknown) date) unknown) (unknown) (no (unknown) (unknown) to the (units (unkno wn) date) unknown) (unknown) (no (unknown) (unknown) unremarkable.? (units (unknown) date) unknown) (unknown) (no (unknown) (unknown) up in the middle (units (unknown) date) the night be sitting unknown) on the edge of her bed getting ready to (unknown) (no (unknown) (unknown) vasculature (units (un known) date) unknown) (unknown) (no (unknown) (unknown) ventricles are (units (unknown) date) symmetric in size unknown) and shape.? (unknown) (no (unknown) (unknown) vertex, with (units (u nknown) date) coronal and sagittal unknown) reformats.? For radiation dose reduction, the (unknown) (no (unknown) (unknown) vertex.? After (units (unknown) date) unknown) (unknown) (no (unknown) (unknown) vision changes that (unit s (unknown) date) is not always unknown) consistently associated so had stroke workup (unknown) (no (unknown) (unknown) was used:? (units (unk nown) date) automated exposure unknown) control, adjustment of mA and/or kV according to (unknown) (no (unknown) (unknown) weakness, (units (unkn own) date) difficulty with unknown) speech or droop or other new or concerning changes. (unknown) (no (unknown) (unknown) widely patent. (units (unknown) date) unknown) (unknown) (no (unknown) (unknown) with a creatinine (units (unknown) date) 1.27 which is close unknown) to patient's baseline., AST is 44. (unknown) (no (unknown) (unknown) with resultant (units (unknown) date) ventricular and unknown) sulcal prominence.? There are moderate Result panel 157 (unknown) (no (unknown) (unknown) (no value) (units (unk nown) date) unknown) (unknown) (no (unknown) (unknown) #30 caps (units (unkno wn) date) unknown) (unknown) (no (unknown) (unknown) #30 tabs (units (unkno wn) date) unknown) (unknown) (no (unknown) (unknown) <Electronically (units (unknown) date) signed by Risa Harley unknown) Kiesha Aquino> (unknown) (no (unknown) (unknown) (More??) (units (unkno wn) date) unknown) (unknown) (no (unknown) (unknown) 11/23/22 11/23/22 (units (unknown) date) 11/23/22 Range/Units unknown) (unknown) (no (unknown) (unknown) 11/23/22 11:23 (units (unknown) date) unknown) (unknown) (no (unknown) (unknown) 11/23/22 11:24 (units (unknown) date) unknown) (unknown) (no (unknown) (unknown) 11/23/22 11:27 (units (unknown) date) unknown) (unknown) (no (unknown) (unknown) 11/23/22 11:31 (units (unknown) date) unknown) (unknown) (no (unknown) (unknown) 11/23/22 13:28 (units (unknown) date) unknown) (unknown) (no (unknown) (unknown) 11/23/22 13:47 (units (unknown) date) unknown) (unknown) (no (unknown) (unknown) 11/23/22 1904 (units ( unknown) date) unknown) (unknown) (no (unknown) (unknown) 11/23/22 (units (unkno wn) date) unknown) (unknown) (no (unknown) (unknown) 12/11/20 (units (unkno wn) date) unknown) (unknown) (no (unknown) (unknown) 03/04/21 (units (unkno wn) date) unknown) (unknown) (no (unknown) (unknown) 03/06/20 (units (unkno wn) date) unknown) (unknown) (no (unknown) (unknown) 05/26/20 (units (unkno wn) date) unknown) (unknown) (no (unknown) (unknown) 07/27/22 (units (unkno wn) date) unknown) (unknown) (no (unknown) (unknown) 10 mg PO DAILY (units (unknown) date) unknown) (unknown) (no (unknown) (unknown) 07/28/22 (units (unkno wn) date) unknown) (unknown) (no (unknown) (unknown) 07/30/22 (units (unkno wn) date) unknown) (unknown) (no (unknown) (unknown) 100 mg PO DAILY (units (unknown) date) unknown) (unknown) (no (unknown) (unknown) 11:23 11:23 11:23 (units (unknown) date) unknown) (unknown) (no (unknown) (unknown) 11:23 13:28 13:47 (units (unknown) date) unknown) (unknown) (no (unknown) (unknown) 11:25 11/23/22 (units (unknown) date) unknown) (unknown) (no (unknown) (unknown) 11:26 (units (unkno wn) date) unknown) (unknown) (no (unknown) (unknown) 11:30 11/23/22 (units (unknown) date) unknown) (unknown) (no (unknown) (unknown) 10/02/21 (units (unkno wn) date) unknown) (unknown) (no (unknown) (unknown) [address] [place] [address] (units (unknown) date) unknown) (unknown) (no (unknown) (unknown) 12:07 (units (unkno wn) date) unknown) (unknown) (no (unknown) (unknown) 12:08 11/23/22 (units (unknown) date) unknown) (unknown) (no (unknown) (unknown) 12:30 (units (unkno wn) date) unknown) (unknown) (no (unknown) (unknown) 13:00 11/23/22 (units (unknown) date) unknown) (unknown) (no (unknown) (unknown) 13:01 11/23/22 (units (unknown) date) unknown) (unknown) (no (unknown) (unknown) 13:01 (units (unkno wn) date) unknown) (unknown) (no (unknown) (unknown) 13:30 11/23/22 (units (unknown) date) unknown) (unknown) (no (unknown) (unknown) 14:00 11/23/22 (units (unknown) date) unknown) (unknown) (no (unknown) (unknown) 14:00 (units (unkno wn) date) unknown) (unknown) (no (unknown) (unknown) 14:30 11/23/22 (units (unknown) date) unknown) (unknown) (no (unknown) (unknown) 14:31 11/23/22 (units (unknown) date) unknown) (unknown) (no (unknown) (unknown) 14:31 (units (unkno wn) date) unknown) (unknown) (no (unknown) (unknown) 14:45 11/23/22 (units (unknown) date) unknown) (unknown) (no (unknown) (unknown) 14:45 (units (unkno wn) date) unknown) (unknown) (no (unknown) (unknown) 14:46 11/23/22 (units (unknown) date) unknown) (unknown) (no (unknown) (unknown) 14:48 11/23/22 (units (unknown) date) unknown) (unknown) (no (unknown) (unknown) 14:48 (units (unkno wn) date) unknown) (unknown) (no (unknown) (unknown) 14:51 11/23/22 (units (unknown) date) unknown) (unknown) (no (unknown) (unknown) 150 mg PO DAILY (units (unknown) date) unknown) (unknown) (no (unknown) (unknown) 15:00 11/23/22 (units (unknown) date) unknown) (unknown) (no (unknown) (unknown) 15:00 (units (unkno wn) date) unknown) (unknown) (no (unknown) (unknown) 17 g PO DAILY PRN (units (unknown) date) (Reason: unknown) constipation) Qty: 14 0RF (unknown) (no (unknown) (unknown) 20 mg PO DAILY (units (unknown) date) unknown) (unknown) (no (unknown) (unknown) 237 (units (unkno wn) date) unknown) (unknown) (no (unknown) (unknown) or of (units (unknown) date) 2021. She states she unknown) has not had any other incontinence issues (unknown) (no (unknown) (unknown) 55 unit SUBCUT (units (unknown) date) DAILY MDD 55 PRN unknown) (Reason: Hyperglycemia) (unknown) (no (unknown) (unknown) 60 mg PO DAILY (units (unknown) date) unknown) (unknown) (no (unknown) (unknown) 600 mg PO DAILY (units (unknown) date) unknown) (unknown) (no (unknown) (unknown) 75 mg PO DAILY (units (unknown) date) unknown) (unknown) (no (unknown) (unknown) 8.6 mg PO DAILY PRN (unit s (unknown) date) (Reason: unknown) constipation) Qty: 30 0RF (unknown) (no (unknown) (unknown) 975 mg PO Q8H PRN (units (unknown) date) (Reason: Pain, Mild unknown) (1-3)) Qty: 30 0RF (unknown) (no (unknown) (unknown) ? (units (unkno wn) date) unknown) (unknown) (no (unknown) (unknown) ? (units (unkno wn) date) unknown) (unknown) (no (unknown) (unknown) ?Both carotid (units ( unknown) date) bifurcations are unknown) widely patent with only minimal atherosclerotic (unknown) (no (unknown) (unknown) ABD:bowel sounds (units (unknown) date) normal, soft, unknown) non-tender, no guarding, rebound, rigidity, no (unknown) (no (unknown) (unknown) ALT (<35) IU/L (units (unknown) date) unknown) (unknown) (no (unknown) (unknown) ALT 28 (<35) IU/L (units (unknown) date) unknown) (unknown) (no (unknown) (unknown) APTT (26-36) (units (u nknown) date) SECONDS unknown) (unknown) (no (unknown) (unknown) APTT 31 (26-36) (units (unknown) date) SECONDS unknown) (unknown) (no (unknown) (unknown) AST (14-36) IU/L (units (unknown) date) unknown) (unknown) (no (unknown) (unknown) AST 44 H (14-36) (units (unknown) date) IU/L unknown) (unknown) (no (unknown) (unknown) Abdomen/Pelvis CT (units (unknown) date) (Signed) unknown) (unknown) (no (unknown) (unknown) Accession Number: (units (unknown) date) [id number] ?? unknown) (unknown) (no (unknown) (unknown) Accession Number: (units (unknown) date) [id number] ?? unknown) (unknown) (no (unknown) (unknown) Accession Number: (units (unknown) date) [id number] ?? unknown) (unknown) (no (unknown) (unknown) Acct:[id number] (units (unknown) date) unknown) (unknown) (no (unknown) (unknown) Activity (units (unkno wn) date) Restrictions/Additio unknown) nal Instructions: (unknown) (no (unknown) (unknown) Age/Sex: 67 / F (units (unknown) date) unknown) (unknown) (no (unknown) (unknown) Albumin (3.5-5.0) (units (unknown) date) g/dL unknown) (unknown) (no (unknown) (unknown) Albumin 4.1 (units (un known) date) (3.5-5.0) g/dL unknown) (unknown) (no (unknown) (unknown) Albumin/Globulin (units (unknown) date) Ratio (1.0-2.8) unknown) (unknown) (no (unknown) (unknown) Albumin/Globulin (units (unknown) date) Ratio 1.1 (1.0-2.8) unknown) (unknown) (no (unknown) (unknown) Alkaline (units (unkno wn) date) Phosphatase (38-126) unknown) U/L (unknown) (no (unknown) (unknown) Alkaline (units (unkno wn) date) Phosphatase 101 unknown) (38-126) U/L (unknown) (no (unknown) (unknown) Allergies (units (unkn own) date) unknown) (unknown) (no (unknown) (unknown) Allergy/Adv: (units (u nknown) date) hydrocodone, unknown) morphine, codeine, meperidine, [oxycodone] (unknown) (no (unknown) (unknown) Allergy/AdvReac (units (unknown) date) Type Severity unknown) Reaction Status Date / Time (unknown) (no (unknown) (unknown) [place] [address] (unit s (unknown) date) unknown) (unknown) (no (unknown) (unknown) Ankle X-Ray (units (un known) date) (Signed) unknown) (unknown) (no (unknown) (unknown) Anterior (units (unkno wn) date) circulation:? unknown) Intracranial internal carotid arteries are normal in size (unknown) (no (unknown) (unknown) Any quantitative (units (unknown) date) measurements of unknown) stenosis were performed using NASCET criteria.? (unknown) (no (unknown) (unknown) Approved by: Chad (units (unknown) date) Joann Tatum on unknown) 11/23/2022 at 12:34?? (unknown) (no (unknown) (unknown) Approved by: Chad (units (unknown) date) Joann Tatum on unknown) 11/23/2022 at 12:39?? (unknown) (no (unknown) (unknown) Approved by: Stefanie (units (unknown) date) Joann Bullard on unknown) 11/23/2022 at 11:58 (unknown) (no (unknown) (unknown) Ask month/age: (units (unknown) date) Answers both unknown) questions correctly. (unknown) (no (unknown) (unknown) Attestation: I (units (unknown) date) personally reviewed unknown) and interpreted this ECG as follows: (unknown) (no (unknown) (unknown) BNP [NT-proBNP (units (unknown) date) (BNP-Adult 18+)] unknown) Stat (unknown) (no (unknown) (unknown) BRAIN:? (units (unkno wn) date) unknown) (unknown) (no (unknown) (unknown) BUN (7-17) mg/dL (units (unknown) date) unknown) (unknown) (no (unknown) (unknown) BUN 12 (7-17) mg/dL (unit s (unknown) date) unknown) (unknown) (no (unknown) (unknown) BUN/Creatinine (units (unknown) date) Ratio (6-22) unknown) (unknown) (no (unknown) (unknown) BUN/Creatinine (units (unknown) date) Ratio 9.4 (6-22) unknown) (unknown) (no (unknown) (unknown) Baso # (Auto) (units ( unknown) date) (0-100) /uL unknown) (unknown) (no (unknown) (unknown) Baso # (Auto) 100 (units (unknown) date) (0-100) /uL unknown) (unknown) (no (unknown) (unknown) Baso % (Auto) (0-2) (unit s (unknown) date) % unknown) (unknown) (no (unknown) (unknown) Baso % (Auto) 0.8 (units (unknown) date) (0-2) % unknown) (unknown) (no (unknown) (unknown) Best gaze (units (unkn own) date) horizontal: Normal unknown) (unknown) (no (unknown) (unknown) Best language: No (units (unknown) date) aphasia, normal unknown) (unknown) (no (unknown) (unknown) Blood Pressure (units (unknown) date) 130/61 162/70 H unknown) (unknown) (no (unknown) (unknown) Blood Pressure (units (unknown) date) 135/73 unknown) (unknown) (no (unknown) (unknown) Blood Pressure (units (unknown) date) 136/63 unknown) (unknown) (no (unknown) (unknown) Blood Pressure (units (unknown) date) 148/68 H 11/23/22 unknown) 11:25 (unknown) (no (unknown) (unknown) Blood Pressure (units (unknown) date) 148/68 H unknown) (unknown) (no (unknown) (unknown) Blood Pressure (units (unknown) date) 152/79 H unknown) (unknown) (no (unknown) (unknown) Blood Pressure (units (unknown) date) 158/69 H unknown) (unknown) (no (unknown) (unknown) Blood Pressure (units (unknown) date) 162/70 H 160/70 H unknown) (unknown) (no (unknown) (unknown) Blood Pressure (units (unknown) date) 174/75 H unknown) (unknown) (no (unknown) (unknown) Blood Pressure (units (unknown) date) 179/74 H unknown) (unknown) (no (unknown) (unknown) Blood Pressure (units (unknown) date) [Orthostatic Lying] unknown) 158/69 H (unknown) (no (unknown) (unknown) Blood Pressure (units (unknown) date) [Orthostatic Lying] unknown) (unknown) (no (unknown) (unknown) Blood Pressure (units (unknown) date) [Orthostatic unknown) Sitting] 136/63 (unknown) (no (unknown) (unknown) Blood Pressure (units (unknown) date) [Orthostatic unknown) Sitting] (unknown) (no (unknown) (unknown) Blood Pressure (units (unknown) date) [Orthostatic unknown) Standing] 130/61 (unknown) (no (unknown) (unknown) Blood Pressure (units (unknown) date) [Orthostatic unknown) Standing] (unknown) (no (unknown) (unknown) Bones and chest (units (unknown) date) wall:? No suspicious unknown) bony lesions.? Overlying soft tissues (unknown) (no (unknown) (unknown) Bones:? No (units (unk nown) date) suspicious bony unknown) lesions.? Visualized cervical spine appears normally (unknown) (no (unknown) (unknown) Brain:? No (units (unk nown) date) intracranial bleeds unknown) or masses.? There is mild cerebral volume loss (unknown) (no (unknown) (unknown) Brain:? No midline (units (unknown) date) shift.? No unknown) intracranial bleeds or masses.? Valles-white matter (unknown) (no (unknown) (unknown) Cora Rogers, (units (unknown) date) PA-C [Primary Care unknown) Provider] (unknown) (no (unknown) (unknown) CK-MB (CK-2) Rel (units (unknown) date) Index TNP unknown) (unknown) (no (unknown) (unknown) CK-MB (CK-2) Rel (units (unknown) date) Index unknown) (unknown) (no (unknown) (unknown) CK-MB (CK-2) TNP (units (unknown) date) unknown) (unknown) (no (unknown) (unknown) CK-MB (CK-2) (units (u nknown) date) unknown) (unknown) (no (unknown) (unknown) [facility], CR, XR unknown) CHEST 1V, 07/27/2022, 12:32. (unknown) (no (unknown) (unknown) COMPARISON:? [facility] (unit s (unknown[facility] date) Hospital, CT, CT unknown) HEAD/BRAIN WO CON, 07/27/2022, 12:56. (unknown) (no (unknown) (unknown) COMPARISON:? None. (units (unknown) date) unknown) (unknown) (no (unknown) (unknown) COVID19 -Nasal (units (unknown) date) RAPID/Pre-Proc Stat unknown) (unknown) (no (unknown) (unknown) CSF spaces:? Basal (units (unknown) date) cisterns are unknown) patent.? No extra-axial fluid collections.? The (unknown) (no (unknown) (unknown) CSF spaces:? (units (u nknown) date) Ventricles are unknown) normal in size and shape.? Basal cisterns are (unknown) (no (unknown) (unknown) CT Scan Report (units (unknown) date) unknown) (unknown) (no (unknown) (unknown) CT angio head and (units (unknown) date) neck Stat unknown) (unknown) (no (unknown) (unknown) CT head/brain wo (units (unknown) date) con Stat unknown) (unknown) (no (unknown) (unknown) CT scan - head: (units (unknown) date) unknown) (unknown) (no (unknown) (unknown) CTA - brain/neck: (units (unknown) date) unknown) (unknown) (no (unknown) (unknown) Calcium (8.4-10.2) (units (unknown) date) mg/dL unknown) (unknown) (no (unknown) (unknown) Calcium 8.8 (units (un known) date) (8.4-10.2) mg/dL unknown) (unknown) (no (unknown) (unknown) Carbon Dioxide (units (unknown) date) (22-32) mmol/L unknown) (unknown) (no (unknown) (unknown) Carbon Dioxide 31 (units (unknown) date) (22-32) mmol/L unknown) (unknown) (no (unknown) (unknown) Carotid Doppler (units (unknown) date) Study (Signed) unknown) (unknown) (no (unknown) (unknown) Carotid system:? (units (unknown) date) The aortic arch and unknown) bilateral common carotid arteries are (unknown) (no (unknown) (unknown) Cervical Spine CT (units (unknown) date) (Signed) unknown) (unknown) (no (unknown) (unknown) Chest X-Ray (units (un known) date) (Signed) unknown) (unknown) (no (unknown) (unknown) Chest x-ray: (units (u nknown) date) unknown) (unknown) (no (unknown) (unknown) Chief Complaint: (units (unknown) date) Syncope unknown) (unknown) (no (unknown) (unknown) Chloride (98-107) (units (unknown) date) mmol/L unknown) (unknown) (no (unknown) (unknown) Chloride 99 (units (un known) date) (98-107) mmol/L unknown) (unknown) (no (unknown) (unknown) Clinical (units (unkno wn) date) Impression: unknown) (unknown) (no (unknown) (unknown) Close (units (unkno wn) date) unknown) (unknown) (no (unknown) (unknown) Complete Blood (units (unknown) date) Count AUTO DIFF Stat unknown) (unknown) (no (unknown) (unknown) Comprehensive (units ( unknown) date) Metabolic Panel Stat unknown) (unknown) (no (unknown) (unknown) Coronary artery (units (unknown) date) disease unknown) (unknown) (no (unknown) (unknown) Course (units (unkno wn) date) unknown) (unknown) (no (unknown) (unknown) Creatinine (units (unk nown) date) (0.52-1.04) mg/dL unknown) (unknown) (no (unknown) (unknown) Creatinine 1.27 H (units (unknown) date) (0.52-1.04) mg/dL unknown) (unknown) (no (unknown) (unknown) : 1955 (units (unknown) date) Acct:[id number] unknown) (unknown) (no (unknown) (unknown) : 1955 (units (unknown) date) unknown) (unknown) (no (unknown) (unknown) Date of Service: (units (unknown) date) 11/23/22 unknown) (unknown) (no (unknown) (unknown) Departure (units (unkn own) date) unknown) (unknown) (no (unknown) (unknown) Dictated by: Chad (units (unknown) date) Joann Tatum on unknown) 11/23/2022 at 12:34 ? ? (unknown) (no (unknown) (unknown) Dictated by: Chad (units (unknown) date) Joann Tatum on unknown) 11/23/2022 at 12:35 ? ? (unknown) (no (unknown) (unknown) Dictated by: Stefanie (units (unknown) date) Joann Bullard on unknown) 11/23/2022 at 11:58 ? ? (unknown) (no (unknown) (unknown) Discharge Plan (units (unknown) date) unknown) (unknown) (no (unknown) (unknown) Discussed that she (units (unknown) date) needs some follow-up unknown) we discussed trying to decrease your (unknown) (no (unknown) (unknown) Discussed with (units ( unknown) date) patient would like unknown) to keep for stroke workup and syncope, for MR, (unknown) (no (unknown) (unknown) Dysarthria: Normal (units (unknown) date) unknown) (unknown) (no (unknown) (unknown) ECG Data (units (unkno wn) date) unknown) (unknown) (no (unknown) (unknown) ED Orders (units (unkn own) date) unknown) (unknown) (no (unknown) (unknown) EKG 2. Sinus (units (u nknown) date) rhythm, rate of 64, unknown) RI 156 QRS is 76 QTC [address]. No acute ST (unknown) (no (unknown) (unknown) EKG-12 Lead Stat (units (unknown) date) unknown) (unknown) (no (unknown) (unknown) ER Physician: (units ( unknown) date) Risa Aquino D.O. unknown) (unknown) (no (unknown) (unknown) Emergency Report (units (unknown) date) unknown) (unknown) (no (unknown) (unknown) Eos # (Auto) (units (u nknown) date) (0-450) /uL unknown) (unknown) (no (unknown) (unknown) Eos # (Auto) 200 (units (unknown) date) (0-450) /uL unknown) (unknown) (no (unknown) (unknown) Eos % (Auto) (2-4) (units (unknown) date) % unknown) (unknown) (no (unknown) (unknown) Eos % (Auto) 3.4 (units (unknown) date) (2-4) % unknown) (unknown) (no (unknown) (unknown) Estimated GFR (>60) (unit s (unknown) date) mL/min unknown) (unknown) (no (unknown) (unknown) Estimated GFR 47 L (units (unknown) date) (>60) mL/min unknown) (unknown) (no (unknown) (unknown) Exam Narrative: (units (unknown) date) unknown) (unknown) (no (unknown) (unknown) Exam (units (unkno wn) date) unknown) (unknown) (no (unknown) (unknown) Extinction or (units ( unknown) date) inattention: No unknown) abnormality (unknown) (no (unknown) (unknown) FINDINGS:? (units (unk nown) date) unknown) (unknown) (no (unknown) (unknown) Facial palsy: (units ( unknown) date) Normal symetrical unknown) movement (unknown) (no (unknown) (unknown) GEN: well (units (unkn own) date) nourished, well unknown) appearing female, alert and oriented x 3, patient (unknown) (no (unknown) (unknown) :No CVA (units (unkn own) date) tenderness unknown) (unknown) (no (unknown) (unknown) General (units (unkno wn) date) unknown) (unknown) (no (unknown) (unknown) Globulin (1.7-4.1) (units (unknown) date) g/dL unknown) (unknown) (no (unknown) (unknown) Globulin 3.9 (units (u nknown) date) (1.7-4.1) g/dL unknown) (unknown) (no (unknown) (unknown) Glucose (80-110) (units (unknown) date) mg/dL unknown) (unknown) (no (unknown) (unknown) Glucose 110 (units (un known) date) (80-110) mg/dL unknown) (unknown) (no (unknown) (unknown) HEAD CT (units (unkno wn) date) ANGIOGRAPHY:? unknown) (unknown) (no (unknown) (unknown) HEART: Regular rate (unit s (unknown) date) and rhythm without unknown) murmur, clicks, rubs. No carotid bruits, (unknown) (no (unknown) (unknown) HEENT: Atraumatic, (units (unknown) date) pupils are equal unknown) round reactive to light, extraocular (unknown) (no (unknown) (unknown) HPI - Syncope (units ( unknown) date) unknown) (unknown) (no (unknown) (unknown) HPI narrative: (units (unknown) date) unknown) (unknown) (no (unknown) (unknown) Hand X-Ray (Signed) (unit s (unknown) date) unknown) (unknown) (no (unknown) (unknown) Hct (36-46) % (units ( unknown) date) unknown) (unknown) (no (unknown) (unknown) Hct 44.4 (36-46) % (units (unknown) date) unknown) (unknown) (no (unknown) (unknown) Head CT (Signed) (units (unknown) date) unknown) (unknown) (no (unknown) (unknown) Head CT (units (unkno wn) date) unknown) (unknown) (no (unknown) (unknown) Head/Neck CTA (units ( unknown) date) (Signed) unknown) (unknown) (no (unknown) (unknown) Head/Neck CTA (units ( unknown) date) unknown) (unknown) (no (unknown) (unknown) Hgb (12.0-16.0) (units (unknown) date) g/dL unknown) (unknown) (no (unknown) (unknown) Hgb 15.0 (units (unkno wn) date) (12.0-16.0) g/dL unknown) (unknown) (no (unknown) (unknown) History of Present (units (unknown) date) Illness unknown) (unknown) (no (unknown) (unknown) Home Medications (units (unknown) date) unknown) (unknown) (no (unknown) (unknown) I suspect your (units (unknown) date) recent COVID unknown) infection is exacerbating your current symptoms. (unknown) (no (unknown) (unknown) I would recommend (units (unknown) date) continuing to unknown) monitor your blood pressure as it may increase (unknown) (no (unknown) (unknown) I would recommend (units (unknown) date) decreasing your unknown) metoprolol from 100 mg daily(1 tablet) to 50 (unknown) (no (unknown) (unknown) IMPRESSION:? No (units (unknown) date) acute unknown) cardiopulmonary findings. (unknown) (no (unknown) (unknown) IMPRESSION:? No (units (unknown) date) acute intracranial unknown) finding. (unknown) (no (unknown) (unknown) IMPRESSION:? No (units (unknown) date) hemodynamically unknown) significant stenosis or occlusion of the major (unknown) (no (unknown) (unknown) INDICATIONS:? chest (unit s (unknown) date) pain unknown) (unknown) (no (unknown) (unknown) INDICATIONS:? (units ( unknown) date) syncope, vision unknown) loss. (unknown) (no (unknown) (unknown) INDICATIONS:? (units ( unknown) date) vision loss eye, unknown) intermittent syncope (unknown) (no (unknown) (unknown) INJECT UP TO 55 (units (unknown) date) UNITS PER DAY VIA unknown) INSULIN PUMP (unknown) (no (unknown) (unknown) INR (0.9-1.3) (units ( unknown) date) unknown) (unknown) (no (unknown) (unknown) INR 1.0 (0.9-1.3) (units (unknown) date) unknown) (unknown) (no (unknown) (unknown) Image quality:? (units (unknown) date) Excellent.? unknown) (unknown) (no (unknown) (unknown) Imaging Data (units (u nknown) date) unknown) (unknown) (no (unknown) (unknown) Initial Vital Signs (unit s (unknown) date) unknown) (unknown) (no (unknown) (unknown) Initial Vital (units ( unknown) date) Signs: unknown) (unknown) (no (unknown) (unknown) Instructions: DI (units (unknown) date) for Orthostatic unknown) Hypotension (unknown) (no (unknown) (unknown) Interpretation: (units (unknown) date) unknown) (unknown) (no (unknown) (unknown) [facility] (units (unknown) date) [address] unknown) [place] [address] (unknown) (no (unknown) (unknown) [facility] (units (unknown) date) unknown) (unknown) (no (unknown) (unknown) Omari Mason (units ( unknown) date) unknown) (unknown) (no (unknown) (unknown) Stefanie Bullard (units (un known) date) unknown) (unknown) (no (unknown) (unknown) LUNGS:Lungs clear (units (unknown) date) to auscultation, no unknown) wheezes, rales, crackles, chest moves (unknown) (no (unknown) (unknown) Lab Data (units (unkno wn) date) unknown) (unknown) (no (unknown) (unknown) Lab Results (units (un known) date) unknown) (unknown) (no (unknown) (unknown) Label Comments: (units (unknown) date) unknown) (unknown) (no (unknown) (unknown) Labs: (units (unkno wn) date) unknown) (unknown) (no (unknown) (unknown) Launch?Image (units (u nknown) date) unknown) (unknown) (no (unknown) (unknown) Left arm drift: No (units (unknown) date) drift for full 10 unknown) sec (unknown) (no (unknown) (unknown) Left leg drift: No (units (unknown) date) drift for full 5 sec unknown) (unknown) (no (unknown) (unknown) Level of (units (unkno wn) date) Conciousness: Alert, unknown) keenly responsive (unknown) (no (unknown) (unknown) Limb ataxia: Absent (unit s (unknown) date) unknown) (unknown) (no (unknown) (unknown) Limitations: no (units (unknown) date) limitations unknown) (unknown) (no (unknown) (unknown) Lipase (23-300) U/L (unit s (unknown) date) unknown) (unknown) (no (unknown) (unknown) Lipase 22 L (units (un known) date) (23-300) U/L unknown) (unknown) (no (unknown) (unknown) Lipase Stat (units (un known) date) unknown) (unknown) (no (unknown) (unknown) Loc: ED (units (unkno wn) date) unknown) (unknown) (no (unknown) (unknown) Lungs and pleura:? (units (unknown) date) Lungs are clear.? No unknown) pleural effusions or pneumothorax.? (unknown) (no (unknown) (unknown) Lymph # (Auto) (units (unknown) date) (2205-3481) /uL unknown) (unknown) (no (unknown) (unknown) Lymph # (Auto) 1500 (unit s (unknown) date) (1064-6487) /uL unknown) (unknown) (no (unknown) (unknown) Lymph % (Auto) (units (unknown) date) (25-40) % unknown) (unknown) (no (unknown) (unknown) Lymph % (Auto) 20.9 (unit s (unknown) date) L (25-40) % unknown) (unknown) (no (unknown) (unknown) MCH (26-34) PG (units (unknown) date) unknown) (unknown) (no (unknown) (unknown) MCH 30.6 (26-34) PG (unit s (unknown) date) unknown) (unknown) (no (unknown) (unknown) MCHC (30-36) % (units (unknown) date) unknown) (unknown) (no (unknown) (unknown) MCHC 33.8 (30-36) % (unit s (unknown) date) unknown) (unknown) (no (unknown) (unknown) MCV (80-100) fL (units (unknown) date) unknown) (unknown) (no (unknown) (unknown) MCV 90.6 (80-100) (units (unknown) date) fL unknown) (unknown) (no (unknown) (unknown) MDM - Syncope (units ( unknown) date) unknown) (unknown) (no (unknown) (unknown) MDM Narrative (units ( unknown) date) unknown) (unknown) (no (unknown) (unknown) MR#: [id number] (units (unknown) date) unknown) (unknown) (no (unknown) (unknown) MSCL: Non-tender, (units (unknown) date) no muscle atrophy, unknown) muscles strength 5/5 upper and lower (unknown) (no (unknown) (unknown) Magnesium (1.6-2.3) (unit s (unknown) date) mg/dL unknown) (unknown) (no (unknown) (unknown) Magnesium 2.0 (units ( unknown) date) (1.6-2.3) mg/dL unknown) (unknown) (no (unknown) (unknown) Magnesium Stat (units (unknown) date) unknown) (unknown) (no (unknown) (unknown) [place] (units (unknown) date) unknown) (unknown) (no (unknown) (unknown) Mammogram Screening (unit s (unknown) date) (Signed) unknown) (unknown) (no (unknown) (unknown) Mediastinum:? (units ( unknown) date) Mediastinal contours unknown) appear normal.? Heart size is normal.? (unknown) (no (unknown) (unknown) Medical History (units (unknown) date) (Reviewed 11/23/22 @ unknown) 13:52 by Risa Aquino DO) (unknown) (no (unknown) (unknown) Medical decision (units (unknown) date) making narrative: unknown) (unknown) (no (unknown) (unknown) Medication (units (unk nown) date) Instructions unknown) Recorded Confirmed (unknown) (no (unknown) (unknown) Medication (units (unk nown) date) Instructions unknown) Recorded (unknown) (no (unknown) (unknown) Mode of arrival: (units (unknown) date) Family Vehicle unknown) (unknown) (no (unknown) (unknown) [place] # (Auto) (units ( unknown) date) (0-900) /uL unknown) (unknown) (no (unknown) (unknown) [place] # (Auto) 500 (units (unknown) date) (0-900) /uL unknown) (unknown) (no (unknown) (unknown) [place] % (Auto) (units ( unknown) date) (3-14) % unknown) (unknown) (no (unknown) (unknown) [place] % (Auto) 6.4 (units (unknown) date) (3-14) % unknown) (unknown) (no (unknown) (unknown) NECK CT (units (unkno wn) date) ANGIOGRAPHY:? unknown) (unknown) (no (unknown) (unknown) NEURO:CN 2-12 (units ( unknown) date) intact, sensation unknown) normal, finger nose finger test normal, heel (unknown) (no (unknown) (unknown) NIH Stroke Scale (units (unknown) date) unknown) (unknown) (no (unknown) (unknown) NT-Pro-B Natriuret (units (unknown) date) Pep (<125) pg/mL unknown) (unknown) (no (unknown) (unknown) NT-Pro-B Natriuret (units (unknown) date) Pep 104 (<125) pg/mL unknown) (unknown) (no (unknown) (unknown) Narrative (units (unkn own) date) unknown) (unknown) (no (unknown) (unknown) Neut # (Auto) (units ( unknown) date) (2305-6780) /uL unknown) (unknown) (no (unknown) (unknown) Neut # (Auto) 5000 (units (unknown) date) (7945-1677) /uL unknown) (unknown) (no (unknown) (unknown) Neut % (Auto) (units ( unknown) date) (50-75) % unknown) (unknown) (no (unknown) (unknown) Neut % (Auto) 68.5 (units (unknown) date) (50-75) % unknown) (unknown) (no (unknown) (unknown) [place] (units ( unknown) date) unknown) (unknown) (no (unknown) (unknown) No Action (units (unkn own) date) unknown) (unknown) (no (unknown) (unknown) No significant (units (unknown) date) medical problems unknown) (unknown) (no (unknown) (unknown) Noncontrast 4.5 mm (units (unknown) date) thick angled axial unknown) sections acquired from the foramen magnum (unknown) (no (unknown) (unknown) Open/close eyes, (units (unknown) date) close hand: Performs unknown) both tasks correctly (unknown) (no (unknown) (unknown) Orbits appear (units ( unknown) date) normal.? unknown) (unknown) (no (unknown) (unknown) Ordered: (units (unkno wn) date) unknown) (unknown) (no (unknown) (unknown) Ordering Provider: (units (unknown) date) Risa Aquino D.O. unknown) (unknown) (no (unknown) (unknown) Orders (units (unkno wn) date) unknown) (unknown) (no (unknown) (unknown) Orthostatics were (units (unknown) date) obtained and are unknown) negative although patient felt dizzy, sitting (unknown) (no (unknown) (unknown) Oxygen Delivery (units (unknown) date) Method 11/23/22 unknown) 11:25 (unknown) (no (unknown) (unknown) Oxygen Delivery (units (unknown) date) Method Room Air unknown) (unknown) (no (unknown) (unknown) Oxygen Delivery (units (unknown) date) Method unknown) (unknown) (no (unknown) (unknown) PROCEDURE:? CT (units (unknown) date) ANGIO HEAD AND NECK unknown) (unknown) (no (unknown) (unknown) PROCEDURE:? CT (units (unknown) date) HEAD/BRAIN WO CON unknown) (unknown) (no (unknown) (unknown) PROCEDURE:? XR (units (unknown) date) CHEST 1V unknown) (unknown) (no (unknown) (unknown) PT (10.1-12.7) (units (unknown) date) SECONDS unknown) (unknown) (no (unknown) (unknown) PT 12.0 (10.1-12.7) (unit s (unknown) date) SECONDS unknown) (unknown) (no (unknown) (unknown) Partial (units (unkno wn) date) Thromboplastin Time unknown) Stat (unknown) (no (unknown) (unknown) Patient (units (unkno wn) date) Disposition: Home unknown) (unknown) (no (unknown) (unknown) Patient History (units (unknown) date) unknown) (unknown) (no (unknown) (unknown) Patient has prior (units (unknown) date) from 07/27/2022 it unknown) appears similar. (unknown) (no (unknown) (unknown) Patient has repeat (units (unknown) date) troponin and EKG are unknown) negative with no acute changes. NIH is (unknown) (no (unknown) (unknown) Patient: (units (unkno wn) date) Laverne Mendoza MR#: unknown) [id number] (unknown) (no (unknown) (unknown) Patient: (units (unkno wn) date) Laverne Mendoza unknown) (unknown) (no (unknown) (unknown) Please follow-up (units (unknown) date) with your physician unknown) as you have elected not to stay for (unknown) (no (unknown) (unknown) Please return for (units (unknown) date) worsening symptoms, unknown) new headaches, vision changes, recurrent (unknown) (no (unknown) (unknown) Plt Count (150-400) (unit s (unknown) date) X103/uL unknown) (unknown) (no (unknown) (unknown) Plt Count 317 (units ( unknown) date) (150-400) X103/uL unknown) (unknown) (no (unknown) (unknown) Posterior (units (unkno wn) date) circulation:? The unknown) origins of the vertebral arteries both appear widely (unknown) (no (unknown) (unknown) Posterior (units (unkn own) date) circulation:? unknown) Visualized portions of the vertebral arteries (unknown) (no (unknown) (unknown) Potassium (3.4-5.1) (unit s (unknown) date) mmol/L unknown) (unknown) (no (unknown) (unknown) Potassium 3.8 (units ( unknown) date) (3.4-5.1) mmol/L unknown) (unknown) (no (unknown) (unknown) Pre-contrast 4.5 mm (unit s (unknown) date) thick sections unknown) acquired from the foramen magnum to the (unknown) (no (unknown) (unknown) Prescriptions: (units (unknown) date) unknown) (unknown) (no (unknown) (unknown) Previous Rx's (units ( unknown) date) unknown) (unknown) (no (unknown) (unknown) Prior ECG tracings: (unit s (unknown) date) available for review unknown) (unknown) (no (unknown) (unknown) Procedure: CT angio (unit s (unknown) date) head and neck unknown) (unknown) (no (unknown) (unknown) Procedure: CT (units ( unknown) date) head/brain wo con unknown) (unknown) (no (unknown) (unknown) Procedure: XR chest (unit s (unknown) date) 1V unknown) (unknown) (no (unknown) (unknown) Prothrombin Time (units (unknown) date) INR Stat unknown) (unknown) (no (unknown) (unknown) Pulse Oximetry 100 (units (unknown) date) 96 unknown) (unknown) (no (unknown) (unknown) Pulse Oximetry 100 (units (unknown) date) 99 unknown) (unknown) (no (unknown) (unknown) Pulse Oximetry 88 L (unit s (unknown) date) unknown) (unknown) (no (unknown) (unknown) Pulse Oximetry 97 (units (unknown) date) 100 unknown) (unknown) (no (unknown) (unknown) Pulse Oximetry 99 (units (unknown) date) 11/23/22 11:25 unknown) (unknown) (no (unknown) (unknown) Pulse Oximetry 99 (units (unknown) date) 100 unknown) (unknown) (no (unknown) (unknown) Pulse Oximetry 99 (units (unknown) date) 98 unknown) (unknown) (no (unknown) (unknown) Pulse Oximetry 99 (units (unknown) date) 99 unknown) (unknown) (no (unknown) (unknown) Pulse Oximetry 99 (units (unknown) date) unknown) (unknown) (no (unknown) (unknown) Pulse Rate 64 64 (units (unknown) date) unknown) (unknown) (no (unknown) (unknown) Pulse Rate 64 66 (units (unknown) date) unknown) (unknown) (no (unknown) (unknown) Pulse Rate 64 (units ( unknown) date) unknown) (unknown) (no (unknown) (unknown) Pulse Rate 66 69 (units (unknown) date) unknown) (unknown) (no (unknown) (unknown) Pulse Rate 66 (units ( unknown) date) unknown) (unknown) (no (unknown) (unknown) Pulse Rate 69 63 (units (unknown) date) unknown) (unknown) (no (unknown) (unknown) Pulse Rate 71 (units ( unknown) date) 11/23/22 11:25 unknown) (unknown) (no (unknown) (unknown) Pulse Rate 71 66 (units (unknown) date) unknown) (unknown) (no (unknown) (unknown) Pulse Rate 71 74 (units (unknown) date) unknown) (unknown) (no (unknown) (unknown) Pulse Rate (units (unk nown) date) [Orthostatic Lying] unknown) 70 (unknown) (no (unknown) (unknown) Pulse Rate (units (unk nown) date) [Orthostatic Lying] unknown) (unknown) (no (unknown) (unknown) Pulse Rate (units (unk nown) date) [Orthostatic unknown) Sitting] 70 (unknown) (no (unknown) (unknown) Pulse Rate (units (unk nown) date) [Orthostatic unknown) Sitting] (unknown) (no (unknown) (unknown) Pulse Rate (units (unk nown) date) [Orthostatic unknown) Standing] 73 (unknown) (no (unknown) (unknown) Pulse Rate (units (unk nown) date) [Orthostatic unknown) Standing] (unknown) (no (unknown) (unknown) RBC (4.0-5.2) (units ( unknown) date) X106/uL unknown) (unknown) (no (unknown) (unknown) RBC 4.90 (4.0-5.2) (units (unknown) date) X106/uL unknown) (unknown) (no (unknown) (unknown) RDW (11.6-14.8) % (units (unknown) date) unknown) (unknown) (no (unknown) (unknown) RDW 13.1 (units (unkno wn) date) (11.6-14.8) % unknown) (unknown) (no (unknown) (unknown) ROS Unobtainable: (units (unknown) date) All systems reviewed unknown) + are unremarkable except as noted in HPI (unknown) (no (unknown) (unknown) Radiologist's (units ( unknown) date) Impression: unknown) (unknown) (no (unknown) (unknown) Referrals: (units (unk nown) date) unknown) (unknown) (no (unknown) (unknown) Related Data (units (u nknown) date) unknown) (unknown) (no (unknown) (unknown) Respiratory Rate 10 (unit s (unknown) date) L 12 unknown) (unknown) (no (unknown) (unknown) Respiratory Rate 13 (unit s (unknown) date) unknown) (unknown) (no (unknown) (unknown) Respiratory Rate 14 (unit s (unknown) date) 0 L unknown) (unknown) (no (unknown) (unknown) Respiratory Rate 14 (unit s (unknown) date) 17 unknown) (unknown) (no (unknown) (unknown) Respiratory Rate 19 (unit s (unknown) date) 11/23/22 11:25 unknown) (unknown) (no (unknown) (unknown) Respiratory Rate 19 (unit s (unknown) date) 12 unknown) (unknown) (no (unknown) (unknown) Respiratory Rate 19 (unit s (unknown) date) 9 L unknown) (unknown) (no (unknown) (unknown) Respiratory Rate 2 (units (unknown) date) L 14 unknown) (unknown) (no (unknown) (unknown) Respiratory Rate 28 (unit s (unknown) date) H unknown) (unknown) (no (unknown) (unknown) Respiratory Rate 6 (units (unknown) date) L unknown) (unknown) (no (unknown) (unknown) Review of Systems (units (unknown) date) unknown) (unknown) (no (unknown) (unknown) Laverne Mendoza??67??F? (unit s (unknown) date) ?1955 unknown) (unknown) (no (unknown) (unknown) Ribs X-Ray (Signed) (unit s (unknown) date) unknown) (unknown) (no (unknown) (unknown) Right arm drift: No (unit s (unknown) date) drift for full 10 unknown) sec (unknown) (no (unknown) (unknown) Right leg drift: No (unit s (unknown) date) drift for full 5 sec unknown) (unknown) (no (unknown) (unknown) Chad Tatum (units (u nknown) date) unknown) (unknown) (no (unknown) (unknown) SARS-CoV-2 (PCR) (units (unknown) date) (Negative) unknown) (unknown) (no (unknown) (unknown) SARS-CoV-2 (PCR) (units (unknown) date) Positive H unknown) (Negative) (unknown) (no (unknown) (unknown) Scores (units (unkno wn) date) unknown) (unknown) (no (unknown) (unknown) Sensory on (units (unk nown) date) face/arms/legs: unknown) Normal, no sensory loss (unknown) (no (unknown) (unknown) She does have some (units (unknown) date) occasional neck pain unknown) on the left states her both her arms (unknown) (no (unknown) (unknown) Signed By: (units (unk nown) date) unknown) (unknown) (no (unknown) (unknown) Signed (units (unkno wn) date) unknown) (unknown) (no (unknown) (unknown) Sinus rhythm rate (units (unknown) date) of 66 RI 142 QRS is unknown) [address] QTC [address]. No acute ST changes (unknown) (no (unknown) (unknown) Sinuses:? Mild (units (unknown) date) diffuse paranasal unknown) sinus mucosal thickening. (unknown) (no (unknown) (unknown) Sinuses:? (units (unkn own) date) Visualized sinuses unknown) and mastoids are clear.? (unknown) (no (unknown) (unknown) Skull and face:? (units (unknown) date) Calvarium and facial unknown) bones appear intact, without suspicious (unknown) (no (unknown) (unknown) Skull and face:? (units (unknown) date) Calvarium and unknown) visualized facial bones appear intact, without (unknown) (no (unknown) (unknown) Smoking Status: (units (unknown) date) Never smoker unknown) (unknown) (no (unknown) (unknown) Social History (units (unknown) date) (Reviewed 11/23/22 @ unknown) 13:52 by Risa Aquino DO) (unknown) (no (unknown) (unknown) Sodium (137-145) (units (unknown) date) mmol/L unknown) (unknown) (no (unknown) (unknown) Sodium 140 (units (unk nown) date) (137-145) mmol/L unknown) (unknown) (no (unknown) (unknown) Soft tissues:? (units (unknown) date) Visualized neck soft unknown) tissues demonstrate no suspicious (unknown) (no (unknown) (unknown) Source: patient (units (unknown) date) unknown) (unknown) (no (unknown) (unknown) Stand Alone Forms: (units (unknown) date) Patient Portal/API unknown) (unknown) (no (unknown) (unknown) Stated Complaint: (units (unknown) date) Sent by DR giron unknown) passing out losing vision T-5 (unknown) (no (unknown) (unknown) Substance Use Type: (unit s (unknown) date) does not use unknown) (unknown) (no (unknown) (unknown) Surgical changes (units (unknown) date) and devices:? None.? unknown) (unknown) (no (unknown) (unknown) Syncope, Changes in (unit s (unknown) date) vision, COVID-19 unknown) virus infection (unknown) (no (unknown) (unknown) TECHNIQUE:? One (units (unknown) date) view of the chest unknown) was acquired.? (unknown) (no (unknown) (unknown) TECHNIQUE:? (units (un known) date) unknown) (unknown) (no (unknown) (unknown) Talk with your (units (unknown) date) physician about unknown) getting an echo, Holter monitor and MRI to more (unknown) (no (unknown) (unknown) Telemetry Strips (units (unknown) date) unknown) (unknown) (no (unknown) (unknown) Temperature 97.2 F (units (unknown) date) L 11/23/22 11:25 unknown) (unknown) (no (unknown) (unknown) Temperature 97.2 F (units (unknown) date) L unknown) (unknown) (no (unknown) (unknown) Temperature (units (un known) date) unknown) (unknown) (no (unknown) (unknown) The flow within the (unit s (unknown) date) middle cerebral unknown) arteries is normal and symmetric.? The (unknown) (no (unknown) (unknown) The more superior (units (unknown) date) extracranial unknown) portions of both vertebral arteries also (unknown) (no (unknown) (unknown) This is a (units (unkn own) date) 67-year-old female unknown) who has sounds like recurrent syncopal episodes (unknown) (no (unknown) (unknown) This is a (units (unkno wn) date) 67-year-old with unknown) complaint of intermittent episodes of syncope as well (unknown) (no (unknown) (unknown) Time Seen by (units (u nknown) date) Provider: 11/23/22 unknown) 11:27 (unknown) (no (unknown) (unknown) Total Bilirubin (units (unknown) date) (0.2-1.3) mg/dL unknown) (unknown) (no (unknown) (unknown) Total Bilirubin 0.5 (unit s (unknown) date) (0.2-1.3) mg/dL unknown) (unknown) (no (unknown) (unknown) Total Creatine (units (unknown) date) Kinase (30-135) U/L unknown) (unknown) (no (unknown) (unknown) Total Creatine (units (unknown) date) Kinase 81 (30-135) unknown) U/L (unknown) (no (unknown) (unknown) Total NIH Stroke (units (unknown) date) scale score: 0 unknown) (unknown) (no (unknown) (unknown) Total Protein (units ( unknown) date) (6.3-8.2) g/dL unknown) (unknown) (no (unknown) (unknown) Total Protein 8.0 (units (unknown) date) (6.3-8.2) g/dL unknown) (unknown) (no (unknown) (unknown) Trop I [Troponin I] (unit s (unknown) date) Stat unknown) (unknown) (no (unknown) (unknown) Troponin + CK (units ( unknown) date) Cardiac Panel Stat unknown) (unknown) (no (unknown) (unknown) Troponin I < 0.012 (units (unknown) date) (0.01-0.034) ng/mL unknown) (unknown) (no (unknown) (unknown) Type 1 diabetes (units (unknown) date) unknown) (unknown) (no (unknown) (unknown) U-100 Insulin) (units (unknown) date) unknown) (unknown) (no (unknown) (unknown) Vascular Ultrasound (unit s (unknown) date) (Signed) unknown) (unknown) (no (unknown) (unknown) Visual worthy: No (units (unknown) date) visual loss unknown) (unknown) (no (unknown) (unknown) Vital Signs - 8 hr (units (unknown) date) unknown) (unknown) (no (unknown) (unknown) Vital Signs (units (un known) date) unknown) (unknown) (no (unknown) (unknown) Vital signs: (units (u nknown) date) unknown) (unknown) (no (unknown) (unknown) WBC (4.5-11.0) (units (unknown) date) X103/uL unknown) (unknown) (no (unknown) (unknown) WBC 7.3 (4.5-11.0) (units (unknown) date) X103/uL unknown) (unknown) (no (unknown) (unknown) Marty Curtis (units (u nknown) date) unknown) (unknown) (no (unknown) (unknown) XR chest 1V Stat (units (unknown) date) unknown) (unknown) (no (unknown) (unknown) XRay Report (units (un known) date) unknown) (unknown) (no (unknown) (unknown) [place] (units (unkno wn) date) unknown) (unknown) (no (unknown) (unknown) [Embedded Image Not (unit s (unknown) date) Available] unknown) (unknown) (no (unknown) (unknown) a few minutes and (units (unknown) date) will get better. It unknown) is not clearly associated with her loss (unknown) (no (unknown) (unknown) abnormalities.? (units (unknown) date) unknown) (unknown) (no (unknown) (unknown) acetaminophen 325 (units (unknown) date) mg Tablet unknown) (unknown) (no (unknown) (unknown) acetaminophen 325 (units (unknown) date) mg tablet 975 mg PO unknown) Q8H PRN Pain, Mild (1-3) 07/31/22 (unknown) (no (unknown) (unknown) acquired (units (unkno wn) date) unknown) (unknown) (no (unknown) (unknown) alcohol intake (units (unknown) date) frequency: unknown) holidays/special occasions only (unknown) (no (unknown) (unknown) alcohol intake: (units (unknown) date) current unknown) (unknown) (no (unknown) (unknown) aligned.? 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 For unknown) radiation dose reduction, the following was used:? (unknown) (no (unknown) (unknown) and (units (unkno wn) date) unknown) (unknown) (no (unknown) (unknown) and/or volume (units ( unknown) date) rendering reformats unknown) were acquired of the central intracranial (unknown) (no (unknown) (unknown) ankle. No tobacco, (units (unknown) date) no alcohol, no unknown) illicit. Her primary is in [place]. (unknown) (no (unknown) (unknown) anterior (units (unkno wn) date) unknown) (unknown) (no (unknown) (unknown) appear (units (unkno wn) date) unknown) (unknown) (no (unknown) (unknown) appears intact.? (units (unknown) date) unknown) (unknown) (no (unknown) (unknown) appears to be in (units (unknown) date) mild distress. unknown) (unknown) (no (unknown) (unknown) appreciated. (units (u nknown) date) unknown) (unknown) (no (unknown) (unknown) arch through the (units (unknown) date) [place].? unknown) Post-contrast 4.5 mm thick sections then re (unknown) (no (unknown) (unknown) arteries and (units (u nknown) date) unknown) (unknown) (no (unknown) (unknown) artery.? (units (unkno wn) date) unknown) (unknown) (no (unknown) (unknown) as vision change. (units (unknown) date) Patient states unknown) typically episodes will happen she will wake (unknown) (no (unknown) (unknown) as well head CT and (unit s (unknown) date) CT angio were unknown) negative, CBC is negative, coags are negative (unknown) (no (unknown) (unknown) automated (units (unkn own) date) unknown) (unknown) (no (unknown) (unknown) bupropion HCl 150 (units (unknown) date) mg tablet unknown) sustained-release 12 hr (unknown) (no (unknown) (unknown) bupropion HCl 150 (units (unknown) date) mg tablet,12 hr 150 unknown) mg PO DAILY 07/27/22 07/27/22 (unknown) (no (unknown) (unknown) but she states in (units (unknown) date) the right she will unknown) note that everything started goes black for (unknown) (no (unknown) (unknown) calcifications (units (unknown) date) unknown) (unknown) (no (unknown) (unknown) caliber, and join (units (unknown) date) to form a normal unknown) appearing basilar artery.? Flow within the (unknown) (no (unknown) (unknown) carotid artery (units (unknown) date) atherosclerosis.? unknown) (unknown) (no (unknown) (unknown) carotid termini are (unit s (unknown) date) widely patent. unknown) (unknown) (no (unknown) (unknown) cerebral arteries (units (unknown) date) is normal and unknown) symmetric.? No aneurysms are seen.? (unknown) (no (unknown) (unknown) changes do not seem (unit s (unknown) date) to be associated unknown) with that and I would like to keep her for (unknown) (no (unknown) (unknown) clopidogrel 75 mg (units (unknown) date) tablet 75 mg PO unknown) DAILY 07/27/22 07/27/22 (unknown) (no (unknown) (unknown) clopidogrel 75 mg (units (unknown) date) tablet unknown) (unknown) (no (unknown) (unknown) codeine AdvReac (units (unknown) date) Verified 07/28/22 unknown) 08:51 (unknown) (no (unknown) (unknown) communicating (units ( unknown) date) artery is seen.? No unknown) aneurysms are seen.? Atherosclerotic (unknown) (no (unknown) (unknown) conjunctival (units (u nknown) date) pallor. Throat is unknown) clear without any exudates, erythema, tonsillar (unknown) (no (unknown) (unknown) deep white matter (units (unknown) date) chronic small vessel unknown) ischemic changes.? There is intracranial (unknown) (no (unknown) (unknown) demonstrate normal (units (unknown) date) unknown) (unknown) (no (unknown) (unknown) demonstrate (units (un known) date) unknown) (unknown) (no (unknown) (unknown) details: (units (unknown) date) 7 years ago unknown) yesterday (unknown) (no (unknown) (unknown) duloxetine 60 mg (units (unknown) date) capsule,delayed 60 unknown) mg PO DAILY 07/27/22 07/27/22 (unknown) (no (unknown) (unknown) duloxetine 60 mg (units (unknown) date) capsule,delayed unknown) release(DR/EC) (unknown) (no (unknown) (unknown) echo, monitoring (units (unknown) date) with telemetry. I unknown) suspect patient is having some orthostatic (unknown) (no (unknown) (unknown) elevation or (units (u nknown) date) depression. unknown) (unknown) (no (unknown) (unknown) enlargement or (units (unknown) date) uvular deviation, unknown) mild facial droop on the right (unknown) (no (unknown) (unknown) exposure control, (units (unknown) date) adjustment of mA unknown) and/or kV according to patient size.? (unknown) (no (unknown) (unknown) extra-axial fluid (units (unknown) date) collections.? unknown) (unknown) (no (unknown) (unknown) extremities, full (units (unknown) date) range of motion, unknown) normal gait (unknown) (no (unknown) (unknown) extremities, loss (units (unknown) date) of bowel or bladder unknown) control, new numbness tingling or (unknown) (no (unknown) (unknown) feels sort of hard (units (unknown) date) to lift. She states unknown) that has been going on for 2 or 3 (unknown) (no (unknown) (unknown) flow.? The flow (units (unknown) date) within the paired unknown) anterior cerebral arteries is normal and (unknown) (no (unknown) (unknown) following (units (unkn own) date) unknown) (unknown) (no (unknown) (unknown) for age, (units (unkno wn) date) unknown) (unknown) (no (unknown) (unknown) from the foramen (units (unknown) date) magnum to the unknown) vertex.? 3-dimensional (unknown) (no (unknown) (unknown) fully evaluate your (unit s (unknown) date) symptoms. unknown) (unknown) (no (unknown) (unknown) further evaluation. (unit s (unknown) date) Patient discussed unknown) she is COVID positive today. This is (unknown) (no (unknown) (unknown) gabapentin 600 mg (units (unknown) date) tablet 600 mg PO unknown) DAILY 07/27/22 07/27/22 (unknown) (no (unknown) (unknown) gabapentin 600 mg (units (unknown) date) tablet unknown) (unknown) (no (unknown) (unknown) get up and wakes up (unit s (unknown) date) on the floor. She unknown) states it has been happening with (unknown) (no (unknown) (unknown) happened a few (units (unknown) date) times during the unknown) daytime but is more consistent at night. She is (unknown) (no (unknown) (unknown) household members: (units (unknown) date) family and children unknown) (unknown) (no (unknown) (unknown) hydrocodone Allergy (unit s (unknown) date) Intermediate unknown) Verified 07/30/22 12:12 (unknown) (no (unknown) (unknown) hypotension causing (unit s (unknown) date) her syncopal unknown) episodes but we discussed that her vision (unknown) (no (unknown) (unknown) if this improves (units (unknown) date) your symptoms. unknown) (unknown) (no (unknown) (unknown) increasing (units (unk nown) date) frequency in his unknown) happen 10 times in the last week. She states it is (unknown) (no (unknown) (unknown) insulin lispro 100 (units (unknown) date) unit/mL 55 unit unknown) SUBCUT DAILY PRN 07/27/22 07/27/22 (unknown) (no (unknown) (unknown) insulin lispro (units (unknown) date) [Humalog U-100 unknown) Insulin] 100 unit/mL solution (unknown) (no (unknown) (unknown) interface (units (unkn own) date) unknown) (unknown) (no (unknown) (unknown) internal (units (unkno wn) date) unknown) (unknown) (no (unknown) (unknown) intracranial or (units (unknown) date) cervical arterial unknown) vasculature.? Bilateral of the [place] neck (unknown) (no (unknown) (unknown) left upper (units (unk nown) date) extremity unknown) (unknown) (no (unknown) (unknown) lesions.? (units (unkn own) date) unknown) (unknown) (no (unknown) (unknown) likely exacerbating (unit s (unknown) date) her symptoms but not unknown) the cause of her problem. Patient (unknown) (no (unknown) (unknown) likely related (units (unknown) date) orthostatics she is unknown) on a beta-yan daily but has also had (unknown) (no (unknown) (unknown) lisinopril 10 mg (units (unknown) date) tablet 10 mg PO unknown) DAILY 07/27/22 07/27/22 (unknown) (no (unknown) (unknown) lisinopril 10 mg (units (unknown) date) tablet unknown) (unknown) (no (unknown) (unknown) lives (units (unkno wn) date) independently: No unknown) (Lives with her daughter) (unknown) (no (unknown) (unknown) loss of bowel and (units (unknown) date) bladder control the unknown) 1st time this happened which was June (unknown) (no (unknown) (unknown) marital status: (units (unknown) date) unknown) (unknown) (no (unknown) (unknown) masses noted, no (units (unknown) date) hepatosplenomegaly unknown) (unknown) (no (unknown) (unknown) [id number] (unit s (unknown) date) rojection (MIP) unknown) (unknown) (no (unknown) (unknown) meperidine [From (units (unknown) date) Demerol] AdvReac unknown) Verified 07/28/22 08:51 (unknown) (no (unknown) (unknown) metoprolol so she (units (unknown) date) still has coverage unknown) in terms of your heart arrhythmia but see (unknown) (no (unknown) (unknown) metoprolol (units (unk nown) date) succinate 100 mg 100 unknown) mg PO DAILY 07/27/22 07/27/22 (unknown) (no (unknown) (unknown) metoprolol (units (unk nown) date) succinate 100 mg unknown) tablet extended release 24 hr (unknown) (no (unknown) (unknown) mg daily (1/2 (units ( unknown) date) tablet) to see if unknown) this improves your symptoms. (unknown) (no (unknown) (unknown) months. She states (units (unknown) date) no issues with bowel unknown) movements or urination. She did have (unknown) (no (unknown) (unknown) morphine AdvReac (units (unknown) date) Mild Hallucinati unknown) Verified 07/27/22 18:54 (unknown) (no (unknown) (unknown) movements are (units ( unknown) date) intact, nares are unknown) clear, TMs are clear with no fluid, there is no (unknown) (no (unknown) (unknown) negative. (units (unkn own) date) unknown) (unknown) (no (unknown) (unknown) ng (units (unkno wn) date) unknown) (unknown) (no (unknown) (unknown) normal courses and (units (unknown) date) calibers.? They join unknown) to form a normal appearing basilar (unknown) (no (unknown) (unknown) noted at the (units (u nknown) date) carotid siphons. unknown) (unknown) (no (unknown) (unknown) observation. (units (u nknown) date) unknown) (unknown) (no (unknown) (unknown) of consciousness (units (unknown) date) episodes. She denies unknown) headaches. She denies chest pain, no (unknown) (no (unknown) (unknown) off aspirin, she (units (unknown) date) takes lisinopril and unknown) metoprolol, rosuvastatin. Patient states (unknown) (no (unknown) (unknown) oral powder packet (units (unknown) date) (Miralax) ea unknown) (unknown) (no (unknown) (unknown) over time. (units (unk nown) date) unknown) (unknown) (no (unknown) (unknown) oxycodone Allergy (units (unknown) date) Intermediate Uncoded unknown) 07/30/22 12:12 (unknown) (no (unknown) (unknown) passing out, (units (u nknown) date) dizziness, chest unknown) pain, shortness of breath, new swelling in her (unknown) (no (unknown) (unknown) patent.? No (units (un known) date) unknown) (unknown) (no (unknown) (unknown) patent.? (units (unkno wn) date) unknown) (unknown) (no (unknown) (unknown) patient (units (unkno wn) date) unknown) (unknown) (no (unknown) (unknown) periventricular and (unit s (unknown) date) unknown) (unknown) (no (unknown) (unknown) plaque (units (unkno wn) date) unknown) (unknown) (no (unknown) (unknown) polyethylene glycol (unit s (unknown) date) 3350 17 gram 17 g PO unknown) DAILY PRN constipation #14 07/31/22 (unknown) (no (unknown) (unknown) polyethylene glycol (unit s (unknown) date) 3350 [Miralax] 17 unknown) gram powder in packet (unknown) (no (unknown) (unknown) posterior (units (unkn own) date) unknown) (unknown) (no (unknown) (unknown) present.? (units (unkn own) date) Extracranial unknown) internal carotid arteries appear widely patent. (unknown) (no (unknown) (unknown) pulses are equal in (unit s (unknown) date) upper and lower unknown) extremities (unknown) (no (unknown) (unknown) release (units (unkno wn) date) unknown) (unknown) (no (unknown) (unknown) repair several (units (unknown) date) months ago when she unknown) had episode where she passed out broke her (unknown) (no (unknown) (unknown) right groin. (units (u nknown) date) Patient states prior unknown) hysterectomy and had an ankle fracture with (unknown) (no (unknown) (unknown) rosuvastatin 20 mg (units (unknown) date) tablet 20 mg PO unknown) DAILY 07/27/22 07/27/22 (unknown) (no (unknown) (unknown) rosuvastatin 20 mg (units (unknown) date) tablet unknown) (unknown) (no (unknown) (unknown) senna 8.6 mg (units (u nknown) date) capsule unknown) (unknown) (no (unknown) (unknown) sennosides 8.6 mg (units (unknown) date) capsule (senna) 8.6 unknown) mg PO DAILY PRN constipation 07/31/22 (unknown) (no (unknown) (unknown) she is had 2 heart (units (unknown) date) attacks, she is had unknown) cardiac stents and has a stent in her (unknown) (no (unknown) (unknown) wyman test normal, (units (unknown) date) romberg normal, unknown) patient has mild intention tremor particularly (unknown) (no (unknown) (unknown) shortness of (units (u nknown) date) breath, no nausea or unknown) vomiting no numbness, tingling or weakness. (unknown) (no (unknown) (unknown) since then. Patient (unit s (unknown) date) takes medication for unknown) anxiety, depression, Plavix she is now (unknown) (no (unknown) (unknown) size.? (units (unkno wn) date) unknown) (unknown) (no (unknown) (unknown) states she does not (unit s (unknown) date) wish to stay she unknown) understands risks versus benefits. (unknown) (no (unknown) (unknown) subcutaneous (units (u nknown) date) solution (Humalog unknown) Hyperglycemia (unknown) (no (unknown) (unknown) suspicious (units (unk nown) date) unknown) (unknown) (no (unknown) (unknown) sustained-release (units (unknown) date) unknown) (unknown) (no (unknown) (unknown) symmetric.? (units (un known) date) unknown) (unknown) (no (unknown) (unknown) symmetrically (units ( unknown) date) unknown) (unknown) (no (unknown) (unknown) tablet,extended (units (unknown) date) release 24 hr unknown) (unknown) (no (unknown) (unknown) the administration (units (unknown) date) of intravenous unknown) contrast, 1 mm thick sections acquired from (unknown) (no (unknown) (unknown) the aortic (units (unk nown) date) unknown) (unknown) (no (unknown) (unknown) to standing. (units (u nknown) date) unknown) (unknown) (no (unknown) (unknown) to the (units (unkno wn) date) unknown) (unknown) (no (unknown) (unknown) unremarkable.? (units (unknown) date) unknown) (unknown) (no (unknown) (unknown) up in the middle (units (unknown) date) the night be sitting unknown) on the edge of her bed getting ready to (unknown) (no (unknown) (unknown) vasculature (units (un known) date) unknown) (unknown) (no (unknown) (unknown) ventricles are (units (unknown) date) symmetric in size unknown) and shape.? (unknown) (no (unknown) (unknown) vertex, with (units (u nknown) date) coronal and sagittal unknown) reformats.? For radiation dose reduction, the (unknown) (no (unknown) (unknown) vertex.? After (units (unknown) date) unknown) (unknown) (no (unknown) (unknown) vision changes that (unit s (unknown) date) is not always unknown) consistently associated so had stroke workup (unknown) (no (unknown) (unknown) was used:? (units (unk nown) date) automated exposure unknown) control, adjustment of mA and/or kV according to (unknown) (no (unknown) (unknown) weakness, (units (unkn own) date) difficulty with unknown) speech or droop or other new or concerning changes. (unknown) (no (unknown) (unknown) widely patent. (units (unknown) date) unknown) (unknown) (no (unknown) (unknown) with a creatinine (units (unknown) date) 1.27 which is close unknown) to patient's baseline., AST is 44. (unknown) (no (unknown) (unknown) with resultant (units (unknown) date) ventricular and unknown) sulcal prominence.? There are moderate Social History date description facility 2022-11-23 00:00 Never smoked tobacco (finding) [facility] Vital Signs date measurement value units 2022-11-23 00:00 BMI 27.8 kg/m2 2022-11-23 00:00 BP_diastolic 70 mmHg 2022-11-23 00:00 BP_systolic 162 mmHg 2022-11-23 00:00 heart_rate 66 /min 2022-11-23 00:00 height_metric 162.56 cm 2022-11-23 00:00 height_standard 64 in 2022-11-23 00:00 o2_saturation 88 % 2022-11-23 00:00 respiration_rate 13 /min 2022-11-23 00:00 temperature_metric 36.22 C 2022-11-23 00:00 temperature_standard 97.2 F 2022-11-23 00:00 weight_metric 73.48 kg 2022-11-23 00:00 weight_standard 162 lb
--- NOTE | 2023-01-29 22:33 | ED Physician Documentation ---
History of Present Illness - Stated complaint Stated Complaint: FEVER,LETHARGIC,NO APPETITE - Chief complaint Chief Complaint: General - History obtained from History obtained from: Patient, Family - History of Present Illness Pain level max: 0 Pain level now: 0 - Additonal information Additional information: Patient is a 67-year-old female who has not been eating and drinking well for several months. She has had about a 40 pound weight loss. She had a CT scan last week with her primary care provider, does not yet know the results. Today she has just been feeling worse. She feels weak and dehydrated. Nothing makes it better or worse. No fever at home. Did have chills over the past few days. No cough or congestion. Patient states that she just does not feel hungry and does not feel like eating. Review of Systems Constitutional: denies: Fever GI: denies: Vomiting, Diarrhea Skin: denies: Rash Musculoskeletal: denies: Neck pain, Back pain Neurologic: denies: Headache PD PAST MEDICAL HISTORY - Past Medical History Past Medical History: Yes Cardiovascular: Coronary artery disease - Allergies Allergies/Adverse Reactions: Allergies Allergy/AdvReac Type Severity Reaction Status Date / Time Narcotics AdvReac Itching Uncoded 12/05/22 13:49 - Living Situation Living Arrangement: reports: At home - Social History Does the pt smoke?: No Does the pt have substance abuse?: No - Family History Family history: reports: Non contributory PD ED PE NORMAL - Vitals Vital signs reviewed: Yes - General General: Alert and oriented X 3, No acute distress - HEENT HEENT: PERRL, Other (Dry lips and tongue) - Neck Neck: Supple, no meningeal sign - Cardiac Cardiac: RRR - Respiratory Respiratory: No respiratory distress, Clear bilaterally - Abdomen Abdomen: Soft, Non tender, Non distended - Back Back: No CVA TTP, No spinal TTP - Derm Derm: Warm and dry - Extremities Extremities: No edema, No calf tenderness / cord - Neuro Neuro: Alert and oriented X 3 Results - Vitals Vitals: Vital Signs - 24 hr 01/29/23 01/29/23 18:27 22:28 Temperature 36.4 C L Heart Rate 84 76 Respiratory 14 18 Rate Blood Pressure 111/74 131/62 H O2 Saturation 100 100 Oxygen O2 Source Room air - Labs Labs: Laboratory Tests 01/29/23 01/29/23 01/29/23 18:55 18:55 21:09 WBC 7.2 RBC 5.33 Hgb 16.2 H Hct 49.1 H MCV 92.1 MCH 30.4 MCHC 33.0 RDW 13.2 Plt Count 326 MPV 11.2 H Neut # (Auto) 4.0 Lymph # (Auto) 2.6 [place] # (Auto) 0.4 Eos # (Auto) 0.1 Baso # (Auto) 0.1 Absolute Nucleated RBC 0.00 Nucleated RBC % 0.0 Sodium 138 Potassium 4.3 Chloride 100 L Carbon Dioxide 27 Anion Gap 11.0 BUN 28 H Creatinine 1.4 H Estimated GFR (MDRD) 38 L Glucose 188 H Calcium 9.7 Total Bilirubin 0.7 AST 18 ALT 14 Alkaline Phosphatase 80 Total Protein 7.9 Albumin 4.3 Globulin 3.6 Albumin/Globulin Ratio 1.2 Lipase 26 Urine Color YELLOW Urine Clarity CLEAR Urine pH 5.5 Ur Specific Fenton >=1.030 H Urine Protein NEGATIVE Urine Glucose (UA) NEGATIVE Urine Ketones TRACE Urine Occult Blood NEGATIVE Urine Nitrite NEGATIVE Urine Bilirubin NEGATIVE Urine Urobilinogen 0.2 (NORMAL) Ur Leukocyte Esterase SMALL H Urine RBC 0-5 Urine WBC 11-25 H Urine WBC Clumps PRESENT Ur Squamous Epith Cells FEW Squamous Urine Bacteria Few Urine Casts 3-5 Hyaline Casts Ur Microscopic Review INDICATED Urine Culture Comments INDICATED PD Medical Decision Making - ED course Complexity details: reviewed results, re-evaluated patient, considered differential, d/w patient, d/w computing consultant ED course: The patient's prior CT scans were reviewed. Concern for SMA syndrome. Discussed the case with her primary care provider. As the patient has lost approximately 40 pounds over the past several months and is failing conservative measures at this time, we will keep the patient in the emergency department overnight for possible PICC line placement in the morning with anesthesia. ZEENAT Antonio can write for TPN, social work will be consulted to see if we can help set this up as an outpatient for the patient. She was given Rocephin for a UTI. We will keep her on IV fluids overnight. There are no beds available in the hospital tonight. Patient is signed out to the oncoming emergency department physician. This document was made in part using voice recognition software. While efforts are made to proofread this document, sound alike and grammatical errors may occur. Departure - Departure Clinical Impression: SMAS (superior mesenteric artery syndrome), Dehydration UTI (urinary tract infection) Qualifiers: Urinary tract infection type: acute cystitis Hematuria presence: without hematuria Qualified Code(s): N30.00 - Acute cystitis without hematuria Malnutrition Qualifiers: Malnutrition type: unspecified type Qualified Code(s): E46 - Unspecified protein-calorie malnutrition Condition: Stable
[2023-01-29] MEDS ORDERED: INSULIN GLARGINE-YFGN 300 UNIT/3 ML PEN SUBQ STA (23:18)
[2023-01-30] MEDS ORDERED: LACTATED RINGERS 1,000 ML IV STA (09:56)
[2023-01-30] MEDS ORDERED: DEXTROSE 10% 250 ML IV STA (12:02)
--- NOTE | 2023-01-30 12:40 | ANESTHESIA PROCEDURE NOTE ---
Anesth Central Line Template - Central Line Central Line Preparation: Consent Obtained (Cath cut to 37cm, hubbed, secured. Easily aspirates and flushes with cap.), Time out completed, Ultrasound used, Sterile prep and drape Central line location: Right Basilic Central line type: PICC Single Lumen Central line catheter tip site resides: Superior vena cava (SVC) Central line aftercare: Secured, Placement confirmed, No pneumothorax, No complications, Bundle checklist complete, Pt tolerated well, Other
--- NOTE | 2023-01-30 13:09 | XRAY Report ---
PROCEDURE: Chest for Line Placement INDICATIONS: new PICC @R basilic v. TECHNIQUE: One view of the chest was acquired. COMPARISON: None. FINDINGS: Surgical changes and devices: Right-sided PICC line tip mid SVC. No pneumothorax Lungs and pleura: No pleural effusions or pneumothorax. Lungs are clear. Mediastinum: Mediastinal contours appear normal. Heart size is normal. Bones and chest wall: No suspicious bony lesions. Overlying soft tissues appear unremarkable. IMPRESSION: Right-sided PICC line tip in good position. No pneumothorax Reviewed by: Marty Curtis MD on 01/30/2023 12:07 PM AKDT Approved by: Marty Curtis MD on 01/30/2023 12:07 PM AKDT Station ID: [id number]
--- NOTE | 2023-01-30 16:47 | ED Physician Documentation ---
ED Addendum - Addendum Addendum: 01/30/23 16:41 The patient remained here in the ER overnight in order to get consultations with anesthesia for a PICC line and also nutrition and social work for setting up home TPN. The patient did have a low blood sugar this morning. She had had her usual insulin dose of Lantus 15 units last night. However she is eating and drinking less than usual. It should be noted she actually has not been eating anything solid for quite a while. Refer to the previous provider note. She has been drinking small amounts of fluid at a time which has included juices and Powerade and water. She has not tried protein calorie supplements. She states the insulin dose has been maintaining her sugars adequately at home. She has however lost weight because of the calorie malnutrition. Social work was working with a home health company. Barb the dietitian was also working with the TPN company. Was unclear whether they would make it there tomorrow or Saturday (1 or 2 days from now). However this seems really reasonable and that the patient has been without significant calorie input for a month or 2. The mullins part would be maintaining hydration and electrolyte balance. It was suggested to the patient that she try some sips of protein calorie type supplements such as Ensure. She had not tried these she says. At this point the patient does have a PICC line which had been placed by anesthesia and verified by x-ray. The patient has her PICC line and is comfortable. She has maintained her blood sugar through the day and has been drinking some fluids and juices. The bridges and buildings supervisor suggestion is to decrease her Lantus by 5 units from 15-10 for now until getting more sustained calories. This seems quite reasonable. The patient's clinic chart appears to have a referral placed today for gastroenterology and vascular surgery with the urgent level. The patient is comfortable heading home at this time. She states she feels much better having had 6 fluid hydration overnight and into today. Total she has had about 3 L or more of fluid since yesterday. There has been question of a urinary tract infection based on her initial UA. She is actually been here long enough to have a preliminary urine culture which is showing just mixed paula. No antibiotics indicated. Disposition: The patient discharged home in stable condition Diagnoses: 1. Poor calorie intake due to stomach pain and nausea 2. Weight loss due to unintentional inadequate calorie intake 3. SMA syndrome radiologically 4. Type 1 diabetes
[2023-01-30 16:59] VITALS: BP 136/66
== END 2023-01-30 17:56 | disposition home or self-care (01) ==
LOC: ED 18:16
DX: E86.0 Dehydration (principal); N30.00 Acute cystitis without hematuria; E46 Unspecified protein-calorie malnutrition; K55.1 Chronic vascular disorders of intestine; E10.9 Type 1 diabetes mellitus without complications
CPT/HCPCS: 36415; 80053; 81001; 83690; 85025; 87086; 96361; 96374; 99284; 99285; J1815; J3490; J7120; 81003

== ENCOUNTER 2023-02-22 11:37 | Emergency (ER) | payer MEDICARE ==
[2023-02-22 11:49] VITALS: BP 156/64
--- NOTE | 2023-02-22 12:48 | ED Physician Documentation ---
History of Present Illness - Stated complaint Stated Complaint: PIC LINE REMOVAL - Chief complaint Chief Complaint: General - Additonal information Additional information: Six 7-year-old female presents emergency department At the behest of her primary care provider requesting we remove the PICC line in her right upper arm. This patient had a history of SMAS. She has been off TPN now for over 3 weeks and tolerating a full solid diet. She is no longer having nausea, vomiting or abdominal pain and has gained 4 pounds. She denies any fevers, arm pain chest pain or shortness of air. Review of Systems Constitutional: reports: Reviewed and negative Nose: reports: Reviewed and negative Cardiac: reports: Reviewed and negative Respiratory: reports: Reviewed and negative GI: reports: Reviewed and negative PD PAST MEDICAL HISTORY - Past Medical History Cardiovascular: Coronary artery disease - Allergies Allergies/Adverse Reactions: Allergies Allergy/AdvReac Type Severity Reaction Status Date / Time Narcotics AdvReac Itching Uncoded 02/22/23 11:49 - Social History Does the pt smoke?: No Does the pt have substance abuse?: No PD ED PE EXPANDED - General General: Alert, No acute distress - Extremities Extremities: Right arm (PICC line is present in the right upper bicep area. It was easily removed intact. Simple gauze and Coban dressing applied over it.) Results - Vitals Vitals: Vital Signs - 24 hr 02/22/23 11:45 Temperature 36 C L Heart Rate 66 Respiratory 15 Rate Blood Pressure 156/64 H O2 Saturation 99 Oxygen O2 Source Room air PD Medical Decision Making - ED course Complexity details: d/w patient ED course: 67-year-old female referred to the emergency department by her primary care of dina for PICC line removal. This PICC line had been in place when she was hospitalized for SMAS. She had been receiving TPN but has not had any now for 3 weeks. She is tolerating a full solid diet. No abdominal pain nausea or vomiting. She has gained 4 pounds. PICC line was easily removed intact. Simple dressing applied. Routine care of the insertion site as well as usual emergent return precautions were discussed Departure - Departure Disposition: 01 Home, Self Care Clinical Impression: PIC line (peripherally inserted central catheter) removal Condition: Stable Record reviewed to determine appropriate education?: Yes Comments: As discussed at the bedside, by your request we removed your PICC line today intact. I do not expect any complications with this. However should you develop any fevers, redness or swelling of the arm, have any chest pain or shortness of air you should remove return to the ER. This dressing should remain in place until tomorrow. After that you can shower normally, apply thin layer of antibiotic ointment to the insertion site and a simple bandage
== END 2023-02-22 12:54 | disposition home or self-care (01) ==
LOC: ED 11:37
DX: Z45.2 Encounter for adjustment and management of vascular access device (principal)
CPT/HCPCS: 99281; 99283

== ENCOUNTER 2023-03-14 14:46 | Outpatient (CLI) | payer MEDICARE, OTHER | END 2023-03-14 14:47 | disposition home or self-care (01) | LOC: DI 14:46 | PROVIDERS: ATTEND Physician Assistant | DX: R55 Syncope and collapse (principal) | CPT/HCPCS: 93306 ==

== ENCOUNTER 2023-04-05 11:30 | Outpatient (CLI) | payer MEDICARE | END 2023-04-05 11:31 | disposition home or self-care (01) | LOC: MAC.INF 11:30 | PROVIDERS: ATTEND Physician Assistant | DX: I47.1 Supraventricular tachycardia (principal); I49.3 Ventricular premature depolarization | CPT/HCPCS: 93244 ==

== ENCOUNTER 2023-05-10 10:30 | Outpatient (CLI) | payer MEDICARE ==
[2023-05-10 10:55] LABS: BASOPHILS # (AUTO) 0.1 10^3/uL (0.0-0.1); BASOPHILS % (AUTO) 0.7 %; EOSINOPHILS # (AUTO) 0.1 10^3/uL (0.0-0.7); EOSINOPHILS % (AUTO) 1.1 %; HCT - HEMATOCRIT 44.5 % (37.0-47.0); HGB - HEMOGLOBIN 14.8 g/dL (12.0-16.0); LYMPHOCYTES # (AUTO) 2.2 10^3/uL (1.5-3.5); LYMPHOCYTES % (AUTO) 31.2 %; MEAN CORPUSCULAR HEMOGLOBIN 30.3 pg (27.0-31.0); MEAN CORPUSCULAR HGB CONC 33.3 g/dL (32.0-36.0); MEAN CORPUSCULAR VOLUME 91.2 fL (81.0-99.0); MEAN PLATELET VOLUME 11.1 fL (7.9-10.8); MONOCYTES # (AUTO) 0.4 10^3/uL (0.0-1.0); MONOCYTES % (AUTO) 5.4 %; NEUTROPHILS # (AUTO) 4.4 10^3/uL (1.5-6.6); NEUTROPHILS % (AUTO) 61.3 %; PLT - PLATELET COUNT 299 10^3/uL (130-450); RED BLOOD COUNT 4.88 10^6/uL (4.20-5.40); RED CELL DISTRIBUTION WIDTH 12.7 % (12.0-15.0); WHITE BLOOD COUNT 7.2 x10^3/uL (4.8-10.8)
[2023-05-10 11:13] LABS: CREATININE,URINE 228.4 mg/dL; MICROALBUM/CREATININE RATIO,UR 62.2 ug/mg (<30.0); MICROALBUMIN,URINE 14.2 mg/dL (0-300.0)
[2023-05-10 11:15] LABS: ALBUMIN 3.8 g/dL (3.2-5.5); ALKALINE PHOSPHATASE 120 IU/L (42-121); ALT ALANINE AMINOTRANSFERASE 17 IU/L (10-60); AST ASPARTATE AMINOTRANSFERASE 25 IU/L (10-42); BILIRUBIN,TOTAL 0.6 mg/dL (0.2-1.0); BUN - BLOOD UREA NITROGEN 16 mg/dL (6-20); CALCIUM 8.9 mg/dL (8.5-10.3); CARBON DIOXIDE - CO2 31 mmol/L (21-32); CHLORIDE 102 mmol/L (101-111); CHOL/HDL RATIO 2.5 (<4.4); CHOLESTEROL 120 mg/dL; CREATININE 1.1 mg/dL (0.4-1.0); GFR - MDRD 50 (>89); GLUCOSE 132 mg/dL (70-100); HDL CHOLESTEROL 48 mg/dL; LDL CHOLESTEROL,CALCULATED 42 mg/dL; LDL/HDL RATIO 0.9 (<4.4); POTASSIUM 3.8 mmol/L (3.5-5.0); SODIUM 140 mmol/L (135-145); TOTAL PROTEIN 7.5 g/dL (6.7-8.2); TRIGLYCERIDES 150 mg/dL; VLDL CHOLESTEROL 30 mg/dL
[2023-05-10 11:16] LABS: ESTIMATED AVERAGE GLUCOSE 194 mg/dL (70-100); HEMOGLOBIN A1c% 8.4 % (4.27-6.07)
--- NOTE | 2023-05-10 12:21 | XRAY Report ---
PROCEDURE: Abdomen Acute INDICATIONS: CONSTIPATION TECHNIQUE: 2 views of the abdomen were acquired. COMPARISON: None. FINDINGS: Surgical changes and devices: None. Chest: Lungs are clear. Heart size is normal. No pleural effusions. No pneumoperitoneum. Bowel: No pneumoperitoneum. The bowel gas pattern is normal. Mild scattered stool. Soft tissues: No masses; visualized solid organ contours appear normal in size. No suspicious abdom inal calcifications. Bones: No suspicious bony abnormalities. IMPRESSION: Mild scattered stool without obstruction. Reviewed by: Dipti Benson MD on 05/10/2023 12:19 PM PDT Approved by: Dipti Benson MD on 05/10/2023 12:19 PM PDT Station ID: [id number]
== END 2023-05-10 10:31 | disposition home or self-care (01) ==
LOC: DI 10:30
PROVIDERS: ATTEND Physician Assistant Medical
DX: K59.00 Constipation, unspecified (principal); E10.21 Type 1 diabetes mellitus with diabetic nephropathy; R10.84 Generalized abdominal pain
CPT/HCPCS: 36415; 80053; 80061; 82043; 82570; 83036; 83721; 85025

== ENCOUNTER 2023-10-01 09:36 | Outpatient (CLI) | payer OTHER ==
--- NOTE | 2023-10-01 13:13 | XRAY Report ---
PROCEDURE: Thoracic Spine 3 View INDICATIONS: BACK PAIN TECHNIQUE: 3 views of the thoracic spine were acquired. COMPARISON: None. FINDINGS: Bones: No fractures or dislocations. No suspicious bony lesions. 12 pairs of ribs are noted, and a ppear intact where visualized. Mild multilevel degenerative changes. Soft tissues: No paravertebral stripe thickening. IMPRESSION: No acute bony abnormality. If there is continued pain with targeted management, recommend further robe luation with cross-sectional imaging such as CT or MRI. Reviewed by: Krystyna Sharma MD on 10/01/2023 1:12 PM PST Approved by: Krystyna Sharma MD on 10/01/2023 1:12 PM PST Station ID: [id number]
== END 2023-10-01 09:37 | disposition home or self-care (01) ==
LOC: DI 09:36
PROVIDERS: ATTEND Physician Assistant Medical
DX: M54.6 Pain in thoracic spine (principal)

== ENCOUNTER 2024-01-02 16:39 | Outpatient (CLI) | payer MEDICARE | END 2024-01-02 16:40 | disposition EMS.NT | LOC: EMS 16:39 | DX: E10.649 Type 1 diabetes mellitus with hypoglycemia without coma (principal); R41.82 Altered mental status, unspecified ==

== ENCOUNTER 2024-06-25 06:23 | Day surgery (SDC) | payer MEDICARE, MEDICAID ==
[2024-06-25] MEDS: LACTATED RINGERS 1,000 ML IV ONE ×2 (06:26→07:50)
[2024-06-25] MEDS ORDERED: BRIMONIDINE 0.2% OPHTH DROPS 5 ML ONE (06:48)
[2024-06-25] MEDS ORDERED: EPINEPHrine 1 MG/ML AMP ONE (06:48)
[2024-06-25] MEDS ORDERED: BSS/LIDOCAINE/EPINEPHRINE 1 ML VIAL ONE (06:48)
[2024-06-25] MEDS ORDERED: TRIAMCIN/MOXIFLOX OPHTHALMIC 0.6 ML VIAL IO ONE (06:48)
[2024-06-25] MEDS ORDERED: TIMOLOL 0.5% OPHTH DROPS ONE (06:48)
[2024-06-25] MEDS ORDERED: ACETYLCHOLINE 20 MG/2 ML KIT IO ONE (06:49)
[2024-06-25] MEDS: KETOROLAC TROMETHAMINE 0.5% OPHTH DROPS 5 ML ONE (06:51)
[2024-06-25] MEDS: PROPARACAINE 0.5% OPHTH DROPS 15 ML ONE (06:51)
[2024-06-25] MEDS: CYCLOPENTOLATE 1% OPHTH DROPS 2 ML ONE (06:52)
[2024-06-25] MEDS: PHENYLEPHRINE 2.5% OPHTH 2 ML DROPS ONE (06:52)
[2024-06-25] MEDS ORDERED: MIDAZOLAM 2 MG/2 ML VIAL ONE (06:54)
--- NOTE | 2024-06-25 07:08 | ANESTHESIA ---
Pre-Anesthesia VS, & Labs - Diagnosis R eye cataract - Procedure extraction r cataract with IOL Vital Signs: Temp Pulse Resp BP Pulse Ox O2 Flow Rate 36.2 C L 68 18 171/74 H 100 06/25/24 06:32 06/25/24 06:32 06/25/24 06:32 06/25/24 06:32 06/25/24 06:32 Height: 5 ft 4 in Weight (kg): 66.4 kg Body Mass Index: 25.1 BMI Classification: Overweight - NPO >8 hours - Is Patient ?: No - Lab Results Lab results reviewed: Yes Home Medications and Allergies Home Medications: Ambulatory Orders Aspirin Chewable [St Teddy Aspirin] 81 mg PO DAILY 06/24/24 Atorvastatin Calcium 40 mg PO DAILY 06/24/24 Clopidogrel [Plavix] 75 mg PO DAILY 06/24/24 Gabapentin [Neurontin] 3 tab PO DAILY PM 06/24/24 Lisinopril [Zestril] 10 mg PO DAILY 06/24/24 Metoprolol Succinate 100 mg PO DAILY 06/24/24 Topiramate [Topamax] 25 mg PO DAILY 06/24/24 Insulin Aspart [Novolog] 24 unit SQ DAILY 06/25/24 Aspirin Chewable [St Teddy Aspirin] 81 mg PO DAILY 06/24/24 Atorvastatin Calcium 40 mg PO DAILY 06/24/24 Clopidogrel [Plavix] 75 mg PO DAILY 06/24/24 Gabapentin [Neurontin] 3 tab PO DAILY PM 06/24/24 Lisinopril [Zestril] 10 mg PO DAILY 06/24/24 Metoprolol Succinate 100 mg PO DAILY 06/24/24 Topiramate [Topamax] 25 mg PO DAILY 06/24/24 Insulin Aspart [Novolog] 24 unit SQ DAILY 06/25/24 Allergies/Adverse Reactions: Allergies Allergy/AdvReac Type Severity Reaction Status Date / Time Narcotics AdvReac Itching Uncoded 02/22/23 11:49 Anes History & Medical History - Anesthetic History Anesthesia Complications: reports: Post-Operative Nausea/Vomiting Family history of Anesthesia Complications: Denies Family history of Malignant Hyperthermia: Denies - Medical History Cardiovascular: reports: Hypertension, High cholesterol, Coronary artery disease, [place], Atrial fibrillation Pulmonary: reports: Sleep apnea Gastrointestinal: reports: GERD Urinary: reports: None Musculoskeletal: reports: None Endocrine/Autoimmune: reports: Type 1 diabetes - Surgical History Cardiothoracic: reports: Coronary stent Gynecologic: reports: Hysterectomy Orthopedic: reports: Other Exam General: Alert, Oriented x3, Cooperative Dental: WNL Mouth Openin Fingerbreadth Neck Mobility: Normal Mallampati classification: II Thyromental Distance: 4-6 cm Respiratory: Lungs clear, Normal breath sounds, Decreased breath sounds Cardiovascular: Regular rate, Other (stsest hx pvcs) Mental/Cognitive Status: Alert/Oriented X3, Normal for patient Cognitive Status: Within normal limits Plan Anesthesia Type: MAC Consent for Procedure(s) Verified and Reviewed: Yes Code Status: Attempt Resuscitation ASA classification: 3-Severe systemic disease Is this case an emergency?: No
[2024-06-25] MEDS: BSS/LIDOCAINE/EPINEPHRINE 1 ML SYRINGE IO ONE (07:39)
[2024-06-25] MEDS: EPINEPHrine 1 MG/ML AMP IR ONE (07:39)
[2024-06-25] MEDS: TIMOLOL 0.5% OPHTH DROPS OPTH ONE (07:39)
[2024-06-25] MEDS: BRIMONIDINE 0.2% OPHTH DROPS 5 ML OPTH ONE (07:39)
[2024-06-25] MEDS: VANCOMYCIN OPHTH (TOPICAL) 10 MG/ML SYRINGE TOP ONE (07:40)
[2024-06-25] MEDS: PROPARACAINE 0.5% OPHTH DROPS 15 ML RIGHTEYE ONE (07:40)
[2024-06-25] MEDS: TRIAMCIN/MOXIFLOX OPHTHALMIC 0.6 ML VIAL IO ONE (07:40)
--- NOTE | 2024-06-25 08:00 | OPERATIVE REPORT ---
Operative Report - Other Other Information/Narrative: Date of Surgery: 06/25/24 Preop Dx: Visually significant cataract right eye. This was the first cataract surgery. Postop Dx: Same Procedure: Phacoemulsification with posterior chamber intraocular lens implant right eye Surgeon: Dr. Ismael Raymond Anesthesia: Monitored anesthesia care Complications: None Operative Indications: This is a 68-year-old F with progressive vision loss in the right eye due to 4+ nuclear sclerotic cataract. Best corrected visual acuity was 20/40 with glare to 20/300 vision in the right eye. Indications for surgery were: - Overall decrease in vision - Difficulty seeing words on a computer screen - Difficulty reading - Difficulty seeing words, closed captions, or game scores on TV - Difficulty seeing street signs - Difficulty driving in low light or at night - Difficulty driving at night because of headlights from other vehicles - Difficulty with glare or bright lights in any situation - Difficulty tracking a golf ball The patient was consented at length concerning the risks and benefits of cataract surgery after which the patient expressed a desire to proceed with surgery. Operative Procedure: The patient was taken into OR#3 and placed under monitored anesthesia care. A surgical time-out was conducted confirming correct patient, correct procedure, and correct surgical site. The patient was given topical anesthesia and then prepped and draped in the usual sterile fashion. The eye was entered at the 6 and 3 oclock positions. Intracameral Shugarcaine was injected into the anterior chamber followed by a dispersive viscoelastic. A continuous-tear curvilinear capsulorhexis was performed. The nucleus was hydrodissected and phacoemulsified. The cortex was evacuated using automated infusion and aspiration. A cohesive viscoelastic was injected into the capsular bag and a 25.0 diopter intraocular lens was inserted into the bag. Infusion and aspiration were used to evacuate the viscoelastic materials from the eye. The wounds were hydrated and the eye inflated to physiologic pressure using balanced salt solution. Approximately 0.25ml of a mixture of triamcinolone and moxifloxacin was injected trans-sclerally into the vitreous in the inferotemporal quadrant using a 30 gauge cannula. An additional 0.25ml of a mixture of triamcinolone and moxifloxacin was injected subconjunctivally in the superior quadrant for infection and inflammation prophylaxis. Wound integrity was checked with Weck-Pinky sponges. The patient was taken from the operating room in good condition and given post-op instructions.
--- NOTE | 2024-06-25 08:08 | ANESTHESIA POST OP EVALUATION ---
Anesthesia Post Eval - Post Anesthesia Eval Vitals: Last Vital Signs Temp 36.1 C L 06/25/24 07:50 Pulse 68 06/25/24 07:50 Resp 16 06/25/24 07:50 BP 170/71 H 06/25/24 07:50 Pulse Ox 100 06/25/24 07:50 O2 Flow Rate CV Function Including HR & BP: Stable Pain Control: Satisfactory Nausea & Vomiting: Negative Mental Status: Baseline Respiratory Status: Airway Patent Hydration Status: Satisfactory Anesthesia Complications: None
[2024-06-25 08:20] VITALS: BP 166/70; O2SAT 99
== END 2024-06-25 06:24 | disposition home or self-care (01) ==
LOC: SDS 06:23
PROVIDERS: ATTEND Ophthalmology
DX: E10.36 Type 1 diabetes mellitus with diabetic cataract (principal); H25.11 Age-related nuclear cataract, right eye; I10 Essential (primary) hypertension; I25.10 Atherosclerotic heart disease of native coronary artery without angina pectoris; I25.2 Old myocardial infarction; G47.30 Sleep apnea, unspecified; Z79.4 Long term (current) use of insulin; Z79.02 Long term (current) use of antithrombotics/antiplatelets; Z79.82 Long term (current) use of aspirin; I48.91 Unspecified atrial fibrillation
CPT/HCPCS: 66984; A9270; J3490; J7120

== ENCOUNTER 2024-07-13 09:34 | Outpatient (CLI) | payer MEDICARE, MEDICAID ==
--- NOTE | 2024-07-21 09:45 | Mammography Report ---
BILATERAL DIGITAL SCREENING MAMMOGRAM 3D/2D: 07/13/2024 CLINICAL: Routine screening. Family history of breast cancer. Comparison is made to exams dated: 10/02/2021 mammogram - [facility], 05/13/2017 mammogram, and 01/27 mammogram - outside location. The breasts are heterogeneously dense, which may obscure small masses (category c / 51-75% glandular tissue). No significant masses, calcifications, or other findings are seen in either breast. There has been no significant interval change. IMPRESSION: NEGATIVE There is no mammographic evidence of malignancy. A 1 year screening mammogram is recommended. Based on the Tyrer Cuzick model (a risk assessment model) the patient's lifetime risk is 13.1% and he r 10 year risk is 7.4%. According to the ACR, ACS, and NCCN guidelines, an annual breast MRI exam han ng with mammogram is recommended if the patient's lifetime risk is 20% or greater. This exam was interpreted at Station ID: [id number]. NOTE: For mammograms, a report in lay terms will be sent to the patient. Approximately 15% of breast malignancies will not be visualized mammographically. In the management of a palpable breast mass, a negative mammogram must not discourage biopsy of a clinically suspicious lesion. Electronically Signed By: Dequan Dunbar M.D. [facility] [place]:07/21/2024 08:55:43 letter sent: No_Letter [facility] BI-RADS Category 1: Negative PARENCHYMAL PATTERN: (D) - The breast(s) demonstrate(s) heterogeneously dense fibroglandular serene blum. BI-RADS CATEGORY: (1) - 1 RECOMMENDATION: (ANNUAL) - Recommend routine annual screening mammography. [id number] 1 year screening LATERALITY: (B)
== END 2024-07-13 09:35 | disposition home or self-care (01) ==
LOC: DI.N 09:34
DX: Z12.31 Encounter for screening mammogram for malignant neoplasm of breast (principal); Z80.3 Family history of malignant neoplasm of breast; R92.333 Mammographic heterogeneous density, bilateral breasts

== ENCOUNTER 2024-07-13 09:42 | Outpatient (CLI) | payer MEDICARE, MEDICAID ==
[2024-07-13 12:44] LABS: BASOPHILS # (AUTO) 0.1 10^3/uL (0.0-0.1); BASOPHILS % (AUTO) 0.6 %; EOSINOPHILS # (AUTO) 0.1 10^3/uL (0.0-0.7); EOSINOPHILS % (AUTO) 0.9 %; HCT - HEMATOCRIT 43.7 % (37.0-47.0); HGB - HEMOGLOBIN 14.1 g/dL (12.0-16.0); LYMPHOCYTES # (AUTO) 3.1 10^3/uL (1.5-3.5); LYMPHOCYTES % (AUTO) 36.3 %; MEAN CORPUSCULAR HEMOGLOBIN 31.8 pg (27.0-31.0); MEAN CORPUSCULAR HGB CONC 32.3 g/dL (32.0-36.0); MEAN CORPUSCULAR VOLUME 98.6 fL (81.0-99.0); MEAN PLATELET VOLUME 11.5 fL (7.9-10.8); MONOCYTES # (AUTO) 0.6 10^3/uL (0.0-1.0); MONOCYTES % (AUTO) 6.4 %; NEUTROPHILS # (AUTO) 4.8 10^3/uL (1.5-6.6); NEUTROPHILS % (AUTO) 55.6 %; PLT - PLATELET COUNT 318 10^3/uL (130-450); RED BLOOD COUNT 4.43 10^6/uL (4.20-5.40); RED CELL DISTRIBUTION WIDTH 12.9 % (12.0-15.0); WHITE BLOOD COUNT 8.7 x10^3/uL (4.8-10.8)
[2024-07-13 13:08] LABS: ALBUMIN 4.1 g/dL (3.2-5.5); ALBUMIN/GLOBULIN RATIO 1.6 (1.0-2.2); ALKALINE PHOSPHATASE 75 IU/L (42-121); ALT ALANINE AMINOTRANSFERASE 22 IU/L (10-60); AST ASPARTATE AMINOTRANSFERASE 21 IU/L (10-42); BILIRUBIN,TOTAL 0.5 mg/dL (0.2-1.0); BUN - BLOOD UREA NITROGEN 19 mg/dL (6-20); CALCIUM 9.2 mg/dL (8.5-10.3); CARBON DIOXIDE - CO2 29 mmol/L (21-32); CHLORIDE 107 mmol/L (101-111); CHOLESTEROL 113 mg/dL; CREATININE 1.1 mg/dL (0.6-1.3); GFR - MDRD 49 (>89); GLUCOSE 176 mg/dL (74-104); HDL CHOLESTEROL 56 mg/dL; LDL CHOLESTEROL,CALCULATED 39 mg/dL; LDL/HDL RATIO 0.7 (<4.4); POTASSIUM 4.2 mmol/L (3.5-4.5); SODIUM 140 mmol/L (135-145); TOTAL PROTEIN 6.6 g/dL (6.4-8.9); TRIGLYCERIDES 91 mg/dL; VLDL CHOLESTEROL 18 mg/dL
[2024-07-13 13:11] LABS: CREATININE,URINE 157.7 mg/dL; MICROALBUM/CREATININE RATIO,UR 20.9 ug/mg (<30.0); MICROALBUMIN,URINE 3.3 mg/dL
[2024-07-13 13:12] LABS: PHOSPHORUS 4.1 mg/dL (2.5-5.0)
[2024-07-13 13:17] LABS: THYROID STIMULATING HORMONE 1.95 uIU/mL (0.34-5.60)
[2024-07-13 13:43] LABS: ESTIMATED AVERAGE GLUCOSE 131 mg/dL (70-100); HEMOGLOBIN A1c% 6.2 % (4.27-6.07)
== END 2024-07-13 09:43 | disposition home or self-care (01) ==
LOC: LAB.N 09:42
PROVIDERS: ATTEND Student in an Organized Health Care Education/Training Program
DX: E10.65 Type 1 diabetes mellitus with hyperglycemia (principal); E10.21 Type 1 diabetes mellitus with diabetic nephropathy; I10 Essential (primary) hypertension
CPT/HCPCS: 36415; 80053; 80061; 82043; 82570; 83036; 83721; 84100; 84439; 84443; 85025